=== PATIENT | female | born 1945 | race Caucasian/White ===

== ENCOUNTER 2017-07-03 22:46 | Inpatient (IN) | payer MEDICARE, MEDICAID ==
[2017-07-03 22:46] VITALS: BMI 41.9
[2017-07-03] MEDS ORDERED: cefTRIAXone IV 1 gm in Dextros 50 ML IVPB ONE ×2 (23:08→23:53)
[2017-07-03] MEDS ORDERED: DEXTROS IVPB STA (23:09)
[2017-07-03] MEDS ORDERED: CEFTRIAXONE IVPB STA (23:09)
[2017-07-03] MEDS ORDERED: WATER IVPB STA (23:09)
[2017-07-03] MEDS ORDERED: DEXTROSE 5% IVPB STA (23:09)
--- NOTE | 2017-07-03 23:12 | C.PDOC ---
History Of Present Illness 71 year old female is brought to the ED by EMS for evaluation of a seizure. Patient was brought in from [place] due to having high fevr of 102, tachycardia at 140 BPM. Patient is baseline aphasic sp CVA, upon arrival to the ED patient was shaking and 2 mg of ativan was given. Patient unable to answer questions. Chief Complaint (Nursing): Fever History Per: EMS History/Exam Limitations: clinical condition Onset/Duration Of Symptoms: Hrs Current Symptoms Are (Timing): Still Present Associated Symptoms: Fever Recent travel outside of the [place]: No Additional History Per: Patient Past Medical History Reviewed: Historical Data, Nursing Documentation, Vital Signs Vital Signs: Last Vital Signs Temp 100.9 F H 07/04/17 01:45 Pulse 109 H 07/04/17 04:00 Resp 25 H 07/04/17 04:00 BP 114/58 L 07/04/17 04:00 Pulse Ox 100 07/04/17 04:17 - Medical History PMH: Depression, Diabetes, HTN, Hypercholesterolemia, Seizures Denies: Asthma, Atrial Fibrillation, Bronchitis, Cardia Arrhythmia, CHF, COPD , Emphysema, Mitral Valve Prolapse, Peripheral Edema, Pneumonia, Pulmonary Embolism, Chronic Kidney Disease, Sleep Apnea Surgical History: Cholecystectomy, Tonsillectomy Denies: Pacemaker - [facility] Procedures ASSISTANCE WITH RESPIRATORY VENTILATION, 24-96 HRS, CPAP (05/19/16) DRAINAGE OF SPINAL CANAL, PERCUTANEOUS APPROACH, DIAGNOSTIC (02/21/16) DRAINAGE OF STOMACH WITH DRAINAGE DEVICE, VIA OPENING (02/21/16) EXCISION OF STOMACH, ENDO, DIAGN (02/21/16) INSERTION OF FEEDING DEVICE INTO STOMACH, PERC APPROACH (02/21/16) INTRODUCTION OF NUTRITIONAL INTO UP GI, VIA OPENING (05/19/16) Family History: States: Unknown Family Hx - Social History Hx Tobacco Use: Yes Hx Alcohol Use: No Hx Substance Use: No - Immunization History Hx Tetanus Toxoid Vaccination: Yes Hx Influenza Vaccination: Yes Hx Pneumococcal Vaccination: Yes Review Of Systems Review Of Systems: ROS cannot be obtained secondary to pt's inabilty to answer questions. Physical Exam - Physical Exam Appears: Non-toxic, Other (Unresponsive, focal seizure noted, left side twitching) Skin: Normal Color, Warm, Dry Head: Atraumatic, Normacephalic Nose: No Discharge, No Deformity Oral Mucosa: Moist Neck: Normal ROM, Supple Chest: Symmetrical Cardiovascular: Rhythm Regular, No Murmur Respiratory: Normal Breath Sounds, No Rales, No Rhonchi, No Wheezing Gastrointestinal/Abdominal: Soft, No Tenderness, No Guarding, No Rebound Extremity: No Tenderness, No Pedal Edema Neurological/Psych: Other (Unresponsive ) ED Course And Treatment - Laboratory Results Result Diagrams: 07/04/17 00:09 07/04/17 00:09 ECG: Interpreted By Me ECG Rhythm: Sinus Tachycardia ECG Interpretation: Normal Interpretation Of ECG: NSSTTW changes,sinus tach at 130 bpm O2 Sat by Pulse Oximetry: 100 (On RA) Pulse Ox Interpretation: Normal Critical Care Time - Critical Care Note Total Time (in mins): 45 Documented critical care: time excludes all time spent performing seperately billable procedures. Lumbar Puncture - Time Out Time Out: Side verified, Site verified, Patient ID confirmed, Sterile procedures obs. - Consent obtained Consent obtained: Emergent consent implied - Performed by Performed by: Attending Physician - Indications Indication(s): Suspected menigitis - Contraindications Contraindications: None - Patient Position Patient position: Left lateral decubitus - Local Anesthetic Location: L4/L5 - Complications Complications: None - Patient tolerated procedure Patient tolerated procedure: Well Medical Decision Making Medical Decision Making: Impression: possible seizure Plan: * VBG * EKG * LP * Labs * CXR * Ativan 2 mg IVP * IV fluids * Rocephin 50 ml IVPB * Tylenol 650 mg SC * Blood cult * Urine cult * CSF culkt * Urine cult * UA Disposition - Disposition Disposition: HOSPITALIZED Disposition Time: 04:19 Condition: SERIOUS - Clinical Impression Clinical Impression: Fever, Severe sepsis, Seizure disorder, atonic - Scribe Statement The provider has reviewed the documentation as recorded by the Scribe Colton Payan All medical record entries made by the Scribe were at my direction and personally dictated by me. I have reviewed the chart and agree that the record accurately reflects my personal performance of the history, physical exam, medical decision making, and the department course for this patient. I have also personally directed, reviewed, and agree with the discharge instructions and disposition.
[2017-07-03] MEDS ORDERED: Sodium Chloride 0.9% 2,000 ML ONE (23:39)
[2017-07-04 00:01] LABS: VENOUS BLOOD GAS BASE EXCESS 1.2 mmol/L (0.0-2.0); VENOUS BLOOD GAS PCO2 63 mmHg (40-60); VENOUS BLOOD GAS PO2 93 mm/Hg (30-55); VENOUS BLOOD PH 7.28 (7.32-7.43)
[2017-07-04 00:35] LABS: ALB/GLOB RATIO 1.1 (1.0-2.1); ALBUMIN 4.5 g/dL (3.5-5.0); ALT/SGPT 25 U/L (9-52); AST/SGOT 46 U/L (14-36); BLOOD UREA NITROGEN 45 mg/dL (7-17); CALCIUM 10.2 mg/dl (8.6-10.4); GFR AFRICAN-AMERICAN > 60; GFR NON-AFRICAN AMERICAN > 60
[2017-07-04 00:38] LABS: INR 1.1; PROTHROMBIN TIME 12.2 SECONDS (9.7-12.2)
[2017-07-04 00:41] LABS: BASO # 0.1 K/uL (0.0-0.2); BASO % 0.3 % (0.0-2.0); HEMOGLOBIN 14.8 g/dL (11.0-16.0); LYMPH # 0.9 K/uL (1.0-4.3); LYMPH % 4.7 % (20.0-40.0); MEAN CELL VOLUME 87.2 fL (81.0-99.0); MEAN CORPUSCULAR HEMOGLOBIN 28.3 pg (27.0-31.0); MEAN CORPUSCULAR HGB CONC 32.4 g/dL (33.0-37.0); MEAN PLATELET VOLUME 10.8 fL (7.2-11.7); MONO # 0.5 K/uL (0.0-0.8); MONO % 2.7 % (0.0-10.0); NEUT # 17.9 K/uL (1.8-7.0); NEUT % 92.3 % (50.0-75.0); NRBC % 0.2 % (0.0-2.0); PLATELET COUNT 368 K/uL (130-400); RBC 5.22 Mil/uL (3.80-5.20); RED CELL DISTRIBUTION WIDTH 13.8 % (11.5-14.5); WHITE BLOOD COUNT 19.4 K/uL (4.8-10.8)
[2017-07-04 00:48] LABS: B-TYPE NATRIURETIC PEPTIDE 323 pg/mL (0-900)
[2017-07-04] MEDS: Lactated Ringer's 1,000 ML IV SCH ×2 (01:40→04:11)
[2017-07-04] MEDS ORDERED: Lactated Ringer's 1,000 ML ONE ×2 (01:45→04:12)
[2017-07-04 01:59] LABS: FLUID TYPE SPINAL FLUID
[2017-07-04 02:23] LABS: SQUAMOUS EPITHIAL < 1 /hpf (0-5); URINE BACTERIA FEW (<OCC); URINE BILIRUBIN NEGATIVE (NEGATIVE); URINE BLOOD 1+ (NEGATIVE); URINE CLARITY Hazy (Clear); URINE COLOR Amber (YELLOW); URINE GLUCOSE (UA) NORMAL (Normal); URINE LEUKOCYTE ESTERASE NEG Leu/uL (Negative); URINE NITRATE NEGATIVE (NEGATIVE); URINE PROTEIN 2+ mg/dL (NEGATIVE)
[2017-07-04 02:26] LABS: ARTERIAL BLOOD GAS HCO3 30.4 mmol/L (21-28); ARTERIAL BLOOD GAS HEMOGLOBIN 12.6 g/dL (11.7-17.4); ARTERIAL BLOOD GAS O2 SAT 96.6 % (95-98); ARTERIAL BLOOD GAS PCO2 71 mm/Hg (35-45); ARTERIAL BLOOD GAS PH 7.31 (7.35-7.45); ARTERIAL BLOOD GAS PO2 76 mm/Hg (80-100); ARTERIAL BLOOD GAS TCO2 37.9 mmol/L (22-28)
[2017-07-04 02:43] LABS: CSF APPEARANCE CLEAR/COLORLESS (CLEAR); CSF MONO/MACROPHAGE 9 % (0-0); CSF VOLUME 1 mL (0-1)
--- NOTE | 2017-07-04 02:50 | CT ---
EXAM: CT Head Without Intravenous Contrast CLINICAL HISTORY: 71 years old, female; Pain; Headache and other: Seizure , code spcesis; Patient HX: 05-19-16 TECHNIQUE: Axial computed tomography images of the head/brain without intravenous contrast. All CT scans at this facility use one or more dose reduction techniques, viz.: automated exposure control; ma/kV adjustment per patient size (including targeted exams where dose is matched to indication; i.e. head); or iterative reconstruction technique. 382 images are submitted. Coronal and sagittal reformatted images were created and reviewed. Axial reformatted images were created and reviewed. COMPARISON: CT - HEAD W/O CONTRAST 2016-05-19 17:25 FINDINGS: Brain: Cerebral and cerebellar volume loss. Patchy hypodensity is seen in the periventricular and subcortical white matter. No hemorrhage. Ventricles: Ventriculomegaly. Bones/joints: Unremarkable. No acute fracture. Soft tissues: Unremarkable. Sinuses: Unremarkable. No acute sinusitis. Mastoid air cells: Unremarkable. No mastoid effusion. Orbits: The globe and lens are intact. IMPRESSION: No evidence of an acute intracranial hemorrhage, midline shift or mass effect is identified.
[2017-07-04 04:40] LABS: BANDS 1 % (0-2); LYMPHOCYTE 11 % (20-40); NEUTROPHIL 88 % (50-75); PLATELET ESTIMATE NORMAL (NORMAL); TOTAL CELLS COUNTED 100
[2017-07-04] MEDS ORDERED: (Novolin R) Insulin Human Regular 100 units/ml vial SC SCH ×2 (06:00→12:00)
[2017-07-04 06:38] LABS: VENOUS BLOOD GAS BASE EXCESS 4.5 mmol/L (0.0-2.0); VENOUS BLOOD GAS PCO2 61 mmHg (40-60); VENOUS BLOOD GAS PO2 49 mm/Hg (30-55); VENOUS BLOOD PH 7.33 (7.32-7.43)
[2017-07-04 06:48] LABS: INR 1.1; PROTHROMBIN TIME 12.2 SECONDS (9.7-12.2)
--- NOTE | 2017-07-04 06:49 | CP.PCM.CON ---
History of Present Illness - History of Present Illness History of Present Illness: 71 F with h/o anoxic injury, siezure, recent fever, with seizure, with uti recently sent in from [place] for fever, ams, shaking. In ER patient was given ativan the shaking stopped. Temp was 104, tachycardic needing about 40% fio2, hemoconcentrated, on labs, non communicative, but would try to close eyes when try to touch cornea/conjuctiva, suggesting some vision, and not status behaviour. Patient admitted to ICU for multiple co-morbidities, sepsis, poor airway protection due anoxia hence higher risk for aspiration. Allergies: none PMHx: DM, HTN, Hypercholesterolemia, depression Meds from [place]:Reviewed PSHx: Cholecystectomy, Tonsillectomy, s/p peg Family Hx: unknown Social Hx: 1ppd smoker x 30-40years, no alcohol or substance use Past Patient History - Past Medical History & Family History Past Medical History?: Yes - Past Social History Smoking Status: Former Smoker Home Situation {Lives}: Longterm Domestic Violence: Negative - CARDIAC Hx Atrial Fibrillation: No Hx Cardia Arrhythmia: No Hx Congestive Heart Failure: No Hx Hypercholesterolemia: Yes Hx Hypertension: Yes Hx Mitral Valve Prolapse: No Hx Pacemaker: No Hx Peripheral Edema: No - PULMONARY Hx Asthma: No Hx Bronchitis: No Hx Chronic Obstructive Pulmonary Disease (COPD): No Hx Emphysema: No Hx Pneumonia: No Hx Pulmonary Embolism: No Hx Sleep Apnea: No - NEUROLOGICAL Hx Seizures: Yes - HEENT Hx HEENT Problems: No - RENAL Hx Chronic Kidney Disease: No - ENDOCRINE/METABOLIC Hx Diabetes Mellitus Type 1: Yes - HEMATOLOGICAL/ONCOLOGICAL Hx Blood Disorders: No - INTEGUMENTARY Hx Dermatological Problems: No - MUSCULOSKELETAL/RHEUMATOLOGICAL Hx Musculoskeletal Disorders: No - GASTROINTESTINAL Other/Comment: Patient verbalized having diarrhea and vomitting for 3 days, No diarrhea nor vimitting since admission. - GENITOURINARY/GYNECOLOGICAL Hx Genitourinary Disorders: No - PSYCHIATRIC Hx Depression: Yes Hx Substance Use: No - SURGICAL HISTORY Hx Cholecystectomy: Yes Hx Tonsillectomy: Yes - ANESTHESIA Hx Anesthesia: Yes Hx Anesthesia Reactions: No Hx Malignant Hyperthermia: No Meds Allergies/Adverse Reactions: Allergies Allergy/AdvReac Type Severity Reaction Status Date / Time No Known Allergies Allergy Verified 07/03/17 23:18 - Medications Medications: Current Medications Acetaminophen (Tylenol 650 Mg Supp) [address] Q6 PRN PRN Reason: Fever >100.4 F Enoxaparin Sodium (Lovenox) 40 mg SC DAILY [facility] Lactated Ringer's (Lactated Ringer's) 1,000 mls @ 250 mls/hr IV .Q4H DENNIS Last Admin: 07/04/17 04:11 Dose: 250 mls/hr Potassium Chloride 20 meq/ (Sodium Chloride) 1,010 mls @ 100 mls/hr IV .Q10H6M [facility] Insulin Detemir (Levemir) 22 unit SC HS [facility] Insulin Human Regular (Novolin R) 0 unit SC Q6 DENNIS PRN Reason: Protocol Levetiracetam (Keppra) 500 mg PEG BID [facility]NIS Metoprolol Tartrate (Lopressor) 25 mg PEG DAILY [facility] Rosuvastatin Calcium (Crestor) 10 mg PEG DAILY [facility] Physical Exam - Additional Findings Additional findings: HEENT movements sometime appear focusing Neck Supple Chest Clear CVS regular, tachycardia PA peg site oozing, small erythema Ext no edema, both feet drop, left arm contracture, right arm some flickering movements [employer] aphaxic, not purposeful moements, present conjuctival and corneal reflexs Results - Vital Signs Recent Vital Signs: Last Vital Signs Temp 100.6 F H 07/04/17 04:50 Pulse 109 H 07/04/17 04:00 Resp 25 H 07/04/17 04:00 BP 114/58 L 07/04/17 04:00 Pulse Ox 100 07/04/17 04:19 - Labs Result Diagrams: 07/04/17 00:09 07/04/17 00:09 Labs: Laboratory Results - last 24 hr 07/03/17 07/04/17 07/04/17 23:50 00:09 00:09 WBC 19.4 H D RBC 5.22 H Hgb 14.8 D Hct 45.5 MCV 87.2 MCH 28.3 MCHC 32.4 L RDW 13.8 Plt Count 368 D MPV 10.8 Neut % (Auto) 92.3 H Lymph % (Auto) 4.7 L Bradley % (Auto) 2.7 Eos % (Auto) 0.0 Baso % (Auto) 0.3 Neut # (Auto) 17.9 H Lymph # (Auto) 0.9 L Bradley # (Auto) 0.5 Eos # (Auto) 0.0 Baso # (Auto) 0.1 Neutrophils % (Manual) 88 H Band Neutrophils % 1 Lymphocytes % (Manual) 11 L Platelet Estimate Normal PT 12.2 INR 1.1 APTT 26 Puncture Site pCO2 pO2 93 H HCO3 ABG pH ABG Total CO2 ABG O2 Saturation ABG Base Excess ABG Hemoglobin ABG Carboxyhemoglobin POC ABG HHb (Measured) ABG Methemoglobin Arthur Test VBG pH 7.28 L VBG pCO2 63 H VBG HCO3 25.8 VBG Total CO2 31.5 H VBG O2 Sat (Calc) 98.3 H VBG Base Excess 1.2 VBG Potassium 4.9 A-a O2 Difference Respiratory Index Hgb O2 Saturation Sodium 152.0 H Chloride 115.0 H Glucose 319 H Lactate 3.4 H Liter Flow FiO2 Crit Value Called To Crit Value Called By Crit Value Read Back Blood Gas Notified Time Potassium Carbon Dioxide Anion Gap BUN Creatinine Est GFR ( Amer) Est GFR (Non-Af Amer) Random Glucose Lactic Acid Calcium Phosphorus Magnesium Total Bilirubin AST ALT Alkaline Phosphatase Troponin I C-React Prot High Sens NT-Pro-B Natriuret Pep Total Protein Albumin Globulin Albumin/Globulin Ratio Venous Blood Potassium 4.9 Urine Color Urine Clarity Urine pH Ur Specific Dixon Urine Protein Urine Glucose (UA) Urine Ketones Urine Blood Urine Nitrate Urine Bilirubin Urine Urobilinogen Ur Leukocyte Esterase Urine WBC (Auto) Urine RBC (Auto) Ur Squamous Epith Cells Urine Bacteria Urine Yeast (Budding) Fluid Type CSF Volume CSF Appearance CSF WBC CSF RBC CSF Total Cell Counted CSF Neutrophils CSF Lymphocytes CSF Monos/Macrophages CSF Comment CSF Glucose 07/04/17 07/04/17 07/04/17 00:09 00:09 00:22 WBC RBC Hgb Hct MCV MCH MCHC RDW Plt Count MPV Neut % (Auto) Lymph % (Auto) Bradley % (Auto) Eos % (Auto) Baso % (Auto) Neut # (Auto) Lymph # (Auto) Bradley # (Auto) Eos # (Auto) Baso # (Auto) Neutrophils % (Manual) Band Neutrophils % Lymphocytes % (Manual) Platelet Estimate PT INR APTT Puncture Site pCO2 pO2 HCO3 ABG pH ABG Total CO2 ABG O2 Saturation ABG Base Excess ABG Hemoglobin ABG Carboxyhemoglobin POC ABG HHb (Measured) ABG Methemoglobin Arthur Test VBG pH VBG pCO2 VBG HCO3 VBG Total CO2 VBG O2 Sat (Calc) VBG Base Excess VBG Potassium A-a O2 Difference Respiratory Index Hgb O2 Saturation Sodium 152 H Chloride 97 L Glucose Lactate Liter Flow FiO2 Crit Value Called To Crit Value Called By Crit Value Read Back Blood Gas Notified Time Potassium 3.2 L Carbon Dioxide 32 H Anion Gap 26 H BUN 45 H Creatinine 0.9 Est GFR ( Amer) > 60 Est GFR (Non-Af Amer) > 60 Random Glucose 327 H Lactic Acid 3.9 H Calcium 10.2 Phosphorus 4.7 H Magnesium 2.0 Total Bilirubin 0.8 AST 46 H ALT 25 Alkaline Phosphatase 75 Troponin I 0.3950 H* C-React Prot High Sens NT-Pro-B Natriuret Pep 323 Total Protein 8.5 H Albumin 4.5 Globulin 4.0 H Albumin/Globulin Ratio 1.1 Venous Blood Potassium Urine Color Urine Clarity Urine pH Ur Specific Dixon Urine Protein Urine Glucose (UA) Urine Ketones Urine Blood Urine Nitrate Urine Bilirubin Urine Urobilinogen Ur Leukocyte Esterase Urine WBC (Auto) Urine RBC (Auto) Ur Squamous Epith Cells Urine Bacteria Urine Yeast (Budding) Fluid Type CSF Volume CSF Appearance CSF WBC CSF RBC CSF Total Cell Counted CSF Neutrophils CSF Lymphocytes CSF Monos/Macrophages CSF Comment CSF Glucose 168 H* 07/04/17 07/04/17 07/04/17 01:58 02:08 02:20 WBC RBC Hgb Hct MCV MCH MCHC RDW Plt Count MPV Neut % (Auto) Lymph % (Auto) Bradley % (Auto) Eos % (Auto) Baso % (Auto) Neut # (Auto) Lymph # (Auto) Bradley # (Auto) Eos # (Auto) Baso # (Auto) Neutrophils % (Manual) Band Neutrophils % Lymphocytes % (Manual) Platelet Estimate PT INR APTT Puncture Site Rb pCO2 71 H* pO2 76 L HCO3 30.4 H ABG pH 7.31 L ABG Total CO2 37.9 H ABG O2 Saturation 96.6 ABG Base Excess 7.1 H ABG Hemoglobin 12.6 ABG Carboxyhemoglobin 1.6 H POC ABG HHb (Measured) 3.3 ABG Methemoglobin 1.6 Arthur Test Na VBG pH VBG pCO2 VBG HCO3 VBG Total CO2 VBG O2 Sat (Calc) VBG Base Excess VBG Potassium A-a O2 Difference 85.0 Respiratory Index 1.1 Hgb O2 Saturation 93.5 L Sodium Chloride Glucose Lactate Liter Flow 4.0 FiO2 35.0 Crit Value Called To Rosalina vernon/rn Crit Value Called By Navid reich/rt Crit Value Read Back Y Blood Gas Notified Time 230 Potassium Carbon Dioxide Anion Gap BUN Creatinine Est GFR ( Amer) Est GFR (Non-Af Amer) Random Glucose Lactic Acid Calcium Phosphorus Magnesium Total Bilirubin AST ALT Alkaline Phosphatase Troponin I C-React Prot High Sens NT-Pro-B Natriuret Pep Total Protein Albumin Globulin Albumin/Globulin Ratio Venous Blood Potassium Urine Color Wendi Urine Clarity Hazy Urine pH 5.0 Ur Specific Dixon 1.025 Urine Protein 2+ H Urine Glucose (UA) Normal Urine Ketones Trace Urine Blood 1+ H Urine Nitrate Negative Urine Bilirubin Negative Urine Urobilinogen 2.0 H Ur Leukocyte Esterase Neg Urine WBC (Auto) 12 H Urine RBC (Auto) 21 H Ur Squamous Epith Cells < 1 Urine Bacteria Few H Urine Yeast (Budding) Few H Fluid Type Spinal fluid CSF Volume 1 CSF Appearance Clear/colorless CSF WBC 9.0 H CSF RBC 290.0 H CSF Total Cell Counted 100 H CSF Neutrophils 11 H CSF Lymphocytes 80.0 H CSF Monos/Macrophages 9 H CSF Comment CSF Glucose 07/04/17 07/04/17 04:16 05:18 WBC RBC Hgb Hct MCV MCH MCHC RDW Plt Count MPV Neut % (Auto) Lymph % (Auto) Bradley % (Auto) Eos % (Auto) Baso % (Auto) Neut # (Auto) Lymph # (Auto) Bradley # (Auto) Eos # (Auto) Baso # (Auto) Neutrophils % (Manual) Band Neutrophils % Lymphocytes % (Manual) Platelet Estimate PT INR APTT Puncture Site pCO2 pO2 HCO3 ABG pH ABG Total CO2 ABG O2 Saturation ABG Base Excess ABG Hemoglobin ABG Carboxyhemoglobin POC ABG HHb (Measured) ABG Methemoglobin Arthur Test VBG pH VBG pCO2 VBG HCO3 VBG Total CO2 VBG O2 Sat (Calc) VBG Base Excess VBG Potassium A-a O2 Difference Respiratory Index Hgb O2 Saturation Sodium Chloride Glucose Lactate Liter Flow FiO2 Crit Value Called To Crit Value Called By Crit Value Read Back Blood Gas Notified Time Potassium Carbon Dioxide Anion Gap BUN Creatinine Est GFR ( Amer) Est GFR (Non-Af Amer) Random Glucose Lactic Acid 0.9 Calcium Phosphorus Magnesium Total Bilirubin AST ALT Alkaline Phosphatase Troponin I C-React Prot High Sens 3.75 H NT-Pro-B Natriuret Pep Total Protein Albumin Globulin Albumin/Globulin Ratio Venous Blood Potassium Urine Color Urine Clarity Urine pH Ur Specific Dixon Urine Protein Urine Glucose (UA) Urine Ketones Urine Blood Urine Nitrate Urine Bilirubin Urine Urobilinogen Ur Leukocyte Esterase Urine WBC (Auto) Urine RBC (Auto) Ur Squamous Epith Cells Urine Bacteria Urine Yeast (Budding) Fluid Type CSF Volume CSF Appearance CSF WBC CSF RBC CSF Total Cell Counted CSF Neutrophils CSF Lymphocytes CSF Monos/Macrophages CSF Comment CSF Glucose Assessment & Plan - Assessment and Plan (Free Text) Assessment: Assessment Sepsis with fever, leucocytosis, secondary seizure source dd is urine, peg site , bacterimia, cdiff, aspiration, previously esbs psoitive Aphasia from anoxic damage h/o seizures from second, fever could be secondary to seizures as well, but will consider infectious etiology as primay and rule it out CAD IDDM, uncontrolled Elevated lactate, high sodium, hemoconcentration probably from fever and siezure Plan: Plan IVF Supportive care Emperic meropenem, vancomycin ID, GI for peg site infn, neuro consult GI/DVT prophylaxis Home meds continue keppra, reduce dose of levimir, npo till gi assess peg Asperation/seizure precautions.
[2017-07-04 06:53] LABS: BASO % 0.2 % (0.0-2.0); HEMOGLOBIN 11.6 g/dL (11.0-16.0); LYMPH # 0.7 K/uL (1.0-4.3); LYMPH % 5.2 % (20.0-40.0); MEAN CELL VOLUME 87.8 fL (81.0-99.0); MEAN CORPUSCULAR HEMOGLOBIN 28.7 pg (27.0-31.0); MEAN CORPUSCULAR HGB CONC 32.7 g/dL (33.0-37.0); MEAN PLATELET VOLUME 10.4 fL (7.2-11.7); MONO # 0.4 K/uL (0.0-0.8); MONO % 3.1 % (0.0-10.0); NEUT # 12.3 K/uL (1.8-7.0); NEUT % 91.5 % (50.0-75.0); PLATELET COUNT 206 K/uL (130-400); RBC 4.05 Mil/uL (3.80-5.20); RED CELL DISTRIBUTION WIDTH 13.4 % (11.5-14.5); WHITE BLOOD COUNT 13.5 K/uL (4.8-10.8)
[2017-07-04 06:54] LABS: ALB/GLOB RATIO 1.2 (1.0-2.1); ALBUMIN 3.4 g/dL (3.5-5.0); ALT/SGPT 34 U/L (9-52); AST/SGOT 41 U/L (14-36); BLOOD UREA NITROGEN 39 mg/dL (7-17); CALCIUM 8.7 mg/dl (8.6-10.4); GFR AFRICAN-AMERICAN > 60; GFR NON-AFRICAN AMERICAN > 60; MAGNESIUM 1.9 mg/dL (1.6-2.3)
[2017-07-04] MEDS: Potassium Chloride 20 MEQ in Sodium Chloride 0.45% 1,000 ML IV SCH ×2 (07:01→18:14)
[2017-07-04] MEDS ORDERED: Imipenem/Cilastatin 500 MG in Sodium Chloride 100 ML IVPB SCH (08:00)
[2017-07-04] MEDS ORDERED: (Novolog Mix 70/30) Insulin Aspart/Insulin Aspar 100 units/ml SC SCH (08:15)
[2017-07-04 08:25] LABS: BANDS 6 % (0-2); LYMPHOCYTE 3 % (20-40); MONOCYTE 2 % (0-10); NEUTROPHIL 89 % (50-75); PLATELET ESTIMATE NORMAL (NORMAL); TOTAL CELLS COUNTED 100
--- NOTE | 2017-07-04 09:27 | RAD ---
HISTORY: Sepsis Patient COMPARISON: Chest x-ray performed 05/19/16 TECHNIQUE: Chest, one view. FINDINGS: LUNGS: Patchy opacity, right lateral mid lung zone. Linear atelectasis, left lung base. PLEURA: No significant pleural effusion identified. No definite pneumothorax . CARDIOVASCULAR: Heart size appears within normal limits. Atherosclerotic calcification of the aortic knob. OSSEOUS STRUCTURES: No acute osseous abnormality identified. VISUALIZED UPPER ABDOMEN: Unremarkable. OTHER FINDINGS: None. IMPRESSION: Patchy opacity, right lateral mid lung zone. Suspect infiltrate. Recommend follow-up to resolution. Linear atelectasis, left lung base. Study marked for PA review.
[2017-07-04] MEDS ORDERED: levETIRAcetam 100 mg/ml (5ml) Oral Syringe PEG SCH ×2 (10:00)
[2017-07-04] MEDS: Enoxaparin 40 mg Syringe SC SCH (11:11)
[2017-07-04] MEDS: Multiple Vitamins Oral Solution PEG SCH (11:15)
[2017-07-04] MEDS: Vancomycin 1 gm/NS 200 ml 1 GM/200 ML BAG IVPB SCH ×2 (11:16→20:45)
--- NOTE | 2017-07-04 11:48 | CP.CCUPN ---
<Rhett Sinha - Last Filed: 07/04/17 11:45> CCU Subjective - Physician Review Subjective (Free Text): Patient seen and examined. Hx of anoxic brain injury, non-communicative. Unable to obtain review of systems. Came in with peg, currently on ventimask. CCU Objective - Vital Signs / Intake & Output Intake and Output (Last 8hrs): Intake & Output 07/03/17 07/04/17 07/04/17 22:59 06:59 14:59 Intake Total 3000 100 Output Total 700 150 Balance 2300 -50 Weight 180 lb 143 lb 1.6 oz Intake: IV 3000 Intake, IV Amount 100 left forearm 100 Oral 0 Output: Urine 700 150 Urethral (Flores) 300 150 Other: Voiding Method Indwelling Catheter # Bowel Movements 1 0 - Physical Exam Narrative Physical Exam (Free Text): HEENT movements sometime appear focusing Physical Exam Limitations: Positive for: Altered Mental Status (HANDLE FINISHER aphaxic, not purposeful moements, present conjuctival and corneal reflexs) Respiratory/Chest: Positive for: Clear to Auscultation Cardiovascular: Positive for: Regular Rate and Rhythm, Normal S1, S2, Tachycardic. Negative for: Murmurs Abdomen: Positive for: Feeding Tubes (PA peg site oozing, small erythema) Upper Extremity: Positive for: Other (Ext no edema, both feet drop, left arm contracture, right arm some flickering movements) - Medications Active Medications: Active Medications Generic Name Dose Route Start Last Admin Trade Name Freq PRN Reason Stop Dose Admin Acetaminophen 650 mg 07/04/17 05:58 07/04/17 06:45 Tylenol 650 Mg Supp MO 650 mg Q6 PRN Administration Fever >100.4 F Aspirin 81 mg 07/04/17 11:15 07/04/17 11:14 Aspirin Chewable PO 81 mg DAILY DENNIS Administration Enoxaparin Sodium 40 mg 07/04/17 10:00 Lovenox SC DAILY DENNIS Famotidine 40 mg 07/04/17 10:00 07/04/17 11:14 Pepcid IVP 40 mg BID DENNIS Administration Potassium Chloride 20 meq/ 1,010 mls @ 100 mls/hr 07/04/17 06:15 07/04/17 07: 01 Sodium Chloride IV 100 mls/hr .[id number] DENNIS Administration Vancomycin/Sodium Chloride 1 gm in 200 mls @ 133.333 mls/hr 07/04/17 09:00 11:16 Vancomycin 1 Gm/Ns 200 Ml IVPB 07/09/17 09:01 133.333 mls/hr Q12H DENNIS Administration Meropenem 1 gm/ Sodium 100 mls @ 100 mls/hr 07/04/17 14:00 Chloride IVPB Q8 DENNIS Potassium Chloride 20 meq in 100 mls @ 50 mls/hr 07/04/17 11:39 Potassium Chloride 20 Meq/100 Ml IVPB 07/04/17 13:38 ONCE ONE Insulin Aspart 0 unit 07/04/17 12:00 Novolog SC Q6 DENNIS Protocol Insulin Detemir 22 unit 07/04/17 22:00 Levemir SC HS [facility] Levetiracetam 750 mg 07/04/17 10:00 07/04/17 11:15 Keppra PEG 750 mg Q12 DENNIS Administration Lorazepam 0.5 mg 07/04/17 11:08 Ativan IVP Q6H PRN Anxiety Metoprolol Tartrate 12.5 mg 07/04/17 10:00 07/04/17 11:14 Lopressor PEG 12.5 mg Q12 DENNIS Administration Multivitamins/Vitamin C 5 ml 07/04/17 10:00 07/04/17 11:15 Multi-Delyn Liquid PEG 5 ml DAILY DENNIS Administration Rosuvastatin Calcium 10 mg 07/04/17 10:00 07/04/17 11:14 Crestor PEG 10 mg DAILY DENNIS Administration Zinc Sulfate 220 mg 07/04/17 10:00 07/04/17 11:14 Zinc Sulfate 220 Mg Cap PEG 220 mg DAILY DENNIS Administration - Patient Studies Lab Studies: Microbiology Studies 07/03/17 23:29 Gram Stain - Final Cerebral Spinal Fluid Lab Studies 07/04/17 07/04/17 07/04/17 Range/Units 08:47 06:36 06:36 WBC (4.8-10.8) K/uL RBC (3.80-5.20) Mil/uL Hgb (11.0-16.0) g/dL Hct (34.0-47.0) % MCV (81.0-99.0) fL MCH (27.0-31.0) pg MCHC (33.0-37.0) g/dL RDW (11.5-14.5) % Plt Count (130-400) K/uL MPV (7.2-11.7) fL Neut % (Auto) (50.0-75.0) % Lymph % (Auto) (20.0-40.0) % Lake % (Auto) (0.0-10.0) % Eos % (Auto) (0.0-4.0) % Baso % (Auto) (0.0-2.0) % Neut # (Auto) (1.8-7.0) K/uL Lymph # (Auto) (1.0-4.3) K/uL Lake # (Auto) (0.0-0.8) K/uL Eos # (Auto) (0.0-0.7) K/uL Baso # (Auto) (0.0-0.2) K/uL Neutrophils % (Manual) (50-75) % Band Neutrophils % (0-2) % Lymphocytes % (Manual) (20-40) % Monocytes % (Manual) Platelet Estimate (NORMAL) Basophilic Stippling PT 12.2 (9.7-12.2) SECONDS INR 1.1 APTT 27 (21-34) SECONDS Puncture Site pCO2 (35-45) mm/Hg pO2 (30-55) mm/Hg HCO3 (21-28) mmol/L ABG pH (7.35-7.45) ABG Total CO2 (22-28) mmol/L ABG O2 Saturation (95-98) % ABG Base Excess (-2.0-3.0) mmol/L ABG Hemoglobin (11.7-17.4) g/dL ABG Carboxyhemoglobin (0.5-1.5) % POC ABG HHb (Measured) (0.0-5.0) % ABG Methemoglobin (0.0-3.0) % Arthur Test VBG pH (7.32-7.43) VBG pCO2 (40-60) mmHg VBG HCO3 mmol/L VBG Total CO2 (22-28) mmol/L VBG O2 Sat (Calc) (40-65) % VBG Base Excess (0.0-2.0) mmol/L VBG Potassium (3.6-5.2) mmol/L A-a O2 Difference mm/Hg Respiratory Index Hgb O2 Saturation (95.0-98.0) % Sodium 145 (132-148) mmol/l Chloride 101 (98-107) mmol/L Glucose (65-105) mg/dl Lactate (0.7-2.1) mmol/L Liter Flow FiO2 % Crit Value Called To Crit Value Called By Crit Value Read Back Blood Gas Notified Time Potassium 3.1 L (3.6-5.2) mmol/L Carbon Dioxide 31 H (22-30) mmol/L Anion Gap 16 (10-20) BUN 39 H (7-17) mg/dL Creatinine 0.6 L (0.7-1.2) mg/dL Est GFR ( Amer) > 60 Est GFR (Non-Af Amer) > 60 POC Glucose (mg/dL) (65-110) mg/dL Random Glucose 390 H (65-105) mg/dL Hemoglobin A1c 7.1 H (4.2-6.5) % Lactic Acid (0.7-2.1) mmol/L Calcium 8.7 (8.6-10.4) mg/dl Phosphorus (2.5-4.5) mg/dL Magnesium 1.9 (1.6-2.3) mg/dL Total Bilirubin 0.5 (0.2-1.3) mg/dL AST 41 H (14-36) U/L ALT 34 (9-52) U/L Alkaline Phosphatase 49 (38-126) U/L Total Creatine Kinase 504 H (30-135) U/L Troponin I 1.2900 H* (0.00-0.120) ng/mL C-React Prot High Sens (1.00-3.00) mg/L NT-Pro-B Natriuret Pep (0-900) pg/mL Total Protein 6.3 (6.3-8.3) g/dL Albumin 3.4 L D (3.5-5.0) g/dL Globulin 2.9 (2.2-3.9) gm/dL Albumin/Globulin Ratio 1.2 (1.0-2.1) Procalcitonin (0.19-0.49) NG/ML Venous Blood Potassium (3.6-5.2) mmol/L Urine Color (YELLOW) Urine Clarity (Clear) Urine pH (5.0-8.0) Ur Specific [place] (1.003-1.030) Urine Protein (NEGATIVE) mg/dL Urine Glucose (UA) (Normal) mg/dL Urine Ketones (NEGATIVE) mg/dL Urine Blood (NEGATIVE) Urine Nitrate (NEGATIVE) Urine Bilirubin (NEGATIVE) Urine Urobilinogen (0.2-1.0) mg/dL Ur Leukocyte Esterase (Negative) Jenise/uL Urine WBC (Auto) (0-5) /hpf Urine RBC (Auto) (0-3) /hpf Ur Squamous Epith Cells (0-5) /hpf Urine Bacteria (<OCC) Urine Yeast (Budding) (NEGATIVE) /hpf Fluid Type CSF Volume (0-1) mL CSF Appearance (CLEAR) CSF WBC (0.0-5.0) /mm3 CSF RBC (0.0-0.0) /mm3 CSF Total Cell Counted (0-0) CSF Neutrophils (0-0) % CSF Lymphocytes (0-0) % CSF Monos/Macrophages (0-0) % CSF Comment CSF Glucose (40-70) mg/dL 07/04/17 07/04/17 07/04/17 Range/Units 06:36 06:36 06:35 WBC 13.5 H (4.8-10.8) K/uL RBC 4.05 (3.80-5.20) Mil/uL Hgb 11.6 D (11.0-16.0) g/dL Hct 35.5 (34.0-47.0) % MCV 87.8 (81.0-99.0) fL MCH 28.7 (27.0-31.0) pg MCHC 32.7 L (33.0-37.0) g/dL RDW 13.4 (11.5-14.5) % Plt Count 206 D (130-400) K/uL MPV 10.4 (7.2-11.7) fL Neut % (Auto) 91.5 H (50.0-75.0) % Lymph % (Auto) 5.2 L (20.0-40.0) % Lake % (Auto) 3.1 (0.0-10.0) % Eos % (Auto) 0.0 (0.0-4.0) % Baso % (Auto) 0.2 (0.0-2.0) % Neut # (Auto) 12.3 H (1.8-7.0) K/uL Lymph # (Auto) 0.7 L (1.0-4.3) K/uL Lake # (Auto) 0.4 (0.0-0.8) K/uL Eos # (Auto) 0.0 (0.0-0.7) K/uL Baso # (Auto) 0.0 (0.0-0.2) K/uL Neutrophils % (Manual) 89 H (50-75) % Band Neutrophils % 6 H (0-2) % Lymphocytes % (Manual) 3 L (20-40) % Monocytes % (Manual) 2 Platelet Estimate Normal (NORMAL) Basophilic Stippling Slight PT (9.7-12.2) SECONDS INR APTT (21-34) SECONDS Puncture Site pCO2 (35-45) mm/Hg pO2 49 (30-55) mm/Hg HCO3 (21-28) mmol/L ABG pH (7.35-7.45) ABG Total CO2 (22-28) mmol/L ABG O2 Saturation (95-98) % ABG Base Excess (-2.0-3.0) mmol/L ABG Hemoglobin (11.7-17.4) g/dL ABG Carboxyhemoglobin (0.5-1.5) % POC ABG HHb (Measured) (0.0-5.0) % ABG Methemoglobin (0.0-3.0) % Arthur Test VBG pH 7.33 (7.32-7.43) VBG pCO2 61 H (40-60) mmHg VBG HCO3 28.0 mmol/L VBG Total CO2 34.1 H (22-28) mmol/L VBG O2 Sat (Calc) 88.6 H (40-65) % VBG Base Excess 4.5 H (0.0-2.0) mmol/L VBG Potassium 3.2 L (3.6-5.2) mmol/L A-a O2 Difference mm/Hg Respiratory Index Hgb O2 Saturation (95.0-98.0) % Sodium 145.0 (132-148) mmol/l Chloride 108.0 H (98-107) mmol/L Glucose 421 H* D (65-105) mg/dl Lactate 1.1 (0.7-2.1) mmol/L Liter Flow FiO2 % Crit Value Called To Luisito rn Crit Value Called By Greg interactive project manager Crit Value Read Back Y Blood Gas Notified Time 638 Potassium (3.6-5.2) mmol/L Carbon Dioxide (22-30) mmol/L Anion Gap (10-20) BUN (7-17) mg/dL Creatinine (0.7-1.2) mg/dL Est GFR ( Amer) Est GFR (Non-Af Amer) POC Glucose (mg/dL) (65-110) mg/dL Random Glucose (65-105) mg/dL Hemoglobin A1c (4.2-6.5) % Lactic Acid (0.7-2.1) mmol/L Calcium (8.6-10.4) mg/dl Phosphorus (2.5-4.5) mg/dL Magnesium (1.6-2.3) mg/dL Total Bilirubin (0.2-1.3) mg/dL AST (14-36) U/L ALT (9-52) U/L Alkaline Phosphatase (38-126) U/L Total Creatine Kinase (30-135) U/L Troponin I (0.00-0.120) ng/mL C-React Prot High Sens (1.00-3.00) mg/L NT-Pro-B Natriuret Pep (0-900) pg/mL Total Protein (6.3-8.3) g/dL Albumin (3.5-5.0) g/dL Globulin (2.2-3.9) gm/dL Albumin/Globulin Ratio (1.0-2.1) Procalcitonin 0.36 (0.19-0.49) NG/ML Venous Blood Potassium 3.2 L (3.6-5.2) mmol/L Urine Color (YELLOW) Urine Clarity (Clear) Urine pH (5.0-8.0) Ur Specific [place] (1.003-1.030) Urine Protein (NEGATIVE) mg/dL Urine Glucose (UA) (Normal) mg/dL Urine Ketones (NEGATIVE) mg/dL Urine Blood (NEGATIVE) Urine Nitrate (NEGATIVE) Urine Bilirubin (NEGATIVE) Urine Urobilinogen (0.2-1.0) mg/dL Ur Leukocyte Esterase (Negative) Jenise/uL Urine WBC (Auto) (0-5) /hpf Urine RBC (Auto) (0-3) /hpf Ur Squamous Epith Cells (0-5) /hpf Urine Bacteria (<OCC) Urine Yeast (Budding) (NEGATIVE) /hpf Fluid Type CSF Volume (0-1) mL CSF Appearance (CLEAR) CSF WBC (0.0-5.0) /mm3 CSF RBC (0.0-0.0) /mm3 CSF Total Cell Counted (0-0) CSF Neutrophils (0-0) % CSF Lymphocytes (0-0) % CSF Monos/Macrophages (0-0) % CSF Comment CSF Glucose (40-70) mg/dL 07/04/17 07/04/17 07/04/17 Range/Units 06:31 05:18 04:16 WBC (4.8-10.8) K/uL RBC (3.80-5.20) Mil/uL Hgb (11.0-16.0) g/dL Hct (34.0-47.0) % MCV (81.0-99.0) fL MCH (27.0-31.0) pg MCHC (33.0-37.0) g/dL RDW (11.5-14.5) % Plt Count (130-400) K/uL MPV (7.2-11.7) fL Neut % (Auto) (50.0-75.0) % Lymph % (Auto) (20.0-40.0) % Lake % (Auto) (0.0-10.0) % Eos % (Auto) (0.0-4.0) % Baso % (Auto) (0.0-2.0) % Neut # (Auto) (1.8-7.0) K/uL Lymph # (Auto) (1.0-4.3) K/uL Lake # (Auto) (0.0-0.8) K/uL Eos # (Auto) (0.0-0.7) K/uL Baso # (Auto) (0.0-0.2) K/uL Neutrophils % (Manual) (50-75) % Band Neutrophils % (0-2) % Lymphocytes % (Manual) (20-40) % Monocytes % (Manual) Platelet Estimate (NORMAL) Basophilic Stippling PT (9.7-12.2) SECONDS INR APTT (21-34) SECONDS Puncture Site pCO2 (35-45) mm/Hg pO2 (30-55) mm/Hg HCO3 (21-28) mmol/L ABG pH (7.35-7.45) ABG Total CO2 (22-28) mmol/L ABG O2 Saturation (95-98) % ABG Base Excess (-2.0-3.0) mmol/L ABG Hemoglobin (11.7-17.4) g/dL ABG Carboxyhemoglobin (0.5-1.5) % POC ABG HHb (Measured) (0.0-5.0) % ABG Methemoglobin (0.0-3.0) % Arthur Test VBG pH (7.32-7.43) VBG pCO2 (40-60) mmHg VBG HCO3 mmol/L VBG Total CO2 (22-28) mmol/L VBG O2 Sat (Calc) (40-65) % VBG Base Excess (0.0-2.0) mmol/L VBG Potassium (3.6-5.2) mmol/L A-a O2 Difference mm/Hg Respiratory Index Hgb O2 Saturation (95.0-98.0) % Sodium (132-148) mmol/l Chloride (98-107) mmol/L Glucose (65-105) mg/dl Lactate (0.7-2.1) mmol/L Liter Flow FiO2 % Crit Value Called To Crit Value Called By Crit Value Read Back Blood Gas Notified Time Potassium (3.6-5.2) mmol/L Carbon Dioxide (22-30) mmol/L Anion Gap (10-20) BUN (7-17) mg/dL Creatinine (0.7-1.2) mg/dL Est GFR ( Amer) Est GFR (Non-Af Amer) POC Glucose (mg/dL) 325 H (65-110) mg/dL Random Glucose (65-105) mg/dL Hemoglobin A1c (4.2-6.5) % Lactic Acid 0.9 (0.7-2.1) mmol/L Calcium (8.6-10.4) mg/dl Phosphorus (2.5-4.5) mg/dL Magnesium (1.6-2.3) mg/dL Total Bilirubin (0.2-1.3) mg/dL AST (14-36) U/L ALT (9-52) U/L Alkaline Phosphatase (38-126) U/L Total Creatine Kinase (30-135) U/L Troponin I (0.00-0.120) ng/mL C-React Prot High Sens 3.75 H (1.00-3.00) mg/L NT-Pro-B Natriuret Pep (0-900) pg/mL Total Protein (6.3-8.3) g/dL Albumin (3.5-5.0) g/dL Globulin (2.2-3.9) gm/dL Albumin/Globulin Ratio (1.0-2.1) Procalcitonin (0.19-0.49) NG/ML Venous Blood Potassium (3.6-5.2) mmol/L Urine Color (YELLOW) Urine Clarity (Clear) Urine pH (5.0-8.0) Ur Specific [place] (1.003-1.030) Urine Protein (NEGATIVE) mg/dL Urine Glucose (UA) (Normal) mg/dL Urine Ketones (NEGATIVE) mg/dL Urine Blood (NEGATIVE) Urine Nitrate (NEGATIVE) Urine Bilirubin (NEGATIVE) Urine Urobilinogen (0.2-1.0) mg/dL Ur Leukocyte Esterase (Negative) Jenise/uL Urine WBC (Auto) (0-5) /hpf Urine RBC (Auto) (0-3) /hpf Ur Squamous Epith Cells (0-5) /hpf Urine Bacteria (<OCC) Urine Yeast (Budding) (NEGATIVE) /hpf Fluid Type CSF Volume (0-1) mL CSF Appearance (CLEAR) CSF WBC (0.0-5.0) /mm3 CSF RBC (0.0-0.0) /mm3 CSF Total Cell Counted (0-0) CSF Neutrophils (0-0) % CSF Lymphocytes (0-0) % CSF Monos/Macrophages (0-0) % CSF Comment CSF Glucose (40-70) mg/dL 07/04/17 07/04/17 07/04/17 Range/Units 02:20 02:08 01:58 WBC (4.8-10.8) K/uL RBC (3.80-5.20) Mil/uL Hgb (11.0-16.0) g/dL Hct (34.0-47.0) % MCV (81.0-99.0) fL MCH (27.0-31.0) pg MCHC (33.0-37.0) g/dL RDW (11.5-14.5) % Plt Count (130-400) K/uL MPV (7.2-11.7) fL Neut % (Auto) (50.0-75.0) % Lymph % (Auto) (20.0-40.0) % Lake % (Auto) (0.0-10.0) % Eos % (Auto) (0.0-4.0) % Baso % (Auto) (0.0-2.0) % Neut # (Auto) (1.8-7.0) K/uL Lymph # (Auto) (1.0-4.3) K/uL [place] # (Auto) (0.0-0.8) K/uL Eos # (Auto) (0.0-0.7) K/uL Baso # (Auto) (0.0-0.2) K/uL Neutrophils % (Manual) (50-75) % Band Neutrophils % (0-2) % Lymphocytes % (Manual) (20-40) % Monocytes % (Manual) Platelet Estimate (NORMAL) Basophilic Stippling PT (9.7-12.2) SECONDS INR APTT (21-34) SECONDS Puncture Site Rb pCO2 71 H* (35-45) mm/Hg pO2 76 L (30-55) mm/Hg HCO3 30.4 H (21-28) mmol/L ABG pH 7.31 L (7.35-7.45) ABG Total CO2 37.9 H (22-28) mmol/L ABG O2 Saturation 96.6 (95-98) % ABG Base Excess 7.1 H (-2.0-3.0) mmol/L ABG Hemoglobin 12.6 (11.7-17.4) g/dL ABG Carboxyhemoglobin 1.6 H (0.5-1.5) % POC ABG HHb (Measured) 3.3 (0.0-5.0) % ABG Methemoglobin 1.6 (0.0-3.0) % Arthur Test Na VBG pH (7.32-7.43) VBG pCO2 (40-60) mmHg VBG HCO3 mmol/L VBG Total CO2 (22-28) mmol/L VBG O2 Sat (Calc) (40-65) % VBG Base Excess (0.0-2.0) mmol/L VBG Potassium (3.6-5.2) mmol/L A-a O2 Difference 85.0 mm/Hg Respiratory Index 1.1 Hgb O2 Saturation 93.5 L (95.0-98.0) % Sodium (132-148) mmol/l Chloride (98-107) mmol/L Glucose (65-105) mg/dl Lactate (0.7-2.1) mmol/L Liter Flow 4.0 FiO2 35.0 % Crit Value Called To Rosalina vernon/rn Crit Value Called By Navid reich/rt Crit Value Read Back Y Blood Gas Notified Time 230 Potassium (3.6-5.2) mmol/L Carbon Dioxide (22-30) mmol/L Anion Gap (10-20) BUN (7-17) mg/dL Creatinine (0.7-1.2) mg/dL Est GFR ( Amer) Est GFR (Non-Af Amer) POC Glucose (mg/dL) (65-110) mg/dL Random Glucose (65-105) mg/dL Hemoglobin A1c (4.2-6.5) % Lactic Acid (0.7-2.1) mmol/L Calcium (8.6-10.4) mg/dl Phosphorus (2.5-4.5) mg/dL Magnesium (1.6-2.3) mg/dL Total Bilirubin (0.2-1.3) mg/dL AST (14-36) U/L ALT (9-52) U/L Alkaline Phosphatase (38-126) U/L Total Creatine Kinase (30-135) U/L Troponin I (0.00-0.120) ng/mL C-React Prot High Sens (1.00-3.00) mg/L NT-Pro-B Natriuret Pep (0-900) pg/mL Total Protein (6.3-8.3) g/dL Albumin (3.5-5.0) g/dL Globulin (2.2-3.9) gm/dL Albumin/Globulin Ratio (1.0-2.1) Procalcitonin (0.19-0.49) NG/ML Venous Blood Potassium (3.6-5.2) mmol/L Urine Color Wendi (YELLOW) Urine Clarity Hazy (Clear) Urine pH 5.0 (5.0-8.0) Ur Specific [place] 1.025 (1.003-1.030) Urine Protein 2+ H (NEGATIVE) mg/dL Urine Glucose (UA) Normal (Normal) mg/dL Urine Ketones Trace (NEGATIVE) mg/dL Urine Blood 1+ H (NEGATIVE) Urine Nitrate Negative (NEGATIVE) Urine Bilirubin Negative (NEGATIVE) Urine Urobilinogen 2.0 H (0.2-1.0) mg/dL Ur Leukocyte Esterase Neg (Negative) Jenise/uL Urine WBC (Auto) 12 H (0-5) /hpf Urine RBC (Auto) 21 H (0-3) /hpf Ur Squamous Epith Cells < 1 (0-5) /hpf Urine Bacteria Few H (<OCC) Urine Yeast (Budding) Few H (NEGATIVE) /hpf Fluid Type Spinal fluid CSF Volume 1 (0-1) mL CSF Appearance Clear/colorless (CLEAR) CSF WBC 9.0 H (0.0-5.0) /mm3 CSF RBC 290.0 H (0.0-0.0) /mm3 CSF Total Cell Counted 100 H (0-0) CSF Neutrophils 11 H (0-0) % CSF Lymphocytes 80.0 H (0-0) % CSF Monos/Macrophages 9 H (0-0) % CSF Comment CSF Glucose (40-70) mg/dL 07/04/17 07/04/17 07/04/17 Range/Units 00:22 00:09 00:09 WBC (4.8-10.8) K/uL RBC (3.80-5.20) Mil/uL Hgb (11.0-16.0) g/dL Hct (34.0-47.0) % MCV (81.0-99.0) fL MCH (27.0-31.0) pg MCHC (33.0-37.0) g/dL RDW (11.5-14.5) % Plt Count (130-400) K/uL MPV (7.2-11.7) fL Neut % (Auto) (50.0-75.0) % Lymph % (Auto) (20.0-40.0) % Lake % (Auto) (0.0-10.0) % Eos % (Auto) (0.0-4.0) % Baso % (Auto) (0.0-2.0) % Neut # (Auto) (1.8-7.0) K/uL Lymph # (Auto) (1.0-4.3) K/uL [place] # (Auto) (0.0-0.8) K/uL Eos # (Auto) (0.0-0.7) K/uL Baso # (Auto) (0.0-0.2) K/uL Neutrophils % (Manual) (50-75) % Band Neutrophils % (0-2) % Lymphocytes % (Manual) (20-40) % Monocytes % (Manual) Platelet Estimate (NORMAL) Basophilic Stippling PT (9.7-12.2) SECONDS INR APTT (21-34) SECONDS Puncture Site pCO2 (35-45) mm/Hg pO2 (30-55) mm/Hg HCO3 (21-28) mmol/L ABG pH (7.35-7.45) ABG Total CO2 (22-28) mmol/L ABG O2 Saturation (95-98) % ABG Base Excess (-2.0-3.0) mmol/L ABG Hemoglobin (11.7-17.4) g/dL ABG Carboxyhemoglobin (0.5-1.5) % POC ABG HHb (Measured) (0.0-5.0) % ABG Methemoglobin (0.0-3.0) % Arthur Test VBG pH (7.32-7.43) VBG pCO2 (40-60) mmHg VBG HCO3 mmol/L VBG Total CO2 (22-28) mmol/L VBG O2 Sat (Calc) (40-65) % VBG Base Excess (0.0-2.0) mmol/L VBG Potassium (3.6-5.2) mmol/L A-a O2 Difference mm/Hg Respiratory Index Hgb O2 Saturation (95.0-98.0) % Sodium 152 H (132-148) mmol/l Chloride 97 L (98-107) mmol/L Glucose (65-105) mg/dl Lactate (0.7-2.1) mmol/L Liter Flow FiO2 % Crit Value Called To Crit Value Called By Crit Value Read Back Blood Gas Notified Time Potassium 3.2 L (3.6-5.2) mmol/L Carbon Dioxide 32 H (22-30) mmol/L Anion Gap 26 H (10-20) BUN 45 H (7-17) mg/dL Creatinine 0.9 (0.7-1.2) mg/dL Est GFR ( Amer) > 60 Est GFR (Non-Af Amer) > 60 POC Glucose (mg/dL) (65-110) mg/dL Random Glucose 327 H (65-105) mg/dL Hemoglobin A1c (4.2-6.5) % Lactic Acid 3.9 H (0.7-2.1) mmol/L Calcium 10.2 (8.6-10.4) mg/dl Phosphorus 4.7 H (2.5-4.5) mg/dL Magnesium 2.0 (1.6-2.3) mg/dL Total Bilirubin 0.8 (0.2-1.3) mg/dL AST 46 H (14-36) U/L ALT 25 (9-52) U/L Alkaline Phosphatase 75 (38-126) U/L Total Creatine Kinase (30-135) U/L Troponin I 0.3950 H* (0.00-0.120) ng/mL C-React Prot High Sens (1.00-3.00) mg/L NT-Pro-B Natriuret Pep 323 (0-900) pg/mL Total Protein 8.5 H (6.3-8.3) g/dL Albumin 4.5 (3.5-5.0) g/dL Globulin 4.0 H (2.2-3.9) gm/dL Albumin/Globulin Ratio 1.1 (1.0-2.1) Procalcitonin (0.19-0.49) NG/ML Venous Blood Potassium (3.6-5.2) mmol/L Urine Color (YELLOW) Urine Clarity (Clear) Urine pH (5.0-8.0) Ur Specific [place] (1.003-1.030) Urine Protein (NEGATIVE) mg/dL Urine Glucose (UA) (Normal) mg/dL Urine Ketones (NEGATIVE) mg/dL Urine Blood (NEGATIVE) Urine Nitrate (NEGATIVE) Urine Bilirubin (NEGATIVE) Urine Urobilinogen (0.2-1.0) mg/dL Ur Leukocyte Esterase (Negative) Jenise/uL Urine WBC (Auto) (0-5) /hpf Urine RBC (Auto) (0-3) /hpf Ur Squamous Epith Cells (0-5) /hpf Urine Bacteria (<OCC) Urine Yeast (Budding) (NEGATIVE) /hpf Fluid Type CSF Volume (0-1) mL CSF Appearance (CLEAR) CSF WBC (0.0-5.0) /mm3 CSF RBC (0.0-0.0) /mm3 CSF Total Cell Counted (0-0) CSF Neutrophils (0-0) % CSF Lymphocytes (0-0) % CSF Monos/Macrophages (0-0) % CSF Comment CSF Glucose 168 H* (40-70) mg/dL 07/04/17 07/04/17 07/03/17 Range/Units 00:09 00:09 23:50 WBC 19.4 H D (4.8-10.8) K/uL RBC 5.22 H (3.80-5.20) Mil/uL Hgb 14.8 D (11.0-16.0) g/dL Hct 45.5 (34.0-47.0) % MCV 87.2 (81.0-99.0) fL MCH 28.3 (27.0-31.0) pg MCHC 32.4 L (33.0-37.0) g/dL RDW 13.8 (11.5-14.5) % Plt Count 368 D (130-400) K/uL MPV 10.8 (7.2-11.7) fL Neut % (Auto) 92.3 H (50.0-75.0) % Lymph % (Auto) 4.7 L (20.0-40.0) % Lake % (Auto) 2.7 (0.0-10.0) % Eos % (Auto) 0.0 (0.0-4.0) % Baso % (Auto) 0.3 (0.0-2.0) % Neut # (Auto) 17.9 H (1.8-7.0) K/uL Lymph # (Auto) 0.9 L (1.0-4.3) K/uL Lake # (Auto) 0.5 (0.0-0.8) K/uL Eos # (Auto) 0.0 (0.0-0.7) K/uL Baso # (Auto) 0.1 (0.0-0.2) K/uL Neutrophils % (Manual) 88 H (50-75) % Band Neutrophils % 1 (0-2) % Lymphocytes % (Manual) 11 L (20-40) % Monocytes % (Manual) TEST NOT PERFORMED Platelet Estimate Normal (NORMAL) Basophilic Stippling PT 12.2 (9.7-12.2) SECONDS INR 1.1 APTT 26 (21-34) SECONDS Puncture Site pCO2 (35-45) mm/Hg pO2 93 H (30-55) mm/Hg HCO3 (21-28) mmol/L ABG pH (7.35-7.45) ABG Total CO2 (22-28) mmol/L ABG O2 Saturation (95-98) % ABG Base Excess (-2.0-3.0) mmol/L ABG Hemoglobin (11.7-17.4) g/dL ABG Carboxyhemoglobin (0.5-1.5) % POC ABG HHb (Measured) (0.0-5.0) % ABG Methemoglobin (0.0-3.0) % Arthur Test VBG pH 7.28 L (7.32-7.43) VBG pCO2 63 H (40-60) mmHg VBG HCO3 25.8 mmol/L VBG Total CO2 31.5 H (22-28) mmol/L VBG O2 Sat (Calc) 98.3 H (40-65) % VBG Base Excess 1.2 (0.0-2.0) mmol/L VBG Potassium 4.9 (3.6-5.2) mmol/L A-a O2 Difference mm/Hg Respiratory Index Hgb O2 Saturation (95.0-98.0) % Sodium 152.0 H (132-148) mmol/l Chloride 115.0 H (98-107) mmol/L Glucose 319 H (65-105) mg/dl Lactate 3.4 H (0.7-2.1) mmol/L Liter Flow FiO2 % Crit Value Called To Crit Value Called By Crit Value Read Back Blood Gas Notified Time Potassium (3.6-5.2) mmol/L Carbon Dioxide (22-30) mmol/L Anion Gap (10-20) BUN (7-17) mg/dL Creatinine (0.7-1.2) mg/dL Est GFR ( Amer) Est GFR (Non-Af Amer) POC Glucose (mg/dL) (65-110) mg/dL Random Glucose (65-105) mg/dL Hemoglobin A1c (4.2-6.5) % Lactic Acid (0.7-2.1) mmol/L Calcium (8.6-10.4) mg/dl Phosphorus (2.5-4.5) mg/dL Magnesium (1.6-2.3) mg/dL Total Bilirubin (0.2-1.3) mg/dL AST (14-36) U/L ALT (9-52) U/L Alkaline Phosphatase (38-126) U/L Total Creatine Kinase (30-135) U/L Troponin I (0.00-0.120) ng/mL C-React Prot High Sens (1.00-3.00) mg/L NT-Pro-B Natriuret Pep (0-900) pg/mL Total Protein (6.3-8.3) g/dL Albumin (3.5-5.0) g/dL Globulin (2.2-3.9) gm/dL Albumin/Globulin Ratio (1.0-2.1) Procalcitonin (0.19-0.49) NG/ML Venous Blood Potassium 4.9 (3.6-5.2) mmol/L Urine Color (YELLOW) Urine Clarity (Clear) Urine pH (5.0-8.0) Ur Specific [place] (1.003-1.030) Urine Protein (NEGATIVE) mg/dL Urine Glucose (UA) (Normal) mg/dL Urine Ketones (NEGATIVE) mg/dL Urine Blood (NEGATIVE) Urine Nitrate (NEGATIVE) Urine Bilirubin (NEGATIVE) Urine Urobilinogen (0.2-1.0) mg/dL Ur Leukocyte Esterase (Negative) Jenise/uL Urine WBC (Auto) (0-5) /hpf Urine RBC (Auto) (0-3) /hpf Ur Squamous Epith Cells (0-5) /hpf Urine Bacteria (<OCC) Urine Yeast (Budding) (NEGATIVE) /hpf Fluid Type CSF Volume (0-1) mL CSF Appearance (CLEAR) CSF WBC (0.0-5.0) /mm3 CSF RBC (0.0-0.0) /mm3 CSF Total Cell Counted (0-0) CSF Neutrophils (0-0) % CSF Lymphocytes (0-0) % CSF Monos/Macrophages (0-0) % CSF Comment CSF Glucose (40-70) mg/dL Laboratory Results - last 24 hr 07/03/17 07/04/17 07/04/17 23:50 00:09 00:09 WBC 19.4 H D RBC 5.22 H Hgb 14.8 D Hct 45.5 MCV 87.2 MCH 28.3 MCHC 32.4 L RDW 13.8 Plt Count 368 D MPV 10.8 Neut % (Auto) 92.3 H Lymph % (Auto) 4.7 L [place] % (Auto) 2.7 Eos % (Auto) 0.0 Baso % (Auto) 0.3 Neut # (Auto) 17.9 H Lymph # (Auto) 0.9 L [place] # (Auto) 0.5 Eos # (Auto) 0.0 Baso # (Auto) 0.1 Neutrophils % (Manual) 88 H Band Neutrophils % 1 Lymphocytes % (Manual) 11 L Monocytes % (Manual) TEST NOT PERFORMED Platelet Estimate Normal Basophilic Stippling PT 12.2 INR 1.1 APTT 26 Puncture Site pCO2 pO2 93 H HCO3 ABG pH ABG Total CO2 ABG O2 Saturation ABG Base Excess ABG Hemoglobin ABG Carboxyhemoglobin POC ABG HHb (Measured) ABG Methemoglobin Arthur Test VBG pH 7.28 L VBG pCO2 63 H VBG HCO3 25.8 VBG Total CO2 31.5 H VBG O2 Sat (Calc) 98.3 H VBG Base Excess 1.2 VBG Potassium 4.9 A-a O2 Difference Respiratory Index Hgb O2 Saturation Sodium 152.0 H Chloride 115.0 H Glucose 319 H Lactate 3.4 H Liter Flow FiO2 Crit Value Called To Crit Value Called By Crit Value Read Back Blood Gas Notified Time Potassium Carbon Dioxide Anion Gap BUN Creatinine Est GFR ( Amer) Est GFR (Non-Af Amer) POC Glucose (mg/dL) Random Glucose Hemoglobin A1c Lactic Acid Calcium Phosphorus Magnesium Total Bilirubin AST ALT Alkaline Phosphatase Total Creatine Kinase Troponin I C-React Prot High Sens NT-Pro-B Natriuret Pep Total Protein Albumin Globulin Albumin/Globulin Ratio Procalcitonin Venous Blood Potassium 4.9 Urine Color Urine Clarity Urine pH Ur Specific [place] Urine Protein Urine Glucose (UA) Urine Ketones Urine Blood Urine Nitrate Urine Bilirubin Urine Urobilinogen Ur Leukocyte Esterase Urine WBC (Auto) Urine RBC (Auto) Ur Squamous Epith Cells Urine Bacteria Urine Yeast (Budding) Fluid Type CSF Volume CSF Appearance CSF WBC CSF RBC CSF Total Cell Counted CSF Neutrophils CSF Lymphocytes CSF Monos/Macrophages CSF Comment CSF Glucose 07/04/17 07/04/17 07/04/17 00:09 00:09 00:22 WBC RBC Hgb Hct MCV MCH MCHC RDW Plt Count MPV Neut % (Auto) Lymph % (Auto) Lake % (Auto) Eos % (Auto) Baso % (Auto) Neut # (Auto) Lymph # (Auto) Lake # (Auto) Eos # (Auto) Baso # (Auto) Neutrophils % (Manual) Band Neutrophils % Lymphocytes % (Manual) Monocytes % (Manual) Platelet Estimate Basophilic Stippling PT INR APTT Puncture Site pCO2 pO2 HCO3 ABG pH ABG Total CO2 ABG O2 Saturation ABG Base Excess ABG Hemoglobin ABG Carboxyhemoglobin POC ABG HHb (Measured) ABG Methemoglobin Arthur Test VBG pH VBG pCO2 VBG HCO3 VBG Total CO2 VBG O2 Sat (Calc) VBG Base Excess VBG Potassium A-a O2 Difference Respiratory Index Hgb O2 Saturation Sodium 152 H Chloride 97 L Glucose Lactate Liter Flow FiO2 Crit Value Called To Crit Value Called By Crit Value Read Back Blood Gas Notified Time Potassium 3.2 L Carbon Dioxide 32 H Anion Gap 26 H BUN 45 H Creatinine 0.9 Est GFR ( Amer) > 60 Est GFR (Non-Af Amer) > 60 POC Glucose (mg/dL) Random Glucose 327 H Hemoglobin A1c Lactic Acid 3.9 H Calcium 10.2 Phosphorus 4.7 H Magnesium 2.0 Total Bilirubin 0.8 AST 46 H ALT 25 Alkaline Phosphatase 75 Total Creatine Kinase Troponin I 0.3950 H* C-React Prot High Sens NT-Pro-B Natriuret Pep 323 Total Protein 8.5 H Albumin 4.5 Globulin 4.0 H Albumin/Globulin Ratio 1.1 Procalcitonin Venous Blood Potassium Urine Color Urine Clarity Urine pH Ur Specific [place] Urine Protein Urine Glucose (UA) Urine Ketones Urine Blood Urine Nitrate Urine Bilirubin Urine Urobilinogen Ur Leukocyte Esterase Urine WBC (Auto) Urine RBC (Auto) Ur Squamous Epith Cells Urine Bacteria Urine Yeast (Budding) Fluid Type CSF Volume CSF Appearance CSF WBC CSF RBC CSF Total Cell Counted CSF Neutrophils CSF Lymphocytes CSF Monos/Macrophages CSF Comment CSF Glucose 168 H* 07/04/17 07/04/17 07/04/17 01:58 02:08 02:20 WBC RBC Hgb Hct MCV MCH MCHC RDW Plt Count MPV Neut % (Auto) Lymph % (Auto) Lake % (Auto) Eos % (Auto) Baso % (Auto) Neut # (Auto) Lymph # (Auto) [place] # (Auto) Eos # (Auto) Baso # (Auto) Neutrophils % (Manual) Band Neutrophils % Lymphocytes % (Manual) Monocytes % (Manual) Platelet Estimate Basophilic Stippling PT INR APTT Puncture Site Rb pCO2 71 H* pO2 76 L HCO3 30.4 H ABG pH 7.31 L ABG Total CO2 37.9 H ABG O2 Saturation 96.6 ABG Base Excess 7.1 H ABG Hemoglobin 12.6 ABG Carboxyhemoglobin 1.6 H POC ABG HHb (Measured) 3.3 ABG Methemoglobin 1.6 Arthur Test Na VBG pH VBG pCO2 VBG HCO3 VBG Total CO2 VBG O2 Sat (Calc) VBG Base Excess VBG Potassium A-a O2 Difference 85.0 Respiratory Index 1.1 Hgb O2 Saturation 93.5 L Sodium Chloride Glucose Lactate Liter Flow 4.0 FiO2 35.0 Crit Value Called To Rosalina vernon/rn Crit Value Called By Navid reich/rt Crit Value Read Back Y Blood Gas Notified Time 230 Potassium Carbon Dioxide Anion Gap BUN Creatinine Est GFR ( Amer) Est GFR (Non-Af Amer) POC Glucose (mg/dL) Random Glucose Hemoglobin A1c Lactic Acid Calcium Phosphorus Magnesium Total Bilirubin AST ALT Alkaline Phosphatase Total Creatine Kinase Troponin I C-React Prot High Sens NT-Pro-B Natriuret Pep Total Protein Albumin Globulin Albumin/Globulin Ratio Procalcitonin Venous Blood Potassium Urine Color Wendi Urine Clarity Hazy Urine pH 5.0 Ur Specific [place] 1.025 Urine Protein 2+ H Urine Glucose (UA) Normal Urine Ketones Trace Urine Blood 1+ H Urine Nitrate Negative Urine Bilirubin Negative Urine Urobilinogen 2.0 H Ur Leukocyte Esterase Neg Urine WBC (Auto) 12 H Urine RBC (Auto) 21 H Ur Squamous Epith Cells < 1 Urine Bacteria Few H Urine Yeast (Budding) Few H Fluid Type Spinal fluid CSF Volume 1 CSF Appearance Clear/colorless CSF WBC 9.0 H CSF RBC 290.0 H CSF Total Cell Counted 100 H CSF Neutrophils 11 H CSF Lymphocytes 80.0 H CSF Monos/Macrophages 9 H CSF Comment CSF Glucose 07/04/17 07/04/17 07/04/17 04:16 05:18 06:31 WBC RBC Hgb Hct MCV MCH MCHC RDW Plt Count MPV Neut % (Auto) Lymph % (Auto) Lake % (Auto) Eos % (Auto) Baso % (Auto) Neut # (Auto) Lymph # (Auto) [place] # (Auto) Eos # (Auto) Baso # (Auto) Neutrophils % (Manual) Band Neutrophils % Lymphocytes % (Manual) Monocytes % (Manual) Platelet Estimate Basophilic Stippling PT INR APTT Puncture Site pCO2 pO2 HCO3 ABG pH ABG Total CO2 ABG O2 Saturation ABG Base Excess ABG Hemoglobin ABG Carboxyhemoglobin POC ABG HHb (Measured) ABG Methemoglobin Arthur Test VBG pH VBG pCO2 VBG HCO3 VBG Total CO2 VBG O2 Sat (Calc) VBG Base Excess VBG Potassium A-a O2 Difference Respiratory Index Hgb O2 Saturation Sodium Chloride Glucose Lactate Liter Flow FiO2 Crit Value Called To Crit Value Called By Crit Value Read Back Blood Gas Notified Time Potassium Carbon Dioxide Anion Gap BUN Creatinine Est GFR ( Amer) Est GFR (Non-Af Amer) POC Glucose (mg/dL) 325 H Random Glucose Hemoglobin A1c Lactic Acid 0.9 Calcium Phosphorus Magnesium Total Bilirubin AST ALT Alkaline Phosphatase Total Creatine Kinase Troponin I C-React Prot High Sens 3.75 H NT-Pro-B Natriuret Pep Total Protein Albumin Globulin Albumin/Globulin Ratio Procalcitonin Venous Blood Potassium Urine Color Urine Clarity Urine pH Ur Specific [place] Urine Protein Urine Glucose (UA) Urine Ketones Urine Blood Urine Nitrate Urine Bilirubin Urine Urobilinogen Ur Leukocyte Esterase Urine WBC (Auto) Urine RBC (Auto) Ur Squamous Epith Cells Urine Bacteria Urine Yeast (Budding) Fluid Type CSF Volume CSF Appearance CSF WBC CSF RBC CSF Total Cell Counted CSF Neutrophils CSF Lymphocytes CSF Monos/Macrophages CSF Comment CSF Glucose 07/04/17 07/04/17 07/04/17 06:35 06:36 06:36 WBC 13.5 H RBC 4.05 Hgb 11.6 D Hct 35.5 MCV 87.8 MCH 28.7 MCHC 32.7 L RDW 13.4 Plt Count 206 D MPV 10.4 Neut % (Auto) 91.5 H Lymph % (Auto) 5.2 L [place] % (Auto) 3.1 Eos % (Auto) 0.0 Baso % (Auto) 0.2 Neut # (Auto) 12.3 H Lymph # (Auto) 0.7 L [place] # (Auto) 0.4 Eos # (Auto) 0.0 Baso # (Auto) 0.0 Neutrophils % (Manual) 89 H Band Neutrophils % 6 H Lymphocytes % (Manual) 3 L Monocytes % (Manual) 2 Platelet Estimate Normal Basophilic Stippling Slight PT INR APTT Puncture Site pCO2 pO2 49 HCO3 ABG pH ABG Total CO2 ABG O2 Saturation ABG Base Excess ABG Hemoglobin ABG Carboxyhemoglobin POC ABG HHb (Measured) ABG Methemoglobin Arthur Test VBG pH 7.33 VBG pCO2 61 H VBG HCO3 28.0 VBG Total CO2 34.1 H VBG O2 Sat (Calc) 88.6 H VBG Base Excess 4.5 H VBG Potassium 3.2 L A-a O2 Difference Respiratory Index Hgb O2 Saturation Sodium 145.0 Chloride 108.0 H Glucose 421 H* D Lactate 1.1 Liter Flow FiO2 Crit Value Called To Luisito rn Crit Value Called By Greg interactive project manager Crit Value Read Back Y Blood Gas Notified Time 638 Potassium Carbon Dioxide Anion Gap BUN Creatinine Est GFR ( Amer) Est GFR (Non-Af Amer) POC Glucose (mg/dL) Random Glucose Hemoglobin A1c Lactic Acid Calcium Phosphorus Magnesium Total Bilirubin AST ALT Alkaline Phosphatase Total Creatine Kinase Troponin I C-React Prot High Sens NT-Pro-B Natriuret Pep Total Protein Albumin Globulin Albumin/Globulin Ratio Procalcitonin 0.36 Venous Blood Potassium 3.2 L Urine Color Urine Clarity Urine pH Ur Specific [place] Urine Protein Urine Glucose (UA) Urine Ketones Urine Blood Urine Nitrate Urine Bilirubin Urine Urobilinogen Ur Leukocyte Esterase Urine WBC (Auto) Urine RBC (Auto) Ur Squamous Epith Cells Urine Bacteria Urine Yeast (Budding) Fluid Type CSF Volume CSF Appearance CSF WBC CSF RBC CSF Total Cell Counted CSF Neutrophils CSF Lymphocytes CSF Monos/Macrophages CSF Comment CSF Glucose 02/16/18 02/16/18 02/16/18 06:36 06:36 08:47 WBC RBC Hgb Hct MCV MCH MCHC RDW Plt Count MPV Neut % (Auto) Lymph % (Auto) [place] % (Auto) Eos % (Auto) Baso % (Auto) Neut # (Auto) Lymph # (Auto) [place] # (Auto) Eos # (Auto) Baso # (Auto) Neutrophils % (Manual) Band Neutrophils % Lymphocytes % (Manual) Monocytes % (Manual) Platelet Estimate Basophilic Stippling PT 12.2 INR 1.1 APTT 27 Puncture Site pCO2 pO2 HCO3 ABG pH ABG Total CO2 ABG O2 Saturation ABG Base Excess ABG Hemoglobin ABG Carboxyhemoglobin POC ABG HHb (Measured) ABG Methemoglobin Arthur Test VBG pH VBG pCO2 VBG HCO3 VBG Total CO2 VBG O2 Sat (Calc) VBG Base Excess VBG Potassium A-a O2 Difference Respiratory Index Hgb O2 Saturation Sodium 145 Chloride 101 Glucose Lactate Liter Flow FiO2 Crit Value Called To Crit Value Called By Crit Value Read Back Blood Gas Notified Time Potassium 3.1 L Carbon Dioxide 31 H Anion Gap 16 BUN 39 H Creatinine 0.6 L Est GFR ( Amer) > 60 Est GFR (Non-Af Amer) > 60 POC Glucose (mg/dL) Random Glucose 390 H Hemoglobin A1c 7.1 H Lactic Acid Calcium 8.7 Phosphorus Magnesium 1.9 Total Bilirubin 0.5 AST 41 H ALT 34 Alkaline Phosphatase 49 Total Creatine Kinase 504 H Troponin I 1.2900 H* C-React Prot High Sens NT-Pro-B Natriuret Pep Total Protein 6.3 Albumin 3.4 L D Globulin 2.9 Albumin/Globulin Ratio 1.2 Procalcitonin Venous Blood Potassium Urine Color Urine Clarity Urine pH Ur Specific [place] Urine Protein Urine Glucose (UA) Urine Ketones Urine Blood Urine Nitrate Urine Bilirubin Urine Urobilinogen Ur Leukocyte Esterase Urine WBC (Auto) Urine RBC (Auto) Ur Squamous Epith Cells Urine Bacteria Urine Yeast (Budding) Fluid Type CSF Volume CSF Appearance CSF WBC CSF RBC CSF Total Cell Counted CSF Neutrophils CSF Lymphocytes CSF Monos/Macrophages CSF Comment CSF Glucose EKG/Cardiology Studies: Cardiology / EKG Studies 07/03/17 23:03 ELECTROCARDIOGRAM Stat Comment: Mode Of Transportation: Reason For Exam: Sepsis Patient Fingerstick Blood Sugar Results: 325 Review of Systems - Review of Systems Systems not reviewed;Unavailable: Altered Mental Status Assessment/Plan - Assessment and Plan (Free Text) Assessment: 71 F with h/o anoxic injury, siezure, recent fever, with seizure, with uti recently sent in from [place] for fever, ams, shaking: Neuro: h/o anoxic brain injury, unresponsive to pain, conjunctival reflex present, seizures - Keppra 750 mg PEG Q12 * F/U random level - Ativan 0.5mg IV Q6H PRN - F/U EEG - head CT shows no evidence of hemorrhage, midline shift or mass effect ID: Sepsis with fever, leukocytosis - Merrem IV 1 gm - Vancomycin 1 gm in NS @ 133 mls/hr IVPB Q12H - Procal NORMAL, Lactic NORMAL - Lumbar puncture performed - results indicative of bloody tap * F/U HIV, Lyme, Toxo, VDRL - F/U C.Diff - F/U Blood Cx, Urine Cx, MRSA screen, Would Cx, Stool leukocytes, Flu screen Cards: Elevated Troponin - NSTEMI, HTN, hypercholesteremia - Elevated Troponins, EKG reviewed - No ST changes seen - Lopressor 12.5 PEG Q12 - Crestor 10 mg PEG QD - ASA 81mg via PEG - EKG - Cardio (Markie) Pulm: no acute issues - O2 via venti mask - CXR ordered - rapid flu ordered GI: PEG oozing/erythematous - Glucerna Renal: no acute issues - BUN/Cr 39/0.6 Endo: DM - HgbA1C 7.1 - Levimir 22 U SC HS - Novolog mix 70/30 ISS PPx: - Pepcid 40 mg IVP BID - Lovenox 40 mg SC QD, SCDs - zinc sulfate 220 mg PEG QD - multivitamin - Palliative Care Consult Code Status: Patient is DNR/DNI <Silas Collins Richie - Last Filed: 07/04/17 14:21> CCU Objective - Vital Signs / Intake & Output Intake and Output (Last 8hrs): Intake & Output 07/03/17 07/04/17 07/04/17 22:59 06:59 14:59 Intake Total 3000 100 Output Total 700 150 Balance 2300 -50 Weight 180 lb 143 lb 1.6 oz Intake: IV 3000 Intake, IV Amount 100 left forearm 100 Oral 0 Output: Urine 700 150 Urethral (Flores) 300 150 Other: Voiding Method Indwelling Catheter # Bowel Movements 1 0 - Medications Active Medications: Active Medications Generic Name Dose Route Start Last Admin Trade Name Freq PRN Reason Stop Dose Admin Acetaminophen 650 mg 07/04/17 05:58 07/04/17 06:45 Tylenol 650 Mg Supp MO 650 mg Q6 PRN Administration Fever >100.4 F Aspirin 81 mg 07/04/17 11:15 07/04/17 11:14 Aspirin Chewable PO 81 mg DAILY DENNIS Administration Enoxaparin Sodium 40 mg 07/04/17 10:00 Lovenox SC DAILY DENNIS Famotidine 40 mg 07/04/17 10:00 07/04/17 11:14 Pepcid IVP 40 mg BID DENNIS Administration Potassium Chloride 20 meq/ 1,010 mls @ 100 mls/hr 07/04/17 06:15 07/04/17 07: 01 Sodium Chloride IV 100 mls/hr .Q10H6M DENNIS Administration Vancomycin/Sodium Chloride 1 gm in 200 mls @ 133.333 mls/hr 07/04/17 09:00 11:16 Vancomycin 1 Gm/Ns 200 Ml IVPB 07/09/17 09:01 133.333 mls/hr Q12H DENNIS Administration Meropenem 1 gm/ Sodium 100 mls @ 100 mls/hr 07/04/17 14:00 Chloride IVPB Q8 [facility] Insulin Aspart 0 unit 07/04/17 12:00 Novolog SC Q6 [facility] Protocol Insulin Detemir 22 unit 07/04/17 22:00 Levemir SC HS [facility] Levetiracetam 750 mg 07/04/17 10:00 07/04/17 11:15 Keppra PEG 750 mg Q12 DENNIS Administration Metoprolol Tartrate 12.5 mg 07/04/17 10:00 07/04/17 11:14 Lopressor PEG 12.5 mg Q12 DENNIS Administration Multivitamins/Vitamin C 5 ml 07/04/17 10:00 07/04/17 11:15 Multi-Delyn Liquid PEG 5 ml DAILY DENNIS Administration Rosuvastatin Calcium 10 mg 07/04/17 10:00 07/04/17 11:14 Crestor PEG 10 mg DAILY DENNIS Administration Zinc Sulfate 220 mg 07/04/17 10:00 07/04/17 11:14 Zinc Sulfate 220 Mg Cap PEG 220 mg DAILY [facility] Administration - Patient Studies Lab Studies: Microbiology Studies 07/03/17 23:29 Gram Stain - Final Cerebral Spinal Fluid Lab Studies 07/04/17 07/04/17 07/04/17 Range/Units 12:17 08:47 08:08 WBC (4.8-10.8) K/uL RBC (3.80-5.20) Mil/uL Hgb (11.0-16.0) g/dL Hct (34.0-47.0) % MCV (81.0-99.0) fL MCH (27.0-31.0) pg MCHC (33.0-37.0) g/dL RDW (11.5-14.5) % Plt Count (130-400) K/uL MPV (7.2-11.7) fL Neut % (Auto) (50.0-75.0) % Lymph % (Auto) (20.0-40.0) % Lake % (Auto) (0.0-10.0) % Eos % (Auto) (0.0-4.0) % Baso % (Auto) (0.0-2.0) % Neut # (Auto) (1.8-7.0) K/uL Lymph # (Auto) (1.0-4.3) K/uL Lake # (Auto) (0.0-0.8) K/uL Eos # (Auto) (0.0-0.7) K/uL Baso # (Auto) (0.0-0.2) K/uL Neutrophils % (Manual) (50-75) % Band Neutrophils % (0-2) % Lymphocytes % (Manual) (20-40) % Monocytes % (Manual) Platelet Estimate (NORMAL) Basophilic Stippling PT (9.7-12.2) SECONDS INR APTT (21-34) SECONDS Puncture Site pCO2 (35-45) mm/Hg pO2 (30-55) mm/Hg HCO3 (21-28) mmol/L ABG pH (7.35-7.45) ABG Total CO2 (22-28) mmol/L ABG O2 Saturation (95-98) % ABG Base Excess (-2.0-3.0) mmol/L ABG Hemoglobin (11.7-17.4) g/dL ABG Carboxyhemoglobin (0.5-1.5) % POC ABG HHb (Measured) (0.0-5.0) % ABG Methemoglobin (0.0-3.0) % Arthur Test VBG pH (7.32-7.43) VBG pCO2 (40-60) mmHg VBG HCO3 mmol/L VBG Total CO2 (22-28) mmol/L VBG O2 Sat (Calc) (40-65) % VBG Base Excess (0.0-2.0) mmol/L VBG Potassium (3.6-5.2) mmol/L A-a O2 Difference mm/Hg Respiratory Index Hgb O2 Saturation (95.0-98.0) % Sodium (132-148) mmol/l Chloride (98-107) mmol/L Glucose (65-105) mg/dl Lactate (0.7-2.1) mmol/L Liter Flow FiO2 % Crit Value Called To Crit Value Called By Crit Value Read Back Blood Gas Notified Time Potassium (3.6-5.2) mmol/L Carbon Dioxide (22-30) mmol/L Anion Gap (10-20) BUN (7-17) mg/dL Creatinine (0.7-1.2) mg/dL Est GFR ( Amer) Est GFR (Non-Af Amer) POC Glucose (mg/dL) 294 H (65-110) mg/dL Random Glucose (65-105) mg/dL Hemoglobin A1c 7.1 H (4.2-6.5) % Lactic Acid (0.7-2.1) mmol/L Calcium (8.6-10.4) mg/dl Phosphorus (2.5-4.5) mg/dL Magnesium (1.6-2.3) mg/dL Total Bilirubin (0.2-1.3) mg/dL AST (14-36) U/L ALT (9-52) U/L Alkaline Phosphatase (38-126) U/L Total Creatine Kinase (30-135) U/L Troponin I (0.00-0.120) ng/mL C-React Prot High Sens (1.00-3.00) mg/L NT-Pro-B Natriuret Pep (0-900) pg/mL Total Protein (6.3-8.3) g/dL Albumin (3.5-5.0) g/dL Globulin (2.2-3.9) gm/dL Albumin/Globulin Ratio (1.0-2.1) Procalcitonin (0.19-0.49) NG/ML Venous Blood Potassium (3.6-5.2) mmol/L Urine Color (YELLOW) Urine Clarity (Clear) Urine pH (5.0-8.0) Ur Specific [place] (1.003-1.030) Urine Protein (NEGATIVE) mg/dL Urine Glucose (UA) (Normal) mg/dL Urine Ketones (NEGATIVE) mg/dL Urine Blood (NEGATIVE) Urine Nitrate (NEGATIVE) Urine Bilirubin (NEGATIVE) Urine Urobilinogen (0.2-1.0) mg/dL Ur Leukocyte Esterase (Negative) Jenise/uL Urine WBC (Auto) (0-5) /hpf Urine RBC (Auto) (0-3) /hpf Ur Squamous Epith Cells (0-5) /hpf Urine Bacteria (<OCC) Urine Yeast (Budding) (NEGATIVE) /hpf Fluid Type CSF Volume (0-1) mL CSF Appearance (CLEAR) CSF WBC (0.0-5.0) /mm3 CSF RBC (0.0-0.0) /mm3 CSF Total Cell Counted (0-0) CSF Neutrophils (0-0) % CSF Lymphocytes (0-0) % CSF Monos/Macrophages (0-0) % CSF Comment CSF Glucose (40-70) mg/dL Influenza Typ A,B (EIA) Negative for flu a/b (NEGATIVE) H.influenzae Type B Ag (NEGATIVE) N.meningitidis ACY/W135 (NEGATIVE) N.meningi B/E.coli K1 Ag (NEGATIVE) Group B Strep Antigen (NEGATIVE) S. pneumoniae Antigen (NEGATIVE) 07/04/17 07/04/17 07/04/17 Range/Units 06:36 06:36 06:36 WBC (4.8-10.8) K/uL RBC (3.80-5.20) Mil/uL Hgb (11.0-16.0) g/dL Hct (34.0-47.0) % MCV (81.0-99.0) fL MCH (27.0-31.0) pg MCHC (33.0-37.0) g/dL RDW (11.5-14.5) % Plt Count (130-400) K/uL MPV (7.2-11.7) fL Neut % (Auto) (50.0-75.0) % Lymph % (Auto) (20.0-40.0) % Lake % (Auto) (0.0-10.0) % Eos % (Auto) (0.0-4.0) % Baso % (Auto) (0.0-2.0) % Neut # (Auto) (1.8-7.0) K/uL Lymph # (Auto) (1.0-4.3) K/uL Lake # (Auto) (0.0-0.8) K/uL Eos # (Auto) (0.0-0.7) K/uL Baso # (Auto) (0.0-0.2) K/uL Neutrophils % (Manual) (50-75) % Band Neutrophils % (0-2) % Lymphocytes % (Manual) (20-40) % Monocytes % (Manual) Platelet Estimate (NORMAL) Basophilic Stippling PT 12.2 (9.7-12.2) SECONDS INR 1.1 APTT 27 (21-34) SECONDS Puncture Site pCO2 (35-45) mm/Hg pO2 (30-55) mm/Hg HCO3 (21-28) mmol/L ABG pH (7.35-7.45) ABG Total CO2 (22-28) mmol/L ABG O2 Saturation (95-98) % ABG Base Excess (-2.0-3.0) mmol/L ABG Hemoglobin (11.7-17.4) g/dL ABG Carboxyhemoglobin (0.5-1.5) % POC ABG HHb (Measured) (0.0-5.0) % ABG Methemoglobin (0.0-3.0) % Arthur Test VBG pH (7.32-7.43) VBG pCO2 (40-60) mmHg VBG HCO3 mmol/L VBG Total CO2 (22-28) mmol/L VBG O2 Sat (Calc) (40-65) % VBG Base Excess (0.0-2.0) mmol/L VBG Potassium (3.6-5.2) mmol/L A-a O2 Difference mm/Hg Respiratory Index Hgb O2 Saturation (95.0-98.0) % Sodium 145 (132-148) mmol/l Chloride 101 (98-107) mmol/L Glucose (65-105) mg/dl Lactate (0.7-2.1) mmol/L Liter Flow FiO2 % Crit Value Called To Crit Value Called By Crit Value Read Back Blood Gas Notified Time Potassium 3.1 L (3.6-5.2) mmol/L Carbon Dioxide 31 H (22-30) mmol/L Anion Gap 16 (10-20) BUN 39 H (7-17) mg/dL Creatinine 0.6 L (0.7-1.2) mg/dL Est GFR ( Amer) > 60 Est GFR (Non-Af Amer) > 60 POC Glucose (mg/dL) (65-110) mg/dL Random Glucose 390 H (65-105) mg/dL Hemoglobin A1c (4.2-6.5) % Lactic Acid (0.7-2.1) mmol/L Calcium 8.7 (8.6-10.4) mg/dl Phosphorus (2.5-4.5) mg/dL Magnesium 1.9 (1.6-2.3) mg/dL Total Bilirubin 0.5 (0.2-1.3) mg/dL AST 41 H (14-36) U/L ALT 34 (9-52) U/L Alkaline Phosphatase 49 (38-126) U/L Total Creatine Kinase 504 H (30-135) U/L Troponin I 1.2900 H* (0.00-0.120) ng/mL C-React Prot High Sens (1.00-3.00) mg/L NT-Pro-B Natriuret Pep (0-900) pg/mL Total Protein 6.3 (6.3-8.3) g/dL Albumin 3.4 L D (3.5-5.0) g/dL Globulin 2.9 (2.2-3.9) gm/dL Albumin/Globulin Ratio 1.2 (1.0-2.1) Procalcitonin 0.36 (0.19-0.49) NG/ML Venous Blood Potassium (3.6-5.2) mmol/L Urine Color (YELLOW) Urine Clarity (Clear) Urine pH (5.0-8.0) Ur Specific [place] (1.003-1.030) Urine Protein (NEGATIVE) mg/dL Urine Glucose (UA) (Normal) mg/dL Urine Ketones (NEGATIVE) mg/dL Urine Blood (NEGATIVE) Urine Nitrate (NEGATIVE) Urine Bilirubin (NEGATIVE) Urine Urobilinogen (0.2-1.0) mg/dL Ur Leukocyte Esterase (Negative) Jenise/uL Urine WBC (Auto) (0-5) /hpf Urine RBC (Auto) (0-3) /hpf Ur Squamous Epith Cells (0-5) /hpf Urine Bacteria (<OCC) Urine Yeast (Budding) (NEGATIVE) /hpf Fluid Type CSF Volume (0-1) mL CSF Appearance (CLEAR) CSF WBC (0.0-5.0) /mm3 CSF RBC (0.0-0.0) /mm3 CSF Total Cell Counted (0-0) CSF Neutrophils (0-0) % CSF Lymphocytes (0-0) % CSF Monos/Macrophages (0-0) % CSF Comment CSF Glucose (40-70) mg/dL Influenza Typ A,B (EIA) (NEGATIVE) H.influenzae Type B Ag (NEGATIVE) N.meningitidis ACY/W135 (NEGATIVE) N.meningi B/E.coli K1 Ag (NEGATIVE) Group B Strep Antigen (NEGATIVE) S. pneumoniae Antigen (NEGATIVE) 07/04/17 07/04/17 07/04/17 Range/Units 06:36 06:35 06:31 WBC 13.5 H (4.8-10.8) K/uL RBC 4.05 (3.80-5.20) Mil/uL Hgb 11.6 D (11.0-16.0) g/dL Hct 35.5 (34.0-47.0) % MCV 87.8 (81.0-99.0) fL MCH 28.7 (27.0-31.0) pg MCHC 32.7 L (33.0-37.0) g/dL RDW 13.4 (11.5-14.5) % Plt Count 206 D (130-400) K/uL MPV 10.4 (7.2-11.7) fL Neut % (Auto) 91.5 H (50.0-75.0) % Lymph % (Auto) 5.2 L (20.0-40.0) % Lake % (Auto) 3.1 (0.0-10.0) % Eos % (Auto) 0.0 (0.0-4.0) % Baso % (Auto) 0.2 (0.0-2.0) % Neut # (Auto) 12.3 H (1.8-7.0) K/uL Lymph # (Auto) 0.7 L (1.0-4.3) K/uL [place] # (Auto) 0.4 (0.0-0.8) K/uL Eos # (Auto) 0.0 (0.0-0.7) K/uL Baso # (Auto) 0.0 (0.0-0.2) K/uL Neutrophils % (Manual) 89 H (50-75) % Band Neutrophils % 6 H (0-2) % Lymphocytes % (Manual) 3 L (20-40) % Monocytes % (Manual) 2 Platelet Estimate Normal (NORMAL) Basophilic Stippling Slight PT (9.7-12.2) SECONDS INR APTT (21-34) SECONDS Puncture Site pCO2 (35-45) mm/Hg pO2 49 (30-55) mm/Hg HCO3 (21-28) mmol/L ABG pH (7.35-7.45) ABG Total CO2 (22-28) mmol/L ABG O2 Saturation (95-98) % ABG Base Excess (-2.0-3.0) mmol/L ABG Hemoglobin (11.7-17.4) g/dL ABG Carboxyhemoglobin (0.5-1.5) % POC ABG HHb (Measured) (0.0-5.0) % ABG Methemoglobin (0.0-3.0) % Arthur Test VBG pH 7.33 (7.32-7.43) VBG pCO2 61 H (40-60) mmHg VBG HCO3 28.0 mmol/L VBG Total CO2 34.1 H (22-28) mmol/L VBG O2 Sat (Calc) 88.6 H (40-65) % VBG Base Excess 4.5 H (0.0-2.0) mmol/L VBG Potassium 3.2 L (3.6-5.2) mmol/L A-a O2 Difference mm/Hg Respiratory Index Hgb O2 Saturation (95.0-98.0) % Sodium 145.0 (132-148) mmol/l Chloride 108.0 H (98-107) mmol/L Glucose 421 H* D (65-105) mg/dl Lactate 1.1 (0.7-2.1) mmol/L Liter Flow FiO2 % Crit Value Called To Luisito rn Crit Value Called By Greg interactive project manager Crit Value Read Back Y Blood Gas Notified Time 638 Potassium (3.6-5.2) mmol/L Carbon Dioxide (22-30) mmol/L Anion Gap (10-20) BUN (7-17) mg/dL Creatinine (0.7-1.2) mg/dL Est GFR ( Amer) Est GFR (Non-Af Amer) POC Glucose (mg/dL) 325 H (65-110) mg/dL Random Glucose (65-105) mg/dL Hemoglobin A1c (4.2-6.5) % Lactic Acid (0.7-2.1) mmol/L Calcium (8.6-10.4) mg/dl Phosphorus (2.5-4.5) mg/dL Magnesium (1.6-2.3) mg/dL Total Bilirubin (0.2-1.3) mg/dL AST (14-36) U/L ALT (9-52) U/L Alkaline Phosphatase (38-126) U/L Total Creatine Kinase (30-135) U/L Troponin I (0.00-0.120) ng/mL C-React Prot High Sens (1.00-3.00) mg/L NT-Pro-B Natriuret Pep (0-900) pg/mL Total Protein (6.3-8.3) g/dL Albumin (3.5-5.0) g/dL Globulin (2.2-3.9) gm/dL Albumin/Globulin Ratio (1.0-2.1) Procalcitonin (0.19-0.49) NG/ML Venous Blood Potassium 3.2 L (3.6-5.2) mmol/L Urine Color (YELLOW) Urine Clarity (Clear) Urine pH (5.0-8.0) Ur Specific [place] (1.003-1.030) Urine Protein (NEGATIVE) mg/dL Urine Glucose (UA) (Normal) mg/dL Urine Ketones (NEGATIVE) mg/dL Urine Blood (NEGATIVE) Urine Nitrate (NEGATIVE) Urine Bilirubin (NEGATIVE) Urine Urobilinogen (0.2-1.0) mg/dL Ur Leukocyte Esterase (Negative) Jenise/uL Urine WBC (Auto) (0-5) /hpf Urine RBC (Auto) (0-3) /hpf Ur Squamous Epith Cells (0-5) /hpf Urine Bacteria (<OCC) Urine Yeast (Budding) (NEGATIVE) /hpf Fluid Type CSF Volume (0-1) mL CSF Appearance (CLEAR) CSF WBC (0.0-5.0) /mm3 CSF RBC (0.0-0.0) /mm3 CSF Total Cell Counted (0-0) CSF Neutrophils (0-0) % CSF Lymphocytes (0-0) % CSF Monos/Macrophages (0-0) % CSF Comment CSF Glucose (40-70) mg/dL Influenza Typ A,B (EIA) (NEGATIVE) H.influenzae Type B Ag (NEGATIVE) N.meningitidis ACY/W135 (NEGATIVE) N.meningi B/E.coli K1 Ag (NEGATIVE) Group B Strep Antigen (NEGATIVE) S. pneumoniae Antigen (NEGATIVE) 07/04/17 07/04/17 07/04/17 Range/Units 05:18 04:16 02:20 WBC (4.8-10.8) K/uL RBC (3.80-5.20) Mil/uL Hgb (11.0-16.0) g/dL Hct (34.0-47.0) % MCV (81.0-99.0) fL MCH (27.0-31.0) pg MCHC (33.0-37.0) g/dL RDW (11.5-14.5) % Plt Count (130-400) K/uL MPV (7.2-11.7) fL Neut % (Auto) (50.0-75.0) % Lymph % (Auto) (20.0-40.0) % [place] % (Auto) (0.0-10.0) % Eos % (Auto) (0.0-4.0) % Baso % (Auto) (0.0-2.0) % Neut # (Auto) (1.8-7.0) K/uL Lymph # (Auto) (1.0-4.3) K/uL Lake # (Auto) (0.0-0.8) K/uL Eos # (Auto) (0.0-0.7) K/uL Baso # (Auto) (0.0-0.2) K/uL Neutrophils % (Manual) (50-75) % Band Neutrophils % (0-2) % Lymphocytes % (Manual) (20-40) % Monocytes % (Manual) Platelet Estimate (NORMAL) Basophilic Stippling PT (9.7-12.2) SECONDS INR APTT (21-34) SECONDS Puncture Site Rb pCO2 71 H* (35-45) mm/Hg pO2 76 L (30-55) mm/Hg HCO3 30.4 H (21-28) mmol/L ABG pH 7.31 L (7.35-7.45) ABG Total CO2 37.9 H (22-28) mmol/L ABG O2 Saturation 96.6 (95-98) % ABG Base Excess 7.1 H (-2.0-3.0) mmol/L ABG Hemoglobin 12.6 (11.7-17.4) g/dL ABG Carboxyhemoglobin 1.6 H (0.5-1.5) % POC ABG HHb (Measured) 3.3 (0.0-5.0) % ABG Methemoglobin 1.6 (0.0-3.0) % Arthur Test Na VBG pH (7.32-7.43) VBG pCO2 (40-60) mmHg VBG HCO3 mmol/L VBG Total CO2 (22-28) mmol/L VBG O2 Sat (Calc) (40-65) % VBG Base Excess (0.0-2.0) mmol/L VBG Potassium (3.6-5.2) mmol/L A-a O2 Difference 85.0 mm/Hg Respiratory Index 1.1 Hgb O2 Saturation 93.5 L (95.0-98.0) % Sodium (132-148) mmol/l Chloride (98-107) mmol/L Glucose (65-105) mg/dl Lactate (0.7-2.1) mmol/L Liter Flow 4.0 FiO2 35.0 % Crit Value Called To Rosalina vernon/rn Crit Value Called By Navid reich/rt Crit Value Read Back Y Blood Gas Notified Time 230 Potassium (3.6-5.2) mmol/L Carbon Dioxide (22-30) mmol/L Anion Gap (10-20) BUN (7-17) mg/dL Creatinine (0.7-1.2) mg/dL Est GFR ( Amer) Est GFR (Non-Af Amer) POC Glucose (mg/dL) (65-110) mg/dL Random Glucose (65-105) mg/dL Hemoglobin A1c (4.2-6.5) % Lactic Acid 0.9 (0.7-2.1) mmol/L Calcium (8.6-10.4) mg/dl Phosphorus (2.5-4.5) mg/dL Magnesium (1.6-2.3) mg/dL Total Bilirubin (0.2-1.3) mg/dL AST (14-36) U/L ALT (9-52) U/L Alkaline Phosphatase (38-126) U/L Total Creatine Kinase (30-135) U/L Troponin I (0.00-0.120) ng/mL C-React Prot High Sens 3.75 H (1.00-3.00) mg/L NT-Pro-B Natriuret Pep (0-900) pg/mL Total Protein (6.3-8.3) g/dL Albumin (3.5-5.0) g/dL Globulin (2.2-3.9) gm/dL Albumin/Globulin Ratio (1.0-2.1) Procalcitonin (0.19-0.49) NG/ML Venous Blood Potassium (3.6-5.2) mmol/L Urine Color (YELLOW) Urine Clarity (Clear) Urine pH (5.0-8.0) Ur Specific [place] (1.003-1.030) Urine Protein (NEGATIVE) mg/dL Urine Glucose (UA) (Normal) mg/dL Urine Ketones (NEGATIVE) mg/dL Urine Blood (NEGATIVE) Urine Nitrate (NEGATIVE) Urine Bilirubin (NEGATIVE) Urine Urobilinogen (0.2-1.0) mg/dL Ur Leukocyte Esterase (Negative) Jenise/uL Urine WBC (Auto) (0-5) /hpf Urine RBC (Auto) (0-3) /hpf Ur Squamous Epith Cells (0-5) /hpf Urine Bacteria (<OCC) Urine Yeast (Budding) (NEGATIVE) /hpf Fluid Type CSF Volume (0-1) mL CSF Appearance (CLEAR) CSF WBC (0.0-5.0) /mm3 CSF RBC (0.0-0.0) /mm3 CSF Total Cell Counted (0-0) CSF Neutrophils (0-0) % CSF Lymphocytes (0-0) % CSF Monos/Macrophages (0-0) % CSF Comment CSF Glucose (40-70) mg/dL Influenza Typ A,B (EIA) (NEGATIVE) H.influenzae Type B Ag (NEGATIVE) N.meningitidis ACY/W135 (NEGATIVE) N.meningi B/E.coli K1 Ag (NEGATIVE) Group B Strep Antigen (NEGATIVE) S. pneumoniae Antigen (NEGATIVE) 07/04/17 07/04/17 07/04/17 Range/Units 02:08 01:58 00:22 WBC (4.8-10.8) K/uL RBC (3.80-5.20) Mil/uL Hgb (11.0-16.0) g/dL Hct (34.0-47.0) % MCV (81.0-99.0) fL MCH (27.0-31.0) pg MCHC (33.0-37.0) g/dL RDW (11.5-14.5) % Plt Count (130-400) K/uL MPV (7.2-11.7) fL Neut % (Auto) (50.0-75.0) % Lymph % (Auto) (20.0-40.0) % Lake % (Auto) (0.0-10.0) % Eos % (Auto) (0.0-4.0) % Baso % (Auto) (0.0-2.0) % Neut # (Auto) (1.8-7.0) K/uL Lymph # (Auto) (1.0-4.3) K/uL [place] # (Auto) (0.0-0.8) K/uL Eos # (Auto) (0.0-0.7) K/uL Baso # (Auto) (0.0-0.2) K/uL Neutrophils % (Manual) (50-75) % Band Neutrophils % (0-2) % Lymphocytes % (Manual) (20-40) % Monocytes % (Manual) Platelet Estimate (NORMAL) Basophilic Stippling PT (9.7-12.2) SECONDS INR APTT (21-34) SECONDS Puncture Site pCO2 (35-45) mm/Hg pO2 (30-55) mm/Hg HCO3 (21-28) mmol/L ABG pH (7.35-7.45) ABG Total CO2 (22-28) mmol/L ABG O2 Saturation (95-98) % ABG Base Excess (-2.0-3.0) mmol/L ABG Hemoglobin (11.7-17.4) g/dL ABG Carboxyhemoglobin (0.5-1.5) % POC ABG HHb (Measured) (0.0-5.0) % ABG Methemoglobin (0.0-3.0) % Arthur Test VBG pH (7.32-7.43) VBG pCO2 (40-60) mmHg VBG HCO3 mmol/L VBG Total CO2 (22-28) mmol/L VBG O2 Sat (Calc) (40-65) % VBG Base Excess (0.0-2.0) mmol/L VBG Potassium (3.6-5.2) mmol/L A-a O2 Difference mm/Hg Respiratory Index Hgb O2 Saturation (95.0-98.0) % Sodium (132-148) mmol/l Chloride (98-107) mmol/L Glucose (65-105) mg/dl Lactate (0.7-2.1) mmol/L Liter Flow FiO2 % Crit Value Called To Crit Value Called By Crit Value Read Back Blood Gas Notified Time Potassium (3.6-5.2) mmol/L Carbon Dioxide (22-30) mmol/L Anion Gap (10-20) BUN (7-17) mg/dL Creatinine (0.7-1.2) mg/dL Est GFR ( Amer) Est GFR (Non-Af Amer) POC Glucose (mg/dL) (65-110) mg/dL Random Glucose (65-105) mg/dL Hemoglobin A1c (4.2-6.5) % Lactic Acid (0.7-2.1) mmol/L Calcium (8.6-10.4) mg/dl Phosphorus (2.5-4.5) mg/dL Magnesium (1.6-2.3) mg/dL Total Bilirubin (0.2-1.3) mg/dL AST (14-36) U/L ALT (9-52) U/L Alkaline Phosphatase (38-126) U/L Total Creatine Kinase (30-135) U/L Troponin I (0.00-0.120) ng/mL C-React Prot High Sens (1.00-3.00) mg/L NT-Pro-B Natriuret Pep (0-900) pg/mL Total Protein (6.3-8.3) g/dL Albumin (3.5-5.0) g/dL Globulin (2.2-3.9) gm/dL Albumin/Globulin Ratio (1.0-2.1) Procalcitonin (0.19-0.49) NG/ML Venous Blood Potassium (3.6-5.2) mmol/L Urine Color Wendi (YELLOW) Urine Clarity Hazy (Clear) Urine pH 5.0 (5.0-8.0) Ur Specific [place] 1.025 (1.003-1.030) Urine Protein 2+ H (NEGATIVE) mg/dL Urine Glucose (UA) Normal (Normal) mg/dL Urine Ketones Trace (NEGATIVE) mg/dL Urine Blood 1+ H (NEGATIVE) Urine Nitrate Negative (NEGATIVE) Urine Bilirubin Negative (NEGATIVE) Urine Urobilinogen 2.0 H (0.2-1.0) mg/dL Ur Leukocyte Esterase Neg (Negative) Jenise/uL Urine WBC (Auto) 12 H (0-5) /hpf Urine RBC (Auto) 21 H (0-3) /hpf Ur Squamous Epith Cells < 1 (0-5) /hpf Urine Bacteria Few H (<OCC) Urine Yeast (Budding) Few H (NEGATIVE) /hpf Fluid Type Spinal fluid CSF Volume 1 (0-1) mL CSF Appearance Clear/colorless (CLEAR) CSF WBC 9.0 H (0.0-5.0) /mm3 CSF RBC 290.0 H (0.0-0.0) /mm3 CSF Total Cell Counted 100 H (0-0) CSF Neutrophils 11 H (0-0) % CSF Lymphocytes 80.0 H (0-0) % CSF Monos/Macrophages 9 H (0-0) % CSF Comment CSF Glucose 168 H* (40-70) mg/dL Influenza Typ A,B (EIA) (NEGATIVE) H.influenzae Type B Ag (NEGATIVE) N.meningitidis ACY/W135 (NEGATIVE) N.meningi B/E.coli K1 Ag (NEGATIVE) Group B Strep Antigen (NEGATIVE) S. pneumoniae Antigen (NEGATIVE) 07/04/17 07/04/17 07/04/17 Range/Units 00:09 00:09 00:09 WBC (4.8-10.8) K/uL RBC (3.80-5.20) Mil/uL Hgb (11.0-16.0) g/dL Hct (34.0-47.0) % MCV (81.0-99.0) fL MCH (27.0-31.0) pg MCHC (33.0-37.0) g/dL RDW (11.5-14.5) % Plt Count (130-400) K/uL MPV (7.2-11.7) fL Neut % (Auto) (50.0-75.0) % Lymph % (Auto) (20.0-40.0) % [place] % (Auto) (0.0-10.0) % Eos % (Auto) (0.0-4.0) % Baso % (Auto) (0.0-2.0) % Neut # (Auto) (1.8-7.0) K/uL Lymph # (Auto) (1.0-4.3) K/uL [place] # (Auto) (0.0-0.8) K/uL Eos # (Auto) (0.0-0.7) K/uL Baso # (Auto) (0.0-0.2) K/uL Neutrophils % (Manual) (50-75) % Band Neutrophils % (0-2) % Lymphocytes % (Manual) (20-40) % Monocytes % (Manual) Platelet Estimate (NORMAL) Basophilic Stippling PT 12.2 (9.7-12.2) SECONDS INR 1.1 APTT 26 (21-34) SECONDS Puncture Site pCO2 (35-45) mm/Hg pO2 (30-55) mm/Hg HCO3 (21-28) mmol/L ABG pH (7.35-7.45) ABG Total CO2 (22-28) mmol/L ABG O2 Saturation (95-98) % ABG Base Excess (-2.0-3.0) mmol/L ABG Hemoglobin (11.7-17.4) g/dL ABG Carboxyhemoglobin (0.5-1.5) % POC ABG HHb (Measured) (0.0-5.0) % ABG Methemoglobin (0.0-3.0) % Arthur Test VBG pH (7.32-7.43) VBG pCO2 (40-60) mmHg VBG HCO3 mmol/L VBG Total CO2 (22-28) mmol/L VBG O2 Sat (Calc) (40-65) % VBG Base Excess (0.0-2.0) mmol/L VBG Potassium (3.6-5.2) mmol/L A-a O2 Difference mm/Hg Respiratory Index Hgb O2 Saturation (95.0-98.0) % Sodium 152 H (132-148) mmol/l Chloride 97 L (98-107) mmol/L Glucose (65-105) mg/dl Lactate (0.7-2.1) mmol/L Liter Flow FiO2 % Crit Value Called To Crit Value Called By Crit Value Read Back Blood Gas Notified Time Potassium 3.2 L (3.6-5.2) mmol/L Carbon Dioxide 32 H (22-30) mmol/L Anion Gap 26 H (10-20) BUN 45 H (7-17) mg/dL Creatinine 0.9 (0.7-1.2) mg/dL Est GFR ( Amer) > 60 Est GFR (Non-Af Amer) > 60 POC Glucose (mg/dL) (65-110) mg/dL Random Glucose 327 H (65-105) mg/dL Hemoglobin A1c (4.2-6.5) % Lactic Acid 3.9 H (0.7-2.1) mmol/L Calcium 10.2 (8.6-10.4) mg/dl Phosphorus 4.7 H (2.5-4.5) mg/dL Magnesium 2.0 (1.6-2.3) mg/dL Total Bilirubin 0.8 (0.2-1.3) mg/dL AST 46 H (14-36) U/L ALT 25 (9-52) U/L Alkaline Phosphatase 75 (38-126) U/L Total Creatine Kinase (30-135) U/L Troponin I 0.3950 H* (0.00-0.120) ng/mL C-React Prot High Sens (1.00-3.00) mg/L NT-Pro-B Natriuret Pep 323 (0-900) pg/mL Total Protein 8.5 H (6.3-8.3) g/dL Albumin 4.5 (3.5-5.0) g/dL Globulin 4.0 H (2.2-3.9) gm/dL Albumin/Globulin Ratio 1.1 (1.0-2.1) Procalcitonin (0.19-0.49) NG/ML Venous Blood Potassium (3.6-5.2) mmol/L Urine Color (YELLOW) Urine Clarity (Clear) Urine pH (5.0-8.0) Ur Specific [place] (1.003-1.030) Urine Protein (NEGATIVE) mg/dL Urine Glucose (UA) (Normal) mg/dL Urine Ketones (NEGATIVE) mg/dL Urine Blood (NEGATIVE) Urine Nitrate (NEGATIVE) Urine Bilirubin (NEGATIVE) Urine Urobilinogen (0.2-1.0) mg/dL Ur Leukocyte Esterase (Negative) Jenise/uL Urine WBC (Auto) (0-5) /hpf Urine RBC (Auto) (0-3) /hpf Ur Squamous Epith Cells (0-5) /hpf Urine Bacteria (<OCC) Urine Yeast (Budding) (NEGATIVE) /hpf Fluid Type CSF Volume (0-1) mL CSF Appearance (CLEAR) CSF WBC (0.0-5.0) /mm3 CSF RBC (0.0-0.0) /mm3 CSF Total Cell Counted (0-0) CSF Neutrophils (0-0) % CSF Lymphocytes (0-0) % CSF Monos/Macrophages (0-0) % CSF Comment CSF Glucose (40-70) mg/dL Influenza Typ A,B (EIA) (NEGATIVE) H.influenzae Type B Ag (NEGATIVE) N.meningitidis ACY/W135 (NEGATIVE) N.meningi B/E.coli K1 Ag (NEGATIVE) Group B Strep Antigen (NEGATIVE) S. pneumoniae Antigen (NEGATIVE) 07/04/17 07/03/17 07/03/17 Range/Units 00:09 23:50 23:34 WBC 19.4 H D (4.8-10.8) K/uL RBC 5.22 H (3.80-5.20) Mil/uL Hgb 14.8 D (11.0-16.0) g/dL Hct 45.5 (34.0-47.0) % MCV 87.2 (81.0-99.0) fL MCH 28.3 (27.0-31.0) pg MCHC 32.4 L (33.0-37.0) g/dL RDW 13.8 (11.5-14.5) % Plt Count 368 D (130-400) K/uL MPV 10.8 (7.2-11.7) fL Neut % (Auto) 92.3 H (50.0-75.0) % Lymph % (Auto) 4.7 L (20.0-40.0) % Lake % (Auto) 2.7 (0.0-10.0) % Eos % (Auto) 0.0 (0.0-4.0) % Baso % (Auto) 0.3 (0.0-2.0) % Neut # (Auto) 17.9 H (1.8-7.0) K/uL Lymph # (Auto) 0.9 L (1.0-4.3) K/uL [place] # (Auto) 0.5 (0.0-0.8) K/uL Eos # (Auto) 0.0 (0.0-0.7) K/uL Baso # (Auto) 0.1 (0.0-0.2) K/uL Neutrophils % (Manual) 88 H (50-75) % Band Neutrophils % 1 (0-2) % Lymphocytes % (Manual) 11 L (20-40) % Monocytes % (Manual) TEST NOT PERFORMED Platelet Estimate Normal (NORMAL) Basophilic Stippling PT (9.7-12.2) SECONDS INR APTT (21-34) SECONDS Puncture Site pCO2 (35-45) mm/Hg pO2 93 H (30-55) mm/Hg HCO3 (21-28) mmol/L ABG pH (7.35-7.45) ABG Total CO2 (22-28) mmol/L ABG O2 Saturation (95-98) % ABG Base Excess (-2.0-3.0) mmol/L ABG Hemoglobin (11.7-17.4) g/dL ABG Carboxyhemoglobin (0.5-1.5) % POC ABG HHb (Measured) (0.0-5.0) % ABG Methemoglobin (0.0-3.0) % Arthur Test VBG pH 7.28 L (7.32-7.43) VBG pCO2 63 H (40-60) mmHg VBG HCO3 25.8 mmol/L VBG Total CO2 31.5 H (22-28) mmol/L VBG O2 Sat (Calc) 98.3 H (40-65) % VBG Base Excess 1.2 (0.0-2.0) mmol/L VBG Potassium 4.9 (3.6-5.2) mmol/L A-a O2 Difference mm/Hg Respiratory Index Hgb O2 Saturation (95.0-98.0) % Sodium 152.0 H (132-148) mmol/l Chloride 115.0 H (98-107) mmol/L Glucose 319 H (65-105) mg/dl Lactate 3.4 H (0.7-2.1) mmol/L Liter Flow FiO2 % Crit Value Called To Crit Value Called By Crit Value Read Back Blood Gas Notified Time Potassium (3.6-5.2) mmol/L Carbon Dioxide (22-30) mmol/L Anion Gap (10-20) BUN (7-17) mg/dL Creatinine (0.7-1.2) mg/dL Est GFR ( Amer) Est GFR (Non-Af Amer) POC Glucose (mg/dL) (65-110) mg/dL Random Glucose (65-105) mg/dL Hemoglobin A1c (4.2-6.5) % Lactic Acid (0.7-2.1) mmol/L Calcium (8.6-10.4) mg/dl Phosphorus (2.5-4.5) mg/dL Magnesium (1.6-2.3) mg/dL Total Bilirubin (0.2-1.3) mg/dL AST (14-36) U/L ALT (9-52) U/L Alkaline Phosphatase (38-126) U/L Total Creatine Kinase (30-135) U/L Troponin I (0.00-0.120) ng/mL C-React Prot High Sens (1.00-3.00) mg/L NT-Pro-B Natriuret Pep (0-900) pg/mL Total Protein (6.3-8.3) g/dL Albumin (3.5-5.0) g/dL Globulin (2.2-3.9) gm/dL Albumin/Globulin Ratio (1.0-2.1) Procalcitonin (0.19-0.49) NG/ML Venous Blood Potassium 4.9 (3.6-5.2) mmol/L Urine Color (YELLOW) Urine Clarity (Clear) Urine pH (5.0-8.0) Ur Specific [place] (1.003-1.030) Urine Protein (NEGATIVE) mg/dL Urine Glucose (UA) (Normal) mg/dL Urine Ketones (NEGATIVE) mg/dL Urine Blood (NEGATIVE) Urine Nitrate (NEGATIVE) Urine Bilirubin (NEGATIVE) Urine Urobilinogen (0.2-1.0) mg/dL Ur Leukocyte Esterase (Negative) Jenise/uL Urine WBC (Auto) (0-5) /hpf Urine RBC (Auto) (0-3) /hpf Ur Squamous Epith Cells (0-5) /hpf Urine Bacteria (<OCC) Urine Yeast (Budding) (NEGATIVE) /hpf Fluid Type CSF Volume (0-1) mL CSF Appearance (CLEAR) CSF WBC (0.0-5.0) /mm3 CSF RBC (0.0-0.0) /mm3 CSF Total Cell Counted (0-0) CSF Neutrophils (0-0) % CSF Lymphocytes (0-0) % CSF Monos/Macrophages (0-0) % CSF Comment CSF Glucose (40-70) mg/dL Influenza Typ A,B (EIA) (NEGATIVE) H.influenzae Type B Ag Negative (NEGATIVE) N.meningitidis ACY/W135 Negative (NEGATIVE) N.meningi B/E.coli K1 Ag Negative (NEGATIVE) Group B Strep Antigen Negative (NEGATIVE) S. pneumoniae Antigen Negative (NEGATIVE) Laboratory Results - last 24 hr 07/03/17 07/03/17 07/04/17 23:34 23:50 00:09 WBC 19.4 H D RBC 5.22 H Hgb 14.8 D Hct 45.5 MCV 87.2 MCH 28.3 MCHC 32.4 L RDW 13.8 Plt Count 368 D MPV 10.8 Neut % (Auto) 92.3 H Lymph % (Auto) 4.7 L [place] % (Auto) 2.7 Eos % (Auto) 0.0 Baso % (Auto) 0.3 Neut # (Auto) 17.9 H Lymph # (Auto) 0.9 L [place] # (Auto) 0.5 Eos # (Auto) 0.0 Baso # (Auto) 0.1 Neutrophils % (Manual) 88 H Band Neutrophils % 1 Lymphocytes % (Manual) 11 L Monocytes % (Manual) TEST NOT PERFORMED Platelet Estimate Normal Basophilic Stippling PT INR APTT Puncture Site pCO2 pO2 93 H HCO3 ABG pH ABG Total CO2 ABG O2 Saturation ABG Base Excess ABG Hemoglobin ABG Carboxyhemoglobin POC ABG HHb (Measured) ABG Methemoglobin Arthur Test VBG pH 7.28 L VBG pCO2 63 H VBG HCO3 25.8 VBG Total CO2 31.5 H VBG O2 Sat (Calc) 98.3 H VBG Base Excess 1.2 VBG Potassium 4.9 A-a O2 Difference Respiratory Index Hgb O2 Saturation Sodium 152.0 H Chloride 115.0 H Glucose 319 H Lactate 3.4 H Liter Flow FiO2 Crit Value Called To Crit Value Called By Crit Value Read Back Blood Gas Notified Time Potassium Carbon Dioxide Anion Gap BUN Creatinine Est GFR ( Amer) Est GFR (Non-Af Amer) POC Glucose (mg/dL) Random Glucose Hemoglobin A1c Lactic Acid Calcium Phosphorus Magnesium Total Bilirubin AST ALT Alkaline Phosphatase Total Creatine Kinase Troponin I C-React Prot High Sens NT-Pro-B Natriuret Pep Total Protein Albumin Globulin Albumin/Globulin Ratio Procalcitonin Venous Blood Potassium 4.9 Urine Color Urine Clarity Urine pH Ur Specific [place] Urine Protein Urine Glucose (UA) Urine Ketones Urine Blood Urine Nitrate Urine Bilirubin Urine Urobilinogen Ur Leukocyte Esterase Urine WBC (Auto) Urine RBC (Auto) Ur Squamous Epith Cells Urine Bacteria Urine Yeast (Budding) Fluid Type CSF Volume CSF Appearance CSF WBC CSF RBC CSF Total Cell Counted CSF Neutrophils CSF Lymphocytes CSF Monos/Macrophages CSF Comment CSF Glucose Influenza Typ A,B (EIA) H.influenzae Type B Ag Negative N.meningitidis ACY/W135 Negative N.meningi B/E.coli K1 Ag Negative Group B Strep Antigen Negative S. pneumoniae Antigen Negative 07/04/17 07/04/17 07/04/17 00:09 00:09 00:09 WBC RBC Hgb Hct MCV MCH MCHC RDW Plt Count MPV Neut % (Auto) Lymph % (Auto) [place] % (Auto) Eos % (Auto) Baso % (Auto) Neut # (Auto) Lymph # (Auto) [place] # (Auto) Eos # (Auto) Baso # (Auto) Neutrophils % (Manual) Band Neutrophils % Lymphocytes % (Manual) Monocytes % (Manual) Platelet Estimate Basophilic Stippling PT 12.2 INR 1.1 APTT 26 Puncture Site pCO2 pO2 HCO3 ABG pH ABG Total CO2 ABG O2 Saturation ABG Base Excess ABG Hemoglobin ABG Carboxyhemoglobin POC ABG HHb (Measured) ABG Methemoglobin Arthur Test VBG pH VBG pCO2 VBG HCO3 VBG Total CO2 VBG O2 Sat (Calc) VBG Base Excess VBG Potassium A-a O2 Difference Respiratory Index Hgb O2 Saturation Sodium 152 H Chloride 97 L Glucose Lactate Liter Flow FiO2 Crit Value Called To Crit Value Called By Crit Value Read Back Blood Gas Notified Time Potassium 3.2 L Carbon Dioxide 32 H Anion Gap 26 H BUN 45 H Creatinine 0.9 Est GFR ( Amer) > 60 Est GFR (Non-Af Amer) > 60 POC Glucose (mg/dL) Random Glucose 327 H Hemoglobin A1c Lactic Acid 3.9 H Calcium 10.2 Phosphorus 4.7 H Magnesium 2.0 Total Bilirubin 0.8 AST 46 H ALT 25 Alkaline Phosphatase 75 Total Creatine Kinase Troponin I 0.3950 H* C-React Prot High Sens NT-Pro-B Natriuret Pep 323 Total Protein 8.5 H Albumin 4.5 Globulin 4.0 H Albumin/Globulin Ratio 1.1 Procalcitonin Venous Blood Potassium Urine Color Urine Clarity Urine pH Ur Specific [place] Urine Protein Urine Glucose (UA) Urine Ketones Urine Blood Urine Nitrate Urine Bilirubin Urine Urobilinogen Ur Leukocyte Esterase Urine WBC (Auto) Urine RBC (Auto) Ur Squamous Epith Cells Urine Bacteria Urine Yeast (Budding) Fluid Type CSF Volume CSF Appearance CSF WBC CSF RBC CSF Total Cell Counted CSF Neutrophils CSF Lymphocytes CSF Monos/Macrophages CSF Comment CSF Glucose Influenza Typ A,B (EIA) H.influenzae Type B Ag N.meningitidis ACY/W135 N.meningi B/E.coli K1 Ag Group B Strep Antigen S. pneumoniae Antigen 07/04/17 07/04/17 07/04/17 00:22 01:58 02:08 WBC RBC Hgb Hct MCV MCH MCHC RDW Plt Count MPV Neut % (Auto) Lymph % (Auto) [place] % (Auto) Eos % (Auto) Baso % (Auto) Neut # (Auto) Lymph # (Auto) [place] # (Auto) Eos # (Auto) Baso # (Auto) Neutrophils % (Manual) Band Neutrophils % Lymphocytes % (Manual) Monocytes % (Manual) Platelet Estimate Basophilic Stippling PT INR APTT Puncture Site pCO2 pO2 HCO3 ABG pH ABG Total CO2 ABG O2 Saturation ABG Base Excess ABG Hemoglobin ABG Carboxyhemoglobin POC ABG HHb (Measured) ABG Methemoglobin Arthur Test VBG pH VBG pCO2 VBG HCO3 VBG Total CO2 VBG O2 Sat (Calc) VBG Base Excess VBG Potassium A-a O2 Difference Respiratory Index Hgb O2 Saturation Sodium Chloride Glucose Lactate Liter Flow FiO2 Crit Value Called To Crit Value Called By Crit Value Read Back Blood Gas Notified Time Potassium Carbon Dioxide Anion Gap BUN Creatinine Est GFR ( Amer) Est GFR (Non-Af Amer) POC Glucose (mg/dL) Random Glucose Hemoglobin A1c Lactic Acid Calcium Phosphorus Magnesium Total Bilirubin AST ALT Alkaline Phosphatase Total Creatine Kinase Troponin I C-React Prot High Sens NT-Pro-B Natriuret Pep Total Protein Albumin Globulin Albumin/Globulin Ratio Procalcitonin Venous Blood Potassium Urine Color Wendi Urine Clarity Hazy Urine pH 5.0 Ur Specific [place] 1.025 Urine Protein 2+ H Urine Glucose (UA) Normal Urine Ketones Trace Urine Blood 1+ H Urine Nitrate Negative Urine Bilirubin Negative Urine Urobilinogen 2.0 H Ur Leukocyte Esterase Neg Urine WBC (Auto) 12 H Urine RBC (Auto) 21 H Ur Squamous Epith Cells < 1 Urine Bacteria Few H Urine Yeast (Budding) Few H Fluid Type Spinal fluid CSF Volume 1 CSF Appearance Clear/colorless CSF WBC 9.0 H CSF RBC 290.0 H CSF Total Cell Counted 100 H CSF Neutrophils 11 H CSF Lymphocytes 80.0 H CSF Monos/Macrophages 9 H CSF Comment CSF Glucose 168 H* Influenza Typ A,B (EIA) H.influenzae Type B Ag N.meningitidis ACY/W135 N.meningi B/E.coli K1 Ag Group B Strep Antigen S. pneumoniae Antigen 07/04/17 07/04/17 07/04/17 02:20 04:16 05:18 WBC RBC Hgb Hct MCV MCH MCHC RDW Plt Count MPV Neut % (Auto) Lymph % (Auto) Lake % (Auto) Eos % (Auto) Baso % (Auto) Neut # (Auto) Lymph # (Auto) [place] # (Auto) Eos # (Auto) Baso # (Auto) Neutrophils % (Manual) Band Neutrophils % Lymphocytes % (Manual) Monocytes % (Manual) Platelet Estimate Basophilic Stippling PT INR APTT Puncture Site Rb pCO2 71 H* pO2 76 L HCO3 30.4 H ABG pH 7.31 L ABG Total CO2 37.9 H ABG O2 Saturation 96.6 ABG Base Excess 7.1 H ABG Hemoglobin 12.6 ABG Carboxyhemoglobin 1.6 H POC ABG HHb (Measured) 3.3 ABG Methemoglobin 1.6 Arthur Test Na VBG pH VBG pCO2 VBG HCO3 VBG Total CO2 VBG O2 Sat (Calc) VBG Base Excess VBG Potassium A-a O2 Difference 85.0 Respiratory Index 1.1 Hgb O2 Saturation 93.5 L Sodium Chloride Glucose Lactate Liter Flow 4.0 FiO2 35.0 Crit Value Called To Rosalina vernon/rn Crit Value Called By Navid reich/rt Crit Value Read Back Y Blood Gas Notified Time 230 Potassium Carbon Dioxide Anion Gap BUN Creatinine Est GFR ( Amer) Est GFR (Non-Af Amer) POC Glucose (mg/dL) Random Glucose Hemoglobin A1c Lactic Acid 0.9 Calcium Phosphorus Magnesium Total Bilirubin AST ALT Alkaline Phosphatase Total Creatine Kinase Troponin I C-React Prot High Sens 3.75 H NT-Pro-B Natriuret Pep Total Protein Albumin Globulin Albumin/Globulin Ratio Procalcitonin Venous Blood Potassium Urine Color Urine Clarity Urine pH Ur Specific [place] Urine Protein Urine Glucose (UA) Urine Ketones Urine Blood Urine Nitrate Urine Bilirubin Urine Urobilinogen Ur Leukocyte Esterase Urine WBC (Auto) Urine RBC (Auto) Ur Squamous Epith Cells Urine Bacteria Urine Yeast (Budding) Fluid Type CSF Volume CSF Appearance CSF WBC CSF RBC CSF Total Cell Counted CSF Neutrophils CSF Lymphocytes CSF Monos/Macrophages CSF Comment CSF Glucose Influenza Typ A,B (EIA) H.influenzae Type B Ag N.meningitidis ACY/[id number] N.meningi B/E.coli K1 Ag Group B Strep Antigen S. pneumoniae Antigen 07/04/17 07/04/17 07/04/17 06:31 06:35 06:36 WBC 13.5 H RBC 4.05 Hgb 11.6 D Hct 35.5 MCV 87.8 MCH 28.7 MCHC 32.7 L RDW 13.4 Plt Count 206 D MPV 10.4 Neut % (Auto) 91.5 H Lymph % (Auto) 5.2 L [place] % (Auto) 3.1 Eos % (Auto) 0.0 Baso % (Auto) 0.2 Neut # (Auto) 12.3 H Lymph # (Auto) 0.7 L [place] # (Auto) 0.4 Eos # (Auto) 0.0 Baso # (Auto) 0.0 Neutrophils % (Manual) 89 H Band Neutrophils % 6 H Lymphocytes % (Manual) 3 L Monocytes % (Manual) 2 Platelet Estimate Normal Basophilic Stippling Slight PT INR APTT Puncture Site pCO2 pO2 49 HCO3 ABG pH ABG Total CO2 ABG O2 Saturation ABG Base Excess ABG Hemoglobin ABG Carboxyhemoglobin POC ABG HHb (Measured) ABG Methemoglobin Arthur Test VBG pH 7.33 VBG pCO2 61 H VBG HCO3 28.0 VBG Total CO2 34.1 H VBG O2 Sat (Calc) 88.6 H VBG Base Excess 4.5 H VBG Potassium 3.2 L A-a O2 Difference Respiratory Index Hgb O2 Saturation Sodium 145.0 Chloride 108.0 H Glucose 421 H* D Lactate 1.1 Liter Flow FiO2 Crit Value Called To Luisito rn Crit Value Called By Greg interactive project manager Crit Value Read Back Y Blood Gas Notified Time 638 Potassium Carbon Dioxide Anion Gap BUN Creatinine Est GFR ( Amer) Est GFR (Non-Af Amer) POC Glucose (mg/dL) 325 H Random Glucose Hemoglobin A1c Lactic Acid Calcium Phosphorus Magnesium Total Bilirubin AST ALT Alkaline Phosphatase Total Creatine Kinase Troponin I C-React Prot High Sens NT-Pro-B Natriuret Pep Total Protein Albumin Globulin Albumin/Globulin Ratio Procalcitonin Venous Blood Potassium 3.2 L Urine Color Urine Clarity Urine pH Ur Specific [place] Urine Protein Urine Glucose (UA) Urine Ketones Urine Blood Urine Nitrate Urine Bilirubin Urine Urobilinogen Ur Leukocyte Esterase Urine WBC (Auto) Urine RBC (Auto) Ur Squamous Epith Cells Urine Bacteria Urine Yeast (Budding) Fluid Type CSF Volume CSF Appearance CSF WBC CSF RBC CSF Total Cell Counted CSF Neutrophils CSF Lymphocytes CSF Monos/Macrophages CSF Comment CSF Glucose Influenza Typ A,B (EIA) H.influenzae Type B Ag N.meningitidis [id number] N.meningi B/E.coli K1 Ag Group B Strep Antigen S. pneumoniae Antigen 07/04/17 07/04/17 07/04/17 06:36 06:36 06:36 WBC RBC Hgb Hct MCV MCH MCHC RDW Plt Count MPV Neut % (Auto) Lymph % (Auto) [place] % (Auto) Eos % (Auto) Baso % (Auto) Neut # (Auto) Lymph # (Auto) [place] # (Auto) Eos # (Auto) Baso # (Auto) Neutrophils % (Manual) Band Neutrophils % Lymphocytes % (Manual) Monocytes % (Manual) Platelet Estimate Basophilic Stippling PT 12.2 INR 1.1 APTT 27 Puncture Site pCO2 pO2 HCO3 ABG pH ABG Total CO2 ABG O2 Saturation ABG Base Excess ABG Hemoglobin ABG Carboxyhemoglobin POC ABG HHb (Measured) ABG Methemoglobin Arthur Test VBG pH VBG pCO2 VBG HCO3 VBG Total CO2 VBG O2 Sat (Calc) VBG Base Excess VBG Potassium A-a O2 Difference Respiratory Index Hgb O2 Saturation Sodium 145 Chloride 101 Glucose Lactate Liter Flow FiO2 Crit Value Called To Crit Value Called By Crit Value Read Back Blood Gas Notified Time Potassium 3.1 L Carbon Dioxide 31 H Anion Gap 16 BUN 39 H Creatinine 0.6 L Est GFR ( Amer) > 60 Est GFR (Non-Af Amer) > 60 POC Glucose (mg/dL) Random Glucose 390 H Hemoglobin A1c Lactic Acid Calcium 8.7 Phosphorus Magnesium 1.9 Total Bilirubin 0.5 AST 41 H ALT 34 Alkaline Phosphatase 49 Total Creatine Kinase 504 H Troponin I 1.2900 H* C-React Prot High Sens NT-Pro-B Natriuret Pep Total Protein 6.3 Albumin 3.4 L D Globulin 2.9 Albumin/Globulin Ratio 1.2 Procalcitonin 0.36 Venous Blood Potassium Urine Color Urine Clarity Urine pH Ur Specific [place] Urine Protein Urine Glucose (UA) Urine Ketones Urine Blood Urine Nitrate Urine Bilirubin Urine Urobilinogen Ur Leukocyte Esterase Urine WBC (Auto) Urine RBC (Auto) Ur Squamous Epith Cells Urine Bacteria Urine Yeast (Budding) Fluid Type CSF Volume CSF Appearance CSF WBC CSF RBC CSF Total Cell Counted CSF Neutrophils CSF Lymphocytes CSF Monos/Macrophages CSF Comment CSF Glucose Influenza Typ A,B (EIA) H.influenzae Type B Ag N.meningitidis [id number]/[id number] N.meningi B/E.coli K1 Ag Group B Strep Antigen S. pneumoniae Antigen 07/04/17 07/04/17 07/04/17 08:08 08:47 12:17 WBC RBC Hgb Hct MCV MCH MCHC RDW Plt Count MPV Neut % (Auto) Lymph % (Auto) [place] % (Auto) Eos % (Auto) Baso % (Auto) Neut # (Auto) Lymph # (Auto) [place] # (Auto) Eos # (Auto) Baso # (Auto) Neutrophils % (Manual) Band Neutrophils % Lymphocytes % (Manual) Monocytes % (Manual) Platelet Estimate Basophilic Stippling PT INR APTT Puncture Site pCO2 pO2 HCO3 ABG pH ABG Total CO2 ABG O2 Saturation ABG Base Excess ABG Hemoglobin ABG Carboxyhemoglobin POC ABG HHb (Measured) ABG Methemoglobin Arthur Test VBG pH VBG pCO2 VBG HCO3 VBG Total CO2 VBG O2 Sat (Calc) VBG Base Excess VBG Potassium A-a O2 Difference Respiratory Index Hgb O2 Saturation Sodium Chloride Glucose Lactate Liter Flow FiO2 Crit Value Called To Crit Value Called By Crit Value Read Back Blood Gas Notified Time Potassium Carbon Dioxide Anion Gap BUN Creatinine Est GFR ( Amer) Est GFR (Non-Af Amer) POC Glucose (mg/dL) 294 H Random Glucose Hemoglobin A1c 7.1 H Lactic Acid Calcium Phosphorus Magnesium Total Bilirubin AST ALT Alkaline Phosphatase Total Creatine Kinase Troponin I C-React Prot High Sens NT-Pro-B Natriuret Pep Total Protein Albumin Globulin Albumin/Globulin Ratio Procalcitonin Venous Blood Potassium Urine Color Urine Clarity Urine pH Ur Specific [place] Urine Protein Urine Glucose (UA) Urine Ketones Urine Blood Urine Nitrate Urine Bilirubin Urine Urobilinogen Ur Leukocyte Esterase Urine WBC (Auto) Urine RBC (Auto) Ur Squamous Epith Cells Urine Bacteria Urine Yeast (Budding) Fluid Type CSF Volume CSF Appearance CSF WBC CSF RBC CSF Total Cell Counted CSF Neutrophils CSF Lymphocytes CSF Monos/Macrophages CSF Comment CSF Glucose Influenza Typ A,B (EIA) Negative for flu a/b H.influenzae Type B Ag N.meningitidis ACY/W135 N.meningi B/E.coli K1 Ag Group B Strep Antigen S. pneumoniae Antigen EKG/Cardiology Studies: Cardiology / EKG Studies 07/03/17 23:03 ELECTROCARDIOGRAM Stat Comment: Mode Of Transportation: Reason For Exam: Sepsis Patient Assessment/Plan - Assessment and Plan (Free Text) Plan: Above patient seen and examined at bedside with ICu team. Above resident note transcribes my management of patient. Patient presents to [facility] with seizures. -Seizures: controlled and has been seizure free for 24 hours: f/u EEG/ MRI and neurology eval -With previous anoxic tony quach, patient is non-verbal and has not purposeful movement at baseline -NSTEMI: reggie has CAD: will benefit from asa, statin and av nodla jo-ann, obtain echo and cardiology eval -sepsis: not likely meningitis, as CSF has the same ratio of WBC/RBC as circulating blood(cbc), CSF protein not available, pending culture and HSC pcr, f/u cultures and de-escalate abx, serial lactic decreasing -d/c flores -wound care with supplemental MVI -continue dvt/pud ppx prognosis poor as patient is in persistent vegetativelike state. Palliative eval pending Patient remains hemodynamically stable. - Date & Time Date: 07/04/17 Time: 08:00
[2017-07-04] MEDS: (Novolog) Insulin Aspart, Recombinant 100 u/ml 10 ml vial SC SCH ×2 (12:12→18:12)
--- NOTE | 2017-07-04 13:08 | CARD ---
APPROVED REPORT EKG Measurement Heart [id number] <Conclusion> Sinus tachycardia Nonspecific T wave abnormality Abnormal ECG
[2017-07-04 13:10] LABS: N MENINGITIS ACY/W135 NEGATIVE (NEGATIVE); N MENINGITIS B/ECOLI K1 NEGATIVE (NEGATIVE); STREP PNEUMONIAE NEGATIVE (NEGATIVE); STREPTOCOCCUS B NEGATIVE (NEGATIVE)
[2017-07-04] MEDS: Meropenem 1 GM in Sodium Chloride 0.9% 100 ML IVPB SCH ×2 (14:11→22:08)
--- NOTE | 2017-07-04 14:43 | CP.PCM.CON ---
History of Present Illness - History of Present Illness History of Present Illness: Palliative consult requested by Dr. Dennis Uriarte, for gallstones of care and Code status discussion Patient is 71 years old lady, admitted from residential, status post seizures, fever of 102, and HR 148. The nursing notes seizures lasted for 1 minute. The last of seizures patient had in September of 2016. In ED patient was placed on Ventimask ,Vancomycin IV, Merrem IV and Keppra. Condition made stable. The CAT scan of the head was negative active bleeding. Patient is post lumbar punction and culture and sensitivity of spinal fluids are pending. Past medical history, CVA, aphasic since 2016, diabetes, hypertension, CHF, COPD , PE, PEG Social history single, residential resident, has the Sumaya Burrell who states being POA Family history, parents natural , Review of Systems - Review of Systems All systems: reviewed and no additional remarkable complaints except Review of Systems: Review of systems unobtainable from the patient due to aphasic status. Nursing patient has been short of breath and is in need for high oxygen supplement Past Patient History - Past Medical History & Family History Past Medical History?: Yes - Past Social History Smoking Status: Former Smoker Home Situation {Lives}: Senior Care Domestic Violence: Negative - CARDIAC Hx Atrial Fibrillation: No Hx Cardia Arrhythmia: No Hx Congestive Heart Failure: No Hx Hypercholesterolemia: Yes Hx Hypertension: Yes Hx Mitral Valve Prolapse: No Hx Pacemaker: No Hx Peripheral Edema: No - PULMONARY Hx Asthma: No Hx Bronchitis: No Hx Chronic Obstructive Pulmonary Disease (COPD): No Hx Emphysema: No Hx Pneumonia: No Hx Pulmonary Embolism: No Hx Sleep Apnea: No - NEUROLOGICAL Hx Seizures: Yes - HEENT Hx HEENT Problems: No - RENAL Hx Chronic Kidney Disease: No - ENDOCRINE/METABOLIC Hx Diabetes Mellitus Type 1: Yes - HEMATOLOGICAL/ONCOLOGICAL Hx Blood Disorders: No - INTEGUMENTARY Hx Dermatological Problems: No - MUSCULOSKELETAL/RHEUMATOLOGICAL Hx Musculoskeletal Disorders: No - GASTROINTESTINAL Other/Comment: Patient verbalized having diarrhea and vomitting for 3 days, No diarrhea nor vimitting since admission. - GENITOURINARY/GYNECOLOGICAL Hx Genitourinary Disorders: No - PSYCHIATRIC Hx Depression: Yes Hx Substance Use: No - SURGICAL HISTORY Hx Cholecystectomy: Yes Hx Tonsillectomy: Yes - ANESTHESIA Hx Anesthesia: Yes Hx Anesthesia Reactions: No Hx Malignant Hyperthermia: No Meds Allergies/Adverse Reactions: Allergies Allergy/AdvReac Type Severity Reaction Status Date / Time No Known Allergies Allergy Verified 07/03/17 23:18 - Medications Medications: Current Medications Acetaminophen (Tylenol 650 Mg Supp) 650 mg VT Q6 PRN PRN Reason: Fever >100.4 F Last Admin: 07/04/17 06:45 Dose: 650 mg Aspirin (Aspirin Chewable) 81 mg PO DAILY [facility] Last Admin: 07/04/17 11:14 Dose: 81 mg Enoxaparin Sodium (Lovenox) 40 mg SC DAILY [facility] Famotidine (Pepcid) 40 mg IVP BID [facility] Last Admin: 07/04/17 11:14 Dose: 40 mg Potassium Chloride 20 meq/ (Sodium Chloride) 1,010 mls @ 100 mls/hr IV .Q10H6M [facility] Last Admin: 07/04/17 07:01 Dose: 100 mls/hr Vancomycin/Sodium Chloride (Vancomycin 1 Gm/Ns 200 Ml) 1 gm in 200 mls @ 133.333 mls/hr IVPB Q12H [facility] Stop: 07/09/17 09:01 Last Admin: 07/04/17 11:16 Dose: 133.333 mls/hr Meropenem 1 gm/ Sodium (Chloride) 100 mls @ 100 mls/hr IVPB Q8 [facility] Insulin Aspart (Novolog) 0 unit SC Q6 DENNIS PRN Reason: Protocol Insulin Detemir (Levemir) 22 unit SC HS [facility] Levetiracetam (Keppra) 750 mg PEG Q12 [facility] Last Admin: 07/04/17 11:15 Dose: 750 mg Metoprolol Tartrate (Lopressor) 12.5 mg PEG Q12 [facility] Last Admin: 07/04/17 11:14 Dose: 12.5 mg Multivitamins/Vitamin C (Multi-Delyn Liquid) 5 ml PEG DAILY [facility] Last Admin: 07/04/17 11:15 Dose: 5 ml Rosuvastatin Calcium (Crestor) 10 mg PEG DAILY [facility] Last Admin: 07/04/17 11:14 Dose: 10 mg Zinc Sulfate (Zinc Sulfate 220 Mg Cap) 220 mg PEG DAILY [facility] Last Admin: 07/04/17 11:14 Dose: 220 mg Physical Exam - Constitutional Appears: No Acute Distress, Chronically Ill - Head Exam Head Exam: ATRAUMATIC, NORMAL INSPECTION, NORMOCEPHALIC - Eye Exam Eye Exam: EOMI, Normal appearance Pupil Exam: Irregular Additional comments: Keeps eyes closed - ENT Exam ENT Exam: Mucous Membranes Moist, Normal Exam - Neck Exam Neck exam: Positive for: Normal Inspection - Respiratory Exam Respiratory Exam: Decreased Breath Sounds, Rhonchi, Respiratory Distress - Cardiovascular Exam Cardiovascular Exam: Tachycardia, REGULAR RHYTHM - GI/Abdominal Exam GI & Abdominal Exam: Normal Bowel Sounds Additional comments: PEG in place - Rectal Exam Rectal Exam: Deferred - Exam Additional comments: Wray catheter - Extremities Exam Extremities exam: Positive for: pedal edema - Back Exam Back exam: NORMAL INSPECTION - Neurological Exam Neurological exam: Altered, Motor Sensory Deficit - Psychiatric Exam Psychiatric exam: Flat Affect - Skin Skin Exam: Normal Color Results - Vital Signs Recent Vital Signs: Last Vital Signs Temp 101 F H 07/04/17 06:45 Pulse 95 H 07/04/17 06:50 Resp 21 07/04/17 06:50 BP 117/68 07/04/17 06:34 Pulse Ox 96 07/04/17 06:50 - Labs Result Diagrams: 07/04/17 06:36 07/04/17 06:36 Labs: Laboratory Results - last 24 hr 07/03/17 07/03/17 07/04/17 23:34 23:50 00:09 WBC 19.4 H D RBC 5.22 H Hgb 14.8 D Hct 45.5 MCV 87.2 MCH 28.3 MCHC 32.4 L RDW 13.8 Plt Count 368 D MPV 10.8 Neut % (Auto) 92.3 H Lymph % (Auto) 4.7 L [place] % (Auto) 2.7 Eos % (Auto) 0.0 Baso % (Auto) 0.3 Neut # (Auto) 17.9 H Lymph # (Auto) 0.9 L [place] # (Auto) 0.5 Eos # (Auto) 0.0 Baso # (Auto) 0.1 Neutrophils % (Manual) 88 H Band Neutrophils % 1 Lymphocytes % (Manual) 11 L Monocytes % (Manual) TEST NOT PERFORMED Platelet Estimate Normal Basophilic Stippling PT INR APTT Puncture Site pCO2 pO2 93 H HCO3 ABG pH ABG Total CO2 ABG O2 Saturation ABG Base Excess ABG Hemoglobin ABG Carboxyhemoglobin POC ABG HHb (Measured) ABG Methemoglobin Arthur Test VBG pH 7.28 L VBG pCO2 63 H VBG HCO3 25.8 VBG Total CO2 31.5 H VBG O2 Sat (Calc) 98.3 H VBG Base Excess 1.2 VBG Potassium 4.9 A-a O2 Difference Respiratory Index Hgb O2 Saturation Sodium 152.0 H Chloride 115.0 H Glucose 319 H Lactate 3.4 H Liter Flow FiO2 Crit Value Called To Crit Value Called By Crit Value Read Back Blood Gas Notified Time Potassium Carbon Dioxide Anion Gap BUN Creatinine Est GFR ( Amer) Est GFR (Non-Af Amer) POC Glucose (mg/dL) Random Glucose Hemoglobin A1c Lactic Acid Calcium Phosphorus Magnesium Total Bilirubin AST ALT Alkaline Phosphatase Total Creatine Kinase Troponin I C-React Prot High Sens NT-Pro-B Natriuret Pep Total Protein Albumin Globulin Albumin/Globulin Ratio Procalcitonin Venous Blood Potassium 4.9 Urine Color Urine Clarity Urine pH Ur Specific [place] Urine Protein Urine Glucose (UA) Urine Ketones Urine Blood Urine Nitrate Urine Bilirubin Urine Urobilinogen Ur Leukocyte Esterase Urine WBC (Auto) Urine RBC (Auto) Ur Squamous Epith Cells Urine Bacteria Urine Yeast (Budding) Fluid Type CSF Volume CSF Appearance CSF WBC CSF RBC CSF Total Cell Counted CSF Neutrophils CSF Lymphocytes CSF Monos/Macrophages CSF Comment CSF Glucose Influenza Typ A,B (EIA) H.influenzae Type B Ag Negative N.meningitidis ACY/W135 Negative N.meningi B/E.coli K1 Ag Negative Group B Strep Antigen Negative S. pneumoniae Antigen Negative 07/04/17 07/04/17 07/04/17 00:09 00:09 00:09 WBC RBC Hgb Hct MCV MCH MCHC RDW Plt Count MPV Neut % (Auto) Lymph % (Auto) [place] % (Auto) Eos % (Auto) Baso % (Auto) Neut # (Auto) Lymph # (Auto) [place] # (Auto) Eos # (Auto) Baso # (Auto) Neutrophils % (Manual) Band Neutrophils % Lymphocytes % (Manual) Monocytes % (Manual) Platelet Estimate Basophilic Stippling PT 12.2 INR 1.1 APTT 26 Puncture Site pCO2 pO2 HCO3 ABG pH ABG Total CO2 ABG O2 Saturation ABG Base Excess ABG Hemoglobin ABG Carboxyhemoglobin POC ABG HHb (Measured) ABG Methemoglobin Arthur Test VBG pH VBG pCO2 VBG HCO3 VBG Total CO2 VBG O2 Sat (Calc) VBG Base Excess VBG Potassium A-a O2 Difference Respiratory Index Hgb O2 Saturation Sodium 152 H Chloride 97 L Glucose Lactate Liter Flow FiO2 Crit Value Called To Crit Value Called By Crit Value Read Back Blood Gas Notified Time Potassium 3.2 L Carbon Dioxide 32 H Anion Gap 26 H BUN 45 H Creatinine 0.9 Est GFR ( Amer) > 60 Est GFR (Non-Af Amer) > 60 POC Glucose (mg/dL) Random Glucose 327 H Hemoglobin A1c Lactic Acid 3.9 H Calcium 10.2 Phosphorus 4.7 H Magnesium 2.0 Total Bilirubin 0.8 AST 46 H ALT 25 Alkaline Phosphatase 75 Total Creatine Kinase Troponin I 0.3950 H* C-React Prot High Sens NT-Pro-B Natriuret Pep 323 Total Protein 8.5 H Albumin 4.5 Globulin 4.0 H Albumin/Globulin Ratio 1.1 Procalcitonin Venous Blood Potassium Urine Color Urine Clarity Urine pH Ur Specific [place] Urine Protein Urine Glucose (UA) Urine Ketones Urine Blood Urine Nitrate Urine Bilirubin Urine Urobilinogen Ur Leukocyte Esterase Urine WBC (Auto) Urine RBC (Auto) Ur Squamous Epith Cells Urine Bacteria Urine Yeast (Budding) Fluid Type CSF Volume CSF Appearance CSF WBC CSF RBC CSF Total Cell Counted CSF Neutrophils CSF Lymphocytes CSF Monos/Macrophages CSF Comment CSF Glucose Influenza Typ A,B (EIA) H.influenzae Type B Ag N.meningitidis ACY/W135 N.meningi B/E.coli K1 Ag Group B Strep Antigen S. pneumoniae Antigen 07/04/17 07/04/17 07/04/17 00:22 01:58 02:08 WBC RBC Hgb Hct MCV MCH MCHC RDW Plt Count MPV Neut % (Auto) Lymph % (Auto) [place] % (Auto) Eos % (Auto) Baso % (Auto) Neut # (Auto) Lymph # (Auto) [place] # (Auto) Eos # (Auto) Baso # (Auto) Neutrophils % (Manual) Band Neutrophils % Lymphocytes % (Manual) Monocytes % (Manual) Platelet Estimate Basophilic Stippling PT INR APTT Puncture Site pCO2 pO2 HCO3 ABG pH ABG Total CO2 ABG O2 Saturation ABG Base Excess ABG Hemoglobin ABG Carboxyhemoglobin POC ABG HHb (Measured) ABG Methemoglobin Arthur Test VBG pH VBG pCO2 VBG HCO3 VBG Total CO2 VBG O2 Sat (Calc) VBG Base Excess VBG Potassium A-a O2 Difference Respiratory Index Hgb O2 Saturation Sodium Chloride Glucose Lactate Liter Flow FiO2 Crit Value Called To Crit Value Called By Crit Value Read Back Blood Gas Notified Time Potassium Carbon Dioxide Anion Gap BUN Creatinine Est GFR ( Amer) Est GFR (Non-Af Amer) POC Glucose (mg/dL) Random Glucose Hemoglobin A1c Lactic Acid Calcium Phosphorus Magnesium Total Bilirubin AST ALT Alkaline Phosphatase Total Creatine Kinase Troponin I C-React Prot High Sens NT-Pro-B Natriuret Pep Total Protein Albumin Globulin Albumin/Globulin Ratio Procalcitonin Venous Blood Potassium Urine Color Wendi Urine Clarity Hazy Urine pH 5.0 Ur Specific [place] 1.025 Urine Protein 2+ H Urine Glucose (UA) Normal Urine Ketones Trace Urine Blood 1+ H Urine Nitrate Negative Urine Bilirubin Negative Urine Urobilinogen 2.0 H Ur Leukocyte Esterase Neg Urine WBC (Auto) 12 H Urine RBC (Auto) 21 H Ur Squamous Epith Cells < 1 Urine Bacteria Few H Urine Yeast (Budding) Few H Fluid Type Spinal fluid CSF Volume 1 CSF Appearance Clear/colorless CSF WBC 9.0 H CSF RBC 290.0 H CSF Total Cell Counted 100 H CSF Neutrophils 11 H CSF Lymphocytes 80.0 H CSF Monos/Macrophages 9 H CSF Comment CSF Glucose 168 H* Influenza Typ A,B (EIA) H.influenzae Type B Ag N.meningitidis ACY/W135 N.meningi B/E.coli K1 Ag Group B Strep Antigen S. pneumoniae Antigen 07/04/17 07/04/17 07/04/17 02:20 04:16 05:18 WBC RBC Hgb Hct MCV MCH MCHC RDW Plt Count MPV Neut % (Auto) Lymph % (Auto) [place] % (Auto) Eos % (Auto) Baso % (Auto) Neut # (Auto) Lymph # (Auto) [place] # (Auto) Eos # (Auto) Baso # (Auto) Neutrophils % (Manual) Band Neutrophils % Lymphocytes % (Manual) Monocytes % (Manual) Platelet Estimate Basophilic Stippling PT INR APTT Puncture Site Rb pCO2 71 H* pO2 76 L HCO3 30.4 H ABG pH 7.31 L ABG Total CO2 37.9 H ABG O2 Saturation 96.6 ABG Base Excess 7.1 H ABG Hemoglobin 12.6 ABG Carboxyhemoglobin 1.6 H POC ABG HHb (Measured) 3.3 ABG Methemoglobin 1.6 Arthur Test Na VBG pH VBG pCO2 VBG HCO3 VBG Total CO2 VBG O2 Sat (Calc) VBG Base Excess VBG Potassium A-a O2 Difference 85.0 Respiratory Index 1.1 Hgb O2 Saturation 93.5 L Sodium Chloride Glucose Lactate Liter Flow 4.0 FiO2 35.0 Crit Value Called To Rosalina vernon/rn Crit Value Called By Navid reich/rt Crit Value Read Back Y Blood Gas Notified Time 230 Potassium Carbon Dioxide Anion Gap BUN Creatinine Est GFR ( Amer) Est GFR (Non-Af Amer) POC Glucose (mg/dL) Random Glucose Hemoglobin A1c Lactic Acid 0.9 Calcium Phosphorus Magnesium Total Bilirubin AST ALT Alkaline Phosphatase Total Creatine Kinase Troponin I C-React Prot High Sens 3.75 H NT-Pro-B Natriuret Pep Total Protein Albumin Globulin Albumin/Globulin Ratio Procalcitonin Venous Blood Potassium Urine Color Urine Clarity Urine pH Ur Specific [place] Urine Protein Urine Glucose (UA) Urine Ketones Urine Blood Urine Nitrate Urine Bilirubin Urine Urobilinogen Ur Leukocyte Esterase Urine WBC (Auto) Urine RBC (Auto) Ur Squamous Epith Cells Urine Bacteria Urine Yeast (Budding) Fluid Type CSF Volume CSF Appearance CSF WBC CSF RBC CSF Total Cell Counted CSF Neutrophils CSF Lymphocytes CSF Monos/Macrophages CSF Comment CSF Glucose Influenza Typ A,B (EIA) H.influenzae Type B Ag N.meningitidis ACY/W135 N.meningi B/E.coli K1 Ag Group B Strep Antigen S. pneumoniae Antigen 07/04/17 07/04/17 07/04/17 06:31 06:35 06:36 WBC 13.5 H RBC 4.05 Hgb 11.6 D Hct 35.5 MCV 87.8 MCH 28.7 MCHC 32.7 L RDW 13.4 Plt Count 206 D MPV 10.4 Neut % (Auto) 91.5 H Lymph % (Auto) 5.2 L [place] % (Auto) 3.1 Eos % (Auto) 0.0 Baso % (Auto) 0.2 Neut # (Auto) 12.3 H Lymph # (Auto) 0.7 L [place] # (Auto) 0.4 Eos # (Auto) 0.0 Baso # (Auto) 0.0 Neutrophils % (Manual) 89 H Band Neutrophils % 6 H Lymphocytes % (Manual) 3 L Monocytes % (Manual) 2 Platelet Estimate Normal Basophilic Stippling Slight PT INR APTT Puncture Site pCO2 pO2 49 HCO3 ABG pH ABG Total CO2 ABG O2 Saturation ABG Base Excess ABG Hemoglobin ABG Carboxyhemoglobin POC ABG HHb (Measured) ABG Methemoglobin Arthur Test VBG pH 7.33 VBG pCO2 61 H VBG HCO3 28.0 VBG Total CO2 34.1 H VBG O2 Sat (Calc) 88.6 H VBG Base Excess 4.5 H VBG Potassium 3.2 L A-a O2 Difference Respiratory Index Hgb O2 Saturation Sodium 145.0 Chloride 108.0 H Glucose 421 H* D Lactate 1.1 Liter Flow FiO2 Crit Value Called To Luisito rn Crit Value 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 Crit Value Read Back Y Blood Gas Notified Time 638 Potassium Carbon Dioxide Anion Gap BUN Creatinine Est GFR ( Amer) Est GFR (Non-Af Amer) POC Glucose (mg/dL) 325 H Random Glucose Hemoglobin A1c Lactic Acid Calcium Phosphorus Magnesium Total Bilirubin AST ALT Alkaline Phosphatase Total Creatine Kinase Troponin I C-React Prot High Sens NT-Pro-B Natriuret Pep Total Protein Albumin Globulin Albumin/Globulin Ratio Procalcitonin Venous Blood Potassium 3.2 L Urine Color Urine Clarity Urine pH Ur Specific [place] Urine Protein Urine Glucose (UA) Urine Ketones Urine Blood Urine Nitrate Urine Bilirubin Urine Urobilinogen Ur Leukocyte Esterase Urine WBC (Auto) Urine RBC (Auto) Ur Squamous Epith Cells Urine Bacteria Urine Yeast (Budding) Fluid Type CSF Volume CSF Appearance CSF WBC CSF RBC CSF Total Cell Counted CSF Neutrophils CSF Lymphocytes CSF Monos/Macrophages CSF Comment CSF Glucose Influenza Typ A,B (EIA) H.influenzae Type B Ag N.meningitidis ACY/W135 N.meningi B/E.coli K1 Ag Group B Strep Antigen S. pneumoniae Antigen 07/04/17 07/04/17 07/04/17 06:36 06:36 06:36 WBC RBC Hgb Hct MCV MCH MCHC RDW Plt Count MPV Neut % (Auto) Lymph % (Auto) [place] % (Auto) Eos % (Auto) Baso % (Auto) Neut # (Auto) Lymph # (Auto) [place] # (Auto) Eos # (Auto) Baso # (Auto) Neutrophils % (Manual) Band Neutrophils % Lymphocytes % (Manual) Monocytes % (Manual) Platelet Estimate Basophilic Stippling PT 12.2 INR 1.1 APTT 27 Puncture Site pCO2 pO2 HCO3 ABG pH ABG Total CO2 ABG O2 Saturation ABG Base Excess ABG Hemoglobin ABG Carboxyhemoglobin POC ABG HHb (Measured) ABG Methemoglobin Arthur Test VBG pH VBG pCO2 VBG HCO3 VBG Total CO2 VBG O2 Sat (Calc) VBG Base Excess VBG Potassium A-a O2 Difference Respiratory Index Hgb O2 Saturation Sodium 145 Chloride 101 Glucose Lactate Liter Flow FiO2 Crit Value Called To Crit Value Called By Crit Value Read Back Blood Gas Notified Time Potassium 3.1 L Carbon Dioxide 31 H Anion Gap 16 BUN 39 H Creatinine 0.6 L Est GFR ( Amer) > 60 Est GFR (Non-Af Amer) > 60 POC Glucose (mg/dL) Random Glucose 390 H Hemoglobin A1c Lactic Acid Calcium 8.7 Phosphorus Magnesium 1.9 Total Bilirubin 0.5 AST 41 H ALT 34 Alkaline Phosphatase 49 Total Creatine Kinase 504 H Troponin I 1.2900 H* C-React Prot High Sens NT-Pro-B Natriuret Pep Total Protein 6.3 Albumin 3.4 L D Globulin 2.9 Albumin/Globulin Ratio 1.2 Procalcitonin 0.36 Venous Blood Potassium Urine Color Urine Clarity Urine pH Ur Specific [place] Urine Protein Urine Glucose (UA) Urine Ketones Urine Blood Urine Nitrate Urine Bilirubin Urine Urobilinogen Ur Leukocyte Esterase Urine WBC (Auto) Urine RBC (Auto) Ur Squamous Epith Cells Urine Bacteria Urine Yeast (Budding) Fluid Type CSF Volume CSF Appearance CSF WBC CSF RBC CSF Total Cell Counted CSF Neutrophils CSF Lymphocytes CSF Monos/Macrophages CSF Comment CSF Glucose Influenza Typ A,B (EIA) H.influenzae Type B Ag N.meningitidis ACY/W135 N.meningi B/E.coli K1 Ag Group B Strep Antigen S. pneumoniae Antigen 07/04/17 07/04/17 07/04/17 08:08 08:47 12:17 WBC RBC Hgb Hct MCV MCH MCHC RDW Plt Count MPV Neut % (Auto) Lymph % (Auto) [place] % (Auto) Eos % (Auto) Baso % (Auto) Neut # (Auto) Lymph # (Auto) [place] # (Auto) Eos # (Auto) Baso # (Auto) Neutrophils % (Manual) Band Neutrophils % Lymphocytes % (Manual) Monocytes % (Manual) Platelet Estimate Basophilic Stippling PT INR APTT Puncture Site pCO2 pO2 HCO3 ABG pH ABG Total CO2 ABG O2 Saturation ABG Base Excess ABG Hemoglobin ABG Carboxyhemoglobin POC ABG HHb (Measured) ABG Methemoglobin Arthur Test VBG pH VBG pCO2 VBG HCO3 VBG Total CO2 VBG O2 Sat (Calc) VBG Base Excess VBG Potassium A-a O2 Difference Respiratory Index Hgb O2 Saturation Sodium Chloride Glucose Lactate Liter Flow FiO2 Crit Value Called To Crit Value Called By Crit Value Read Back Blood Gas Notified Time Potassium Carbon Dioxide Anion Gap BUN Creatinine Est GFR ( Amer) Est GFR (Non-Af Amer) POC Glucose (mg/dL) 294 H Random Glucose Hemoglobin A1c 7.1 H Lactic Acid Calcium Phosphorus Magnesium Total Bilirubin AST ALT Alkaline Phosphatase Total Creatine Kinase Troponin I C-React Prot High Sens NT-Pro-B Natriuret Pep Total Protein Albumin Globulin Albumin/Globulin Ratio Procalcitonin Venous Blood Potassium Urine Color Urine Clarity Urine pH Ur Specific [place] Urine Protein Urine Glucose (UA) Urine Ketones Urine Blood Urine Nitrate Urine Bilirubin Urine Urobilinogen Ur Leukocyte Esterase Urine WBC (Auto) Urine RBC (Auto) Ur Squamous Epith Cells Urine Bacteria Urine Yeast (Budding) Fluid Type CSF Volume CSF Appearance CSF WBC CSF RBC CSF Total Cell Counted CSF Neutrophils CSF Lymphocytes CSF Monos/Macrophages CSF Comment CSF Glucose Influenza Typ A,B (EIA) Negative for flu a/b H.influenzae Type B Ag N.meningitidis [id number] N.meningi B/E.coli K1 Ag Group B Strep Antigen S. pneumoniae Antigen Assessment & Plan - Assessment and Plan (Free Text) Assessment: Palliative consult Called status full called, there is no advanced directive on chart, PPS 10%'s I reviewed medical records all diagnostic studies, examining patient in the bed , and discussed goals of care with patient's granddaughter at the bedside Patient is lethargic, keeps eyes closed, is not able to follow simple commands, nonverbal. Breathing is fast, respiratory rates 22. Breath sounds diminished, rhonchi, Rales at the base of the lungs. Fever of 101.0. Tylenol on board. Blood pressure 117/68, HR 95, sinus tach. PEG in place. There is a mild pedal edema. Patient occasionally lifts up right arm. White blood count 13.5 down from 19.4, PCO2 elevated at 71%'s, glucose 421, potassium 3.1, troponin 22900 Patient's Grand daughter Margot at bedside. She reports her mother Ashanti, who is the POA , was out of state. She was able to call her mother on the phone for me" and put her on speaker. I reviewed patient's physical presentation, most recent results, and elicited daughter's expectations of care provided to the patient. Xavier stated she would like her mom to return to the residential in stable condition. I supported that and reassured her. CODE status discussed. POLST introduced the daughter Xavier. Xavier stated on the last admission she did sign the document asking for DNR DNI. I reviewed the nature of that paper which was most likely only for one admission and suggested we discussed the POLST. She said she had to speak to her brother's before she makes decision. I came back in 20 minutes and patient's daughter Margot said her mother appointed her to sign the paper. Margot said her mother Ashanti wanted patient to be DNR/DNI. I assisted her in completing the POLST. These was shared to Dr. Dennis Uriarte , nursing and medical residents. Impression * Chronically ill patient in acute respiratory distress, requires high doses of supplemental oxygen * Aphasia, unable to make her basic needs known * PEG in place, at risk for aspiration * POLST, daughter Xavier requested DNR DNI Suggestions * Continuing noninvasive measures of providing high level of oxygen * Reposition patient for comfort and anticipate pain. Medicate for pain with Tylenol * Elevate head of the bed at 45 to the event aspiration * DNR DNI Thank you for consultation palliative care. Patient will be closely followed by you. Advanced planning time spent 60 minutes
[2017-07-04] MEDS ORDERED: Phenytoin 500 MG in Sodium Chloride 0.9% 100 ML IVPB STA (17:53)
[2017-07-04] MEDS: Insulin Detemir 100 units/ml Vial (Levemir) SC SCH (22:07)
[2017-07-05] MEDS: (Novolog) Insulin Aspart, Recombinant 100 u/ml 10 ml vial SC SCH ×3 (01:00→18:38)
[2017-07-05] MEDS: Potassium Chloride 20 MEQ in Sodium Chloride 0.45% 1,000 ML IV SCH (01:27)
[2017-07-05] MEDS: Meropenem 1 GM in Sodium Chloride 0.9% 100 ML IVPB SCH ×2 (05:18→13:35)
[2017-07-05 06:28] LABS: BASO # 0.1 K/uL (0.0-0.2); BASO % 0.7 % (0.0-2.0); EOS % 0.4 % (0.0-4.0); HEMOGLOBIN 11.5 g/dL (11.0-16.0); LYMPH # 1.7 K/uL (1.0-4.3); LYMPH % 20.6 % (20.0-40.0); MEAN CELL VOLUME 87.5 fL (81.0-99.0); MEAN CORPUSCULAR HEMOGLOBIN 28.2 pg (27.0-31.0); MEAN CORPUSCULAR HGB CONC 32.2 g/dL (33.0-37.0); MEAN PLATELET VOLUME 10.2 fL (7.2-11.7); MONO # 0.3 K/uL (0.0-0.8); NEUT % 74.3 % (50.0-75.0); NRBC % 0.1 % (0.0-2.0); RBC 4.07 Mil/uL (3.80-5.20); RED CELL DISTRIBUTION WIDTH 13.1 % (11.5-14.5); WHITE BLOOD COUNT 8.1 K/uL (4.8-10.8)
[2017-07-05 06:48] LABS: ALB/GLOB RATIO 1.1 (1.0-2.1); ALBUMIN 3.1 g/dL (3.5-5.0); ALT/SGPT 28 U/L (9-52); AST/SGOT 34 U/L (14-36); BLOOD UREA NITROGEN 21 mg/dL (7-17); CALCIUM 8.4 mg/dl (8.6-10.4); GFR AFRICAN-AMERICAN > 60; GFR NON-AFRICAN AMERICAN > 60; MAGNESIUM 1.7 mg/dL (1.6-2.3)
[2017-07-05] MEDS ORDERED: Potassium Phosphate 15 MMOLE in Sodium Chloride 0.9% 250 ML IVPB ONE (07:45)
[2017-07-05] MEDS ORDERED: Magnesium Sulfate 1 gm in D5W 1 GM/100 ML BAG IVPB ONE (07:48)
--- NOTE | 2017-07-05 07:54 | CP.PCM.PN ---
Subjective - Date & Time of Evaluation Date of Evaluation: 07/05/17 Time of Evaluation: 08:00 - Subjective Subjective: No acute events overnight, no seizures over night, no fevers Objective - Vital Signs/Intake and Output Vital Signs (last 24 hours): Temp Pulse Resp BP Pulse Ox 98.6 F 83 43 H 96/53 L 100 07/05/17 04:00 07/05/17 07:00 07/05/17 07:00 07/05/17 06:24 07/05/17 07:00 Intake and Output: 07/05/17 07/05/17 06:59 18:59 Intake Total 1360 100 Output Total 200 0 Balance 1160 100 - Medications Medications: Current Medications Acetaminophen (Tylenol 650 Mg Supp) 650 mg [place] Q6 PRN PRN Reason: Fever >100.4 F Last Admin: 07/04/17 06:45 Dose: 650 mg Aspirin (Aspirin Chewable) 81 mg PO DAILY COUNTS [facility]CLUDE 234 BEDS AT THE [facility] Last Admin: 07/04/17 11:14 Dose: 81 mg Enoxaparin Sodium (Lovenox) 40 mg SC DAILY COUNTS INCLUDE 234 BEDS AT THE [facility] Last Admin: 07/04/17 11:11 Dose: 40 mg Famotidine (Pepcid) 40 mg IVP BID COUNTS INCLUDE 234 BEDS AT THE [facility] Last Admin: 07/04/17 18:14 Dose: 40 mg Potassium Chloride 20 meq/ (Sodium Chloride) 1,010 mls @ 100 mls/hr IV .Q10H6M COUNTS INCLUDE 234 BEDS AT THE [facility] Last Admin: 07/05/17 01:27 Dose: 100 mls/hr Vancomycin/Sodium Chloride (Vancomycin 1 Gm/Ns 200 Ml) 1 gm in 200 mls @ 133.333 mls/hr IVPB Q12H COUNTS INCLUDE 234 BEDS AT THE [facility] Stop: 07/09/17 09:01 Last Admin: 07/04/17 20:45 Dose: 133.333 mls/hr Meropenem 1 gm/ Sodium (Chloride) 100 mls @ 100 mls/hr IVPB Q8 COUNTS INCLUDE 234 BEDS AT THE [facility] Last Admin: 07/05/17 05:18 Dose: 100 mls/hr Levetiracetam 750 mg/ Sodium (Chloride) 107.5 mls @ 420 mls/hr IVPB Q12H COUNTS INCLUDE 234 BEDS AT THE [facility] Last Admin: 07/05/17 05:00 Dose: 420 mls/hr Potassium Phosphate 15 mmole/ (Sodium Chloride) 255 mls @ 42.5 mls/hr IVPB ONCE ONE Stop: 07/05/17 13:43 Potassium Phosphate 15 mmole/ (Sodium Chloride) 255 mls @ 42.5 mls/hr IVPB ONCE ONE Stop: 07/05/17 13:44 Potassium Chloride (Potassium Chloride 20 Meq/100 Ml) 20 meq in 100 mls @ 50 mls/hr IVPB Q1H [facility] Stop: 07/05/17 10:59 Magnesium Sulfate/Dextrose (Magnesium Sulfate 1 Gm/100 Ml D5w) 1 gm in 100 mls @ 200 mls/hr IVPB ONCE ONE Stop: 07/05/17 08:17 Insulin Aspart (Novolog) 0 unit SC Q6 [facility] PRN Reason: Protocol Last Admin: 07/05/17 05:20 Dose: Not Given Insulin Detemir (Levemir) 22 unit SC HS COUNTS INCLUDE 234 BEDS AT THE [facility] Last Admin: 07/04/17 22:07 Dose: 22 unit Lorazepam (Ativan) 1 mg IVP Q6H PRN PRN Reason: Seizure activity Last Admin: 07/05/17 04:00 Dose: 1 mg Metoprolol Tartrate (Lopressor) 12.5 mg PEG Q12 COUNTS INCLUDE 234 BEDS AT THE [facility] Last Admin: 07/04/17 22:08 Dose: 12.5 mg Multivitamins/Vitamin C (Multi-Delyn Liquid) 5 ml PEG DAILY COUNTS INCLUDE 234 BEDS AT THE [facility] Last Admin: 07/04/17 11:15 Dose: 5 ml Potassium Chloride (Potassium Chloride Oral Soln) 40 meq GT Q4H COUNTS INCLUDE 234 BEDS AT THE [facility] Stop: 07/05/17 19:46 Potassium Phos/Sodium Phos (Neutra-Phos) 1 pkt PO Q12H [facility] Stop: 07/06/17 08:01 Rosuvastatin Calcium (Crestor) 10 mg PEG DAILY COUNTS INCLUDE 234 BEDS AT THE [facility] Last Admin: 07/04/17 11:14 Dose: 10 mg Zinc Sulfate (Zinc Sulfate 220 Mg Cap) 220 mg PEG DAILY COUNTS INCLUDE 234 BEDS AT THE [facility] Last Admin: 07/04/17 11:14 Dose: 220 mg - Labs Labs: 07/05/17 06:21 07/05/17 06:22 PT 12.2 SECONDS (9.7-12.2) 07/04/17 06:36 INR 1.1 07/04/17 06:36 APTT 27 SECONDS (21-34) 07/04/17 06:36 - Constitutional Appears: No Acute Distress - Head Exam Head Exam: ATRAUMATIC, NORMAL INSPECTION - Eye Exam Eye Exam: EOMI - ENT Exam ENT Exam: Mucous Membranes Moist - Respiratory Exam Respiratory Exam: Clear to Ausculation Bilateral, NORMAL BREATHING PATTERN - Cardiovascular Exam Cardiovascular Exam: REGULAR RHYTHM, +S1, +S2 - GI/Abdominal Exam GI & Abdominal Exam: Normal Bowel Sounds Additional comments: (+) PEG tube - Extremities Exam Extremities Exam: Normal Inspection Assessment and Plan - Assessment and Plan (Free Text) Plan: Above patient seen and examined at bedside. -Seizures: controlled with IV keppra and has been seizure free for 12 hours: f/ u EEG/ MRI and neurology follow up -NSTEMI: reggie has CAD: will benefit from asa, statin and av nodla jo-ann,f/u echo and f/u cardiology -sepsis: continue empirical abx, f/u cultures -wound care with supplemental MVI -continue dvt/pud ppx prognosis poor as patient is in persistent vegetativelike state. -severely low phosphate/potassium: despite potassium infusion with IVF potassium low, continue agressive replacement -Palliative follow up Patient remains hemodynamically stable.
[2017-07-05] MEDS ORDERED: Lactated Ringer's 1,000 ML IV SCH (08:00)
--- NOTE | 2017-07-05 08:11 | CP.PCM.HP ---
History of Present Illness - History of Present Illness History of Present Illness: 71 F with h/o anoxic injury, siezure, recent fever, with seizure, with uti recently sent in [place] for fever, ams, shaking. In ER patient was given ativan the shaking stopped. Temp was 104, tachycardic needing about 40% fio2, hemoconcentrated, on labs, non communicative, but would try to close eyes when try to touch cornea/conjuctiva, suggesting some vision, and not status behaviour. Patient admitted to ICU for multiple co-morbidities, sepsis, poor airway protection due anoxia hence higher risk for aspiration. Allergies: none PMHx: DM, HTN, Hypercholesterolemia, depression Meds from [place]:Reviewed PSHx: Cholecystectomy, Tonsillectomy, s/p peg Family Hx: unknown Social Hx: 1ppd smoker x 30-40years, no alcohol or substance use Present on Admission - Present on Admission Any Indicators Present on Admission: No Review of Systems - Review of Systems Systems not reviewed;Unavailable: Acuity of Condition Past Patient History - Past Medical History & Family History Past Medical History?: Yes - Past Social History Smoking Status: Former Smoker Home Situation {Lives}: Long-Term Domestic Violence: Negative - CARDIAC Hx Atrial Fibrillation: No Hx Cardia Arrhythmia: No Hx Congestive Heart Failure: No Hx Hypercholesterolemia: Yes Hx Hypertension: Yes Hx Mitral Valve Prolapse: No Hx Pacemaker: No Hx Peripheral Edema: No - PULMONARY Hx Asthma: No Hx Bronchitis: No Hx Chronic Obstructive Pulmonary Disease (COPD): No Hx Emphysema: No Hx Pneumonia: No Hx Pulmonary Embolism: No Hx Sleep Apnea: No - NEUROLOGICAL Hx Seizures: Yes - HEENT Hx HEENT Problems: No - RENAL Hx Chronic Kidney Disease: No - ENDOCRINE/METABOLIC Hx Diabetes Mellitus Type 1: Yes - HEMATOLOGICAL/ONCOLOGICAL Hx Blood Disorders: No - INTEGUMENTARY Hx Dermatological Problems: No - MUSCULOSKELETAL/RHEUMATOLOGICAL Hx Musculoskeletal Disorders: No - GASTROINTESTINAL Other/Comment: Patient verbalized having diarrhea and vomitting for 3 days, No diarrhea nor vimitting since admission. - GENITOURINARY/GYNECOLOGICAL Hx Genitourinary Disorders: No - PSYCHIATRIC Hx Depression: Yes Hx Substance Use: No - SURGICAL HISTORY Hx Cholecystectomy: Yes Hx Tonsillectomy: Yes - ANESTHESIA Hx Anesthesia: Yes Hx Anesthesia Reactions: No Hx Malignant Hyperthermia: No Meds Allergies/Adverse Reactions: Allergies Allergy/AdvReac Type Severity Reaction Status Date / Time No Known Allergies Allergy Verified 07/03/17 23:18 Physical Exam - Head Exam Head Exam: ATRAUMATIC, NORMAL INSPECTION, NORMOCEPHALIC - Eye Exam Eye Exam: EOMI, Normal appearance Pupil Exam: Irregular - ENT Exam ENT Exam: Mucous Membranes Moist, Normal Exam - Neck Exam Neck exam: Positive for: Normal Inspection - Respiratory Exam Respiratory Exam: Clear to Auscultation Bilateral - Cardiovascular Exam Cardiovascular Exam: REGULAR RHYTHM, +S1, +S2 - GI/Abdominal Exam Additional comments: PEG in place - Extremities Exam Extremities exam: Positive for: normal inspection - Back Exam Back exam: NORMAL INSPECTION - Neurological Exam Neurological exam: Altered - Skin Skin Exam: Normal Color Results - Vital Signs Recent Vital Signs: Last Vital Signs Temp 98.6 F 07/05/17 04:00 Pulse 83 07/05/17 07:00 Resp 43 H 07/05/17 07:00 BP 96/53 L 07/05/17 06:24 Pulse Ox 100 07/05/17 07:00 - Labs Result Diagrams: 07/05/17 06:21 07/05/17 06:22 Labs: Laboratory Results - last 24 hr 07/03/17 07/04/17 07/04/17 23:34 06:36 06:36 WBC RBC Hgb Hct MCV MCH MCHC RDW Plt Count MPV Neut % (Auto) Lymph % (Auto) [place] % (Auto) Eos % (Auto) Baso % (Auto) Neut # (Auto) Lymph # (Auto) [place] # (Auto) Eos # (Auto) Baso # (Auto) Neutrophils % (Manual) 89 H Band Neutrophils % 6 H Lymphocytes % (Manual) 3 L Monocytes % (Manual) 2 Platelet Estimate Normal Basophilic Stippling Slight Sodium Potassium Chloride Carbon Dioxide Anion Gap BUN Creatinine Est GFR ( Amer) Est GFR (Non-Af Amer) POC Glucose (mg/dL) Random Glucose Hemoglobin A1c Calcium Phosphorus Magnesium Total Bilirubin AST ALT Alkaline Phosphatase Total Protein Albumin Globulin Albumin/Globulin Ratio Procalcitonin 0.36 Influenza Typ A,B (EIA) H.influenzae Type B Ag Negative N.meningitidis ACY/W135 Negative N.meningi B/E.coli K1 Ag Negative Group B Strep Antigen Negative S. pneumoniae Antigen Negative 07/04/17 07/04/17 07/04/17 08:08 08:47 12:17 WBC RBC Hgb Hct MCV MCH MCHC RDW Plt Count MPV Neut % (Auto) Lymph % (Auto) [place] % (Auto) Eos % (Auto) Baso % (Auto) Neut # (Auto) Lymph # (Auto) [place] # (Auto) Eos # (Auto) Baso # (Auto) Neutrophils % (Manual) Band Neutrophils % Lymphocytes % (Manual) Monocytes % (Manual) Platelet Estimate Basophilic Stippling Sodium Potassium Chloride Carbon Dioxide Anion Gap BUN Creatinine Est GFR ( Amer) Est GFR (Non-Af Amer) POC Glucose (mg/dL) 294 H Random Glucose Hemoglobin A1c 7.1 H Calcium Phosphorus Magnesium Total Bilirubin AST ALT Alkaline Phosphatase Total Protein Albumin Globulin Albumin/Globulin Ratio Procalcitonin Influenza Typ A,B (EIA) Negative for flu a/b H.influenzae Type B Ag N.meningitidis ACY/W135 N.meningi B/E.coli K1 Ag Group B Strep Antigen S. pneumoniae Antigen 07/04/17 07/04/17 07/04/17 17:57 18:43 23:31 WBC RBC Hgb Hct MCV MCH MCHC RDW Plt Count MPV Neut % (Auto) Lymph % (Auto) [place] % (Auto) Eos % (Auto) Baso % (Auto) Neut # (Auto) Lymph # (Auto) [place] # (Auto) Eos # (Auto) Baso # (Auto) Neutrophils % (Manual) Band Neutrophils % Lymphocytes % (Manual) Monocytes % (Manual) Platelet Estimate Basophilic Stippling Sodium Potassium Chloride Carbon Dioxide Anion Gap BUN Creatinine Est GFR ( Amer) Est GFR (Non-Af Amer) POC Glucose (mg/dL) 300 H 262 H 104 Random Glucose Hemoglobin A1c Calcium Phosphorus Magnesium Total Bilirubin AST ALT Alkaline Phosphatase Total Protein Albumin Globulin Albumin/Globulin Ratio Procalcitonin Influenza Typ A,B (EIA) H.influenzae Type B Ag N.meningitidis ACY/W135 N.meningi B/E.coli K1 Ag Group B Strep Antigen S. pneumoniae Antigen 07/05/17 07/05/17 07/05/17 05:14 06:21 06:22 WBC 8.1 RBC 4.07 Hgb 11.5 Hct 35.6 MCV 87.5 MCH 28.2 MCHC 32.2 L RDW 13.1 Plt Count 183 MPV 10.2 Neut % (Auto) 74.3 Lymph % (Auto) 20.6 [place] % (Auto) 4.0 Eos % (Auto) 0.4 Baso % (Auto) 0.7 Neut # (Auto) 6.0 Lymph # (Auto) 1.7 [place] # (Auto) 0.3 Eos # (Auto) 0.0 Baso # (Auto) 0.1 Neutrophils % (Manual) Band Neutrophils % Lymphocytes % (Manual) Monocytes % (Manual) Platelet Estimate Basophilic Stippling Sodium 147 Potassium 3.0 L Chloride 108 H Carbon Dioxide 32 H Anion Gap 10 BUN 21 H Creatinine 0.4 L Est GFR ( Amer) > 60 Est GFR (Non-Af Amer) > 60 POC Glucose (mg/dL) 76 Random Glucose 99 Hemoglobin A1c Calcium 8.4 L Phosphorus 0.9 L* Magnesium 1.7 Total Bilirubin 0.4 AST 34 ALT 28 Alkaline Phosphatase 40 Total Protein 5.8 L Albumin 3.1 L Globulin 2.7 Albumin/Globulin Ratio 1.1 Procalcitonin Influenza Typ A,B (EIA) H.influenzae Type B Ag N.meningitidis ACY/W135 N.meningi B/E.coli K1 Ag Group B Strep Antigen S. pneumoniae Antigen Assessment & Plan - Assessment and Plan (Free Text) Assessment: 71 F with h/o anoxic injury, seizure, recent fever, with seizure, with uti recently who was admitted from a senior living to the hospital for sepsis. Plan: Plan IVF Supportive care Emperic meropenem, vancomycin ID, GI for peg site infn, neuro consult GI/DVT prophylaxis Home meds continue keppra, reduce dose of levimir, npo till gi assess peg Asperation/seizure precautions.
[2017-07-05] MEDS: Lactated Ringer's 1,000 ML IV SCH ×2 (08:27→18:33)
[2017-07-05] MEDS: Vancomycin 1 gm/NS 200 ml 1 GM/200 ML BAG IVPB SCH ×2 (08:27→21:00)
[2017-07-05] MEDS: Potassium Chloride 20 mEq/15 ml LIQ UD GT SCH ×4 (08:29→20:08)
[2017-07-05] MEDS: Potassium & Sodium Phosphate PO SCH ×2 (10:03→20:09)
[2017-07-05] MEDS: Multiple Vitamins Oral Solution PEG SCH (10:03)
[2017-07-05] MEDS: Enoxaparin 40 mg Syringe SC SCH (10:03)
[2017-07-05] MEDS: Potassium Phosphate 15 MMOLE in Sodium Chloride 0.9% 250 ML IVPB SCH ×2 (10:04→16:35)
--- NOTE | 2017-07-05 12:34 | CP.PCM.PN ---
Subjective - Date & Time of Evaluation Date of Evaluation: 07/05/17 Time of Evaluation: 12:37 - Subjective Subjective: PGY2 Medicine Note for Dr. Arreguin's service Patient seen and examined at bedside with attending physician. Patient is unable to provide ROS 2/2 to anoxic brain injury; family meeting to be held on Friday as family is not in agreement of patients care. Will continue to follow very closely. Objective - Vital Signs/Intake and Output Vital Signs (last 24 hours): Temp Pulse Resp BP Pulse Ox 98.7 F 95 H 17 120/64 94 L 07/05/17 08:00 07/05/17 11:25 07/05/17 11:25 07/05/17 11:25 07/05/17 11:25 Intake and Output: 07/05/17 07/05/17 06:59 18:59 Intake Total 1360 500 Output Total 200 500 Balance 1160 0 - Medications Medications: Current Medications Acetaminophen (Tylenol 650 Mg Supp) 650 mg [place] Q6 PRN PRN Reason: Fever >100.4 F Last Admin: 07/04/17 06:45 Dose: 650 mg Aspirin (Aspirin Chewable) 81 mg PO DAILY [facility] Last Admin: 07/05/17 10:03 Dose: 81 mg Enoxaparin Sodium (Lovenox) 40 mg SC DAILY [facility] Last Admin: 07/05/17 10:03 Dose: 40 mg Famotidine (Pepcid) 40 mg IVP BID [facility] Last Admin: 07/05/17 10:03 Dose: 40 mg Vancomycin/Sodium Chloride (Vancomycin 1 Gm/Ns 200 Ml) 1 gm in 200 mls @ 133.333 mls/hr IVPB Q12H [facility] Stop: 07/09/17 09:01 Last Admin: 07/05/17 08:27 Dose: 133.333 mls/hr Meropenem 1 gm/ Sodium (Chloride) 100 mls @ 100 mls/hr IVPB Q8 [facility] Last Admin: 07/05/17 05:18 Dose: 100 mls/hr Levetiracetam 750 mg/ Sodium (Chloride) 107.5 mls @ 420 mls/hr IVPB Q12H [facility] Last Admin: 07/05/17 05:00 Dose: 420 mls/hr Potassium Phosphate 15 mmole/ (Sodium Chloride) 255 mls @ 42.5 mls/hr IVPB Q6H [facility] Stop: 07/05/17 20:59 Last Admin: 07/05/17 10:04 Dose: 42.5 mls/hr Potassium Chloride (Potassium Chloride 20 Meq/100 Ml) 20 meq in 100 mls @ 50 mls/hr IVPB Q2H [facility] Stop: 07/05/17 13:59 Last Admin: 07/05/17 10:04 Dose: 50 mls/hr Lactated Ringer's (Lactated Ringer's) 1,000 mls @ 100 mls/hr IV .Q10H [facility] Last Admin: 07/05/17 08:27 Dose: 100 mls/hr Insulin Aspart (Novolog) 0 unit SC Q6 [facility] PRN Reason: Protocol Last Admin: 07/05/17 05:20 Dose: Not Given Insulin Detemir (Levemir) 22 unit SC HS [facility] Last Admin: 07/04/17 22:07 Dose: 22 unit Lorazepam (Ativan) 1 mg IVP Q6H PRN PRN Reason: Seizure activity Last Admin: 07/05/17 04:00 Dose: 1 mg Metoprolol Tartrate (Lopressor) 12.5 mg PEG Q12 [facility] Last Admin: 07/05/17 10:04 Dose: Not Given Multivitamins/Vitamin C (Multi-Delyn Liquid) 5 ml PEG DAILY [facility] Last Admin: 07/05/17 10:03 Dose: 5 ml Potassium Chloride (Potassium Chloride Oral Soln) 40 meq GT Q4H [facility] Stop: 07/05/17 19:46 Last Admin: 07/05/17 08:29 Dose: 40 meq Potassium Phos/Sodium Phos (Neutra-Phos) 1 pkt PO Q12H [facility] Stop: 07/06/17 08:01 Last Admin: 07/05/17 10:03 Dose: 1 pkt Rosuvastatin Calcium (Crestor) 10 mg PEG DAILY [facility] Last Admin: 07/05/17 10:03 Dose: 10 mg Zinc Sulfate (Zinc Sulfate 220 Mg Cap) 220 mg PEG DAILY [facility] Last Admin: 07/05/17 10:03 Dose: 220 mg - Labs Labs: 07/05/17 06:21 07/05/17 06:22 PT 12.2 SECONDS (9.7-12.2) 07/04/17 06:36 INR 1.1 07/04/17 06:36 APTT 27 SECONDS (21-34) 07/04/17 06:36 - Constitutional Appears: Toxic, In Acute Distress, Chronically Ill (actively seizing ) - Head Exam Head Exam: NORMOCEPHALIC Additional comments: ATRAUMATIC, NORMAL INSPECTION, NORMOCEPHALIC - Eye Exam Eye Exam: EOMI, Normal appearance Pupil Exam: Irregular - ENT Exam ENT Exam: Mucous Membranes Moist, Normal Exam - Neck Exam Neck exam: Positive for: Normal Inspection - Respiratory Exam Respiratory Exam: Clear to Auscultation Bilateral - Cardiovascular Exam Cardiovascular Exam: REGULAR RHYTHM, +S1, +S2 - GI/Abdominal Exam Additional comments: PEG in place - Extremities Exam Extremities exam: Positive for: normal inspection - Back Exam Back exam: NORMAL INSPECTION - Neurological Exam Neurological exam: Altered - Skin Skin Exam: Normal Color - Eye Exam Eye Exam: Nystagmus. absent: EOMI, Normal appearance, PERRL - ENT Exam ENT Exam: Mucous Membranes Dry - Neck Exam Neck Exam: absent: Full ROM, Lymphadenopathy - Respiratory Exam Respiratory Exam: Rales, Rhonchi. absent: Clear to Ausculation Bilateral, NORMAL BREATHING PATTERN - Cardiovascular Exam Cardiovascular Exam: Tachycardia, +S1, +S2. absent: REGULAR RHYTHM - GI/Abdominal Exam GI & Abdominal Exam: Soft. absent: Tenderness - Extremities Exam Extremities Exam: Full ROM. absent: Calf Tenderness - Back Exam Back Exam: absent: CVA tenderness (L), CVA tenderness (R) - Neurological Exam Neurological Exam: absent: Alert, Awake, Oriented x3 - Psychiatric Exam Psychiatric exam: absent: Normal Affect (unable to assess ) - Skin Skin Exam: Warm Assessment and Plan - Assessment and Plan (Free Text) Assessment: 71 F with h/o anoxic injury, siezure, recent fever, with seizure, with uti recently sent in from [place] for fever, ams, shaking Neuro: h/o anoxic brain injury, unresponsive to pain, conjunctival reflex present, seizures patient is having refractory seizures/status epilepticus was loaded with dilantin yesterday will add diazepam PO as IV is not available on formulary - increase Keppra 1000 mg PEG Q12; can increase up to 1500 BID (3G total) - Ativan 1mg IV Q4H PRN -will stop meropenem as decreases seizure threshold; switch to moxifloxicin as per recenterer - F/U EEG - head CT shows no evidence of hemorrhage, midline shift or mass effect -f/u neurology recs: Dr. Joy Hough ID: Sepsis with fever, leukocytosis - Merrem IV 1 gm switched to Moxifloxicin - Vancomycin 1 gm in NS @ 133 mls/hr IVPB Q12H - Procal NORMAL, Lactic NORMAL - Lumbar puncture performed - results indicative of bloody tap -blood culture positive with gram + cocci clusters Cards: Elevated Troponin - NSTEMI, HTN, hypercholesteremia - Elevated Troponins, EKG reviewed - No ST changes seen; most likely MODS - Lopressor 12.5 PEG Q12 - Crestor 10 mg PEG QD - ASA 81mg via PEG - EKG - Cardio (Markie); thank you for your help Pulm: no acute issues - O2 via venti mask - CXR ordered - rapid flu ordered and negative -head of bed elevated above 30 degrees -aspiration precautions -aggressive pulmonary toilet GI: - Glucerna -wound care Renal: no acute issues - BUN/Cr 39/0.6 -will continue to monitor Endo: DM - HgbA1C 7.1 - Levimir 22 U SC HS - Novolog mix 70/30 ISS -maintain BS between 140-180 PPx: - Pepcid 40 mg IVP BID - Lovenox 40 mg SC QD, SCDs - zinc sulfate 220 mg PEG QD - multivitamin - Palliative Care Consult; thank you for your help Disposition: Family meeting at 10am on Friday with Palliative Care Nurse Farhana for code status conversation [place]: poor
--- NOTE | 2017-07-05 14:09 | CP.PCM.CON ---
<Gina Kahn - Last Filed: 07/05/17 14:09> History of Present Illness - History of Present Illness History of Present Illness: GI Fellow PGY4 Consult Note This is a 71 F with h/o anoxic injury, seizure, recent fever, with seizure, with uti recently sent in from [place] for fever, ams, shaking. Patient admitted to ICU for multiple co-morbidities, sepsis, poor airway protection due to anoxia hence higher risk for aspiration. GI was consulted for possible PEG tube infection. Per nursing, PEG tube is functioning appropriately, no CT A/P to r/o infection. PEG tube placement in the past, not sure when it was placed. ROS: Unable to be obtained due to AMS PMHx: DM, HTN, Hypercholesterolemia, depression PSHx: Cholecystectomy, Tonsillectomy, s/p peg Family Hx: unknown Social Hx: 1ppd smoker x 30-40years, no alcohol or substance use Past Patient History - Past Medical History & Family History Past Medical History?: Yes - Past Social History Smoking Status: Former Smoker Home Situation {Lives}: Skilled Nursing Domestic Violence: Negative - CARDIAC Hx Atrial Fibrillation: No Hx Cardia Arrhythmia: No Hx Congestive Heart Failure: No Hx Hypercholesterolemia: Yes Hx Hypertension: Yes Hx Mitral Valve Prolapse: No Hx Pacemaker: No Hx Peripheral Edema: No - PULMONARY Hx Asthma: No Hx Bronchitis: No Hx Chronic Obstructive Pulmonary Disease (COPD): No Hx Emphysema: No Hx Pneumonia: No Hx Pulmonary Embolism: No Hx Sleep Apnea: No - NEUROLOGICAL Hx Seizures: Yes - HEENT Hx HEENT Problems: No - RENAL Hx Chronic Kidney Disease: No - ENDOCRINE/METABOLIC Hx Diabetes Mellitus Type 1: Yes - HEMATOLOGICAL/ONCOLOGICAL Hx Blood Disorders: No - INTEGUMENTARY Hx Dermatological Problems: No - MUSCULOSKELETAL/RHEUMATOLOGICAL Hx Musculoskeletal Disorders: No - GASTROINTESTINAL Other/Comment: Patient verbalized having diarrhea and vomitting for 3 days, No diarrhea nor vimitting since admission. - GENITOURINARY/GYNECOLOGICAL Hx Genitourinary Disorders: No - PSYCHIATRIC Hx Depression: Yes Hx Substance Use: No - SURGICAL HISTORY Hx Cholecystectomy: Yes Hx Tonsillectomy: Yes - ANESTHESIA Hx Anesthesia: Yes Hx Anesthesia Reactions: No Hx Malignant Hyperthermia: No Meds Allergies/Adverse Reactions: Allergies Allergy/AdvReac Type Severity Reaction Status Date / Time No Known Allergies Allergy Verified 07/03/17 23:18 - Medications Medications: Current Medications Acetaminophen (Tylenol 650 Mg Supp) 650 mg MN Q6 PRN PRN Reason: Fever >100.4 F Last Admin: 07/04/17 06:45 Dose: 650 mg Aspirin (Aspirin Chewable) 81 mg PO DAILY [facility] Last Admin: 07/05/17 10:03 Dose: 81 mg Enoxaparin Sodium (Lovenox) 40 mg SC DAILY [facility] Last Admin: 07/05/17 10:03 Dose: 40 mg Famotidine (Pepcid) 40 mg IVP BID [facility] Last Admin: 07/05/17 10:03 Dose: 40 mg Vancomycin/Sodium Chloride (Vancomycin 1 Gm/Ns 200 Ml) 1 gm in 200 mls @ 133.333 mls/hr IVPB Q12H [facility] Stop: 07/09/17 09:01 Last Admin: 07/05/17 08:27 Dose: 133.333 mls/hr Meropenem 1 gm/ Sodium (Chloride) 100 mls @ 100 mls/hr IVPB Q8 [facility] Last Admin: 07/05/17 05:18 Dose: 100 mls/hr Levetiracetam 750 mg/ Sodium (Chloride) 107.5 mls @ 420 mls/hr IVPB Q12H [facility] Last Admin: 07/05/17 05:00 Dose: 420 mls/hr Potassium Phosphate 15 mmole/ (Sodium Chloride) 255 mls @ 42.5 mls/hr IVPB Q6H [facility] Stop: 07/05/17 20:59 Last Admin: 07/05/17 10:04 Dose: 42.5 mls/hr Lactated Ringer's (Lactated Ringer's) 1,000 mls @ 100 mls/hr IV .Q10H [facility] Last Admin: 07/05/17 08:27 Dose: 100 mls/hr Insulin Aspart (Novolog) 0 unit SC Q6 [facility]NIS PRN Reason: Protocol Last Admin: 07/05/17 05:20 Dose: Not Given Insulin Detemir (Levemir) 22 unit SC HS [facility] Last Admin: 07/04/17 22:07 Dose: 22 unit Lorazepam (Ativan) 1 mg IVP Q6H PRN PRN Reason: Seizure activity Last Admin: 07/05/17 04:00 Dose: 1 mg Metoprolol Tartrate (Lopressor) 12.5 mg PEG Q12 [facility] Last Admin: 07/05/17 10:04 Dose: Not Given Multivitamins/Vitamin C (Multi-Delyn Liquid) 5 ml PEG DAILY [facility] Last Admin: 07/05/17 10:03 Dose: 5 ml Potassium Chloride (Potassium Chloride Oral Soln) 40 meq GT Q4H [facility] Stop: 07/05/17 19:46 Last Admin: 07/05/17 08:29 Dose: 40 meq Potassium Phos/Sodium Phos (Neutra-Phos) 1 pkt PO Q12H [facility] Stop: 07/06/17 08:01 Last Admin: 07/05/17 10:03 Dose: 1 pkt Rosuvastatin Calcium (Crestor) 10 mg PEG DAILY [facility] Last Admin: 07/05/17 10:03 Dose: 10 mg Zinc Sulfate (Zinc Sulfate 220 Mg Cap) 220 mg PEG DAILY [facility] Last Admin: 07/05/17 10:03 Dose: 220 mg Physical Exam - Constitutional Appears: Non-toxic, Chronically Ill - Head Exam Head Exam: ATRAUMATIC, NORMAL INSPECTION, NORMOCEPHALIC - Eye Exam Eye Exam: Normal appearance - ENT Exam ENT Exam: Mucous Membranes Dry - Respiratory Exam Respiratory Exam: Decreased Breath Sounds, Respiratory Distress - Cardiovascular Exam Cardiovascular Exam: Tachycardia - GI/Abdominal Exam GI & Abdominal Exam: Normal Bowel Sounds, Soft. absent: Distended, Guarding, Rebound Additional comments: PEG with no signs of infection, erythema - Psychiatric Exam Psychiatric exam: Depressed - Skin Skin Exam: Dry, Intact, Normal Color, Warm Results - Vital Signs Recent Vital Signs: Last Vital Signs Temp 98.7 F 07/05/17 08:00 Pulse 95 H 07/05/17 11:25 Resp 17 07/05/17 11:25 BP 120/64 07/05/17 11:25 Pulse Ox 94 L 07/05/17 11:25 - Labs Result Diagrams: 07/05/17 06:21 07/05/17 06:22 Labs: Laboratory Results - last 24 hr 07/04/17 07/04/17 07/04/17 17:57 18:43 23:31 WBC RBC Hgb Hct MCV MCH MCHC RDW Plt Count MPV Neut % (Auto) Lymph % (Auto) [place] % (Auto) Eos % (Auto) Baso % (Auto) Neut # (Auto) Lymph # (Auto) [place] # (Auto) Eos # (Auto) Baso # (Auto) Sodium Potassium Chloride Carbon Dioxide Anion Gap BUN Creatinine Est GFR ( Amer) Est GFR (Non-Af Amer) POC Glucose (mg/dL) 300 H 262 H 104 Random Glucose Calcium Phosphorus Magnesium Total Bilirubin AST ALT Alkaline Phosphatase Total Protein Albumin Globulin Albumin/Globulin Ratio 07/05/17 07/05/17 07/05/17 05:14 06:21 06:22 WBC 8.1 RBC 4.07 Hgb 11.5 Hct 35.6 MCV 87.5 MCH 28.2 MCHC 32.2 L RDW 13.1 Plt Count 183 MPV 10.2 Neut % (Auto) 74.3 Lymph % (Auto) 20.6 [place] % (Auto) 4.0 Eos % (Auto) 0.4 Baso % (Auto) 0.7 Neut # (Auto) 6.0 Lymph # (Auto) 1.7 [place] # (Auto) 0.3 Eos # (Auto) 0.0 Baso # (Auto) 0.1 Sodium 147 Potassium 3.0 L Chloride 108 H Carbon Dioxide 32 H Anion Gap 10 BUN 21 H Creatinine 0.4 L Est GFR ( Amer) > 60 Est GFR (Non-Af Amer) > 60 POC Glucose (mg/dL) 76 Random Glucose 99 Calcium 8.4 L Phosphorus 0.9 L* Magnesium 1.7 Total Bilirubin 0.4 AST 34 ALT 28 Alkaline Phosphatase 40 Total Protein 5.8 L Albumin 3.1 L Globulin 2.7 Albumin/Globulin Ratio 1.1 07/05/17 11:52 WBC RBC Hgb Hct MCV MCH MCHC RDW Plt Count MPV Neut % (Auto) Lymph % (Auto) [place] % (Auto) Eos % (Auto) Baso % (Auto) Neut # (Auto) Lymph # (Auto) [place] # (Auto) Eos # (Auto) Baso # (Auto) Sodium Potassium Chloride Carbon Dioxide Anion Gap BUN Creatinine Est GFR ( Amer) Est GFR (Non-Af Amer) POC Glucose (mg/dL) 118 H Random Glucose Calcium Phosphorus Magnesium Total Bilirubin AST ALT Alkaline Phosphatase Total Protein Albumin Globulin Albumin/Globulin Ratio Assessment & Plan - Assessment and Plan (Free Text) Assessment: 71 F with h/o anoxic injury, seizure, recent fever, with seizure, with uti recently sent in from [place] for fever, ams, shaking. 1. Failure to thrive s/p PEG Plan: -Continue supportive care -PEG site with no signs of infection, functioning appropriately -If concern for PEG complications can consider CT imaging -Family meeting Friday for goals of care -Please call with any questions or concerns <Frank Levine - Last Filed: 07/05/17 14:58> Meds - Medications Medications: Current Medications Acetaminophen (Tylenol 650 Mg Supp) 650 mg MN Q6 PRN PRN Reason: Fever >100.4 F Last Admin: 07/04/17 06:45 Dose: 650 mg Aspirin (Aspirin Chewable) 81 mg PO DAILY [facility] Last Admin: 07/05/17 10:03 Dose: 81 mg Enoxaparin Sodium (Lovenox) 40 mg SC DAILY [facility] Last Admin: 07/05/17 10:03 Dose: 40 mg Famotidine (Pepcid) 40 mg IVP BID [facility] Last Admin: 07/05/17 10:03 Dose: 40 mg Vancomycin/Sodium Chloride (Vancomycin 1 Gm/Ns 200 Ml) 1 gm in 200 mls @ 133.333 mls/hr IVPB Q12H [facility] Stop: 07/09/17 09:01 Last Admin: 07/05/17 08:27 Dose: 133.333 mls/hr Meropenem 1 gm/ Sodium (Chloride) 100 mls @ 100 mls/hr IVPB Q8 [facility] Last Admin: 07/05/17 05:18 Dose: 100 mls/hr Levetiracetam 750 mg/ Sodium (Chloride) 107.5 mls @ 420 mls/hr IVPB Q12H [facility] Last Admin: 07/05/17 05:00 Dose: 420 mls/hr Potassium Phosphate 15 mmole/ (Sodium Chloride) 255 mls @ 42.5 mls/hr IVPB Q6H [facility] Stop: 07/05/17 20:59 Last Admin: 07/05/17 10:04 Dose: 42.5 mls/hr Lactated Ringer's (Lactated Ringer's) 1,000 mls @ 100 mls/hr IV .Q10H [facility] Last Admin: 07/05/17 08:27 Dose: 100 mls/hr Insulin Aspart (Novolog) 0 unit SC Q6 [facility]NIS PRN Reason: Protocol Last Admin: 07/05/17 05:20 Dose: Not Given Insulin Detemir (Levemir) 22 unit SC [facility] Last Admin: 07/04/17 22:07 Dose: 22 unit Lorazepam (Ativan) 1 mg IVP Q6H PRN PRN Reason: Seizure activity Last Admin: 07/05/17 04:00 Dose: 1 mg Metoprolol Tartrate (Lopressor) 12.5 mg PEG Q12 [facility] Last Admin: 07/05/17 10:04 Dose: Not Given Multivitamins/Vitamin C (Multi-Delyn Liquid) 5 ml PEG DAILY [facility] Last Admin: 07/05/17 10:03 Dose: 5 ml Potassium Chloride (Potassium Chloride Oral Soln) 40 meq GT Q4H [facility] Stop: 07/05/17 19:46 Last Admin: 07/05/17 08:29 Dose: 40 meq Potassium Phos/Sodium Phos (Neutra-Phos) 1 pkt PO Q12H [facility] Stop: 07/06/17 08:01 Last Admin: 07/05/17 10:03 Dose: 1 pkt Rosuvastatin Calcium (Crestor) 10 mg PEG DAILY [facility] Last Admin: 07/05/17 10:03 Dose: 10 mg Zinc Sulfate (Zinc Sulfate 220 Mg Cap) 220 mg PEG DAILY [facility] Last Admin: 07/05/17 10:03 Dose: 220 mg Results - Vital Signs Recent Vital Signs: Last Vital Signs Temp 98.7 F 07/05/17 08:00 Pulse 95 H 07/05/17 11:25 Resp 17 07/05/17 11:25 BP 120/64 07/05/17 11:25 Pulse Ox 94 L 07/05/17 11:25 - Labs Result Diagrams: 07/05/17 06:21 07/05/17 06:22 Labs: Laboratory Results - last 24 hr 07/04/17 07/04/17 07/04/17 17:57 18:43 23:31 WBC RBC Hgb Hct MCV MCH MCHC RDW Plt Count MPV Neut % (Auto) Lymph % (Auto) [place] % (Auto) Eos % (Auto) Baso % (Auto) Neut # (Auto) Lymph # (Auto) [place] # (Auto) Eos # (Auto) Baso # (Auto) Sodium Potassium Chloride Carbon Dioxide Anion Gap BUN Creatinine Est GFR ( Amer) Est GFR (Non-Af Amer) POC Glucose (mg/dL) 300 H 262 H 104 Random Glucose Calcium Phosphorus Magnesium Total Bilirubin AST ALT Alkaline Phosphatase Total Protein Albumin Globulin Albumin/Globulin Ratio 02/17/18 02/17/18 02/17/18 05:14 06:21 06:22 WBC 8.1 RBC 4.07 Hgb 11.5 Hct 35.6 MCV 87.5 MCH 28.2 MCHC 32.2 L RDW 13.1 Plt Count 183 MPV 10.2 Neut % (Auto) 74.3 Lymph % (Auto) 20.6 [place] % (Auto) 4.0 Eos % (Auto) 0.4 Baso % (Auto) 0.7 Neut # (Auto) 6.0 Lymph # (Auto) 1.7 [place] # (Auto) 0.3 Eos # (Auto) 0.0 Baso # (Auto) 0.1 Sodium 147 Potassium 3.0 L Chloride 108 H Carbon Dioxide 32 H Anion Gap 10 BUN 21 H Creatinine 0.4 L Est GFR ( Amer) > 60 Est GFR (Non-Af Amer) > 60 POC Glucose (mg/dL) 76 Random Glucose 99 Calcium 8.4 L Phosphorus 0.9 L* Magnesium 1.7 Total Bilirubin 0.4 AST 34 ALT 28 Alkaline Phosphatase 40 Total Protein 5.8 L Albumin 3.1 L Globulin 2.7 Albumin/Globulin Ratio 1.1 07/05/17 11:52 WBC RBC Hgb Hct MCV MCH MCHC RDW Plt Count MPV Neut % (Auto) Lymph % (Auto) [place] % (Auto) Eos % (Auto) Baso % (Auto) Neut # (Auto) Lymph # (Auto) [place] # (Auto) Eos # (Auto) Baso # (Auto) Sodium Potassium Chloride Carbon Dioxide Anion Gap BUN Creatinine Est GFR ( Amer) Est GFR (Non-Af Amer) POC Glucose (mg/dL) 118 H Random Glucose Calcium Phosphorus Magnesium Total Bilirubin AST ALT Alkaline Phosphatase Total Protein Albumin Globulin Albumin/Globulin Ratio Attending/Attestation - Attestation I have personally seen and examined this patient.: Yes I have fully participated in the care of the patient.: Yes I have reviewed all pertinent clinical information: Yes Notes (Text): 07/05/17 14:57 71 year old female with h/o anoxic brain injury s/p prior PEG, consult due to concern over peg site infection. 1. s/p PEG Plan: -slight purulent / mucous discharge from peg site, without associated induration or erythema -on antibiotics empirically -if concern for infection is present and aggressive care is desired, CT abdomen could be obtained for further eval -PEG is functioning fine and ok to continue to use
[2017-07-05] MEDS ORDERED: Moxifloxacin IV 400mg/250ml NS 400 MG/250 ML BAG IVPB SCH (18:00)
[2017-07-05] MEDS: levETIRAcetam 1,000 MG in Sodium Chloride 0.9% 100 ML IVPB SCH (18:00)
[2017-07-05] MEDS: Insulin Detemir 100 units/ml Vial (Levemir) SC SCH (21:29)
[2017-07-06] MEDS: (Novolog) Insulin Aspart, Recombinant 100 u/ml 10 ml vial SC SCH ×4 (00:52→18:23)
[2017-07-06] MEDS: levETIRAcetam 1,000 MG in Sodium Chloride 0.9% 100 ML IVPB SCH ×2 (05:11→18:22)
[2017-07-06] MEDS: Lactated Ringer's 1,000 ML IV SCH ×2 (05:11→18:22)
[2017-07-06 06:28] LABS: BASO % 0.7 % (0.0-2.0); EOS # 0.1 K/uL (0.0-0.7); EOS % 0.9 % (0.0-4.0); HEMOGLOBIN 11.4 g/dL (11.0-16.0); LYMPH # 1.9 K/uL (1.0-4.3); LYMPH % 25.6 % (20.0-40.0); MEAN CELL VOLUME 87.1 fL (81.0-99.0); MEAN CORPUSCULAR HEMOGLOBIN 28.9 pg (27.0-31.0); MEAN CORPUSCULAR HGB CONC 33.2 g/dL (33.0-37.0); MEAN PLATELET VOLUME 10.4 fL (7.2-11.7); MONO # 0.4 K/uL (0.0-0.8); MONO % 5.3 % (0.0-10.0); NEUT # 4.9 K/uL (1.8-7.0); NEUT % 67.5 % (50.0-75.0); NRBC % 0.1 % (0.0-2.0); RBC 3.94 Mil/uL (3.80-5.20); RED CELL DISTRIBUTION WIDTH 13.4 % (11.5-14.5); WHITE BLOOD COUNT 7.3 K/uL (4.8-10.8)
[2017-07-06 06:49] LABS: ALB/GLOB RATIO 1.1 (1.0-2.1); ALBUMIN 2.9 g/dL (3.5-5.0); ALT/SGPT 22 U/L (9-52); AST/SGOT 31 U/L (14-36); BLOOD UREA NITROGEN 12 mg/dL (7-17); CALCIUM 8.5 mg/dl (8.6-10.4); GFR AFRICAN-AMERICAN > 60; GFR NON-AFRICAN AMERICAN > 60; MAGNESIUM 1.7 mg/dL (1.6-2.3)
[2017-07-06] MEDS ORDERED: Sodium Phosphate 15 MMOLE in Sodium Chloride 0.9% 250 ML IVPB SCH (08:45)
--- NOTE | 2017-07-06 08:48 | CP.PCM.PN ---
Subjective - Date & Time of Evaluation Date of Evaluation: 07/06/17 Time of Evaluation: 08:43 - Subjective Subjective: Patient seen and examined at bedside. OVer night events reviewd (+)[facility] Objective - Vital Signs/Intake and Output Vital Signs (last 24 hours): Temp Pulse Resp BP Pulse Ox 99 F 81 22 118/63 100 07/06/17 04:00 07/06/17 07:00 07/06/17 07:00 07/06/17 06:24 07/06/17 07:00 Intake and Output: 07/06/17 07/06/17 06:59 18:59 Intake Total 1782.5 120 Output Total 501 Balance 1281.5 120 - Medications Medications: Current Medications Acetaminophen (Tylenol 650 Mg Supp) 650 mg MN Q6 PRN PRN Reason: Fever >100.4 F Last Admin: 07/04/17 06:45 Dose: 650 mg Aspirin (Aspirin Chewable) 81 mg PO DAILY [facility] Last Admin: 07/05/17 10:03 Dose: 81 mg Diazepam (Valium) 5 mg PEG Q6H PRN PRN Reason: seizures Enoxaparin Sodium (Lovenox) 40 mg SC DAILY [facility] Last Admin: 07/05/17 10:03 Dose: 40 mg Famotidine (Pepcid) 40 mg IVP BID [facility] Last Admin: 07/05/17 18:37 Dose: 40 mg Vancomycin/Sodium Chloride (Vancomycin 1 Gm/Ns 200 Ml) 1 gm in 200 mls @ 133.333 mls/hr IVPB Q12H [facility] Stop: 07/09/17 09:01 Last Admin: 07/05/17 21:00 Dose: 133.333 mls/hr Lactated Ringer's (Lactated Ringer's) 1,000 mls @ 100 mls/hr IV .Q10H [facility] Last Admin: 07/06/17 05:11 Dose: 100 mls/hr Levetiracetam 1,000 mg/ Sodium (Chloride) 110 mls @ 420 mls/hr IVPB Q12H [facility] Last Admin: 07/06/17 05:11 Dose: 420 mls/hr Sodium Phosphate 15 mmole/ (Dextrose) 255 mls @ 50 mls/hr IVPB .Q5H6M [facility] Stop: 07/06/17 18:44 Insulin Aspart (Novolog) 0 unit SC Q6 [facility]NIS PRN Reason: Protocol Last Admin: 07/06/17 05:11 Dose: Not Given Insulin Detemir (Levemir) 22 unit SC HS [facility] Last Admin: 07/05/17 21:29 Dose: Not Given Lorazepam (Ativan) 1 mg IVP Q6H PRN PRN Reason: Seizure activity Last Admin: 07/05/17 11:36 Dose: 1 mg Metoprolol Tartrate (Lopressor) 12.5 mg PEG Q12 [facility] Last Admin: 07/05/17 21:24 Dose: 12.5 mg Multivitamins/Vitamin C (Multi-Delyn Liquid) 5 ml PEG DAILY [facility] Last Admin: 07/05/17 10:03 Dose: 5 ml Potassium Phos/Sodium Phos (Neutra-Phos) 1 pkt GT Q12H [facility] Stop: 07/07/17 20:46 Rosuvastatin Calcium (Crestor) 10 mg PEG DAILY [facility] Last Admin: 07/05/17 10:03 Dose: 10 mg Zinc Sulfate (Zinc Sulfate 220 Mg Cap) 220 mg PEG DAILY [facility] Last Admin: 07/05/17 10:03 Dose: 220 mg - Labs Labs: 07/06/17 06:21 07/06/17 06:21 PT 12.2 SECONDS (9.7-12.2) 07/04/17 06:36 INR 1.1 07/04/17 06:36 APTT 27 SECONDS (21-34) 07/04/17 06:36 - Constitutional Appears: No Acute Distress - Head Exam Head Exam: ATRAUMATIC, NORMAL INSPECTION - ENT Exam ENT Exam: Mucous Membranes Moist - Cardiovascular Exam Cardiovascular Exam: REGULAR RHYTHM, +S1, +S2 - GI/Abdominal Exam GI & Abdominal Exam: Soft, Normal Bowel Sounds - Extremities Exam Extremities Exam: Normal Inspection Assessment and Plan - Assessment and Plan (Free Text) Plan: -Seizures: one episdoe yesterday, increase IV keppra 1000 mg q12, neurology follow up -NSTEMI:likely CAD: continue asa, statin and av nodla jo-ann,f/u cardiology -sepsis: continue empirical abx, culture GPC r/o MRSA/MSSA, WBC normalized, no fevers, aspiration precaution -wound care with supplemental MVI -continue dvt/pud ppx prognosis poor as patient is in persistent vegetativelike state. -continue to replace phosphate: sodium phosphate -Palliative follow up Patient remains stable, no signs of hypotension, no respiratory distress.
[2017-07-06] MEDS: Enoxaparin 40 mg Syringe SC SCH (10:30)
[2017-07-06] MEDS: Vancomycin 1 gm/NS 200 ml 1 GM/200 ML BAG IVPB SCH ×2 (10:30→20:36)
[2017-07-06] MEDS: Potassium & Sodium Phosphate GT SCH ×2 (10:31→20:37)
[2017-07-06] MEDS: Potassium & Sodium Phosphate PO SCH (10:31)
[2017-07-06] MEDS: Multiple Vitamins Oral Solution PEG SCH (10:31)
--- NOTE | 2017-07-06 14:13 | CP.PCM.PN ---
Subjective - Date & Time of Evaluation Date of Evaluation: 07/06/17 Time of Evaluation: 14:11 - Subjective Subjective: PGY2 Medicine Note for Dr. Arreguin This patient was seen and examined at bedside today; is no longer having seizures with increase in medicine for siezures as well as stopping meropenem. Patient unable to offer meaningful ROS 2/2 to acuity of condition. Objective - Vital Signs/Intake and Output Vital Signs (last 24 hours): Temp Pulse Resp BP Pulse Ox 97.8 F 81 24 119/68 100 07/06/17 12:00 07/06/17 13:24 07/06/17 13:24 07/06/17 13:24 07/06/17 13:24 Intake and Output: 07/06/17 07/06/17 06:59 18:59 Intake Total 1782.5 720 Output Total 501 600 Balance 1281.5 120 - Medications Medications: Current Medications Acetaminophen (Tylenol 650 Mg Supp) 650 mg CA Q6 PRN PRN Reason: Fever >100.4 F Last Admin: 07/04/17 06:45 Dose: 650 mg Aspirin (Aspirin Chewable) 81 mg PO DAILY [facility] Last Admin: 07/06/17 10:31 Dose: 81 mg Diazepam (Valium) 5 mg PEG Q6H PRN PRN Reason: seizures Last Admin: 07/06/17 10:31 Dose: 5 mg Enoxaparin Sodium (Lovenox) 40 mg SC DAILY [facility] Last Admin: 07/06/17 10:30 Dose: 40 mg Famotidine (Pepcid) 40 mg IVP BID [facility] Last Admin: 07/06/17 10:30 Dose: 40 mg Vancomycin/Sodium Chloride (Vancomycin 1 Gm/Ns 200 Ml) 1 gm in 200 mls @ 133.333 mls/hr IVPB Q12H [facility] Stop: 07/09/17 09:01 Last Admin: 07/06/17 10:30 Dose: 133.333 mls/hr Lactated Ringer's (Lactated Ringer's) 1,000 mls @ 100 mls/hr IV .Q10H [facility] Last Admin: 07/06/17 05:11 Dose: 100 mls/hr Levetiracetam 1,000 mg/ Sodium (Chloride) 110 mls @ 420 mls/hr IVPB Q12H [facility] Last Admin: 07/06/17 05:11 Dose: 420 mls/hr Insulin Aspart (Novolog) 0 unit SC Q6 [facility]NIS PRN Reason: Protocol Last Admin: 07/06/17 05:11 Dose: Not Given Insulin Detemir (Levemir) 22 unit SC HS [facility] Last Admin: 07/05/17 21:29 Dose: Not Given Lactulose (Enulose) 20 gm PO HS PRN PRN Reason: Constipation Lorazepam (Ativan) 1 mg IVP Q6H PRN PRN Reason: Seizure activity Last Admin: 07/05/17 11:36 Dose: 1 mg Metoprolol Tartrate (Lopressor) 12.5 mg PEG Q12 [facility] Last Admin: 07/06/17 10:31 Dose: 12.5 mg Multivitamins/Vitamin C (Multi-Delyn Liquid) 5 ml PEG DAILY [facility] Last Admin: 07/06/17 10:31 Dose: 5 ml Potassium Phos/Sodium Phos (Neutra-Phos) 1 pkt GT Q12H [facility] Stop: 07/07/17 20:46 Last Admin: 07/06/17 10:31 Dose: 1 pkt Rosuvastatin Calcium (Crestor) 10 mg PEG DAILY [facility] Last Admin: 07/06/17 10:31 Dose: 10 mg Zinc Sulfate (Zinc Sulfate 220 Mg Cap) 220 mg PEG DAILY [facility] Last Admin: 07/06/17 10:31 Dose: 220 mg - Labs Labs: 07/06/17 06:21 07/06/17 06:21 PT 12.2 SECONDS (9.7-12.2) 07/04/17 06:36 INR 1.1 07/04/17 06:36 APTT 27 SECONDS (21-34) 07/04/17 06:36 - Head Exam Additional comments: Appears: Toxic, In Acute Distress, Chronically Ill (actively seizing ) - Head Exam Head Exam: NORMOCEPHALIC Additional comments: ATRAUMATIC, NORMAL INSPECTION, NORMOCEPHALIC - Eye Exam Eye Exam: EOMI, Normal appearance Pupil Exam: Irregular - ENT Exam ENT Exam: Mucous Membranes Moist, Normal Exam - Neck Exam Neck exam: Positive for: Normal Inspection - Respiratory Exam Respiratory Exam: Clear to Auscultation Bilateral - Cardiovascular Exam Cardiovascular Exam: REGULAR RHYTHM, +S1, +S2 - GI/Abdominal Exam Additional comments: PEG in place - Extremities Exam Extremities exam: Positive for: normal inspection - Back Exam Back exam: NORMAL INSPECTION - Neurological Exam Neurological exam: Altered - Skin Skin Exam: Normal Color - Eye Exam Eye Exam: Nystagmus. absent: EOMI, Normal appearance, PERRL - ENT Exam ENT Exam: Mucous Membranes Dry - Neck Exam Neck Exam: absent: Full ROM, Lymphadenopathy - Respiratory Exam Respiratory Exam: Rales, Rhonchi. absent: Clear to Ausculation Bilateral, NORMAL BREATHING PATTERN - Cardiovascular Exam Cardiovascular Exam: Tachycardia, +S1, +S2. absent: REGULAR RHYTHM - GI/Abdominal Exam GI & Abdominal Exam: Soft. absent: Tenderness - Extremities Exam Extremities Exam: Full ROM. absent: Calf Tenderness - Back Exam Back Exam: absent: CVA tenderness (L), CVA tenderness (R) - Neurological Exam Neurological Exam: absent: Alert, Awake, Oriented x3 - Psychiatric Exam Psychiatric exam: absent: Normal Affect (unable to assess ) - Skin Skin Exam: Warm Assessment and Plan - Assessment and Plan (Free Text) Assessment: 71 F with h/o anoxic injury, siezure, recent fever, with seizure, with uti recently sent in from [place] for fever, ams, shaking Neuro: h/o anoxic brain injury, unresponsive to pain, conjunctival reflex present, seizures was loaded with dilantin will add diazepam PO as IV is not available on formulary - increase Keppra 1000 mg PEG Q12; can increase up to 1500 BID (3G total) - Ativan 1mg IV Q4H PRN -will stop meropenem as decreases seizure threshold; switch to moxifloxicin as per lockstitch pocket setter - F/U EEG - head CT shows no evidence of hemorrhage, midline shift or mass effect -f/u neurology recs: Dr. Joy Hough ID: Sepsis with fever, leukocytosis - Merrem IV 1 gm switched to Moxifloxicin - Vancomycin 1 gm in NS @ 133 mls/hr IVPB Q12H - Procal NORMAL, Lactic NORMAL - Lumbar puncture performed - results indicative of bloody tap -blood culture positive with gram + cocci clusters Cards: Elevated Troponin - NSTEMI, HTN, hypercholesteremia - Elevated Troponins, EKG reviewed - No ST changes seen; most likely MODS - Lopressor 12.5 PEG Q12 - Crestor 10 mg PEG QD - ASA 81mg via PEG - EKG - Cardio (Markie); thank you for your help Pulm: no acute issues - O2 via venti mask - CXR ordered - rapid flu ordered and negative -head of bed elevated above 30 degrees -aspiration precautions -aggressive pulmonary toilet GI: - Glucerna -wound care Renal: no acute issues - BUN/Cr 39/0.6 -will continue to monitor Endo: DM - HgbA1C 7.1 - Levimir 22 U SC HS - Novolog mix 70/30 ISS -maintain BS between 140-180 PPx: - Pepcid 40 mg IVP BID - Lovenox 40 mg SC QD, SCDs - zinc sulfate 220 mg PEG QD - multivitamin - Palliative Care Consult; thank you for your help Disposition: Family meeting at 10am on Friday with Palliative Care Nurse Farhana for code status conversation Adell: poor
--- NOTE | 2017-07-06 23:14 | CP.PCM.PN ---
Subjective - Date & Time of Evaluation Date of Evaluation: 07/06/17 Time of Evaluation: 20:50 - Subjective Subjective: Patient seen and evaluated recovering No cardiac events noted Objective - Vital Signs/Intake and Output Vital Signs (last 24 hours): Temp Pulse Resp BP Pulse Ox 97.6 F 85 22 136/72 100 07/06/17 20:00 07/06/17 22:30 07/06/17 22:30 07/06/17 22:30 07/06/17 22:30 Intake and Output: 07/06/17 07/07/17 18:59 06:59 Intake Total 1220 600 Output Total 1200 Balance 20 600 - Medications Medications: Current Medications Acetaminophen (Tylenol 650 Mg Supp) 650 mg MA Q6 PRN PRN Reason: Fever >100.4 F Last Admin: 07/04/17 06:45 Dose: 650 mg Aspirin (Aspirin Chewable) 81 mg PO DAILY [facility] Last Admin: 07/06/17 10:31 Dose: 81 mg Diazepam (Valium) 5 mg PEG Q6H PRN PRN Reason: seizures Last Admin: 07/06/17 10:31 Dose: 5 mg Enoxaparin Sodium (Lovenox) 40 mg SC DAILY [facility] Last Admin: 07/06/17 10:30 Dose: 40 mg Famotidine (Pepcid) 40 mg IVP BID [facility] Last Admin: 07/06/17 18:22 Dose: 40 mg Vancomycin/Sodium Chloride (Vancomycin 1 Gm/Ns 200 Ml) 1 gm in 200 mls @ 133.333 mls/hr IVPB Q12H [facility] Stop: 07/09/17 09:01 Last Admin: 07/06/17 20:36 Dose: 133.333 mls/hr Lactated Ringer's (Lactated Ringer's) 1,000 mls @ 100 mls/hr IV .Q10H [facility] Last Admin: 07/06/17 18:22 Dose: 100 mls/hr Levetiracetam 1,000 mg/ Sodium (Chloride) 110 mls @ 420 mls/hr IVPB Q12H [facility] Last Admin: 07/06/17 18:22 Dose: 420 mls/hr Insulin Aspart (Novolog) 0 unit SC Q6 DENNIS PRN Reason: Protocol Last Admin: 07/06/17 18:23 Dose: Not Given Insulin Detemir (Levemir) 22 unit SC [facility] Last Admin: 07/05/17 21:29 Dose: Not Given Lactulose (Enulose) 20 gm PO HS PRN PRN Reason: Constipation Lorazepam (Ativan) 1 mg IVP Q6H PRN PRN Reason: Seizure activity Last Admin: 07/06/17 05:00 Dose: 1 mg Metoprolol Tartrate (Lopressor) 12.5 mg PEG Q12 [facility] Last Admin: 07/06/17 10:31 Dose: 12.5 mg Multivitamins/Vitamin C (Multi-Delyn Liquid) 5 ml PEG DAILY [facility] Last Admin: 07/06/17 10:31 Dose: 5 ml Potassium Phos/Sodium Phos (Neutra-Phos) 1 pkt GT Q12H [facility] Stop: 07/07/17 20:46 Last Admin: 07/06/17 20:37 Dose: 1 pkt Rosuvastatin Calcium (Crestor) 10 mg PEG DAILY [facility] Last Admin: 07/06/17 10:31 Dose: 10 mg Zinc Sulfate (Zinc Sulfate 220 Mg Cap) 220 mg PEG DAILY [facility] Last Admin: 07/06/17 10:31 Dose: 220 mg - Labs Labs: 07/06/17 06:21 07/06/17 06:21 PT 12.2 SECONDS (9.7-12.2) 07/04/17 06:36 INR 1.1 07/04/17 06:36 APTT 27 SECONDS (21-34) 07/04/17 06:36
[2017-07-07] MEDS: (Novolog) Insulin Aspart, Recombinant 100 u/ml 10 ml vial SC SCH ×4 (00:05→18:27)
[2017-07-07] MEDS: Insulin Detemir 100 units/ml Vial (Levemir) SC SCH ×2 (00:07→21:30)
[2017-07-07] MEDS: Lactated Ringer's 1,000 ML IV SCH ×4 (00:08→21:34)
[2017-07-07] MEDS: levETIRAcetam 1,000 MG in Sodium Chloride 0.9% 100 ML IVPB SCH ×2 (04:59→16:53)
[2017-07-07 06:28] LABS: BASO % 0.4 % (0.0-2.0); EOS # 0.2 K/uL (0.0-0.7); EOS % 2.5 % (0.0-4.0); HEMOGLOBIN 10.5 g/dL (11.0-16.0); LYMPH # 1.7 K/uL (1.0-4.3); LYMPH % 26.5 % (20.0-40.0); MEAN CELL VOLUME 85.5 fL (81.0-99.0); MEAN CORPUSCULAR HEMOGLOBIN 29.1 pg (27.0-31.0); MEAN CORPUSCULAR HGB CONC 34.1 g/dL (33.0-37.0); MEAN PLATELET VOLUME 10.5 fL (7.2-11.7); MONO # 0.3 K/uL (0.0-0.8); MONO % 4.1 % (0.0-10.0); NEUT # 4.2 K/uL (1.8-7.0); NEUT % 66.5 % (50.0-75.0); NRBC % 0.1 % (0.0-2.0); RBC 3.6 Mil/uL (3.80-5.20); RED CELL DISTRIBUTION WIDTH 13.1 % (11.5-14.5); WHITE BLOOD COUNT 6.3 K/uL (4.8-10.8)
[2017-07-07 06:43] LABS: ALB/GLOB RATIO 1.3 (1.0-2.1); ALBUMIN 2.7 g/dL (3.5-5.0); ALT/SGPT 25 U/L (9-52); AST/SGOT 19 U/L (14-36); BLOOD UREA NITROGEN 10 mg/dL (7-17); CALCIUM 7.6 mg/dl (8.6-10.4); GFR AFRICAN-AMERICAN > 60; GFR NON-AFRICAN AMERICAN > 60; MAGNESIUM 1.4 mg/dL (1.6-2.3)
[2017-07-07] MEDS: Potassium & Sodium Phosphate GT SCH ×2 (07:48→20:44)
--- NOTE | 2017-07-07 08:21 | CP.PCM.PN ---
<Jose Mancera - Last Filed: 07/07/17 10:48> Subjective - Date & Time of Evaluation Date of Evaluation: 07/07/17 Time of Evaluation: 06:40 - Subjective Subjective: PGY5 GI Fellow Progress Note Patient seen and examined bedside this morning. The patient does not follow commands, open her eyes and is known to be aphasic. Suspected focal seizures overnight with resolution with ativan administration. No issues with PEG tube/ feeding. 12 system ROS cannot be performed given mental status. Objective - Vital Signs/Intake and Output Vital Signs (last 24 hours): Temp Pulse Resp BP Pulse Ox 99.8 F H 79 21 114/63 100 07/07/17 04:00 07/07/17 07:24 07/07/17 07:24 07/07/17 07:24 07/07/17 07:24 Intake and Output: 07/07/17 07/07/17 06:59 18:59 Intake Total 1770 135 Output Total 1000 Balance 770 135 - Medications Medications: Current Medications Acetaminophen (Tylenol 650 Mg Supp) 650 mg [place] Q6 PRN PRN Reason: Fever >100.4 F Last Admin: 07/04/17 06:45 Dose: 650 mg Aspirin (Aspirin Chewable) 81 mg PO DAILY [facility] Last Admin: 07/06/17 10:31 Dose: 81 mg Diazepam (Valium) 5 mg PEG Q6H PRN PRN Reason: seizures Last Admin: 07/06/17 10:31 Dose: 5 mg Enoxaparin Sodium (Lovenox) 40 mg SC DAILY [facility] Last Admin: 07/06/17 10:30 Dose: 40 mg Famotidine (Pepcid) 40 mg IVP BID [facility] Last Admin: 07/06/17 18:22 Dose: 40 mg Vancomycin/Sodium Chloride (Vancomycin 1 Gm/Ns 200 Ml) 1 gm in 200 mls @ 133.333 mls/hr IVPB Q12H [facility] Stop: 07/09/17 09:01 Last Admin: 07/06/17 20:36 Dose: 133.333 mls/hr Lactated Ringer's (Lactated Ringer's) 1,000 mls @ 100 mls/hr IV .Q10H [facility] Last Admin: 07/07/17 03:07 Dose: 100 mls/hr Levetiracetam 1,000 mg/ Sodium (Chloride) 110 mls @ 420 mls/hr IVPB Q12H [facility] Last Admin: 07/07/17 04:59 Dose: 420 mls/hr Insulin Aspart (Novolog) 0 unit SC Q6 DENNIS PRN Reason: Protocol Last Admin: 07/07/17 06:26 Dose: Not Given Insulin Detemir (Levemir) 22 unit SC HS [facility] Last Admin: 07/07/17 00:07 Dose: 22 unit Lactulose (Enulose) 20 gm PO HS PRN PRN Reason: Constipation Lorazepam (Ativan) 1 mg IVP Q6H PRN PRN Reason: Seizure activity Last Admin: 07/07/17 05:05 Dose: 1 mg Metoprolol Tartrate (Lopressor) 12.5 mg PEG Q12 [facility] Last Admin: 07/06/17 23:48 Dose: 12.5 mg Multivitamins/Vitamin C (Multi-Delyn Liquid) 5 ml PEG DAILY [facility] Last Admin: 07/06/17 10:31 Dose: 5 ml Potassium Phos/Sodium Phos (Neutra-Phos) 1 pkt GT Q12H [facility] Stop: 07/07/17 20:46 Last Admin: 07/07/17 07:48 Dose: 1 pkt Rosuvastatin Calcium (Crestor) 10 mg PEG DAILY [facility] Last Admin: 07/06/17 10:31 Dose: 10 mg Zinc Sulfate (Zinc Sulfate 220 Mg Cap) 220 mg PEG DAILY [facility] Last Admin: 07/06/17 10:31 Dose: 220 mg - Labs Labs: 07/07/17 06:17 07/07/17 06:13 PT 12.2 SECONDS (9.7-12.2) 07/04/17 06:36 INR 1.1 07/04/17 06:36 APTT 27 SECONDS (21-34) 07/04/17 06:36 - Constitutional Appears: No Acute Distress, Chronically Ill - Eye Exam Eye Exam: PERRL - ENT Exam ENT Exam: Mucous Membranes Dry - Respiratory Exam Respiratory Exam: Rales. absent: Clear to Ausculation Bilateral, Rhonchi, Wheezes - Cardiovascular Exam Cardiovascular Exam: RRR, +S1, +S2 - GI/Abdominal Exam GI & Abdominal Exam: Soft, Normal Bowel Sounds. 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 -PEG tube evaluation Plan: -Small amount of purulent discharge noted from site with culture positive for Staph aureus, GNRs - sensitivity pending -Patient is on Vancomycin, could considering broader coverage with agent that will not lower seizure threshold - Meropenem D/C -Family meeting planned for today to discuss goals of care -Recommend checking CT A/P with IV contrast to rule out infection/abscess/fluid collection at PEG site -Pending results, consider bedside exchange -OK to continue to use PEG as there is no dysfunction present at this time <Kira Galan - Last Filed: 07/07/17 17:13> Objective - Vital Signs/Intake and Output Vital Signs (last 24 hours): Temp Pulse Resp BP Pulse Ox 98.4 F 82 21 108/59 L 99 07/07/17 16:00 07/07/17 16:00 07/07/17 16:00 07/07/17 15:24 07/07/17 16:00 Intake and Output: 07/07/17 07/07/17 06:59 18:59 Intake Total 1770 1463 Output Total 1000 Balance 770 1463 - Medications Medications: Current Medications Acetaminophen (Tylenol 650 Mg Supp) 650 mg [place] Q6 PRN PRN Reason: Fever >100.4 F Last Admin: 07/04/17 06:45 Dose: 650 mg Aspirin (Aspirin Chewable) 81 mg PO DAILY [facility] Last Admin: 07/07/17 09:54 Dose: 81 mg Diazepam (Valium) 5 mg PEG Q6H PRN PRN Reason: seizures Last Admin: 07/06/17 10:31 Dose: 5 mg Enoxaparin Sodium (Lovenox) 40 mg SC DAILY [facility] Last Admin: 07/07/17 10:10 Dose: 40 mg Famotidine (Pepcid) 40 mg IVP BID [facility] Last Admin: 07/07/17 17:02 Dose: 40 mg Vancomycin/Sodium Chloride (Vancomycin 1 Gm/Ns 200 Ml) 1 gm in 200 mls @ 133.333 mls/hr IVPB Q12H [facility] Stop: 07/09/17 09:01 Last Admin: 07/07/17 09:54 Dose: 133.333 mls/hr Lactated Ringer's (Lactated Ringer's) 1,000 mls @ 100 mls/hr IV .Q10H [facility] Last Admin: 07/07/17 14:01 Dose: 100 mls/hr Levetiracetam 1,000 mg/ Sodium (Chloride) 110 mls @ 420 mls/hr IVPB Q12H [facility] Last Admin: 07/07/17 16:53 Dose: 420 mls/hr Metronidazole (Flagyl) 500 mg in 100 mls @ 100 mls/hr IVPB Q8 [facility] Last Admin: 07/07/17 13:50 Dose: Not Given Insulin Aspart (Novolog) 0 unit SC Q6 [facility] PRN Reason: Protocol Last Admin: 07/07/17 12:17 Dose: 2 unit Insulin Detemir (Levemir) 22 unit SC HS [facility] Last Admin: 07/07/17 00:07 Dose: 22 unit Lactulose (Enulose) 20 gm PO HS PRN PRN Reason: Constipation Lorazepam (Ativan) 1 mg IVP Q6H PRN PRN Reason: Seizure activity Last Admin: 07/07/17 05:05 Dose: 1 mg Metoprolol Tartrate (Lopressor) 12.5 mg PEG Q12 [facility] Last Admin: 07/07/17 09:54 Dose: 12.5 mg Multivitamins/Vitamin C (Multi-Delyn Liquid) 5 ml PEG DAILY [facility] Last Admin: 07/07/17 10:00 Dose: 5 ml Mupirocin (Bactroban Ointment) 0 gm TOP BID [facility] Last Admin: 07/07/17 16:59 Dose: 1 applic Potassium Phos/Sodium Phos (Neutra-Phos) 1 pkt GT Q12H [facility] Stop: 07/07/17 20:46 Last Admin: 07/07/17 07:48 Dose: 1 pkt Rosuvastatin Calcium (Crestor) 10 mg PEG DAILY [facility] Last Admin: 07/07/17 09:59 Dose: 10 mg Vancomycin HCl (Vancocin (Oral Or Rectal Use)) 125 mg PEG QID [facility] Last Admin: 07/07/17 17:02 Dose: 125 mg Zinc Sulfate (Zinc Sulfate 220 Mg Cap) 220 mg PEG DAILY [facility] Last Admin: 07/07/17 09:54 Dose: 220 mg - Labs Labs: 07/07/17 06:17 07/07/17 06:13 PT 12.2 SECONDS (9.7-12.2) 07/04/17 06:36 INR 1.1 07/04/17 06:36 APTT 27 SECONDS (21-34) 07/04/17 06:36 Attending/Attestation - Attestation I have personally seen and examined this patient.: Yes I have fully participated in the care of the patient.: Yes I have reviewed all pertinent clinical information, including history, physical exam and plan: Yes Notes (Text): 07/07/17 17:11 Patient seen at bedside this morning. 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 GI consulted for PEG tube evaluation which has cellulitis at the site with positive wound cultures. Will start antibiotics and get CT abdomen o rule out abscess of gastric wall. Family meeting planned to discuss goals of care Will decide regarding PEG exchange after CT scan -OK to continue to use PEG as there is no dysfunction present at this time
[2017-07-07] MEDS: Magnesium Sulfate 1 gm in D5W 1 GM/100 ML BAG IVPB SCH ×2 (08:37→10:30)
[2017-07-07] MEDS: Vancomycin 1 gm/NS 200 ml 1 GM/200 ML BAG IVPB SCH ×2 (09:54→20:45)
[2017-07-07] MEDS: Multiple Vitamins Oral Solution PEG SCH (10:00)
[2017-07-07] MEDS: Enoxaparin 40 mg Syringe SC SCH (10:10)
--- NOTE | 2017-07-07 10:40 | RAD ---
HISTORY: aspiration pneumonia COMPARISON: 07/04/2017 FINDINGS: LUNGS: Examination limited. Left costophrenic angle not included this examination. No infiltrate. PLEURA: No pleural effusion. Mild nonspecific elevation of right hemidiaphragm. No pneumothorax. CARDIOVASCULAR: Normal. OSSEOUS STRUCTURES: No significant abnormalities. VISUALIZED UPPER ABDOMEN: Normal. OTHER FINDINGS: None. IMPRESSION: No active disease.
--- NOTE | 2017-07-07 11:33 | CP.CCUPN ---
<Rhett Sinha - Last Filed: 07/07/17 13:35> CCU Subjective - Physician Review Subjective (Free Text): Patient seen and examined. Hx of anoxic brain injury, non-communicative. Unable to obtain review of systems. 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 Suspected focal seizures overnight with resolution with ativan administration.Jerky movements noted in right arm - but does not seem to be seizure. Came in with peg , currently on ventimask. Will switch ventimask to nasal cannula 2L. GI evaluated PEG - will obtain CT abd w/ IV contrast as PEG cultures growing gram negative rods. No functional issues with PEG tube/feeding. CCU Objective - Vital Signs / Intake & Output Vital Signs (Last 4 hours): Vital Signs Temp Pulse Resp BP Pulse Ox 07/07/17 10:00 73 24 100 07/07/17 09:24 71 25 H 106/63 100 07/07/17 09:00 76 20 99 07/07/17 08:24 75 24 105/57 L 99 07/07/17 08:00 99.6 F 77 21 100 Intake and Output (Last 8hrs): Intake & Output 07/06/17 07/07/17 07/07/17 22:59 06:59 14:59 Intake Total 1000 1170 723 Output Total 600 1000 Balance 400 170 723 Weight 151 lb 4.8 oz Intake: Intake, IV Amount 800 900 433 Left Hand 800 900 433 Tube Feeding 100 270 140 Other 100 150 Output: Urine 400 900 Urine, Voided 400 900 Stool 200 100 - Physical Exam Respiratory/Chest: Positive for: Clear to Auscultation Cardiovascular: Positive for: Regular Rate and Rhythm, Normal S1, S2, Tachycardic. Negative for: Murmurs Abdomen: Positive for: Feeding Tubes (PA peg site oozing, small erythema) Upper Extremity: Positive for: Other (Ext no edema, both feet drop, left arm contracture, right arm some flickering movements) - Medications Active Medications: Active Medications Generic Name Dose Route Start Last Admin Trade Name Freq PRN Reason Stop Dose Admin Acetaminophen 650 mg 07/04/17 05:58 07/04/17 06:45 Tylenol 650 Mg Supp [place] 650 mg Q6 PRN Administration Fever >100.4 F Aspirin 81 mg 07/04/17 11:15 07/07/17 09:54 Aspirin Chewable PO 81 mg DAILY DENNIS Administration Diazepam 5 mg 07/05/17 17:05 07/06/17 10:31 Valium PEG 5 mg Q6H PRN Administration seizures Enoxaparin Sodium 40 mg 07/04/17 10:00 07/07/17 10:10 Lovenox SC 40 mg DAILY DENNIS Administration Famotidine 40 mg 07/04/17 10:00 07/07/17 09:54 Pepcid IVP 40 mg BID DENNIS Administration Vancomycin/Sodium Chloride 1 gm in 200 mls @ 133.333 mls/hr 07/04/17 09:00 09:54 Vancomycin 1 Gm/Ns 200 Ml IVPB 07/09/17 09:01 133.333 mls/hr Q12H DENNIS Administration Lactated Ringer's 1,000 mls @ 100 mls/hr 07/05/17 08:02 07/07/17 03:07 Lactated Ringer's IV 100 mls/hr .Q10H DENNIS Administration Levetiracetam 1,000 mg/ Sodium 110 mls @ 420 mls/hr 07/05/17 17:05 07/07/17 04:59 Chloride IVPB 420 mls/hr Q12H DENNIS Administration Metronidazole 500 mg in 100 mls @ 100 mls/hr 07/07/17 10:00 Flagyl IVPB Q8 [facility] Insulin Aspart 0 unit 07/04/17 12:00 07/07/17 06:26 Novolog SC Not Given Q6 [facility] Protocol Insulin Detemir 22 unit 07/04/17 22:00 07/07/17 00:07 Levemir SC 22 unit HS DENNIS Administration Lactulose 20 gm 07/06/17 09:00 Enulose PO HS PRN Constipation Lorazepam 1 mg 07/04/17 17:57 07/07/17 05:05 Ativan IVP 1 mg Q6H PRN Administration Seizure activity Metoprolol Tartrate 12.5 mg 07/04/17 10:00 07/07/17 09:54 Lopressor PEG 12.5 mg Q12 DENNIS Administration Multivitamins/Vitamin C 5 ml 07/04/17 10:00 07/07/17 10:00 Multi-Delyn Liquid PEG 5 ml DAILY DENNIS Administration Potassium Phos/Sodium Phos 1 pkt 07/06/17 08:45 07/07/17 07:48 Neutra-Phos GT 07/07/17 20:46 1 pkt Q12H DENNIS Administration Rosuvastatin Calcium 10 mg 07/04/17 10:00 07/07/17 09:59 Crestor PEG 10 mg DAILY DENNIS Administration Vancomycin HCl 125 mg 07/07/17 14:00 Vancocin (Oral Or Rectal Use) PEG QID DENNIS Zinc Sulfate 220 mg 07/04/17 10:00 07/07/17 09:54 Zinc Sulfate 220 Mg Cap PEG 220 mg DAILY DENNIS Administration - Patient Studies Lab Studies: Microbiology Studies 07/04/17 06:58 Gram Stain - Final Peg Site Wound Culture - Preliminary Staphylococcus Aureus Gram Negative Rober 07/03/17 23:03 Blood Culture - Preliminary Blood NO GROWTH AFTER 3 DAYS 07/03/17 23:03 S.aureus & Coag-Neg Staph PNA FISH - Final Blood Blood Culture - Final Coagulase Neg Staphylococcus Gram Stain - Final 07/03/17 23:29 Gram Stain - Final Cerebral Spinal Fluid CSF Culture - Preliminary NO GROWTH AFTER 2 DAYS 07/04/17 01:48 Urine Culture - Final Urine Streptococcus Viridans Lab Studies 07/07/17 07/07/17 07/07/17 Range/Units 06:17 06:13 05:22 WBC 6.3 (4.8-10.8) K/uL RBC 3.60 L (3.80-5.20) Mil/uL Hgb 10.5 L (11.0-16.0) g/dL Hct 30.7 L (34.0-47.0) % MCV 85.5 (81.0-99.0) fL MCH 29.1 (27.0-31.0) pg MCHC 34.1 (33.0-37.0) g/dL RDW 13.1 (11.5-14.5) % Plt Count 149 (130-400) K/uL MPV 10.5 (7.2-11.7) fL Neut % (Auto) 66.5 (50.0-75.0) % Lymph % (Auto) 26.5 (20.0-40.0) % [place] % (Auto) 4.1 (0.0-10.0) % Eos % (Auto) 2.5 (0.0-4.0) % Baso % (Auto) 0.4 (0.0-2.0) % Neut # (Auto) 4.2 (1.8-7.0) K/uL Lymph # (Auto) 1.7 (1.0-4.3) K/uL [place] # (Auto) 0.3 (0.0-0.8) K/uL Eos # (Auto) 0.2 (0.0-0.7) K/uL Baso # (Auto) 0.0 (0.0-0.2) K/uL Sodium 134 (132-148) mmol/L Potassium 3.8 (3.6-5.2) mmol/L Chloride 100 (98-107) mmol/L Carbon Dioxide 27 (22-30) mmol/L Anion Gap 10 (10-20) BUN 10 (7-17) mg/dL Creatinine 0.3 L (0.7-1.2) mg/dL Est GFR ( Amer) > 60 Est GFR (Non-Af Amer) > 60 POC Glucose (mg/dL) 136 H (65-110) mg/dL Random Glucose 127 H (65-105) mg/dL Calcium 7.6 L (8.6-10.4) mg/dl Phosphorus 2.7 (2.5-4.5) mg/dL Magnesium 1.4 L (1.6-2.3) mg/dL Total Bilirubin 0.3 (0.2-1.3) mg/dL AST 19 (14-36) U/L ALT 25 (9-52) U/L Alkaline Phosphatase 46 (38-126) U/L Total Protein 4.7 L (6.3-8.3) g/dL Albumin 2.7 L (3.5-5.0) g/dL Globulin 2.1 L (2.2-3.9) gm/dL Albumin/Globulin Ratio 1.3 (1.0-2.1) CSF VDRL (Nonreactive) 07/07/17 07/06/17 07/06/17 Range/Units 00:01 17:50 11:55 WBC (4.8-10.8) K/uL RBC (3.80-5.20) Mil/uL Hgb (11.0-16.0) g/dL Hct (34.0-47.0) % MCV (81.0-99.0) fL MCH (27.0-31.0) pg MCHC (33.0-37.0) g/dL RDW (11.5-14.5) % Plt Count (130-400) K/uL MPV (7.2-11.7) fL Neut % (Auto) (50.0-75.0) % Lymph % (Auto) (20.0-40.0) % [place] % (Auto) (0.0-10.0) % Eos % (Auto) (0.0-4.0) % Baso % (Auto) (0.0-2.0) % Neut # (Auto) (1.8-7.0) K/uL Lymph # (Auto) (1.0-4.3) K/uL [place] # (Auto) (0.0-0.8) K/uL Eos # (Auto) (0.0-0.7) K/uL Baso # (Auto) (0.0-0.2) K/uL Sodium (132-148) mmol/L Potassium (3.6-5.2) mmol/L Chloride (98-107) mmol/L Carbon Dioxide (22-30) mmol/L Anion Gap (10-20) BUN (7-17) mg/dL Creatinine (0.7-1.2) mg/dL Est GFR ( Amer) Est GFR (Non-Af Amer) POC Glucose (mg/dL) 135 H 136 H 128 H (65-110) mg/dL Random Glucose (65-105) mg/dL Calcium (8.6-10.4) mg/dl Phosphorus (2.5-4.5) mg/dL Magnesium (1.6-2.3) mg/dL Total Bilirubin (0.2-1.3) mg/dL AST (14-36) U/L ALT (9-52) U/L Alkaline Phosphatase (38-126) U/L Total Protein (6.3-8.3) g/dL Albumin (3.5-5.0) g/dL Globulin (2.2-3.9) gm/dL Albumin/Globulin Ratio (1.0-2.1) CSF VDRL (Nonreactive) 07/03/17 Range/Units 09:32 WBC (4.8-10.8) K/uL RBC (3.80-5.20) Mil/uL Hgb (11.0-16.0) g/dL Hct (34.0-47.0) % MCV (81.0-99.0) fL MCH (27.0-31.0) pg MCHC (33.0-37.0) g/dL RDW (11.5-14.5) % Plt Count (130-400) K/uL MPV (7.2-11.7) fL Neut % (Auto) (50.0-75.0) % Lymph % (Auto) (20.0-40.0) % [place] % (Auto) (0.0-10.0) % Eos % (Auto) (0.0-4.0) % Baso % (Auto) (0.0-2.0) % Neut # (Auto) (1.8-7.0) K/uL Lymph # (Auto) (1.0-4.3) K/uL [place] # (Auto) (0.0-0.8) K/uL Eos # (Auto) (0.0-0.7) K/uL Baso # (Auto) (0.0-0.2) K/uL Sodium (132-148) mmol/L Potassium (3.6-5.2) mmol/L Chloride (98-107) mmol/L Carbon Dioxide (22-30) mmol/L Anion Gap (10-20) BUN (7-17) mg/dL Creatinine (0.7-1.2) mg/dL Est GFR ( Amer) Est GFR (Non-Af Amer) POC Glucose (mg/dL) (65-110) mg/dL Random Glucose (65-105) mg/dL Calcium (8.6-10.4) mg/dl Phosphorus (2.5-4.5) mg/dL Magnesium (1.6-2.3) mg/dL Total Bilirubin (0.2-1.3) mg/dL AST (14-36) U/L ALT (9-52) U/L Alkaline Phosphatase (38-126) U/L Total Protein (6.3-8.3) g/dL Albumin (3.5-5.0) g/dL Globulin (2.2-3.9) gm/dL Albumin/Globulin Ratio (1.0-2.1) CSF VDRL Nonreactive (Nonreactive) Laboratory Results - last 24 hr 07/03/17 07/06/17 07/06/17 09:32 11:55 17:50 WBC RBC Hgb Hct MCV MCH MCHC RDW Plt Count MPV Neut % (Auto) Lymph % (Auto) [place] % (Auto) Eos % (Auto) Baso % (Auto) Neut # (Auto) Lymph # (Auto) [place] # (Auto) Eos # (Auto) Baso # (Auto) Sodium Potassium Chloride Carbon Dioxide Anion Gap BUN Creatinine Est GFR ( Amer) Est GFR (Non-Af Amer) POC Glucose (mg/dL) 128 H 136 H Random Glucose Calcium Phosphorus Magnesium Total Bilirubin AST ALT Alkaline Phosphatase Total Protein Albumin Globulin Albumin/Globulin Ratio CSF VDRL Nonreactive 07/07/17 07/07/17 07/07/17 00:01 05:22 06:13 WBC RBC Hgb Hct MCV MCH MCHC RDW Plt Count MPV Neut % (Auto) Lymph % (Auto) [place] % (Auto) Eos % (Auto) Baso % (Auto) Neut # (Auto) Lymph # (Auto) [place] # (Auto) Eos # (Auto) Baso # (Auto) Sodium 134 Potassium 3.8 Chloride 100 Carbon Dioxide 27 Anion Gap 10 BUN 10 Creatinine 0.3 L Est GFR ( Amer) > 60 Est GFR (Non-Af Amer) > 60 POC Glucose (mg/dL) 135 H 136 H Random Glucose 127 H Calcium 7.6 L Phosphorus 2.7 Magnesium 1.4 L Total Bilirubin 0.3 AST 19 ALT 25 Alkaline Phosphatase 46 Total Protein 4.7 L Albumin 2.7 L Globulin 2.1 L Albumin/Globulin Ratio 1.3 CSF VDRL 07/07/17 06:17 WBC 6.3 RBC 3.60 L Hgb 10.5 L Hct 30.7 L MCV 85.5 MCH 29.1 MCHC 34.1 RDW 13.1 Plt Count 149 MPV 10.5 Neut % (Auto) 66.5 Lymph % (Auto) 26.5 [place] % (Auto) 4.1 Eos % (Auto) 2.5 Baso % (Auto) 0.4 Neut # (Auto) 4.2 Lymph # (Auto) 1.7 [place] # (Auto) 0.3 Eos # (Auto) 0.2 Baso # (Auto) 0.0 Sodium Potassium Chloride Carbon Dioxide Anion Gap BUN Creatinine Est GFR ( Amer) Est GFR (Non-Af Amer) POC Glucose (mg/dL) Random Glucose Calcium Phosphorus Magnesium Total Bilirubin AST ALT Alkaline Phosphatase Total Protein Albumin Globulin Albumin/Globulin Ratio CSF VDRL Fingerstick Blood Sugar Results: 135 - Procedures Procedures (Free Text): - Head Exam Head Exam: NORMOCEPHALIC Additional comments: ATRAUMATIC, NORMAL INSPECTION, NORMOCEPHALIC - Eye Exam Eye Exam: EOMI, Normal appearance Pupil Exam: Irregular - ENT Exam ENT Exam: Mucous Membranes Moist, Normal Exam - Neck Exam Neck exam: Positive for: Normal Inspection - Respiratory Exam Respiratory Exam: Clear to Auscultation Bilateral - Cardiovascular Exam Cardiovascular Exam: REGULAR RHYTHM, +S1, +S2 - GI/Abdominal Exam Additional comments: PEG tube in place; small amount of foul smelling purulence noted around site, no erythema or warmth noted - Extremities Exam Extremities exam: Positive for: normal inspection RUE tremulous when reaching for face which has been suspected to be seizure activity - Back Exam Back exam: NORMAL INSPECTION - Neurological Exam Neurological exam: Altered - Skin Skin Exam: Normal Color - Eye Exam Eye Exam: Nystagmus. absent: EOMI, Normal appearance, PERRL - ENT Exam ENT Exam: Mucous Membranes Dry - Neck Exam Neck Exam: absent: Full ROM, Lymphadenopathy - Respiratory Exam Respiratory Exam: Rales, Rhonchi. absent: Clear to Ausculation Bilateral, NORMAL BREATHING PATTERN - Cardiovascular Exam Cardiovascular Exam: Tachycardia, +S1, +S2. absent: REGULAR RHYTHM - GI/Abdominal Exam GI & Abdominal Exam: Soft. absent: Tenderness - Extremities Exam Extremities Exam: Full ROM. 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 Aureus and GNR - urine Cx (07/04): Strep viridans - blood (07/03): Coag Neg Staph - ID (Rehana) GI: PEG with purulent discharge, functioning - Glucerna - PEG Cx (07/04): Staph. Aureus and GNR * CT abdomen w/ IV contrast ordered - Lactulose 20 gm PO HS PRN - Flagyl 500 mg @ 100 mls/hr IVPB Q8 - C. diff ordered - GI ([place]) Cards: HTN, hypercholesteremia - Lopressor 12.5 PEG Q12 - Crestor 10 mg PEG QD - ASA 81 mg PO QD - EKG showed abnormal T waves, no ST elevations - Cardio (Mark[place]) Pulm: no acute issues - O2 switched to nasal canula - CXR ordered - rapid flu ordered Renal/: UTI - BUN/Cr 10/0.3 - urine Cx (07/04): Strep viridans - LR @ 100 mls/hr Endo: DM - Levimir 22 U SC HS - Novolog SC Q6 - glucose 136 PPx: - Pepcid 40 mg IVP BID - Lovenox 40 mg SC QD - zinc sulfate 220 mg PEG QD - multivitamin - Palliative (Obradovic) <Abdiel Rosales - Last Filed: 07/07/17 15:37> CCU Objective - Vital Signs / Intake & Output Vital Signs (Last 4 hours): Vital Signs Temp Pulse Resp BP Pulse Ox 07/07/17 15:00 73 21 98 07/07/17 14:24 72 23 111/63 98 07/07/17 14:00 66 22 99 07/07/17 13:24 68 20 110/57 L 99 07/07/17 13:13 66 20 07/07/17 12:24 64 19 90/49 L 100 07/07/17 12:00 97.4 F L 65 18 100 Intake and Output (Last 8hrs): Intake & Output 07/07/17 07/07/17 07/07/17 06:59 14:59 22:59 Intake Total 1170 1263 100 Output Total 1000 Balance 170 1263 100 Weight 151 lb 4.8 oz Intake: Intake, IV Amount 900 833 100 Left Hand 900 833 100 Tube Feeding 270 280 Other 150 Output: Urine 900 Urine, Voided 900 Stool 100 - Medications Active Medications: Active Medications Generic Name Dose Route Start Last Admin Trade Name Freq PRN Reason Stop Dose Admin Acetaminophen 650 mg 07/04/17 05:58 07/04/17 06:45 Tylenol 650 Mg Supp [place] 650 mg Q6 PRN Administration Fever >100.4 F Aspirin 81 mg 07/04/17 11:15 07/07/17 09:54 Aspirin Chewable PO 81 mg DAILY DENNIS Administration Diazepam 5 mg 07/05/17 17:05 07/06/17 10:31 Valium PEG 5 mg Q6H PRN Administration seizures Enoxaparin Sodium 40 mg 07/04/17 10:00 07/07/17 10:10 Lovenox SC 40 mg DAILY DENNIS Administration Famotidine 40 mg 07/04/17 10:00 07/07/17 09:54 Pepcid IVP 40 mg BID DENNIS Administration Vancomycin/Sodium Chloride 1 gm in 200 mls @ 133.333 mls/hr 07/04/17 09:00 09:54 Vancomycin 1 Gm/Ns 200 Ml IVPB 07/09/17 09:01 133.333 mls/hr Q12H DENNIS Administration Lactated Ringer's 1,000 mls @ 100 mls/hr 07/05/17 08:02 07/07/17 14:01 Lactated Ringer's IV 100 mls/hr .Q10H DENNIS Administration Levetiracetam 1,000 mg/ Sodium 110 mls @ 420 mls/hr 07/05/17 17:05 07/07/17 04:59 Chloride IVPB 420 mls/hr Q12H DENNIS Administration Metronidazole 500 mg in 100 mls @ 100 mls/hr 07/07/17 10:00 07/07/17 13:50 Flagyl IVPB Not Given Q8 [facility] Insulin Aspart 0 unit 07/04/17 12:00 07/07/17 12:17 Novolog SC 2 unit Q6 DENNIS Administration Protocol Insulin Detemir 22 unit 07/04/17 22:00 07/07/17 00:07 Levemir SC 22 unit HS DENNIS Administration Lactulose 20 gm 07/06/17 09:00 Enulose PO HS PRN Constipation Lorazepam 1 mg 07/04/17 17:57 07/07/17 05:05 Ativan IVP 1 mg Q6H PRN Administration Seizure activity Metoprolol Tartrate 12.5 mg 07/04/17 10:00 07/07/17 09:54 Lopressor PEG 12.5 mg Q12 DENNIS Administration Multivitamins/Vitamin C 5 ml 07/04/17 10:00 07/07/17 10:00 Multi-Delyn Liquid PEG 5 ml DAILY DENNIS Administration Mupirocin 0 gm 07/07/17 18:00 Bactroban Ointment TOP BID DENNIS Potassium Phos/Sodium Phos 1 pkt 07/06/17 08:45 07/07/17 07:48 Neutra-Phos GT 07/07/17 20:46 1 pkt Q12H DENNIS Administration Rosuvastatin Calcium 10 mg 07/04/17 10:00 07/07/17 09:59 Crestor PEG 10 mg DAILY DENNIS Administration Vancomycin HCl 125 mg 07/07/17 14:00 07/07/17 13:53 Vancocin (Oral Or Rectal Use) PEG 125 mg QID DENNIS Administration Zinc Sulfate 220 mg 07/04/17 10:00 07/07/17 09:54 Zinc Sulfate 220 Mg Cap PEG 220 mg DAILY DENNIS Administration - Patient Studies Lab Studies: Microbiology Studies 07/04/17 06:58 Gram Stain - Final Peg Site Wound Culture - Final Staphylococcus Aureus Burkholderia Cepacia 07/03/17 23:29 Gram Stain - Final Cerebral Spinal Fluid CSF Culture - Preliminary NO GROWTH AFTER 3 DAYS 07/03/17 23:03 Blood Culture - Preliminary Blood NO GROWTH AFTER 3 DAYS 07/03/17 23:03 S.aureus & Coag-Neg Staph PNA FISH - Final Blood Blood Culture - Final Coagulase Neg Staphylococcus Gram Stain - Final Lab Studies 07/07/17 07/07/17 07/07/17 Range/Units 11:35 09:58 06:17 WBC 6.3 (4.8-10.8) K/uL RBC 3.60 L (3.80-5.20) Mil/uL Hgb 10.5 L (11.0-16.0) g/dL Hct 30.7 L (34.0-47.0) % MCV 85.5 (81.0-99.0) fL MCH 29.1 (27.0-31.0) pg MCHC 34.1 (33.0-37.0) g/dL RDW 13.1 (11.5-14.5) % Plt Count 149 (130-400) K/uL MPV 10.5 (7.2-11.7) fL Neut % (Auto) 66.5 (50.0-75.0) % Lymph % (Auto) 26.5 (20.0-40.0) % [place] % (Auto) 4.1 (0.0-10.0) % Eos % (Auto) 2.5 (0.0-4.0) % Baso % (Auto) 0.4 (0.0-2.0) % Neut # (Auto) 4.2 (1.8-7.0) K/uL Lymph # (Auto) 1.7 (1.0-4.3) K/uL [place] # (Auto) 0.3 (0.0-0.8) K/uL Eos # (Auto) 0.2 (0.0-0.7) K/uL Baso # (Auto) 0.0 (0.0-0.2) K/uL Sodium (132-148) mmol/L Potassium (3.6-5.2) mmol/L Chloride (98-107) mmol/L Carbon Dioxide (22-30) mmol/L Anion Gap (10-20) BUN (7-17) mg/dL Creatinine (0.7-1.2) mg/dL Est GFR ( Amer) Est GFR (Non-Af Amer) POC Glucose (mg/dL) 178 H (65-110) mg/dL Random Glucose (65-105) mg/dL Calcium (8.6-10.4) mg/dl Phosphorus (2.5-4.5) mg/dL Magnesium (1.6-2.3) mg/dL Total Bilirubin (0.2-1.3) mg/dL AST (14-36) U/L ALT (9-52) U/L Alkaline Phosphatase (38-126) U/L Total Protein (6.3-8.3) g/dL Albumin (3.5-5.0) g/dL Globulin (2.2-3.9) gm/dL Albumin/Globulin Ratio (1.0-2.1) CSF VDRL (Nonreactive) Stool Leukocytes, Qual (NEGATIVE) C. difficile Ag & Toxin Negative (NEGATIVE) 07/07/17 07/07/17 07/07/17 Range/Units 06:13 05:22 00:01 WBC (4.8-10.8) K/uL RBC (3.80-5.20) Mil/uL Hgb (11.0-16.0) g/dL Hct (34.0-47.0) % MCV (81.0-99.0) fL MCH (27.0-31.0) pg MCHC (33.0-37.0) g/dL RDW (11.5-14.5) % Plt Count (130-400) K/uL MPV (7.2-11.7) fL Neut % (Auto) (50.0-75.0) % Lymph % (Auto) (20.0-40.0) % [place] % (Auto) (0.0-10.0) % Eos % (Auto) (0.0-4.0) % Baso % (Auto) (0.0-2.0) % Neut # (Auto) (1.8-7.0) K/uL Lymph # (Auto) (1.0-4.3) K/uL [place] # (Auto) (0.0-0.8) K/uL Eos # (Auto) (0.0-0.7) K/uL Baso # (Auto) (0.0-0.2) K/uL Sodium 134 (132-148) mmol/L Potassium 3.8 (3.6-5.2) mmol/L Chloride 100 (98-107) mmol/L Carbon Dioxide 27 (22-30) mmol/L Anion Gap 10 (10-20) BUN 10 (7-17) mg/dL Creatinine 0.3 L (0.7-1.2) mg/dL Est GFR ( Amer) > 60 Est GFR (Non-Af Amer) > 60 POC Glucose (mg/dL) 136 H 135 H (65-110) mg/dL Random Glucose 127 H (65-105) mg/dL Calcium 7.6 L (8.6-10.4) mg/dl Phosphorus 2.7 (2.5-4.5) mg/dL Magnesium 1.4 L (1.6-2.3) mg/dL Total Bilirubin 0.3 (0.2-1.3) mg/dL AST 19 (14-36) U/L ALT 25 (9-52) U/L Alkaline Phosphatase 46 (38-126) U/L Total Protein 4.7 L (6.3-8.3) g/dL Albumin 2.7 L (3.5-5.0) g/dL Globulin 2.1 L (2.2-3.9) gm/dL Albumin/Globulin Ratio 1.3 (1.0-2.1) CSF VDRL (Nonreactive) Stool Leukocytes, Qual (NEGATIVE) C. difficile Ag & Toxin (NEGATIVE) 07/06/17 07/06/17 07/04/17 Range/Units 17:50 11:55 06:36 WBC (4.8-10.8) K/uL RBC (3.80-5.20) Mil/uL Hgb (11.0-16.0) g/dL Hct (34.0-47.0) % MCV (81.0-99.0) fL MCH (27.0-31.0) pg MCHC (33.0-37.0) g/dL RDW (11.5-14.5) % Plt Count (130-400) K/uL MPV (7.2-11.7) fL Neut % (Auto) (50.0-75.0) % Lymph % (Auto) (20.0-40.0) % [place] % (Auto) (0.0-10.0) % Eos % (Auto) (0.0-4.0) % Baso % (Auto) (0.0-2.0) % Neut # (Auto) (1.8-7.0) K/uL Lymph # (Auto) (1.0-4.3) K/uL [place] # (Auto) (0.0-0.8) K/uL Eos # (Auto) (0.0-0.7) K/uL Baso # (Auto) (0.0-0.2) K/uL Sodium (132-148) mmol/L Potassium (3.6-5.2) mmol/L Chloride (98-107) mmol/L Carbon Dioxide (22-30) mmol/L Anion Gap (10-20) BUN (7-17) mg/dL Creatinine (0.7-1.2) mg/dL Est GFR ( Amer) Est GFR (Non-Af Amer) POC Glucose (mg/dL) 136 H 128 H (65-110) mg/dL Random Glucose (65-105) mg/dL Calcium (8.6-10.4) mg/dl Phosphorus (2.5-4.5) mg/dL Magnesium (1.6-2.3) mg/dL Total Bilirubin (0.2-1.3) mg/dL AST (14-36) U/L ALT (9-52) U/L Alkaline Phosphatase (38-126) U/L Total Protein (6.3-8.3) g/dL Albumin (3.5-5.0) g/dL Globulin (2.2-3.9) gm/dL Albumin/Globulin Ratio (1.0-2.1) CSF VDRL (Nonreactive) Stool Leukocytes, Qual Negative (NEGATIVE) C. difficile Ag & Toxin (NEGATIVE) 07/03/17 Range/Units 09:32 WBC (4.8-10.8) K/uL RBC (3.80-5.20) Mil/uL Hgb (11.0-16.0) g/dL Hct (34.0-47.0) % MCV (81.0-99.0) fL MCH (27.0-31.0) pg MCHC (33.0-37.0) g/dL RDW (11.5-14.5) % Plt Count (130-400) K/uL MPV (7.2-11.7) fL Neut % (Auto) (50.0-75.0) % Lymph % (Auto) (20.0-40.0) % [place] % (Auto) (0.0-10.0) % Eos % (Auto) (0.0-4.0) % Baso % (Auto) (0.0-2.0) % Neut # (Auto) (1.8-7.0) K/uL Lymph # (Auto) (1.0-4.3) K/uL [place] # (Auto) (0.0-0.8) K/uL Eos # (Auto) (0.0-0.7) K/uL Baso # (Auto) (0.0-0.2) K/uL Sodium (132-148) mmol/L Potassium (3.6-5.2) mmol/L Chloride (98-107) mmol/L Carbon Dioxide (22-30) mmol/L Anion Gap (10-20) BUN (7-17) mg/dL Creatinine (0.7-1.2) mg/dL Est GFR ( Amer) Est GFR (Non-Af Amer) POC Glucose (mg/dL) (65-110) mg/dL Random Glucose (65-105) mg/dL Calcium (8.6-10.4) mg/dl Phosphorus (2.5-4.5) mg/dL Magnesium (1.6-2.3) mg/dL Total Bilirubin (0.2-1.3) mg/dL AST (14-36) U/L ALT (9-52) U/L Alkaline Phosphatase (38-126) U/L Total Protein (6.3-8.3) g/dL Albumin (3.5-5.0) g/dL Globulin (2.2-3.9) gm/dL Albumin/Globulin Ratio (1.0-2.1) CSF VDRL Nonreactive (Nonreactive) Stool Leukocytes, Qual (NEGATIVE) C. difficile Ag & Toxin (NEGATIVE) Laboratory Results - last 24 hr 07/03/17 07/04/17 07/06/17 09:32 06:36 11:55 WBC RBC Hgb Hct MCV MCH MCHC RDW Plt Count MPV Neut % (Auto) Lymph % (Auto) [place] % (Auto) Eos % (Auto) Baso % (Auto) Neut # (Auto) Lymph # (Auto) [place] # (Auto) Eos # (Auto) Baso # (Auto) Sodium Potassium Chloride Carbon Dioxide Anion Gap BUN Creatinine Est GFR ( Amer) Est GFR (Non-Af Amer) POC Glucose (mg/dL) 128 H Random Glucose Calcium Phosphorus Magnesium Total Bilirubin AST ALT Alkaline Phosphatase Total Protein Albumin Globulin Albumin/Globulin Ratio CSF VDRL Nonreactive Stool Leukocytes, Qual Negative C. difficile Ag & Toxin 07/06/17 07/07/17 07/07/17 17:50 00:01 05:22 WBC RBC Hgb Hct MCV MCH MCHC RDW Plt Count MPV Neut % (Auto) Lymph % (Auto) [place] % (Auto) Eos % (Auto) Baso % (Auto) Neut # (Auto) Lymph # (Auto) [place] # (Auto) Eos # (Auto) Baso # (Auto) Sodium Potassium Chloride Carbon Dioxide Anion Gap BUN Creatinine Est GFR ( Amer) Est GFR (Non-Af Amer) POC Glucose (mg/dL) 136 H 135 H 136 H Random Glucose Calcium Phosphorus Magnesium Total Bilirubin AST ALT Alkaline Phosphatase Total Protein Albumin Globulin Albumin/Globulin Ratio CSF VDRL Stool Leukocytes, Qual C. difficile Ag & Toxin 07/07/17 07/07/17 07/07/17 06:13 06:17 09:58 WBC 6.3 RBC 3.60 L Hgb 10.5 L Hct 30.7 L MCV 85.5 MCH 29.1 MCHC 34.1 RDW 13.1 Plt Count 149 MPV 10.5 Neut % (Auto) 66.5 Lymph % (Auto) 26.5 [place] % (Auto) 4.1 Eos % (Auto) 2.5 Baso % (Auto) 0.4 Neut # (Auto) 4.2 Lymph # (Auto) 1.7 [place] # (Auto) 0.3 Eos # (Auto) 0.2 Baso # (Auto) 0.0 Sodium 134 Potassium 3.8 Chloride 100 Carbon Dioxide 27 Anion Gap 10 BUN 10 Creatinine 0.3 L Est GFR ( Amer) > 60 Est GFR (Non-Af Amer) > 60 POC Glucose (mg/dL) Random Glucose 127 H Calcium 7.6 L Phosphorus 2.7 Magnesium 1.4 L Total Bilirubin 0.3 AST 19 ALT 25 Alkaline Phosphatase 46 Total Protein 4.7 L Albumin 2.7 L Globulin 2.1 L Albumin/Globulin Ratio 1.3 CSF VDRL Stool Leukocytes, Qual C. difficile Ag & Toxin Negative 07/07/17 11:35 WBC RBC Hgb Hct MCV MCH MCHC RDW Plt Count MPV Neut % (Auto) Lymph % (Auto) [place] % (Auto) Eos % (Auto) Baso % (Auto) Neut # (Auto) Lymph # (Auto) [place] # (Auto) Eos # (Auto) Baso # (Auto) Sodium Potassium Chloride Carbon Dioxide Anion Gap BUN Creatinine Est GFR ( Amer) Est GFR (Non-Af Amer) POC Glucose (mg/dL) 178 H Random Glucose Calcium Phosphorus Magnesium Total Bilirubin AST ALT Alkaline Phosphatase Total Protein Albumin Globulin Albumin/Globulin Ratio CSF VDRL Stool Leukocytes, Qual C. difficile Ag & Toxin Attending/Attestation - Attestation I have personally seen and examined this patient.: Yes I have fully participated in the care of the patient.: Yes I have reviewed all pertinent clinical information: Yes Notes (Text): 07/07/17 15:36 And admitted with sepsis. Fever. Episodes of seizure activities. Currently no seizure activity was noted, tremor present. Patient also has positive culture from the wound around the PEG tube noted. Her prognosis is guarded. Diarrhea present. Underlying C. difficile cannot be ruled out. Will start the patient in vancomycin. We'll follow the patient
[2017-07-07] MEDS: metroNIDAZOLE IV 500 mg/100 ml 500 MG/100 ML BAG IVPB SCH ×3 (11:53→21:27)
--- NOTE | 2017-07-07 12:39 | CP.PCM.PCO ---
Physician Communication Note - Physician Communication Note Physician Communication Note: Family meeting cancelled, son unable to attend.
[2017-07-07] MEDS ORDERED: Iodixanol 320 MG/ML 100 ML BOTTLE IV ONE (12:40)
[2017-07-07] MEDS: Vancomycin 125 MG/5 ML SOLN (ORAL/RECTAL) PEG SCH ×3 (13:53→21:27)
--- NOTE | 2017-07-07 15:05 | CT ---
PROCEDURE: CT Abdomen and Pelvis with contrast HISTORY: r/o abscess/fluid collection at peg site COMPARISON: 08/01/2013 TECHNIQUE: Contrast dose: 100 mL Visipaque 320 Radiation dose: Total exam DLP = 1115.90 mGy-cm. This CT exam was performed using one or more of the following dose reduction techniques: Automated exposure control, adjustment of the mA and/or kV according to patient size, and/or use of iterative reconstruction technique. FINDINGS: LOWER THORAX: Minimal bilateral pleural effusion. Minimal bilateral lower lobe compressive atelectasis. LIVER: Normal size, contour and attenuation. No mass. Mild central intrahepatic biliary ductal dilatation consistent with prior cholecystectomy. . GALLBLADDER AND BILE DUCTS: Status post cholecystectomy. Dilated common bile duct up to approximately 11 mm diameter, consistent with cholecystectomy and age related ectasia. PANCREAS: Unremarkable. No gross lesion or ductal dilatation. SPLEEN: Unremarkable. ADRENALS: Stable 14 mm left adrenal nodule as compared to prior CT of 08/01/2013. No right adrenal mass. KIDNEYS AND URETERS: Unremarkable. No hydronephrosis. No solid mass. VASCULATURE: Unremarkable. No aortic aneurysm. BOWEL: Nonspecific circumferential mural thickening of the 2nd and 3rd portions of the duodenum consistent with nonspecific duodenitis. Circumferential mural thickening of the rectosigmoid colon and distal half of the descending colon. Lobular asymmetric mural thickening/ mass involving the mid descending colon. There is mild pericolonic inflammatory change about this segment of the descending colon. There are few diverticulae seen. Differential diagnosis includes an atypical appearance of acute diverticulitis of the mid descending colon, possibly with intramural abscess, versus neoplasm. The pericolonic inflammatory change may conceivably represent transmural infiltration of tumor into the pericolonic fat. The colitis involving the distal descending and rectosigmoid colon may be infectious or inflammatory in etiology. A rectal tube is noted. There is no evidence of bowel obstruction. A percutaneous gastrostomy tube is noted. There is no mass or collection adjacent to the percutaneous gastrostomy tube. APPENDIX: Normal appendix. PERITONEUM: Unremarkable. No free fluid. No free air. LYMPH NODES: Unremarkable. No enlarged lymph nodes. BLADDER: Diffuse thickening of the bladder wall. Please note that the bladder is suboptimally distended. Nevertheless, these findings should be correlated with urinalysis in consideration of possible cystitis. REPRODUCTIVE: Unremarkable uterus. BONES: Severe compression deformity of the T11 vertebra with mild bony retropulsion. This is new since prior examination. Moderate to severe compression deformity of the L1 vertebra, essentially unchanged from prior CT examination. These fractures are of indeterminate age. OTHER FINDINGS: None. IMPRESSION: Possible neoplasm versus intramural abscess versus atypical appearance of acute diverticulitis involving the mid descending colon. Recommend evaluation with colonoscopy when clinically feasible. Circumferential mural thickening of the distal descending colon and rectosigmoid colon consistent with nonspecific colitis, possibly infectious or inflammatory. No evidence of abscess/collection adjacent to the percutaneous gastrostomy tube. Diffuse thickening of the bladder wall, which should be correlated with urinalysis for possible cystitis. Small bilateral pleural effusion. Nonspecific duodenitis involving the 2nd and 3rd portions of the duodenum. Rectal tube noted. Status post cholecystectomy with mild intrahepatic biliary dilatation as well as dilatation of the common bile duct.
[2017-07-07 15:28] LABS: FECAL LEUKOCYTES NEGATIVE (NEGATIVE)
--- NOTE | 2017-07-07 15:44 | CON ---
DATE: 07/07/2017 NEUROLOGY CONSULTATION CHIEF COMPLAINT: Seizures. HISTORY OF PRESENT ILLNESS: This is a 71-year-old woman with past medical history of type 2 diabetes mellitus, hypertension, hyperlipidemia, depression, history of viral encephalitis, history of seizures, who was brought in unresponsive with some suspected seizure-like movements and had fever of unknown origin and had low systolic and diastolic blood pressures, had ad focal twitching of the right arm. Currently, she is on antibiotics such as vancomycin and Flagyl. Her PEG cultures grew Staphylococcus aureus and Gram-negative rods, and urine culture grew Strep viridans and blood, however, has negative staph. ID is on board. Her PEG with some purulent discharge, and currently status post CT abdomen, the results are pending. She was consulted for seizures. No further seizures while evaluating the patient. She was getting medications via the PEG. She is on aspirin, Crestor for stroke prevention, and now currently a gm of Keppra q.12. She withdraws to localized noxious stimulus. Follows simple commands. CAT scan of the head showed no acute intracranial abnormality. PAST MEDICAL HISTORY: She has viral encephalitis, hypertension, dyslipidemia, history of seizures, type 2 diabetes mellitus. SOCIAL HISTORY: No illicit drug use, smoking, or EtOH abuse. ALLERGIES: NO KNOWN DRUG ALLERGIES. REVIEW OF SYSTEMS: A 14-point review of systems negative except per HPI. FAMILY HISTORY: Noncontributory. MEDICATIONS: Reviewed by nurse reconciliation. PHYSICAL EXAMINATION: VITAL SIGNS: Temperature of 99.8, pulse rate 65, blood pressure 106/68, respiratory rate 21, oxygen saturation 100% on room air. GENERAL: The patient is sitting up in bed, in no acute distress. HEENT: Atraumatic, normocephalic. PERRLA. Extraocular muscles are intact. NECK: Supple. No JVD. No adenopathy noted. LUNGS: Clear to auscultation. No adventitious sounds. HEART: S1 and S2. Normal rate and rhythm. No murmurs, rubs, or gallops. ABDOMEN: PEG tube in place. Foul-smelling purulence noted around the site . EXTREMITIES: No clubbing. No cyanosis. Peripheral pulses are 2+ bilaterally. NEUROLOGIC: The patient is alert and drowsy, in no acute distress. Speech is hypophonic, but no aphasia noted with mild dysarthria. Cranial nerves II through XII are intact. Motor exam: Spontaneous movements of extremities are noted upper and lower. Sensory exam: Withdraws to localized noxious stimulus. Decreased vibration at the toes. DTRs are 1+ throughout, and absent in knees and ankles. Coordination and gait deferred for now. LABORATORY DATA: Sodium is 134, potassium 2.8, chloride of 100, carbon dioxide 27, BUN of 10, creatinine 0.3, random glucose 127. ASSESSMENT AND PLAN: This is a 71-year-old woman with history of hypertension, type 2 diabetes mellitus, hyperlipidemia, history of viral encephalitis, status post dysarthria, history of paroxysmal seizures, borderline for seizure-like activity, fever of unknown origin, has purulent foul-smelling discharge around the percutaneous endoscopic gastrostomy site. She has undergone a CT of abdomen. Her percutaneous endoscopic gastrostomy culture grew staphylococcus aureus and Gram-negative rods, urine culture Strep viridans and blood culture was coag-negative staph. Her head CT showed no intracranial abnormality and showed low systolic and diastolic blood pressures and I was consulted for seizures. She had breakthrough seizures secondary to toxic metabolic encephalopathy and underlying cerebral hyperperfusion. RECOMMENDATIONS: 1. At this time, I recommend to keep her systolic blood pressure of 120's to 140's and diastolic 70 to 80's. 2. Continue with Keppra 1 gm IV q.12. 3. EEG. 4. Avoid sedating meds. 5. Keep blood sugars to 140 to 180. 6. Continue with treatment for underlying infection and follow up with GI in regards to the PEG site. Once again, thank you for this consult. Oscar Catalan MD
--- NOTE | 2017-07-07 22:46 | CP.PCM.PN ---
Subjective - Date & Time of Evaluation Date of Evaluation: 07/07/17 Time of Evaluation: 18:30 - Subjective Subjective: Patient seen and evaluated No new cardiac events noted Objective - Vital Signs/Intake and Output Vital Signs (last 24 hours): Temp Pulse Resp BP Pulse Ox 98.5 F 83 23 126/59 L 98 07/07/17 20:00 07/07/17 21:17 07/07/17 21:17 07/07/17 21:17 07/07/17 21:17 Intake and Output: 07/07/17 07/08/17 18:59 06:59 Intake Total 1768 440 Output Total 1000 300 Balance 768 140 - Medications Medications: Current Medications Acetaminophen (Tylenol 650 Mg Supp) 650 mg AL Q6 PRN PRN Reason: Fever >100.4 F Last Admin: 07/04/17 06:45 Dose: 650 mg Aspirin (Aspirin Chewable) 81 mg PO DAILY [facility] Last Admin: 07/07/17 09:54 Dose: 81 mg Diazepam (Valium) 5 mg PEG Q6H PRN PRN Reason: seizures Last Admin: 07/06/17 10:31 Dose: 5 mg Enoxaparin Sodium (Lovenox) 40 mg SC DAILY [facility] Last Admin: 07/07/17 10:10 Dose: 40 mg Famotidine (Pepcid) 40 mg IVP BID [facility] Last Admin: 07/07/17 17:02 Dose: 40 mg Vancomycin/Sodium Chloride (Vancomycin 1 Gm/Ns 200 Ml) 1 gm in 200 mls @ 133.333 mls/hr IVPB Q12H [facility] Stop: 07/09/17 09:01 Last Admin: 07/07/17 20:45 Dose: 133.333 mls/hr Lactated Ringer's (Lactated Ringer's) 1,000 mls @ 100 mls/hr IV .Q10H [facility] Last Admin: 07/07/17 21:34 Dose: Not Given Levetiracetam 1,000 mg/ Sodium (Chloride) 110 mls @ 420 mls/hr IVPB Q12H [facility] Last Admin: 07/07/17 16:53 Dose: 420 mls/hr Metronidazole (Flagyl) 500 mg in 100 mls @ 100 mls/hr IVPB Q8 [facility] Last Admin: 07/07/17 21:27 Dose: 100 mls/hr Insulin Aspart (Novolog) 0 unit SC Q6 [facility] PRN Reason: Protocol Last Admin: 07/07/17 18:27 Dose: 2 unit Insulin Detemir (Levemir) 22 unit SC HS [facility] Last Admin: 07/07/17 21:30 Dose: 22 unit Lactulose (Enulose) 20 gm PO HS PRN PRN Reason: Constipation Lorazepam (Ativan) 1 mg IVP Q6H PRN PRN Reason: Seizure activity Last Admin: 07/07/17 19:30 Dose: 1 mg Metoprolol Tartrate (Lopressor) 12.5 mg PEG Q12 [facility] Last Admin: 07/07/17 21:31 Dose: 12.5 mg Multivitamins/Vitamin C (Multi-Delyn Liquid) 5 ml PEG DAILY [facility] Last Admin: 07/07/17 10:00 Dose: 5 ml Mupirocin (Bactroban Ointment) 0 gm TOP BID [facility] Last Admin: 07/07/17 16:59 Dose: 1 applic Rosuvastatin Calcium (Crestor) 10 mg PEG DAILY [facility] Last Admin: 07/07/17 09:59 Dose: 10 mg Vancomycin HCl (Vancocin (Oral Or Rectal Use)) 125 mg PEG QID [facility] Last Admin: 07/07/17 21:27 Dose: 125 mg Zinc Sulfate (Zinc Sulfate 220 Mg Cap) 220 mg PEG DAILY [facility] Last Admin: 07/07/17 09:54 Dose: 220 mg - Labs Labs: 07/07/17 06:17 07/07/17 06:13 PT 12.2 SECONDS (9.7-12.2) 07/04/17 06:36 INR 1.1 07/04/17 06:36 APTT 27 SECONDS (21-34) 07/04/17 06:36
[2017-07-08] MEDS: (Novolog) Insulin Aspart, Recombinant 100 u/ml 10 ml vial SC SCH ×4 (00:20→17:25)
[2017-07-08] MEDS: Lactated Ringer's 1,000 ML IV SCH ×3 (02:55→17:31)
[2017-07-08] MEDS: levETIRAcetam 1,000 MG in Sodium Chloride 0.9% 100 ML IVPB SCH ×2 (04:34→16:09)
[2017-07-08] MEDS: metroNIDAZOLE IV 500 mg/100 ml 500 MG/100 ML BAG IVPB SCH ×3 (05:22→21:12)
[2017-07-08 06:35] LABS: BASO % 0.4 % (0.0-2.0); EOS # 0.2 K/uL (0.0-0.7); EOS % 3.7 % (0.0-4.0); HEMOGLOBIN 10.8 g/dL (11.0-16.0); LYMPH # 1.2 K/uL (1.0-4.3); LYMPH % 17.9 % (20.0-40.0); MEAN CELL VOLUME 85.9 fL (81.0-99.0); MEAN CORPUSCULAR HEMOGLOBIN 28.6 pg (27.0-31.0); MEAN CORPUSCULAR HGB CONC 33.3 g/dL (33.0-37.0); MEAN PLATELET VOLUME 10.5 fL (7.2-11.7); MONO # 0.3 K/uL (0.0-0.8); MONO % 3.9 % (0.0-10.0); NEUT # 4.8 K/uL (1.8-7.0); NEUT % 74.1 % (50.0-75.0); RBC 3.79 Mil/uL (3.80-5.20); RED CELL DISTRIBUTION WIDTH 13.2 % (11.5-14.5); WHITE BLOOD COUNT 6.4 K/uL (4.8-10.8)
[2017-07-08 06:44] LABS: ALB/GLOB RATIO 1.1 (1.0-2.1); ALBUMIN 2.6 g/dL (3.5-5.0); ALT/SGPT 18 U/L (9-52); AST/SGOT 19 U/L (14-36); BLOOD UREA NITROGEN 8 mg/dL (7-17); CALCIUM 7.8 mg/dl (8.6-10.4); GFR AFRICAN-AMERICAN > 60; GFR NON-AFRICAN AMERICAN > 60; MAGNESIUM 1.7 mg/dL (1.6-2.3)
--- NOTE | 2017-07-08 07:08 | CP.PCM.PN ---
<Jose Mancera - Last Filed: 07/08/17 08:27> Subjective - Date & Time of Evaluation Date of Evaluation: 07/08/17 Time of Evaluation: 06:30 - Subjective Subjective: PGY5 GI Fellow Progress Note Patient seen and examined bedside this morning. The patient is aphasic and does not follow commands during examination. PEG tube now malfunctioning and cannot be cleared. NGT placed and TF running through this. No events overnight. 12 system ROS cannot be performed given mental status Objective - Vital Signs/Intake and Output Vital Signs (last 24 hours): Temp Pulse Resp BP Pulse Ox 99.7 F H 78 24 128/56 L 100 07/08/17 04:00 07/08/17 04:00 07/08/17 04:00 07/08/17 02:17 07/08/17 04:00 Intake and Output: 07/08/17 07/08/17 06:59 18:59 Intake Total 1350 Output Total 800 Balance 550 - Medications Medications: Current Medications Acetaminophen (Tylenol 650 Mg Supp) [address] Q6 PRN PRN Reason: Fever >100.4 F Last Admin: 07/04/17 06:45 Dose: 650 mg Aspirin (Aspirin Chewable) 81 mg PO DAILY [facility] Last Admin: 07/07/17 09:54 Dose: 81 mg Diazepam (Valium) 5 mg PEG Q6H PRN PRN Reason: seizures Last Admin: 07/06/17 10:31 Dose: 5 mg Enoxaparin Sodium (Lovenox) 40 mg SC DAILY [facility] Last Admin: 07/07/17 10:10 Dose: 40 mg Famotidine (Pepcid) 40 mg IVP BID [facility] Last Admin: 07/07/17 17:02 Dose: 40 mg Vancomycin/Sodium Chloride (Vancomycin 1 Gm/Ns 200 Ml) 1 gm in 200 mls @ 133.333 mls/hr IVPB Q12H [facility] Stop: 07/09/17 09:01 Last Admin: 07/07/17 20:45 Dose: 133.333 mls/hr Lactated Ringer's (Lactated Ringer's) 1,000 mls @ 100 mls/hr IV .Q10H [facility] Last Admin: 07/08/17 06:30 Dose: Not Given Levetiracetam 1,000 mg/ Sodium (Chloride) 110 mls @ 420 mls/hr IVPB Q12H [facility] Last Admin: 07/08/17 04:34 Dose: 420 mls/hr Metronidazole (Flagyl) 500 mg in 100 mls @ 100 mls/hr IVPB Q8 [facility] Last Admin: 07/08/17 05:22 Dose: 100 mls/hr Insulin Aspart (Novolog) 0 unit SC Q6 [facility] PRN Reason: Protocol Last Admin: 07/08/17 06:43 Dose: 2 unit Insulin Detemir (Levemir) 22 unit SC HS [facility] Last Admin: 07/07/17 21:30 Dose: 22 unit Lactulose (Enulose) 20 gm PO HS PRN PRN Reason: Constipation Lorazepam (Ativan) 1 mg IVP Q6H PRN PRN Reason: Seizure activity Last Admin: 07/08/17 03:16 Dose: 1 mg Metoprolol Tartrate (Lopressor) 12.5 mg PEG Q12 [facility] Last Admin: 07/07/17 21:31 Dose: 12.5 mg Multivitamins/Vitamin C (Multi-Delyn Liquid) 5 ml PEG DAILY [facility] Last Admin: 07/07/17 10:00 Dose: 5 ml Mupirocin (Bactroban Ointment) 0 gm TOP BID [facility] Last Admin: 07/07/17 16:59 Dose: 1 applic Rosuvastatin Calcium (Crestor) 10 mg PEG DAILY [facility] Last Admin: 07/07/17 09:59 Dose: 10 mg Vancomycin HCl (Vancocin (Oral Or Rectal Use)) 125 mg PEG QID [facility] Last Admin: 07/07/17 21:27 Dose: 125 mg Zinc Sulfate (Zinc Sulfate 220 Mg Cap) 220 mg PEG DAILY [facility] Last Admin: 07/07/17 09:54 Dose: 220 mg - Labs Labs: 07/08/17 06:17 07/08/17 06:16 PT 12.2 SECONDS (9.7-12.2) 07/04/17 06:36 INR 1.1 07/04/17 06:36 APTT 27 SECONDS (21-34) 07/04/17 06:36 - Constitutional Appears: No Acute Distress, Chronically Ill - Eye Exam Eye Exam: PERRL - ENT Exam ENT Exam: Mucous Membranes Dry Additional comments: NGT in place with TF running - Respiratory Exam Respiratory Exam: Rales. absent: Clear to Ausculation Bilateral, Rhonchi, Wheezes - Cardiovascular Exam Cardiovascular Exam: RRR, +S1, +S2 - GI/Abdominal Exam GI & Abdominal Exam: Soft, Normal Bowel Sounds. absent: Distended, Firm, Guarding, Rigid, Tenderness, Organomegaly Additional comments: PEG tube in place, no purulence noted today - Extremities Exam Extremities Exam: Normal Inspection. absent: Pedal Edema - Neurological Exam Neurological Exam: Altered - Skin Skin Exam: Dry, Warm Assessment and Plan - Assessment and Plan (Free Text) Assessment: Patient is a 71yo female with PMHx of brain injury (? encephalitis vs anoxic injury), seizure disorder, DM, HTN, HLD who presented to the ED with fever, tachycardia and suspected seizure activity. -PEG tube evaluation/malfunction -Concern for PEG site superficial infection Plan: -No purulence noted today, however, PEG now malfunctioning -Cultures + for MSSA and Burkholderia from PEG site culture -CT with no evidence of fluid collection/abscess at site -Of note, ? mass lesion in the descending colon on CT -Patient not currently a candidate for colonoscopy given multiple co-morbid conditions and ongoing seizure activity, infections -Family meeting was planned but cancelled yesterday - goals of care to be clarified -Cont Vanc/Flagyl as ordered -Will consider bedside PEG exchange, hold TFs for afternoon exchange if family agrees <Martínez Coleman - Last Filed: 07/08/17 09:18> Objective - Vital Signs/Intake and Output Vital Signs (last 24 hours): Temp Pulse Resp BP Pulse Ox 99.3 F 79 22 107/60 100 07/08/17 08:00 07/08/17 08:17 07/08/17 08:17 07/08/17 08:17 07/08/17 08:17 Intake and Output: 07/08/17 07/08/17 06:59 18:59 Intake Total 1350 235 Output Total 800 Balance 550 235 - Medications Medications: Current Medications Acetaminophen (Tylenol 650 Mg Supp) [address] Q6 PRN PRN Reason: Fever >100.4 F Last Admin: 07/04/17 06:45 Dose: 650 mg Aspirin (Aspirin Chewable) 81 mg PO DAILY [facility] Last Admin: 07/07/17 09:54 Dose: 81 mg Diazepam (Valium) 5 mg PEG Q6H PRN PRN Reason: seizures Last Admin: 07/06/17 10:31 Dose: 5 mg Enoxaparin Sodium (Lovenox) 40 mg SC DAILY [facility] Last Admin: 07/07/17 10:10 Dose: 40 mg Famotidine (Pepcid) 40 mg IVP BID [facility] Last Admin: 07/07/17 17:02 Dose: 40 mg Vancomycin/Sodium Chloride (Vancomycin 1 Gm/Ns 200 Ml) 1 gm in 200 mls @ 133.333 mls/hr IVPB Q12H [facility] Stop: 07/09/17 09:01 Last Admin: 07/08/17 08:09 Dose: 133.333 mls/hr Levetiracetam 1,000 mg/ Sodium (Chloride) 110 mls @ 420 mls/hr IVPB Q12H [facility] Last Admin: 07/08/17 04:34 Dose: 420 mls/hr Metronidazole (Flagyl) 500 mg in 100 mls @ 100 mls/hr IVPB Q8 [facility] Last Admin: 07/08/17 05:22 Dose: 100 mls/hr Insulin Aspart (Novolog) 0 unit SC Q6 [facility] PRN Reason: Protocol Last Admin: 07/08/17 06:43 Dose: 2 unit Insulin Detemir (Levemir) 22 unit SC HS [facility] Last Admin: 07/07/17 21:30 Dose: 22 unit Lactulose (Enulose) 20 gm PO HS PRN PRN Reason: Constipation Lorazepam (Ativan) 1 mg IVP Q6H PRN PRN Reason: Seizure activity Last Admin: 07/08/17 03:16 Dose: 1 mg Metoprolol Tartrate (Lopressor) 12.5 mg PEG Q12 [facility] Last Admin: 07/07/17 21:31 Dose: 12.5 mg Multivitamins/Vitamin C (Multi-Delyn Liquid) 5 ml PEG DAILY [facility] Last Admin: 07/07/17 10:00 Dose: 5 ml Mupirocin (Bactroban Ointment) 0 gm TOP BID [facility] Last Admin: 07/07/17 16:59 Dose: 1 applic Rosuvastatin Calcium (Crestor) 10 mg PEG DAILY [facility] Last Admin: 07/07/17 09:59 Dose: 10 mg Vancomycin HCl (Vancocin (Oral Or Rectal Use)) 125 mg PEG QID [facility] Last Admin: 07/07/17 21:27 Dose: 125 mg Zinc Sulfate (Zinc Sulfate 220 Mg Cap) 220 mg PEG DAILY [facility] Last Admin: 07/07/17 09:54 Dose: 220 mg - Labs Labs: 07/08/17 06:17 07/08/17 06:16 PT 12.2 SECONDS (9.7-12.2) 07/04/17 06:36 INR 1.1 07/04/17 06:36 APTT 27 SECONDS (21-34) 07/04/17 06:36 Attending/Attestation - Attestation I have personally seen and examined this patient.: Yes I have fully participated in the care of the patient.: Yes I have reviewed all pertinent clinical information, including history, physical exam and plan: Yes Notes (Text): 07/08/17 09:10 I have seen and examined patient with GI fellow. She remains in critical care unit, receiving continued monitoring and care for ongoing epilepsy. She is aphasic and not able to participate in conversation. According to nursing staff , current gastrostomy tube non-functional, NGT was placed overnight and feeding initiated. No reported abdominal pain, nausea, vomiting. Seizure disorder DM / HTN Anoxic brain injury / encephalitis Malfunctioning PEG tube CT imaging reviewed by me showing no concern for abdominal wall abscess, however suspected colon mass lesion vs acute diverticulitis noted in descending colon - Continue with antibiotic therapy - Follow up neurology recommendations - Will plan for bedside gastrostomy tube exchange at bedside today given non- functioning existing tube - Patient would eventually require colonoscopy evaluation of suspected intraluminal colon lesion, however will defer procedure for time being given ongoing sepsis and seizure activity. Will discuss with family members regarding risks/benefits of potential procedure. - Will continue to monitor patient clinical course
[2017-07-08] MEDS: Vancomycin 1 gm/NS 200 ml 1 GM/200 ML BAG IVPB SCH ×2 (08:09→20:57)
[2017-07-08] MEDS: Vancomycin 125 MG/5 ML SOLN (ORAL/RECTAL) PEG SCH ×5 (09:47→22:37)
[2017-07-08] MEDS: Multiple Vitamins Oral Solution PEG SCH (09:47)
[2017-07-08] MEDS: Cefepime IV 1 gm in Dextrose 1 GM/50 ML BAG IVPB SCH ×2 (10:59→18:06)
--- NOTE | 2017-07-08 11:21 | CP.CCUPN ---
<Rhett Sinha - Last Filed: 07/08/17 11:18> CCU Subjective - Physician Review Subjective (Free Text): Patient seen and examined. Hx of anoxic brain injury, non-communicative. Unable to obtain review of systems. 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 Suspected focal seizures overnight with resolution with ativan administration. Jerky movements noted in right arm. On nasal cannula 2L. GI to replace malfunctioned PEG today. CT abd did not show infectious process related to PEG however it showed possible mass in descending colon. CCU Objective - Vital Signs / Intake & Output Vital Signs (Last 4 hours): Vital Signs Temp Pulse Resp BP Pulse Ox 07/08/17 11:00 75 25 H 99 07/08/17 10:20 80 17 114/57 L 100 07/08/17 10:00 79 17 100 07/08/17 09:47 86 19 111/48 L 97 07/08/17 09:17 79 25 H 109/61 99 07/08/17 09:00 80 24 99 07/08/17 08:17 79 22 107/60 100 07/08/17 08:00 99.3 F 79 23 99 Intake and Output (Last 8hrs): Intake & Output 07/07/17 07/08/17 07/08/17 22:59 06:59 14:59 Intake Total 1045 810 568 Output Total 1300 500 Balance -255 310 568 Weight 158 lb Intake: Intake, IV Amount 800 600 533 Left Hand 800 600 533 Tube Feeding 245 210 35 Output: Urine 1200 500 Urine, Voided 1200 500 Stool 100 - Physical Exam Respiratory/Chest: Positive for: Clear to Auscultation Cardiovascular: Positive for: Regular Rate and Rhythm, Normal S1, S2, Tachycardic. Negative for: Murmurs Abdomen: Positive for: Feeding Tubes (PA peg site oozing, small erythema) Upper Extremity: Positive for: Other (Ext no edema, both feet drop, left arm contracture, right arm some flickering movements) - Medications Active Medications: Active Medications Generic Name Dose Route Start Last Admin Trade Name Freq PRN Reason Stop Dose Admin Acetaminophen 650 mg 07/04/17 05:58 07/04/17 06:45 Tylenol 650 Mg Supp ND 650 mg Q6 PRN Administration Fever >100.4 F Aspirin 81 mg 07/04/17 11:15 07/07/17 09:54 Aspirin Chewable PO 81 mg DAILY DENNIS Administration Diazepam 5 mg 07/05/17 17:05 07/06/17 10:31 Valium PEG 5 mg Q6H PRN Administration seizures Enoxaparin Sodium 40 mg 07/04/17 10:00 07/07/17 10:10 Lovenox SC 40 mg DAILY DENNIS Administration Famotidine 40 mg 07/04/17 10:00 07/08/17 09:48 Pepcid IVP 40 mg BID DENNIS Administration Vancomycin/Sodium Chloride 1 gm in 200 mls @ 133.333 mls/hr 07/04/17 09:00 08:09 Vancomycin 1 Gm/Ns 200 Ml IVPB 07/09/17 09:01 133.333 mls/hr Q12H DENNIS Administration Levetiracetam 1,000 mg/ Sodium 110 mls @ 420 mls/hr 07/05/17 17:05 07/08/17 04:34 Chloride IVPB 420 mls/hr Q12H DENNIS Administration Metronidazole 500 mg in 100 mls @ 100 mls/hr 07/07/17 10:00 07/08/17 05:22 Flagyl IVPB 100 mls/hr Q8 DENNIS Administration Cefepime HCl 1 gm in 50 mls @ 100 mls/hr 07/08/17 11:00 07/08/17 10:59 Maxipime Iv 1 Gm Premix IVPB 100 mls/hr Q8H DENNIS Administration Insulin Aspart 0 unit 07/04/17 12:00 07/08/17 06:43 Novolog SC 2 unit Q6 DENNIS Administration Protocol Insulin Detemir 22 unit 07/04/17 22:00 07/07/17 21:30 Levemir SC 22 unit HS DENNIS Administration Lactulose 20 gm 07/06/17 09:00 Enulose PO HS PRN Constipation Lorazepam 1 mg 07/04/17 17:57 07/08/17 03:16 Ativan IVP 1 mg Q6H PRN Administration Seizure activity Metoprolol Tartrate 12.5 mg 07/04/17 10:00 07/08/17 09:48 Lopressor PEG 12.5 mg Q12 DENNIS Administration Multivitamins/Vitamin C 5 ml 07/04/17 10:00 07/08/17 09:47 Multi-Delyn Liquid PEG 5 ml DAILY DENNIS Administration Mupirocin 0 gm 07/07/17 18:00 07/08/17 09:49 Bactroban Ointment TOP 1 applic BID DENNIS Administration Rosuvastatin Calcium 10 mg 07/04/17 10:00 07/07/17 09:59 Crestor PEG 10 mg DAILY DENNIS Administration Vancomycin HCl 125 mg 07/07/17 14:00 07/08/17 09:47 Vancocin (Oral Or Rectal Use) PEG 125 mg QID DENNIS Administration Zinc Sulfate 220 mg 07/04/17 10:00 07/07/17 09:54 Zinc Sulfate 220 Mg Cap PEG 220 mg DAILY DNENIS Administration - Patient Studies Lab Studies: Microbiology Studies 07/03/17 23:29 Gram Stain - Final Cerebral Spinal Fluid CSF Culture - Preliminary NO GROWTH AFTER 4 DAYS 07/03/17 23:03 Blood Culture - Preliminary Blood NO GROWTH AFTER 4 DAYS 07/04/17 06:58 Gram Stain - Final Peg Site Wound Culture - Final Staphylococcus Aureus Burkholderia Cepacia 07/03/17 23:03 S.aureus & Coag-Neg Staph PNA FISH - Final Blood Blood Culture - Final Coagulase Neg Staphylococcus Gram Stain - Final Lab Studies 07/08/17 07/08/17 07/08/17 Range/Units 09:30 06:17 06:16 WBC 6.4 (4.8-10.8) K/uL RBC 3.79 L (3.80-5.20) Mil/uL Hgb 10.8 L (11.0-16.0) g/dL Hct 32.5 L (34.0-47.0) % MCV 85.9 (81.0-99.0) fL MCH 28.6 (27.0-31.0) pg MCHC 33.3 (33.0-37.0) g/dL RDW 13.2 (11.5-14.5) % Plt Count 137 (130-400) K/uL MPV 10.5 (7.2-11.7) fL Neut % (Auto) 74.1 (50.0-75.0) % Lymph % (Auto) 17.9 L (20.0-40.0) % [place] % (Auto) 3.9 (0.0-10.0) % Eos % (Auto) 3.7 (0.0-4.0) % Baso % (Auto) 0.4 (0.0-2.0) % Neut # (Auto) 4.8 (1.8-7.0) K/uL Lymph # (Auto) 1.2 (1.0-4.3) K/uL [place] # (Auto) 0.3 (0.0-0.8) K/uL Eos # (Auto) 0.2 (0.0-0.7) K/uL Baso # (Auto) 0.0 (0.0-0.2) K/uL Sodium 135 (132-148) mmol/L Potassium 3.9 (3.6-5.2) mmol/L Chloride 102 (98-107) mmol/L Carbon Dioxide 28 (22-30) mmol/L Anion Gap 8 L (10-20) BUN 8 (7-17) mg/dL Creatinine 0.3 L (0.7-1.2) mg/dL Est GFR ( Amer) > 60 Est GFR (Non-Af Amer) > 60 POC Glucose (mg/dL) (65-110) mg/dL Random Glucose 131 H (65-105) mg/dL Calcium 7.8 L (8.6-10.4) mg/dl Phosphorus 2.9 (2.5-4.5) mg/dL Magnesium 1.7 (1.6-2.3) mg/dL Total Bilirubin 0.2 (0.2-1.3) mg/dL AST 19 (14-36) U/L ALT 18 (9-52) U/L Alkaline Phosphatase 47 (38-126) U/L Total Protein 5.1 L (6.3-8.3) g/dL Albumin 2.6 L (3.5-5.0) g/dL Globulin 2.4 (2.2-3.9) gm/dL Albumin/Globulin Ratio 1.1 (1.0-2.1) Stool Leukocytes, Qual (NEGATIVE) Random Vancomycin 10.55 ug/mL C. difficile Ag & Toxin (NEGATIVE) 07/08/17 07/07/17 07/07/17 Range/Units 05:59 23:35 17:49 WBC (4.8-10.8) K/uL RBC (3.80-5.20) Mil/uL Hgb (11.0-16.0) g/dL Hct (34.0-47.0) % MCV (81.0-99.0) fL MCH (27.0-31.0) pg MCHC (33.0-37.0) g/dL RDW (11.5-14.5) % Plt Count (130-400) K/uL MPV (7.2-11.7) fL Neut % (Auto) (50.0-75.0) % Lymph % (Auto) (20.0-40.0) % [place] % (Auto) (0.0-10.0) % Eos % (Auto) (0.0-4.0) % Baso % (Auto) (0.0-2.0) % Neut # (Auto) (1.8-7.0) K/uL Lymph # (Auto) (1.0-4.3) K/uL [place] # (Auto) (0.0-0.8) K/uL Eos # (Auto) (0.0-0.7) K/uL Baso # (Auto) (0.0-0.2) K/uL Sodium (132-148) mmol/L Potassium (3.6-5.2) mmol/L Chloride (98-107) mmol/L Carbon Dioxide (22-30) mmol/L Anion Gap (10-20) BUN (7-17) mg/dL Creatinine (0.7-1.2) mg/dL Est GFR ( Amer) Est GFR (Non-Af Amer) POC Glucose (mg/dL) 152 H 159 H 158 H (65-110) mg/dL Random Glucose (65-105) mg/dL Calcium (8.6-10.4) mg/dl Phosphorus (2.5-4.5) mg/dL Magnesium (1.6-2.3) mg/dL Total Bilirubin (0.2-1.3) mg/dL AST (14-36) U/L ALT (9-52) U/L Alkaline Phosphatase (38-126) U/L Total Protein (6.3-8.3) g/dL Albumin (3.5-5.0) g/dL Globulin (2.2-3.9) gm/dL Albumin/Globulin Ratio (1.0-2.1) Stool Leukocytes, Qual (NEGATIVE) Random Vancomycin ug/mL C. difficile Ag & Toxin (NEGATIVE) 07/07/17 07/07/17 07/04/17 Range/Units 11:35 09:58 06:36 WBC (4.8-10.8) K/uL RBC (3.80-5.20) Mil/uL Hgb (11.0-16.0) g/dL Hct (34.0-47.0) % MCV (81.0-99.0) fL MCH (27.0-31.0) pg MCHC (33.0-37.0) g/dL RDW (11.5-14.5) % Plt Count (130-400) K/uL MPV (7.2-11.7) fL Neut % (Auto) (50.0-75.0) % Lymph % (Auto) (20.0-40.0) % [place] % (Auto) (0.0-10.0) % Eos % (Auto) (0.0-4.0) % Baso % (Auto) (0.0-2.0) % Neut # (Auto) (1.8-7.0) K/uL Lymph # (Auto) (1.0-4.3) K/uL [place] # (Auto) (0.0-0.8) K/uL Eos # (Auto) (0.0-0.7) K/uL Baso # (Auto) (0.0-0.2) K/uL Sodium (132-148) mmol/L Potassium (3.6-5.2) mmol/L Chloride (98-107) mmol/L Carbon Dioxide (22-30) mmol/L Anion Gap (10-20) BUN (7-17) mg/dL Creatinine (0.7-1.2) mg/dL Est GFR ( Amer) Est GFR (Non-Af Amer) POC Glucose (mg/dL) 178 H (65-110) mg/dL Random Glucose (65-105) mg/dL Calcium (8.6-10.4) mg/dl Phosphorus (2.5-4.5) mg/dL Magnesium (1.6-2.3) mg/dL Total Bilirubin (0.2-1.3) mg/dL AST (14-36) U/L ALT (9-52) U/L Alkaline Phosphatase (38-126) U/L Total Protein (6.3-8.3) g/dL Albumin (3.5-5.0) g/dL Globulin (2.2-3.9) gm/dL Albumin/Globulin Ratio (1.0-2.1) Stool Leukocytes, Qual Negative (NEGATIVE) Random Vancomycin ug/mL C. difficile Ag & Toxin Negative (NEGATIVE) Laboratory Results - last 24 hr 07/04/17 07/07/17 07/07/17 06:36 09:58 11:35 WBC RBC Hgb Hct MCV MCH MCHC RDW Plt Count MPV Neut % (Auto) Lymph % (Auto) [place] % (Auto) Eos % (Auto) Baso % (Auto) Neut # (Auto) Lymph # (Auto) [place] # (Auto) Eos # (Auto) Baso # (Auto) Sodium Potassium Chloride Carbon Dioxide Anion Gap BUN Creatinine Est GFR ( Amer) Est GFR (Non-Af Amer) POC Glucose (mg/dL) 178 H Random Glucose Calcium Phosphorus Magnesium Total Bilirubin AST ALT Alkaline Phosphatase Total Protein Albumin Globulin Albumin/Globulin Ratio Stool Leukocytes, Qual Negative Random Vancomycin C. difficile Ag & Toxin Negative 07/07/17 07/07/17 07/08/17 17:49 23:35 05:59 WBC RBC Hgb Hct MCV MCH MCHC RDW Plt Count MPV Neut % (Auto) Lymph % (Auto) [place] % (Auto) Eos % (Auto) Baso % (Auto) Neut # (Auto) Lymph # (Auto) [place] # (Auto) Eos # (Auto) Baso # (Auto) Sodium Potassium Chloride Carbon Dioxide Anion Gap BUN Creatinine Est GFR ( Amer) Est GFR (Non-Af Amer) POC Glucose (mg/dL) 158 H 159 H 152 H Random Glucose Calcium Phosphorus Magnesium Total Bilirubin AST ALT Alkaline Phosphatase Total Protein Albumin Globulin Albumin/Globulin Ratio Stool Leukocytes, Qual Random Vancomycin C. difficile Ag & Toxin 07/08/17 07/08/17 07/08/17 06:16 06:17 09:30 WBC 6.4 RBC 3.79 L Hgb 10.8 L Hct 32.5 L MCV 85.9 MCH 28.6 MCHC 33.3 RDW 13.2 Plt Count 137 MPV 10.5 Neut % (Auto) 74.1 Lymph % (Auto) 17.9 L [place] % (Auto) 3.9 Eos % (Auto) 3.7 Baso % (Auto) 0.4 Neut # (Auto) 4.8 Lymph # (Auto) 1.2 [place] # (Auto) 0.3 Eos # (Auto) 0.2 Baso # (Auto) 0.0 Sodium 135 Potassium 3.9 Chloride 102 Carbon Dioxide 28 Anion Gap 8 L BUN 8 Creatinine 0.3 L Est GFR ( Amer) > 60 Est GFR (Non-Af Amer) > 60 POC Glucose (mg/dL) Random Glucose 131 H Calcium 7.8 L Phosphorus 2.9 Magnesium 1.7 Total Bilirubin 0.2 AST 19 ALT 18 Alkaline Phosphatase 47 Total Protein 5.1 L Albumin 2.6 L Globulin 2.4 Albumin/Globulin Ratio 1.1 Stool Leukocytes, Qual Random Vancomycin 10.55 C. difficile Ag & Toxin Fingerstick Blood Sugar Results: 1 - Procedures Procedures (Free Text): - Head Exam Head Exam: NORMOCEPHALIC Additional comments: ATRAUMATIC, NORMAL INSPECTION, NORMOCEPHALIC - Eye Exam Eye Exam: EOMI, Normal appearance Pupil Exam: Irregular - ENT Exam ENT Exam: Mucous Membranes Moist, Normal Exam - Neck Exam Neck exam: Positive for: Normal Inspection - Respiratory Exam Respiratory Exam: Clear to Auscultation Bilateral - Cardiovascular Exam Cardiovascular Exam: REGULAR RHYTHM, +S1, +S2 - GI/Abdominal Exam Additional comments: PEG tube in place; small amount of foul smelling purulence noted around site, no erythema or warmth noted - Extremities Exam Extremities exam: Positive for: normal inspection RUE tremulous when reaching for face which has been suspected to be seizure activity - Back Exam Back exam: NORMAL INSPECTION - Neurological Exam Neurological exam: Altered - Skin Skin Exam: Normal Color - Eye Exam Eye Exam: Nystagmus. absent: EOMI, Normal appearance, PERRL - ENT Exam ENT Exam: Mucous Membranes Dry - Neck Exam Neck Exam: absent: Full ROM, Lymphadenopathy - Respiratory Exam Respiratory Exam: Rales, Rhonchi. absent: Clear to Ausculation Bilateral, NORMAL BREATHING PATTERN - Cardiovascular Exam Cardiovascular Exam: Tachycardia, +S1, +S2. absent: REGULAR RHYTHM - GI/Abdominal Exam GI & Abdominal Exam: Soft. absent: Tenderness - Extremities Exam Extremities Exam: Full ROM. 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 Aureus and Strenotophomona malophilia - urine Cx (07/04): Strep viridans - blood (07/03): Coag Neg Staph - Vanc level 10.55 on 07/08 - ID ([place]) GI: diarrhea, PEG with purulent discharge, functioning - Glucerna 10 ml/hr, goal 40 ml/hr - PEG Cx (07/04): Staph. Aureus and GNR CT abdomen w/ IV contrast done (see report) - Lactulose 20 gm PO HS PRN - Flagyl 500 mg @ 100 mls/hr IVPB Q8 - C. diff negative - CT abd showed no abscess/collection by PEG, however showed possible neoplasm vs diverticulosis * Patient would eventually require colonoscopy evaluation of suspected intraluminal colon lesion, however will defer procedure for time being given ongoing sepsis and seizure activity. Will discuss with family members regarding risks/benefits of potential procedure. - PEG to be replaced today 07/08/17 - Bactroban around PEG site - GI ([place]) Cards: HTN, hypercholesteremia - Lopressor 12.5 PEG Q12 - Crestor 10 mg PEG QID - ASA 81 mg PO QID - EKG showed abnormal T waves, no ST elevations - Cardio ([place]) Pulm: no acute issues - O2 by nasal canula - CXR clear - rapid flu neg Renal/: UTI - BUN/Cr 8/0.3 - urine Cx (07/04): Strep viridans Endo: DM - Levimir 22 U SC HS - Novolog SC Q6 - glucose 152 PPx: - Pepcid 40 mg IVP BID - Lovenox 40 mg SC QD - zinc sulfate 220 mg PEG QD - multivitamin - Palliative ([place]) <Raymundo Perez - Last Filed: 07/08/17 17:30> CCU Objective - Vital Signs / Intake & Output Vital Signs (Last 4 hours): Vital Signs Temp Pulse Resp BP Pulse Ox 07/08/17 16:00 98.2 F 79 24 98 07/08/17 15:18 81 27 H 107/55 L 98 07/08/17 15:00 80 23 98 07/08/17 14:17 78 26 H 104/74 99 07/08/17 14:00 76 24 99 Intake and Output (Last 8hrs): Intake & Output 07/08/17 07/08/17 07/08/17 06:59 14:59 22:59 Intake Total 810 903 300 Output Total 500 Balance 310 903 300 Weight 158 lb Intake: Intake, IV Amount 600 833 200 Left Hand 600 833 200 Tube Feeding 210 70 70 Other 30 Output: Urine 500 Urine, Voided 500 - Medications Active Medications: Active Medications Generic Name Dose Route Start Last Admin Trade Name Freq PRN Reason Stop Dose Admin Acetaminophen 650 mg 07/04/17 05:58 07/04/17 06:45 Tylenol 650 Mg Supp ND 650 mg Q6 PRN Administration Fever >100.4 F Aspirin 81 mg 07/04/17 11:15 07/08/17 13:18 Aspirin Chewable PO 81 mg DAILY DENNIS Administration Diazepam 5 mg 07/05/17 17:05 07/06/17 10:31 Valium PEG 5 mg Q6H PRN Administration seizures Enoxaparin Sodium 40 mg 07/04/17 10:00 07/08/17 13:19 Lovenox SC 40 mg DAILY DENNIS Administration Famotidine 40 mg 07/04/17 10:00 07/08/17 17:18 Pepcid IVP 40 mg BID DENNIS Administration Vancomycin/Sodium Chloride 1 gm in 200 mls @ 133.333 mls/hr 07/04/17 09:00 08:09 Vancomycin 1 Gm/Ns 200 Ml IVPB 07/09/17 09:01 133.333 mls/hr Q12H DENNIS Administration Levetiracetam 1,000 mg/ Sodium 110 mls @ 420 mls/hr 07/05/17 17:05 07/08/17 16:09 Chloride IVPB 420 mls/hr Q12H DENNIS Administration Metronidazole 500 mg in 100 mls @ 100 mls/hr 07/07/17 10:00 07/08/17 13:18 Flagyl IVPB 100 mls/hr Q8 DENNIS Administration Cefepime HCl 1 gm in 50 mls @ 100 mls/hr 07/08/17 11:00 07/08/17 10:59 Maxipime Iv 1 Gm Premix IVPB 100 mls/hr Q8H DENNIS Administration Lactated Ringer's 1,000 mls @ 100 mls/hr 07/08/17 17:30 Lactated Ringer's IV .Q10H DENNIS Insulin Aspart 0 unit 07/04/17 12:00 07/08/17 17:25 Novolog SC Not Given Q6 [facility] Protocol Insulin Detemir 22 unit 07/04/17 22:00 07/07/17 21:30 Levemir SC 22 unit HS DENNIS Administration Lactulose 20 gm 07/06/17 09:00 Enulose PO HS PRN Constipation Lorazepam 1 mg 07/04/17 17:57 07/08/17 03:16 Ativan IVP 1 mg Q6H PRN Administration Seizure activity Metoprolol Tartrate 12.5 mg 07/04/17 10:00 07/08/17 09:48 Lopressor PEG 12.5 mg Q12 DENNIS Administration Multivitamins/Vitamin C 5 ml 07/04/17 10:00 07/08/17 09:47 Multi-Delyn Liquid PEG 5 ml DAILY DENNIS Administration Mupirocin 0 gm 07/07/17 18:00 07/08/17 17:21 Bactroban Ointment TOP 1 applic BID DENNIS Administration Rosuvastatin Calcium 10 mg 07/04/17 10:00 07/08/17 13:18 Crestor PEG 10 mg DAILY DENNIS Administration Vancomycin HCl 125 mg 07/07/17 14:00 07/08/17 17:17 Vancocin (Oral Or Rectal Use) PEG 125 mg QID DENNIS Administration Zinc Sulfate 220 mg 07/04/17 10:00 07/08/17 13:19 Zinc Sulfate 220 Mg Cap PEG 220 mg DAILY DENNIS Administration - Patient Studies Lab Studies: Microbiology Studies 07/03/17 23:29 Gram Stain - Final Cerebral Spinal Fluid CSF Culture - Preliminary NO GROWTH AFTER 4 DAYS 07/03/17 23:03 Blood Culture - Preliminary Blood NO GROWTH AFTER 4 DAYS 07/04/17 06:58 Gram Stain - Final Peg Site Wound Culture - Final Staphylococcus Aureus Burkholderia Cepacia Lab Studies 07/08/17 07/08/17 07/08/17 Range/Units 11:18 09:30 06:17 WBC 6.4 (4.8-10.8) K/uL RBC 3.79 L (3.80-5.20) Mil/uL Hgb 10.8 L (11.0-16.0) g/dL Hct 32.5 L (34.0-47.0) % MCV 85.9 (81.0-99.0) fL MCH 28.6 (27.0-31.0) pg MCHC 33.3 (33.0-37.0) g/dL RDW 13.2 (11.5-14.5) % Plt Count 137 (130-400) K/uL MPV 10.5 (7.2-11.7) fL Neut % (Auto) 74.1 (50.0-75.0) % Lymph % (Auto) 17.9 L (20.0-40.0) % [place] % (Auto) 3.9 (0.0-10.0) % Eos % (Auto) 3.7 (0.0-4.0) % Baso % (Auto) 0.4 (0.0-2.0) % Neut # (Auto) 4.8 (1.8-7.0) K/uL Lymph # (Auto) 1.2 (1.0-4.3) K/uL [place] # (Auto) 0.3 (0.0-0.8) K/uL Eos # (Auto) 0.2 (0.0-0.7) K/uL Baso # (Auto) 0.0 (0.0-0.2) K/uL Sodium (132-148) mmol/L Potassium (3.6-5.2) mmol/L Chloride (98-107) mmol/L Carbon Dioxide (22-30) mmol/L Anion Gap (10-20) BUN (7-17) mg/dL Creatinine (0.7-1.2) mg/dL Est GFR ( Amer) Est GFR (Non-Af Amer) POC Glucose (mg/dL) 120 H (65-110) mg/dL Random Glucose (65-105) mg/dL Calcium (8.6-10.4) mg/dl Phosphorus (2.5-4.5) mg/dL Magnesium (1.6-2.3) mg/dL Total Bilirubin (0.2-1.3) mg/dL AST (14-36) U/L ALT (9-52) U/L Alkaline Phosphatase (38-126) U/L Total Protein (6.3-8.3) g/dL Albumin (3.5-5.0) g/dL Globulin (2.2-3.9) gm/dL Albumin/Globulin Ratio (1.0-2.1) Random Vancomycin 10.55 ug/mL 07/08/17 07/08/17 07/07/17 Range/Units 06:16 05:59 23:35 WBC (4.8-10.8) K/uL RBC (3.80-5.20) Mil/uL Hgb (11.0-16.0) g/dL Hct (34.0-47.0) % MCV (81.0-99.0) fL MCH (27.0-31.0) pg MCHC (33.0-37.0) g/dL RDW (11.5-14.5) % Plt Count (130-400) K/uL MPV (7.2-11.7) fL Neut % (Auto) (50.0-75.0) % Lymph % (Auto) (20.0-40.0) % [place] % (Auto) (0.0-10.0) % Eos % (Auto) (0.0-4.0) % Baso % (Auto) (0.0-2.0) % Neut # (Auto) (1.8-7.0) K/uL Lymph # (Auto) (1.0-4.3) K/uL [place] # (Auto) (0.0-0.8) K/uL Eos # (Auto) (0.0-0.7) K/uL Baso # (Auto) (0.0-0.2) K/uL Sodium 135 (132-148) mmol/L Potassium 3.9 (3.6-5.2) mmol/L Chloride 102 (98-107) mmol/L Carbon Dioxide 28 (22-30) mmol/L Anion Gap 8 L (10-20) BUN 8 (7-17) mg/dL Creatinine 0.3 L (0.7-1.2) mg/dL Est GFR ( Amer) > 60 Est GFR (Non-Af Amer) > 60 POC Glucose (mg/dL) 152 H 159 H (65-110) mg/dL Random Glucose 131 H (65-105) mg/dL Calcium 7.8 L (8.6-10.4) mg/dl Phosphorus 2.9 (2.5-4.5) mg/dL Magnesium 1.7 (1.6-2.3) mg/dL Total Bilirubin 0.2 (0.2-1.3) mg/dL AST 19 (14-36) U/L ALT 18 (9-52) U/L Alkaline Phosphatase 47 (38-126) U/L Total Protein 5.1 L (6.3-8.3) g/dL Albumin 2.6 L (3.5-5.0) g/dL Globulin 2.4 (2.2-3.9) gm/dL Albumin/Globulin Ratio 1.1 (1.0-2.1) Random Vancomycin ug/mL 07/07/17 Range/Units 17:49 WBC (4.8-10.8) K/uL RBC (3.80-5.20) Mil/uL Hgb (11.0-16.0) g/dL Hct (34.0-47.0) % MCV (81.0-99.0) fL MCH (27.0-31.0) pg MCHC (33.0-37.0) g/dL RDW (11.5-14.5) % Plt Count (130-400) K/uL MPV (7.2-11.7) fL Neut % (Auto) (50.0-75.0) % Lymph % (Auto) (20.0-40.0) % [place] % (Auto) (0.0-10.0) % Eos % (Auto) (0.0-4.0) % Baso % (Auto) (0.0-2.0) % Neut # (Auto) (1.8-7.0) K/uL Lymph # (Auto) (1.0-4.3) K/uL [place] # (Auto) (0.0-0.8) K/uL Eos # (Auto) (0.0-0.7) K/uL Baso # (Auto) (0.0-0.2) K/uL Sodium (132-148) mmol/L Potassium (3.6-5.2) mmol/L Chloride (98-107) mmol/L Carbon Dioxide (22-30) mmol/L Anion Gap (10-20) BUN (7-17) mg/dL Creatinine (0.7-1.2) mg/dL Est GFR ( Amer) Est GFR (Non-Af Amer) POC Glucose (mg/dL) 158 H (65-110) mg/dL Random Glucose (65-105) mg/dL Calcium (8.6-10.4) mg/dl Phosphorus (2.5-4.5) mg/dL Magnesium (1.6-2.3) mg/dL Total Bilirubin (0.2-1.3) mg/dL AST (14-36) U/L ALT (9-52) U/L Alkaline Phosphatase (38-126) U/L Total Protein (6.3-8.3) g/dL Albumin (3.5-5.0) g/dL Globulin (2.2-3.9) gm/dL Albumin/Globulin Ratio (1.0-2.1) Random Vancomycin ug/mL Laboratory Results - last 24 hr 07/07/17 07/07/17 07/08/17 17:49 23:35 05:59 WBC RBC Hgb Hct MCV MCH MCHC RDW Plt Count MPV Neut % (Auto) Lymph % (Auto) [place] % (Auto) Eos % (Auto) Baso % (Auto) Neut # (Auto) Lymph # (Auto) [place] # (Auto) Eos # (Auto) Baso # (Auto) Sodium Potassium Chloride Carbon Dioxide Anion Gap BUN Creatinine Est GFR ( Amer) Est GFR (Non-Af Amer) POC Glucose (mg/dL) 158 H 159 H 152 H Random Glucose Calcium Phosphorus Magnesium Total Bilirubin AST ALT Alkaline Phosphatase Total Protein Albumin Globulin Albumin/Globulin Ratio Random Vancomycin 07/08/17 07/08/17 07/08/17 06:16 06:17 09:30 WBC 6.4 RBC 3.79 L Hgb 10.8 L Hct 32.5 L MCV 85.9 MCH 28.6 MCHC 33.3 RDW 13.2 Plt Count 137 MPV 10.5 Neut % (Auto) 74.1 Lymph % (Auto) 17.9 L [place] % (Auto) 3.9 Eos % (Auto) 3.7 Baso % (Auto) 0.4 Neut # (Auto) 4.8 Lymph # (Auto) 1.2 [place] # (Auto) 0.3 Eos # (Auto) 0.2 Baso # (Auto) 0.0 Sodium 135 Potassium 3.9 Chloride 102 Carbon Dioxide 28 Anion Gap 8 L BUN 8 Creatinine 0.3 L Est GFR ( Amer) > 60 Est GFR (Non-Af Amer) > 60 POC Glucose (mg/dL) Random Glucose 131 H Calcium 7.8 L Phosphorus 2.9 Magnesium 1.7 Total Bilirubin 0.2 AST 19 ALT 18 Alkaline Phosphatase 47 Total Protein 5.1 L Albumin 2.6 L Globulin 2.4 Albumin/Globulin Ratio 1.1 Random Vancomycin 10.55 07/08/17 11:18 WBC RBC Hgb Hct MCV MCH MCHC RDW Plt Count MPV Neut % (Auto) Lymph % (Auto) [place] % (Auto) Eos % (Auto) Baso % (Auto) Neut # (Auto) Lymph # (Auto) [place] # (Auto) Eos # (Auto) Baso # (Auto) Sodium Potassium Chloride Carbon Dioxide Anion Gap BUN Creatinine Est GFR ( Amer) Est GFR (Non-Af Amer) POC Glucose (mg/dL) 120 H Random Glucose Calcium Phosphorus Magnesium Total Bilirubin AST ALT Alkaline Phosphatase Total Protein Albumin Globulin Albumin/Globulin Ratio Random Vancomycin Attending/Attestation - Attestation I have personally seen and examined this patient.: Yes I have fully participated in the care of the patient.: Yes I have reviewed all pertinent clinical information: Yes Notes (Text): 07/08/17 17:29 patient seen and examined in the intensive care unit. Case discussed with house staff in the morning rounds. Being treated for sepsis/infected G-tube G-tube was replaced by GI Continue antibiotics
[2017-07-08] MEDS: Enoxaparin 40 mg Syringe SC SCH (13:19)
--- NOTE | 2017-07-08 13:33 | PCM.PROC ---
<Jose Mancera - Last Filed: 07/08/17 13:22> Procedures Attestation:: I certify that I have explained the specified Operation(s) or Procedure(s), risks, benefits and reasonable alternatives to the Patient and/or other person responsible. The opportunity was given to ask questions and all questions answered - Feeding Tube Replacement Type of Tube: gastrostomy Insertion Site Prior to Procedure: clean Tube Used for Reinsertion: other ([employer] - EndoVive 20F) Verification of Placement: auscultation Tube Secured by: tape/dressing Patient Tolerated Procedure: well, no complications Additional comments: Prior to bedside PEG exchange, discussed case with the patient's son Paras ). Risks/benefits of the exchange along with explanation of current tube malfunction explained to the patient's son who agreed to the bedside exchange. Exchange was uneventful. Son notified of completion. OK to use tube for feeding, medications. <Martínez Coleman - Last Filed: 07/08/17 13:45> Attending/Attestation - Attestation Notes (Text): 07/08/17 13:42 I have seen and examined patient with GI fellow. Using sterile technique, the existing malfunctioning gastrostomy tube was pulled with gentle traction and the site cleaned with topical iodine and bacitracin. A new replacement 20 F tube was inserted through existing tract without resistance and the balloon was inflated with 5cc sterile water. External bumper secured at 3 cm from abdominal wall. There were no complications with procedure. - Can remove NGT and begin using new gastrostomy tube for feeding and medication - Monitor for residuals - Flush PEG with 30 cc water q8 hours
[2017-07-08] MEDS: Insulin Detemir 100 units/ml Vial (Levemir) SC SCH (22:24)
[2017-07-09] MEDS: (Novolog) Insulin Aspart, Recombinant 100 u/ml 10 ml vial SC SCH ×4 (00:11→21:08)
[2017-07-09] MEDS: Cefepime IV 1 gm in Dextrose 1 GM/50 ML BAG IVPB SCH ×3 (02:02→18:51)
[2017-07-09 03:52] LABS: LEVETIRACETAM 15.7 mcg/mL
[2017-07-09] MEDS: levETIRAcetam 1,000 MG in Sodium Chloride 0.9% 100 ML IVPB SCH ×2 (04:43→16:44)
[2017-07-09] MEDS: Lactated Ringer's 1,000 ML IV SCH ×2 (04:45→09:09)
[2017-07-09] MEDS: metroNIDAZOLE IV 500 mg/100 ml 500 MG/100 ML BAG IVPB SCH ×3 (05:09→21:10)
[2017-07-09] MEDS ORDERED: Dextrose 50% SYRINGE Inj (50 ml) ONE (05:37)
[2017-07-09 06:49] LABS: BASO % 0.6 % (0.0-2.0); EOS # 0.2 K/uL (0.0-0.7); EOS % 3.9 % (0.0-4.0); HEMOGLOBIN 10.5 g/dL (11.0-16.0); LYMPH # 0.9 K/uL (1.0-4.3); LYMPH % 16.8 % (20.0-40.0); MEAN CELL VOLUME 85.5 fL (81.0-99.0); MEAN CORPUSCULAR HGB CONC 33.9 g/dL (33.0-37.0); MEAN PLATELET VOLUME 11.1 fL (7.2-11.7); MONO # 0.2 K/uL (0.0-0.8); MONO % 3.9 % (0.0-10.0); NEUT # 4.2 K/uL (1.8-7.0); NEUT % 74.8 % (50.0-75.0); RBC 3.64 Mil/uL (3.80-5.20); RED CELL DISTRIBUTION WIDTH 13.2 % (11.5-14.5); WHITE BLOOD COUNT 5.6 K/uL (4.8-10.8)
[2017-07-09 07:06] LABS: ALBUMIN 2.8 g/dL (3.5-5.0); ALT/SGPT 19 U/L (9-52); AST/SGOT 32 U/L (14-36); BLOOD UREA NITROGEN 6 mg/dL (7-17); CALCIUM 8.2 mg/dl (8.6-10.4); GFR AFRICAN-AMERICAN > 60; GFR NON-AFRICAN AMERICAN > 60; MAGNESIUM 1.6 mg/dL (1.6-2.3)
[2017-07-09] MEDS: Vancomycin 1 gm/NS 200 ml 1 GM/200 ML BAG IVPB SCH (09:10)
[2017-07-09] MEDS: Enoxaparin 40 mg Syringe SC SCH (09:36)
[2017-07-09] MEDS: Multiple Vitamins Oral Solution PEG SCH ×2 (09:37→16:45)
[2017-07-09] MEDS: Vancomycin 125 MG/5 ML SOLN (ORAL/RECTAL) PEG SCH ×4 (09:37→21:09)
--- NOTE | 2017-07-09 09:37 | CP.PCM.PN ---
<Blank Xavier - Last Filed: 07/09/17 09:34> Subjective - Date & Time of Evaluation Date of Evaluation: 07/09/17 Time of Evaluation: 09:00 - Subjective Subjective: Cardiology progress note for Dr. Aden: Patient was seen and examined at bedside. She is awake but not responsive. Patient with jerky movements during exam. No cardiac events noted. Objective - Vital Signs/Intake and Output Vital Signs (last 24 hours): Temp Pulse Resp BP Pulse Ox 99.9 F H 72 21 114/54 L 100 07/09/17 08:00 07/09/17 08:17 07/09/17 08:17 07/09/17 08:17 07/09/17 08:17 Intake and Output: 07/09/17 07/09/17 06:59 18:59 Intake Total 1365 200 Output Total 800 Balance 565 200 - Medications Medications: Current Medications Acetaminophen (Tylenol 650 Mg Supp) 650 mg [place] Q6 PRN PRN Reason: Fever >100.4 F Last Admin: 07/04/17 06:45 Dose: 650 mg Aspirin (Aspirin Chewable) 81 mg PO DAILY [facility] Last Admin: 07/08/17 13:18 Dose: 81 mg Diazepam (Valium) 5 mg PEG Q6H PRN PRN Reason: seizures Last Admin: 07/06/17 10:31 Dose: 5 mg Enoxaparin Sodium (Lovenox) 40 mg SC DAILY [facility] Last Admin: 07/08/17 13:19 Dose: 40 mg Famotidine (Pepcid) 40 mg IVP BID [facility] Last Admin: 07/08/17 17:18 Dose: 40 mg Levetiracetam 1,000 mg/ Sodium (Chloride) 110 mls @ 420 mls/hr IVPB Q12H [facility] Last Admin: 07/09/17 04:43 Dose: 420 mls/hr Metronidazole (Flagyl) 500 mg in 100 mls @ 100 mls/hr IVPB Q8 [facility] Last Admin: 07/09/17 05:09 Dose: 100 mls/hr Cefepime HCl (Maxipime Iv 1 Gm Premix) 1 gm in 50 mls @ 100 mls/hr IVPB Q8H [facility] Last Admin: 07/09/17 02:02 Dose: 100 mls/hr Lactated Ringer's (Lactated Ringer's) 1,000 mls @ 100 mls/hr IV .Q10H [facility] Last Admin: 07/09/17 09:09 Dose: 100 mls/hr Insulin Aspart (Novolog) 0 unit SC Q6 [facility] PRN Reason: Protocol Last Admin: 07/09/17 00:11 Dose: Not Given Insulin Detemir (Levemir) 22 unit SC HS [facility] Last Admin: 07/08/17 22:24 Dose: 22 unit Lactulose (Enulose) 20 gm PO HS PRN PRN Reason: Constipation Lorazepam (Ativan) 1 mg IVP Q6H PRN PRN Reason: Seizure activity Last Admin: 07/08/17 18:49 Dose: 1 mg Metoprolol Tartrate (Lopressor) 12.5 mg PEG Q12 [facility] Last Admin: 07/08/17 22:24 Dose: Not Given Multivitamins/Vitamin C (Multi-Delyn Liquid) 5 ml PEG DAILY [facility] Last Admin: 07/08/17 09:47 Dose: 5 ml Mupirocin (Bactroban Ointment) 0 gm TOP BID [facility] Last Admin: 07/08/17 17:21 Dose: 1 applic Rosuvastatin Calcium (Crestor) 10 mg PEG DAILY [facility] Last Admin: 07/08/17 13:18 Dose: 10 mg Vancomycin HCl (Vancocin (Oral Or Rectal Use)) 125 mg PEG QID [facility] Last Admin: 07/08/17 22:37 Dose: Not Given Zinc Sulfate (Zinc Sulfate 220 Mg Cap) 220 mg PEG DAILY [facility] Last Admin: 07/08/17 13:19 Dose: 220 mg - Labs Labs: 07/09/17 06:40 07/09/17 06:37 PT 12.2 SECONDS (9.7-12.2) 07/04/17 06:36 INR 1.1 07/04/17 06:36 APTT 27 SECONDS (21-34) 07/04/17 06:36 - Constitutional Appears: Non-toxic, No Acute Distress, Chronically Ill - Head Exam Head Exam: ATRAUMATIC, NORMAL INSPECTION - Eye Exam Eye Exam: EOMI - Respiratory Exam Respiratory Exam: Clear to Ausculation Bilateral, NORMAL BREATHING PATTERN. absent: Respiratory Distress Additional comments: on vent - Cardiovascular Exam Cardiovascular Exam: REGULAR RHYTHM, +S1, +S2 - GI/Abdominal Exam Additional comments: PEG in place - Neurological Exam Neurological Exam: Awake. absent: Alert, Oriented x3 Assessment and Plan - Assessment and Plan (Free Text) Assessment: 71 F with h/o anoxic injury, seizure, recent fever, with seizure, with uti recently who was admitted from a [facility] hospital for sepsis. No cardic interventon indicated at this time. Discussed with Dr. Aden <Christiano Aden - Last Filed: 07/09/17 22:09> Objective - Vital Signs/Intake and Output Vital Signs (last 24 hours): Temp Pulse Resp BP Pulse Ox 97.4 F L 78 20 114/58 L 97 07/09/17 16:00 07/09/17 19:18 07/09/17 19:18 07/09/17 19:18 07/09/17 19:18 Intake and Output: 07/09/17 07/10/17 18:59 06:59 Intake Total 1520 Output Total 1600 Balance -80 - Medications Medications: Current Medications Acetaminophen (Tylenol 650 Mg Supp) 650 mg [place] Q6 PRN PRN Reason: Fever >100.4 F Last Admin: 07/04/17 06:45 Dose: 650 mg Aspirin (Aspirin Chewable) 81 mg PO DAILY [facility] Last Admin: 07/09/17 16:44 Dose: 81 mg Dextrose (Dextrose 50% Inj) 0 ml IV STAT PRN; Protocol PRN Reason: Hypoglycemia Protocol Last Admin: 07/09/17 11:31 Dose: 50 ml Dextrose (Glutose 15) 0 gm PO ONCE PRN; Protocol PRN Reason: Hypoglycemia Protocol Diazepam (Valium) 5 mg PEG Q6H PRN PRN Reason: seizures Last Admin: 07/06/17 10:31 Dose: 5 mg Enoxaparin Sodium (Lovenox) 40 mg SC DAILY [facility] Last Admin: 07/09/17 09:36 Dose: 40 mg Famotidine (Pepcid) 40 mg IVP BID [facility] Last Admin: 07/09/17 18:50 Dose: 40 mg Glucagon (Glucagen Diagnostic Kit) 0 mg IM STAT PRN; Protocol PRN Reason: Hypoglycemia Protocol Levetiracetam 1,000 mg/ Sodium (Chloride) 110 mls @ 420 mls/hr IVPB Q12H [facility] Last Admin: 07/09/17 16:44 Dose: 420 mls/hr Metronidazole (Flagyl) 500 mg in 100 mls @ 100 mls/hr IVPB Q8 [facility] Last Admin: 07/09/17 21:10 Dose: 100 mls/hr Cefepime HCl (Maxipime Iv 1 Gm Premix) 1 gm in 50 mls @ 100 mls/hr IVPB Q8H [facility] Last Admin: 07/09/17 18:51 Dose: 100 mls/hr Dextrose (Dextrose 5% In Water 1000 Ml) 1,000 mls @ 0 mls/hr IV .Q0M PRN; Protocol; Per Protocol PRN Reason: Hypoglycemia Protocol Dextrose/Sodium Chloride (Dextrose 5%/0.9% Ns 1000 Ml) 1,000 mls @ 100 mls/hr IV .Q10H [facility] Last Admin: 07/09/17 20:58 Dose: Not Given Insulin Aspart (Novolog) 0 unit SC Q6 [facility] PRN Reason: Protocol Last Admin: 07/09/17 21:08 Dose: Not Given Insulin Detemir (Levemir) 22 unit SC HS [facility] Last Admin: 07/08/17 22:24 Dose: 22 unit Lactulose (Enulose) 20 gm PO HS PRN PRN Reason: Constipation Lorazepam (Ativan) 1 mg IVP Q6H PRN PRN Reason: Seizure activity Last Admin: 07/09/17 10:45 Dose: 1 mg Metoprolol Tartrate (Lopressor) 12.5 mg PEG Q12 [facility] Last Admin: 07/09/17 09:39 Dose: Not Given Multivitamins/Vitamin C (Multi-Delyn Liquid) 5 ml PEG DAILY [facility] Last Admin: 07/09/17 16:45 Dose: 5 ml Mupirocin (Bactroban Ointment) 0 gm TOP BID [facility] Last Admin: 07/09/17 18:51 Dose: 1 applic Rosuvastatin Calcium (Crestor) 10 mg PEG HS [facility] Last Admin: 07/09/17 21:10 Dose: 10 mg Vancomycin HCl (Vancocin (Oral Or Rectal Use)) 125 mg PEG QID [facility] Last Admin: 07/09/17 21:09 Dose: 125 mg Zinc Sulfate (Zinc Sulfate 220 Mg Cap) 220 mg PEG DAILY [facility] Last Admin: 07/09/17 16:45 Dose: 220 mg - Labs Labs: 07/09/17 06:40 07/09/17 06:37 PT 12.2 SECONDS (9.7-12.2) 07/04/17 06:36 INR 1.1 07/04/17 06:36 APTT 27 SECONDS (21-34) 07/04/17 06:36 Assessment and Plan - Assessment and Plan (Free Text) Plan: Patient seen and evaluated personally by me. Plan of care discussed with the medical records tech Plan of care as documented
--- NOTE | 2017-07-09 10:14 | CP.PCM.PN ---
<Jose Mancera - Last Filed: 07/09/17 15:55> Subjective - Date & Time of Evaluation Date of Evaluation: 07/09/17 Time of Evaluation: 09:30 - Subjective Subjective: PGY5 GI Fellow Progress Note Patient seen and examined bedside this morning. The patient is aphasic at baseline. Overnight the PEG tube inadvertantly dislodged and was replaced immediately by ICU staff. TF and medications held since. Also has continued to have agitation and questionable focal seizure activity with administration of ativan. 12 system ROS cannot be performed given clinical condition. Objective - Vital Signs/Intake and Output Vital Signs (last 24 hours): Temp Pulse Resp BP Pulse Ox 99.9 F H 72 21 114/54 L 100 07/09/17 08:00 07/09/17 08:17 07/09/17 08:17 07/09/17 08:17 07/09/17 08:17 Intake and Output: 07/09/17 07/09/17 06:59 18:59 Intake Total 1365 200 Output Total 800 Balance 565 200 - Medications Medications: Current Medications Acetaminophen (Tylenol 650 Mg Supp) 650 mg [place] Q6 PRN PRN Reason: Fever >100.4 F Last Admin: 07/04/17 06:45 Dose: 650 mg Aspirin (Aspirin Chewable) 81 mg PO DAILY [facility] Last Admin: 07/09/17 09:36 Dose: 81 mg Diazepam (Valium) 5 mg PEG Q6H PRN PRN Reason: seizures Last Admin: 07/06/17 10:31 Dose: 5 mg Enoxaparin Sodium (Lovenox) 40 mg SC DAILY [facility] Last Admin: 07/09/17 09:36 Dose: 40 mg Famotidine (Pepcid) 40 mg IVP BID [facility] Last Admin: 07/09/17 09:37 Dose: 40 mg Levetiracetam 1,000 mg/ Sodium (Chloride) 110 mls @ 420 mls/hr IVPB Q12H [facility] Last Admin: 07/09/17 04:43 Dose: 420 mls/hr Metronidazole (Flagyl) 500 mg in 100 mls @ 100 mls/hr IVPB Q8 [facility] Last Admin: 07/09/17 05:09 Dose: 100 mls/hr Cefepime HCl (Maxipime Iv 1 Gm Premix) 1 gm in 50 mls @ 100 mls/hr IVPB Q8H [facility] Last Admin: 07/09/17 02:02 Dose: 100 mls/hr Lactated Ringer's (Lactated Ringer's) 1,000 mls @ 100 mls/hr IV .Q10H [facility] Last Admin: 07/09/17 09:09 Dose: 100 mls/hr Insulin Aspart (Novolog) 0 unit SC Q6 [facility] PRN Reason: Protocol Last Admin: 07/09/17 00:11 Dose: Not Given Insulin Detemir (Levemir) 22 unit SC HS [facility] Last Admin: 07/08/17 22:24 Dose: 22 unit Lactulose (Enulose) 20 gm PO HS PRN PRN Reason: Constipation Lorazepam (Ativan) 1 mg IVP Q6H PRN PRN Reason: Seizure activity Last Admin: 07/08/17 18:49 Dose: 1 mg Metoprolol Tartrate (Lopressor) 12.5 mg PEG Q12 [facility] Last Admin: 07/09/17 09:39 Dose: 12.5 mg Multivitamins/Vitamin C (Multi-Delyn Liquid) 5 ml PEG DAILY [facility] Last Admin: 07/09/17 09:37 Dose: 5 ml Mupirocin (Bactroban Ointment) 0 gm TOP BID [facility] Last Admin: 07/09/17 09:48 Dose: 1 applic Rosuvastatin Calcium (Crestor) 10 mg PEG DAILY [facility] Last Admin: 07/08/17 13:18 Dose: 10 mg Vancomycin HCl (Vancocin (Oral Or Rectal Use)) 125 mg PEG QID [facility] Last Admin: 07/09/17 09:37 Dose: 125 mg Zinc Sulfate (Zinc Sulfate 220 Mg Cap) 220 mg PEG DAILY [facility] Last Admin: 07/09/17 09:39 Dose: 220 mg - Labs Labs: 07/09/17 06:40 07/09/17 06:37 PT 12.2 SECONDS (9.7-12.2) 07/04/17 06:36 INR 1.1 07/04/17 06:36 APTT 27 SECONDS (21-34) 07/04/17 06:36 - Constitutional Appears: Chronically Ill, Other (aphasic at baseline) - Eye Exam Eye Exam: PERRL - ENT Exam ENT Exam: Mucous Membranes Dry - Respiratory Exam Respiratory Exam: Rales. absent: Clear to Ausculation Bilateral, Rhonchi, Wheezes - Cardiovascular Exam Cardiovascular Exam: RRR, +S1, +S2 - GI/Abdominal Exam GI & Abdominal Exam: Soft, Normal Bowel Sounds. absent: Distended, Firm, Guarding, Rigid, Tenderness, Organomegaly Additional comments: PEG tube from exchange yesterday in PEG tract site with 2.5cm from skin - Extremities Exam Extremities Exam: absent: Pedal Edema - Neurological Exam Neurological Exam: Altered - Skin Skin Exam: Dry, Warm Assessment and Plan - Assessment and Plan (Free Text) Assessment: Patient is a 71yo female with PMHx of brain injury (? encephalitis vs anoxic injury), seizure disorder, DM, HTN, HLD who presented to the ED with fever, tachycardia and suspected seizure activity. -PEG tube malfunction -Descending colon lesion on CT Plan: -S/P uneventful bedside exchange yesterday; inadvertent dislodgement overnight with replacement performed -Check abdominal flat plate with gastrografin contrast to confirm placement -Tightened bumper to 2.5cm at skin -Culture + MSSA and Burkolderia - on broad coverage ABX -Regarding possible mass lesion in left colon; with ongoing seizure activity/ infections, patient is not a candidate for colonoscopy at this time -Moreover, goals of care need to be clarified; encouraged patient's son to come in to discuss this but he states he is unable - will defer to palliative/ hospice care and primary teams <Frank Levine - Last Filed: 07/09/17 19:15> Objective - Vital Signs/Intake and Output Vital Signs (last 24 hours): Temp Pulse Resp BP Pulse Ox 97.4 F L 77 19 107/57 L 96 07/09/17 16:00 07/09/17 18:17 07/09/17 18:17 07/09/17 18:17 07/09/17 18:17 Intake and Output: 07/09/17 07/10/17 18:59 06:59 Intake Total 1240 Output Total 1000 Balance 240 - Medications Medications: Current Medications Acetaminophen (Tylenol 650 Mg Supp) 650 mg [place] Q6 PRN PRN Reason: Fever >100.4 F Last Admin: 07/04/17 06:45 Dose: 650 mg Aspirin (Aspirin Chewable) 81 mg PO DAILY [facility] Last Admin: 07/09/17 16:44 Dose: 81 mg Dextrose (Dextrose 50% Inj) 0 ml IV STAT PRN; Protocol PRN Reason: Hypoglycemia Protocol Last Admin: 07/09/17 11:31 Dose: 50 ml Dextrose (Glutose 15) 0 gm PO ONCE PRN; Protocol PRN Reason: Hypoglycemia Protocol Diazepam (Valium) 5 mg PEG Q6H PRN PRN Reason: seizures Last Admin: 07/06/17 10:31 Dose: 5 mg Enoxaparin Sodium (Lovenox) 40 mg SC DAILY [facility] Last Admin: 07/09/17 09:36 Dose: 40 mg Famotidine (Pepcid) 40 mg IVP BID [facility] Last Admin: 07/09/17 18:50 Dose: 40 mg Glucagon (Glucagen Diagnostic Kit) 0 mg IM STAT PRN; Protocol PRN Reason: Hypoglycemia Protocol Levetiracetam 1,000 mg/ Sodium (Chloride) 110 mls @ 420 mls/hr IVPB Q12H [facility] Last Admin: 07/09/17 16:44 Dose: 420 mls/hr Metronidazole (Flagyl) 500 mg in 100 mls @ 100 mls/hr IVPB Q8 [facility] Last Admin: 07/09/17 13:07 Dose: 100 mls/hr Cefepime HCl (Maxipime Iv 1 Gm Premix) 1 gm in 50 mls @ 100 mls/hr IVPB Q8H [facility] Last Admin: 07/09/17 18:51 Dose: 100 mls/hr Dextrose (Dextrose 5% In Water 1000 Ml) 1,000 mls @ 0 mls/hr IV .Q0M PRN; Protocol; Per Protocol PRN Reason: Hypoglycemia Protocol Dextrose/Sodium Chloride (Dextrose 5%/0.9% Ns 1000 Ml) 1,000 mls @ 100 mls/hr IV .Q10H [facility] Last Admin: 07/09/17 10:57 Dose: 100 mls/hr Insulin Aspart (Novolog) 0 unit SC Q6 [facility] PRN Reason: Protocol Last Admin: 07/09/17 18:00 Dose: Not Given Insulin Detemir (Levemir) 22 unit SC HS [facility] Last Admin: 07/08/17 22:24 Dose: 22 unit Lactulose (Enulose) 20 gm PO HS PRN PRN Reason: Constipation Lorazepam (Ativan) 1 mg IVP Q6H PRN PRN Reason: Seizure activity Last Admin: 07/09/17 10:45 Dose: 1 mg Metoprolol Tartrate (Lopressor) 12.5 mg PEG Q12 [facility] Last Admin: 07/09/17 09:39 Dose: Not Given Multivitamins/Vitamin C (Multi-Delyn Liquid) 5 ml PEG DAILY [facility] Last Admin: 07/09/17 16:45 Dose: 5 ml Mupirocin (Bactroban Ointment) 0 gm TOP BID [facility] Last Admin: 07/09/17 18:51 Dose: 1 applic Rosuvastatin Calcium (Crestor) 10 mg PEG HS [facility] Vancomycin HCl (Vancocin (Oral Or Rectal Use)) 125 mg PEG QID [facility] Last Admin: 07/09/17 18:50 Dose: 125 mg Zinc Sulfate (Zinc Sulfate 220 Mg Cap) 220 mg PEG DAILY [facility] Last Admin: 07/09/17 16:45 Dose: 220 mg - Labs Labs: 07/09/17 06:40 07/09/17 06:37 PT 12.2 SECONDS (9.7-12.2) 07/04/17 06:36 INR 1.1 07/04/17 06:36 APTT 27 SECONDS (21-34) 07/04/17 06:36 Attending/Attestation - Attestation I have personally seen and examined this patient.: Yes I have fully participated in the care of the patient.: Yes I have reviewed all pertinent clinical information, including history, physical exam and plan: Yes Notes (Text): 07/09/17 19:13 71 year old female with h/o anoxic brain injury s/p PEG, seizure d/o, HTN, HLD, DM, we are consulted for PEG malfunction now s/p bedside replacement with gastrografiin demonstrating appropriate position in the stomach. Ok to use PEG. Possible colonic lesion noted on CT. Elective Sigmoidoscopy or colonoscopy could be performed if aggressive care is being pursued an the patient would be considered for surgery/chemo, but otherwise may not be within the scope of care. Will sign off at this time.
[2017-07-09] MEDS ORDERED: Glucagon Recombinant 1 mg Inj IM PRN (10:21)
[2017-07-09] MEDS ORDERED: Dextrose 50% SYRINGE Inj (50 ml) IV PRN (10:21)
[2017-07-09] MEDS ORDERED: Iohexol 240 200 ML ONE (10:27)
[2017-07-09] MEDS: Dextrose 5%/0.9% NS 1,000 ML IV SCH ×2 (10:57→20:58)
--- NOTE | 2017-07-09 13:35 | CP.CCUPN ---
<Rhett Sinha - Last Filed: 07/09/17 17:12> CCU Subjective - Physician Review Subjective (Free Text): Patient seen and examined. Hx of anoxic brain injury, non-communicative. Unable to obtain review of systems. 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 Jerky movements noted in right arm. On nasal cannula 2L. Placed PICC line today. New PEG tube dislodged overnight - GI Fellow evaluated PEG and made adjustments. We will get an abdominal xray w/ contrast infusion to make sure PEG working properly. CT abd did not show infectious process related to PEG however it showed possible mass in descending colon. CCU Objective - Vital Signs / Intake & Output Vital Signs (Last 4 hours): Vital Signs Temp Pulse Resp BP Pulse Ox 07/09/17 13:00 74 20 97 07/09/17 12:17 75 18 98/47 L 99 07/09/17 12:00 99.2 F 74 19 96 07/09/17 11:17 72 20 105/57 L 100 07/09/17 10:17 66 18 98/46 L 100 Intake and Output (Last 8hrs): Intake & Output 07/08/17 07/09/17 07/09/17 22:59 06:59 14:59 Intake Total 1170 875 800 Output Total 970 153 2693 Balance 970 75 -200 Weight 152 lb 8 oz Intake: Intake, IV Amount 900 875 800 Left Hand 900 875 800 Tube Feeding 180 0 0 Other 90 Output: Urine 332 463 5589 Urine, Voided 899 246 1641 Other 100 Other: # Bowel Movements 1 1 - Physical Exam Respiratory/Chest: Positive for: Clear to Auscultation Cardiovascular: Positive for: Regular Rate and Rhythm, Normal S1, S2, Tachycardic. Negative for: Murmurs Abdomen: Positive for: Feeding Tubes (PA peg site oozing, small erythema) Upper Extremity: Positive for: Other (Ext no edema, both feet drop, left arm contracture, right arm some flickering movements) - Medications Active Medications: Active Medications Generic Name Dose Route Start Last Admin Trade Name Freq PRN Reason Stop Dose Admin Acetaminophen 650 mg 07/04/17 05:58 07/04/17 06:45 Tylenol 650 Mg Supp [place] 650 mg Q6 PRN Administration Fever >100.4 F Aspirin 81 mg 07/04/17 11:15 07/09/17 09:36 Aspirin Chewable PO 81 mg DAILY DENNIS Administration Dextrose 0 ml 07/09/17 10:21 07/09/17 11:31 Dextrose 50% Inj IV 50 ml STAT PRN Administration Hypoglycemia Protocol Protocol Dextrose 0 gm 07/09/17 10:21 Glutose 15 PO ONCE PRN Hypoglycemia Protocol Protocol Diazepam 5 mg 07/05/17 17:05 07/06/17 10:31 Valium PEG 5 mg Q6H PRN Administration seizures Enoxaparin Sodium 40 mg 07/04/17 10:00 07/09/17 09:36 Lovenox SC 40 mg DAILY DENNIS Administration Famotidine 40 mg 07/04/17 10:00 07/09/17 09:37 Pepcid IVP 40 mg BID DENNIS Administration Glucagon 0 mg 07/09/17 10:21 Glucagen Diagnostic Kit IM STAT PRN Hypoglycemia Protocol Protocol Levetiracetam 1,000 mg/ Sodium 110 mls @ 420 mls/hr 07/05/17 17:05 07/09/17 04:43 Chloride IVPB 420 mls/hr Q12H DENNIS Administration Metronidazole 500 mg in 100 mls @ 100 mls/hr 07/07/17 10:00 07/09/17 13:07 Flagyl IVPB 100 mls/hr Q8 DENNIS Administration Cefepime HCl 1 gm in 50 mls @ 100 mls/hr 07/08/17 11:00 07/09/17 10:46 Maxipime Iv 1 Gm Premix IVPB 100 mls/hr Q8H DENNIS Administration Dextrose 1,000 mls @ 0 mls/hr 07/09/17 10:21 Dextrose 5% In Water 1000 Ml IV .Q0M PRN Hypoglycemia Protocol Protocol Per Protocol Dextrose/Sodium Chloride 1,000 mls @ 100 mls/hr 07/09/17 10:30 07/09/17 10:57 Dextrose 5%/0.9% Ns 1000 Ml IV 100 mls/hr .Q10H DENNIS Administration Insulin Aspart 0 unit 07/04/17 12:00 07/09/17 11:30 Novolog SC Not Given Q6 DENNIS Protocol Insulin Detemir 22 unit 07/04/17 22:00 07/08/17 22:24 Levemir SC 22 unit HS DENNIS Administration Lactulose 20 gm 07/06/17 09:00 Enulose PO HS PRN Constipation Lorazepam 1 mg 07/04/17 17:57 07/09/17 10:45 Ativan IVP 1 mg Q6H PRN Administration Seizure activity Metoprolol Tartrate 12.5 mg 07/04/17 10:00 07/09/17 09:39 Lopressor PEG 12.5 mg Q12 DENNIS Administration Multivitamins/Vitamin C 5 ml 07/04/17 10:00 07/09/17 09:37 Multi-Delyn Liquid PEG 5 ml DAILY DENNIS Administration Mupirocin 0 gm 07/07/17 18:00 07/09/17 09:48 Bactroban Ointment TOP 1 applic BID DENNIS Administration Rosuvastatin Calcium 10 mg 07/09/17 22:00 Crestor PEG HS DENNIS Vancomycin HCl 125 mg 07/07/17 14:00 07/09/17 09:37 Vancocin (Oral Or Rectal Use) PEG 125 mg QID DENNIS Administration Zinc Sulfate 220 mg 07/04/17 10:00 07/09/17 09:39 Zinc Sulfate 220 Mg Cap PEG 220 mg DAILY DENNIS Administration - Patient Studies Lab Studies: Microbiology Studies 07/03/17 23:03 Blood Culture - Final Blood NO GROWTH AFTER 5 DAYS Gram Stain - Final TEST NOT PERFORMED 07/03/17 23:29 Gram Stain - Final Cerebral Spinal Fluid CSF Culture - Preliminary NO GROWTH AFTER 4 DAYS Lab Studies 07/09/17 07/09/17 07/09/17 Range/Units 11:27 11:25 06:40 WBC 5.6 (4.8-10.8) K/uL RBC 3.64 L (3.80-5.20) Mil/uL Hgb 10.5 L (11.0-16.0) g/dL Hct 31.1 L (34.0-47.0) % MCV 85.5 (81.0-99.0) fL MCH 29.0 (27.0-31.0) pg MCHC 33.9 (33.0-37.0) g/dL RDW 13.2 (11.5-14.5) % Plt Count 149 (130-400) K/uL MPV 11.1 (7.2-11.7) fL Neut % (Auto) 74.8 (50.0-75.0) % Lymph % (Auto) 16.8 L (20.0-40.0) % Elk % (Auto) 3.9 (0.0-10.0) % Eos % (Auto) 3.9 (0.0-4.0) % Baso % (Auto) 0.6 (0.0-2.0) % Neut # (Auto) 4.2 (1.8-7.0) K/uL Lymph # (Auto) 0.9 L (1.0-4.3) K/uL Elk # (Auto) 0.2 (0.0-0.8) K/uL Eos # (Auto) 0.2 (0.0-0.7) K/uL Baso # (Auto) 0.0 (0.0-0.2) K/uL Sodium (132-148) mmol/L Potassium (3.6-5.2) mmol/L Chloride (98-107) mmol/L Carbon Dioxide (22-30) mmol/L Anion Gap (10-20) BUN (7-17) mg/dL Creatinine (0.7-1.2) mg/dL Est GFR ( Amer) Est GFR (Non-Af Amer) POC Glucose (mg/dL) 51 L 49 L (65-110) mg/dL Random Glucose (65-105) mg/dL Calcium (8.6-10.4) mg/dl Phosphorus (2.5-4.5) mg/dL Magnesium (1.6-2.3) mg/dL Total Bilirubin (0.2-1.3) mg/dL AST (14-36) U/L ALT (9-52) U/L Alkaline Phosphatase (38-126) U/L Total Protein (6.3-8.3) g/dL Albumin (3.5-5.0) g/dL Globulin (2.2-3.9) gm/dL Albumin/Globulin Ratio (1.0-2.1) CSF Toxo. gondii IgG Levetiracetam mcg/mL 07/09/17 07/09/17 07/09/17 Range/Units 06:37 05:59 05:25 WBC (4.8-10.8) K/uL RBC (3.80-5.20) Mil/uL Hgb (11.0-16.0) g/dL Hct (34.0-47.0) % MCV (81.0-99.0) fL MCH (27.0-31.0) pg MCHC (33.0-37.0) g/dL RDW (11.5-14.5) % Plt Count (130-400) K/uL MPV (7.2-11.7) fL Neut % (Auto) (50.0-75.0) % Lymph % (Auto) (20.0-40.0) % Elk % (Auto) (0.0-10.0) % Eos % (Auto) (0.0-4.0) % Baso % (Auto) (0.0-2.0) % Neut # (Auto) (1.8-7.0) K/uL Lymph # (Auto) (1.0-4.3) K/uL Elk # (Auto) (0.0-0.8) K/uL Eos # (Auto) (0.0-0.7) K/uL Baso # (Auto) (0.0-0.2) K/uL Sodium 134 (132-148) mmol/L Potassium 3.7 (3.6-5.2) mmol/L Chloride 100 (98-107) mmol/L Carbon Dioxide 27 (22-30) mmol/L Anion Gap 12 (10-20) BUN 6 L (7-17) mg/dL Creatinine 0.3 L (0.7-1.2) mg/dL Est GFR ( Amer) > 60 Est GFR (Non-Af Amer) > 60 POC Glucose (mg/dL) 168 H 66 (65-110) mg/dL Random Glucose 59 L (65-105) mg/dL Calcium 8.2 L (8.6-10.4) mg/dl Phosphorus 2.7 (2.5-4.5) mg/dL Magnesium 1.6 (1.6-2.3) mg/dL Total Bilirubin 0.5 (0.2-1.3) mg/dL AST 32 (14-36) U/L ALT 19 (9-52) U/L Alkaline Phosphatase 29 L D (38-126) U/L Total Protein 5.5 L (6.3-8.3) g/dL Albumin 2.8 L (3.5-5.0) g/dL Globulin 2.7 (2.2-3.9) gm/dL Albumin/Globulin Ratio 1.0 (1.0-2.1) CSF Toxo. gondii IgG Levetiracetam mcg/mL 07/09/17 07/08/17 07/08/17 Range/Units 05:22 23:43 17:21 WBC (4.8-10.8) K/uL RBC (3.80-5.20) Mil/uL Hgb (11.0-16.0) g/dL Hct (34.0-47.0) % MCV (81.0-99.0) fL MCH (27.0-31.0) pg MCHC (33.0-37.0) g/dL RDW (11.5-14.5) % Plt Count (130-400) K/uL MPV (7.2-11.7) fL Neut % (Auto) (50.0-75.0) % Lymph % (Auto) (20.0-40.0) % Elk % (Auto) (0.0-10.0) % Eos % (Auto) (0.0-4.0) % Baso % (Auto) (0.0-2.0) % Neut # (Auto) (1.8-7.0) K/uL Lymph # (Auto) (1.0-4.3) K/uL Elk # (Auto) (0.0-0.8) K/uL Eos # (Auto) (0.0-0.7) K/uL Baso # (Auto) (0.0-0.2) K/uL Sodium (132-148) mmol/L Potassium (3.6-5.2) mmol/L Chloride (98-107) mmol/L Carbon Dioxide (22-30) mmol/L Anion Gap (10-20) BUN (7-17) mg/dL Creatinine (0.7-1.2) mg/dL Est GFR ( Amer) Est GFR (Non-Af Amer) POC Glucose (mg/dL) 68 99 127 H (65-110) mg/dL Random Glucose (65-105) mg/dL Calcium (8.6-10.4) mg/dl Phosphorus (2.5-4.5) mg/dL Magnesium (1.6-2.3) mg/dL Total Bilirubin (0.2-1.3) mg/dL AST (14-36) U/L ALT (9-52) U/L Alkaline Phosphatase (38-126) U/L Total Protein (6.3-8.3) g/dL Albumin (3.5-5.0) g/dL Globulin (2.2-3.9) gm/dL Albumin/Globulin Ratio (1.0-2.1) CSF Toxo. gondii IgG Levetiracetam mcg/mL 07/04/17 07/03/17 Range/Units 14:06 09:32 WBC (4.8-10.8) K/uL RBC (3.80-5.20) Mil/uL Hgb (11.0-16.0) g/dL Hct (34.0-47.0) % MCV (81.0-99.0) fL MCH (27.0-31.0) pg MCHC (33.0-37.0) g/dL RDW (11.5-14.5) % Plt Count (130-400) K/uL MPV (7.2-11.7) fL Neut % (Auto) (50.0-75.0) % Lymph % (Auto) (20.0-40.0) % Elk % (Auto) (0.0-10.0) % Eos % (Auto) (0.0-4.0) % Baso % (Auto) (0.0-2.0) % Neut # (Auto) (1.8-7.0) K/uL Lymph # (Auto) (1.0-4.3) K/uL Elk # (Auto) (0.0-0.8) K/uL Eos # (Auto) (0.0-0.7) K/uL Baso # (Auto) (0.0-0.2) K/uL Sodium (132-148) mmol/L Potassium (3.6-5.2) mmol/L Chloride (98-107) mmol/L Carbon Dioxide (22-30) mmol/L Anion Gap (10-20) BUN (7-17) mg/dL Creatinine (0.7-1.2) mg/dL Est GFR ( Amer) Est GFR (Non-Af Amer) POC Glucose (mg/dL) (65-110) mg/dL Random Glucose (65-105) mg/dL Calcium (8.6-10.4) mg/dl Phosphorus (2.5-4.5) mg/dL Magnesium (1.6-2.3) mg/dL Total Bilirubin (0.2-1.3) mg/dL AST (14-36) U/L ALT (9-52) U/L Alkaline Phosphatase (38-126) U/L Total Protein (6.3-8.3) g/dL Albumin (3.5-5.0) g/dL Globulin (2.2-3.9) gm/dL Albumin/Globulin Ratio (1.0-2.1) CSF Toxo. gondii IgG <0.90 Levetiracetam 15.7 mcg/mL Laboratory Results - last 24 hr 07/03/17 07/04/17 07/08/17 09:32 14:06 17:21 WBC RBC Hgb Hct MCV MCH MCHC RDW Plt Count MPV Neut % (Auto) Lymph % (Auto) Elk % (Auto) Eos % (Auto) Baso % (Auto) Neut # (Auto) Lymph # (Auto) Elk # (Auto) Eos # (Auto) Baso # (Auto) Sodium Potassium Chloride Carbon Dioxide Anion Gap BUN Creatinine Est GFR ( Amer) Est GFR (Non-Af Amer) POC Glucose (mg/dL) 127 H Random Glucose Calcium Phosphorus Magnesium Total Bilirubin AST ALT Alkaline Phosphatase Total Protein Albumin Globulin Albumin/Globulin Ratio CSF Toxo. gondii IgG <0.90 Levetiracetam 15.7 07/08/17 07/09/17 07/09/17 23:43 05:22 05:25 WBC RBC Hgb Hct MCV MCH MCHC RDW Plt Count MPV Neut % (Auto) Lymph % (Auto) Elk % (Auto) Eos % (Auto) Baso % (Auto) Neut # (Auto) Lymph # (Auto) Elk # (Auto) Eos # (Auto) Baso # (Auto) Sodium Potassium Chloride Carbon Dioxide Anion Gap BUN Creatinine Est GFR ( Amer) Est GFR (Non-Af Amer) POC Glucose (mg/dL) 99 68 66 Random Glucose Calcium Phosphorus Magnesium Total Bilirubin AST ALT Alkaline Phosphatase Total Protein Albumin Globulin Albumin/Globulin Ratio CSF Toxo. gondii IgG Levetiracetam 07/09/17 07/09/17 07/09/17 05:59 06:37 06:40 WBC 5.6 RBC 3.64 L Hgb 10.5 L Hct 31.1 L MCV 85.5 MCH 29.0 MCHC 33.9 RDW 13.2 Plt Count 149 MPV 11.1 Neut % (Auto) 74.8 Lymph % (Auto) 16.8 L Elk % (Auto) 3.9 Eos % (Auto) 3.9 Baso % (Auto) 0.6 Neut # (Auto) 4.2 Lymph # (Auto) 0.9 L Elk # (Auto) 0.2 Eos # (Auto) 0.2 Baso # (Auto) 0.0 Sodium 134 Potassium 3.7 Chloride 100 Carbon Dioxide 27 Anion Gap 12 BUN 6 L Creatinine 0.3 L Est GFR ( Amer) > 60 Est GFR (Non-Af Amer) > 60 POC Glucose (mg/dL) 168 H Random Glucose 59 L Calcium 8.2 L Phosphorus 2.7 Magnesium 1.6 Total Bilirubin 0.5 AST 32 ALT 19 Alkaline Phosphatase 29 L D Total Protein 5.5 L Albumin 2.8 L Globulin 2.7 Albumin/Globulin Ratio 1.0 CSF Toxo. gondii IgG Levetiracetam 07/09/17 07/09/17 11:25 11:27 WBC RBC Hgb Hct MCV MCH MCHC RDW Plt Count MPV Neut % (Auto) Lymph % (Auto) Elk % (Auto) Eos % (Auto) Baso % (Auto) Neut # (Auto) Lymph # (Auto) Elk # (Auto) Eos # (Auto) Baso # (Auto) Sodium Potassium Chloride Carbon Dioxide Anion Gap BUN Creatinine Est GFR ( Amer) Est GFR (Non-Af Amer) POC Glucose (mg/dL) 49 L 51 L Random Glucose Calcium Phosphorus Magnesium Total Bilirubin AST ALT Alkaline Phosphatase Total Protein Albumin Globulin Albumin/Globulin Ratio CSF Toxo. gondii IgG Levetiracetam Fingerstick Blood Sugar Results: 159 - Procedures Procedures (Free Text): Head Exam: NORMOCEPHALIC Additional comments: ATRAUMATIC, NORMAL INSPECTION, NORMOCEPHALIC - Eye Exam Eye Exam: EOMI, Normal appearance Pupil Exam: Irregular - ENT Exam ENT Exam: Mucous Membranes Moist, Normal Exam - Neck Exam Neck exam: Positive for: Normal Inspection - Respiratory Exam Respiratory Exam: Clear to Auscultation Bilateral - Cardiovascular Exam Cardiovascular Exam: REGULAR RHYTHM, +S1, +S2 - GI/Abdominal Exam Additional comments: PEG tube in place; small amount of foul smelling purulence noted around site, no erythema or warmth noted - Extremities Exam Extremities exam: Positive for: normal inspection RUE tremulous when reaching for face which has been suspected to be seizure activity - Back Exam Back exam: NORMAL INSPECTION - Neurological Exam Neurological exam: Altered - Skin Skin Exam: Normal Color - Eye Exam Eye Exam: Nystagmus. absent: EOMI, Normal appearance, PERRL - ENT Exam ENT Exam: Mucous Membranes Dry - Neck Exam Neck Exam: absent: Full ROM, Lymphadenopathy - Respiratory Exam Respiratory Exam: Rales, Rhonchi. absent: Clear to Ausculation Bilateral, NORMAL BREATHING PATTERN - Cardiovascular Exam Cardiovascular Exam: Regular Rate, +S1, +S2. absent: REGULAR RHYTHM - GI/Abdominal Exam GI & Abdominal Exam: Soft. absent: Tenderness - Extremities Exam Extremities Exam: Full ROM. 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 Aureus and Strenotophomona malophilia - urine Cx (07/04): Strep viridans - blood (07/03): Coag Neg Staph - Vanc level 10.55 on 07/08 - ID ([place]) GI: diarrhea, PEG with purulent discharge, functioning - Glucerna 10 ml/hr, goal 40 ml/hr - PEG Cx (07/04): Staph. Aureus and GNR CT abdomen w/ IV contrast done (see report) - Lactulose 20 gm PO HS PRN - Flagyl 500 mg @ 100 mls/hr IVPB Q8 - C. diff negative - CT abd showed no abscess/collection by PEG, however showed possible neoplasm vs diverticulosis * Patient would eventually require colonoscopy evaluation of suspected intraluminal colon lesion, however will defer procedure for time being given ongoing sepsis and seizure activity. Will discuss with family members regarding risks/benefits of potential procedure. - PEG to be replaced 07/08/17 - repositioned 07/09/17 * Check abdominal flat plate with gastrografin contrast to confirm placement - Bactroban around PEG site - GI ([place]) Cards: HTN, hypercholesteremia - Lopressor 12.5 PEG Q12 - Crestor 10 mg PEG QID - ASA 81 mg PO QID - EKG showed abnormal T waves, no ST elevations - Cardio ([place]) * No cardic interventon indicated at this time. Pulm: no acute issues - O2 by nasal canula - CXR clear - rapid flu neg Renal/: UTI - BUN/Cr 8/0.3 - urine Cx (07/04): Strep viridans Endo: DM - Levimir 22 U SC HS - Novolog SC Q6 - glucose 152 PPx: - Pepcid 40 mg IVP BID - Lovenox 40 mg SC QD - zinc sulfate 220 mg PEG QD - multivitamin - Palliative ([place]bradovic) <Raymundo Perez S - Last Filed: 07/09/17 18:12> CCU Objective - Vital Signs / Intake & Output Vital Signs (Last 4 hours): Vital Signs Temp Pulse Resp BP Pulse Ox 07/09/17 16:00 97.4 F L 64 17 100 07/09/17 15:17 64 17 92/48 L 100 07/09/17 14:20 73 21 102/54 L 100 Intake and Output (Last 8hrs): Intake & Output 07/09/17 07/09/17 07/09/17 06:59 14:59 22:59 Intake Total 875 900 340 Output Total 800 1000 Balance 75 -100 340 Weight 152 lb 8 oz Intake: Intake, IV Amount 875 900 200 Left Hand 875 900 200 Tube Feeding 0 0 40 Other 100 Output: Urine 800 1000 Urine, Voided 800 1000 Other: # Bowel Movements 1 - Medications Active Medications: Active Medications Generic Name Dose Route Start Last Admin Trade Name Freq PRN Reason Stop Dose Admin Acetaminophen 650 mg 07/04/17 05:58 07/04/17 06:45 Tylenol 650 Mg Supp [place] 650 mg Q6 PRN Administration Fever >100.4 F Aspirin 81 mg 07/04/17 11:15 07/09/17 16:44 Aspirin Chewable PO 81 mg DAILY DENNIS Administration Dextrose 0 ml 07/09/17 10:21 07/09/17 11:31 Dextrose 50% Inj IV 50 ml STAT PRN Administration Hypoglycemia Protocol Protocol Dextrose 0 gm 07/09/17 10:21 Glutose 15 PO ONCE PRN Hypoglycemia Protocol Protocol Diazepam 5 mg 07/05/17 17:05 07/06/17 10:31 Valium PEG 5 mg Q6H PRN Administration seizures Enoxaparin Sodium 40 mg 07/04/17 10:00 07/09/17 09:36 Lovenox SC 40 mg DAILY DENNIS Administration Famotidine 40 mg 07/04/17 10:00 07/09/17 09:37 Pepcid IVP 40 mg BID DENNIS Administration Glucagon 0 mg 07/09/17 10:21 Glucagen Diagnostic Kit IM STAT PRN Hypoglycemia Protocol Protocol Levetiracetam 1,000 mg/ Sodium 110 mls @ 420 mls/hr 07/05/17 17:05 07/09/17 16:44 Chloride IVPB 420 mls/hr Q12H DENNIS Administration Metronidazole 500 mg in 100 mls @ 100 mls/hr 07/07/17 10:00 07/09/17 13:07 Flagyl IVPB 100 mls/hr Q8 DENNIS Administration Cefepime HCl 1 gm in 50 mls @ 100 mls/hr 07/08/17 11:00 07/09/17 10:46 Maxipime Iv 1 Gm Premix IVPB 100 mls/hr Q8H DENNIS Administration Dextrose 1,000 mls @ 0 mls/hr 07/09/17 10:21 Dextrose 5% In Water 1000 Ml IV .Q0M PRN Hypoglycemia Protocol Protocol Per Protocol Dextrose/Sodium Chloride 1,000 mls @ 100 mls/hr 07/09/17 10:30 07/09/17 10:57 Dextrose 5%/0.9% Ns 1000 Ml IV 100 mls/hr .Q10H DENNIS Administration Insulin Aspart 0 unit 07/04/17 12:00 07/09/17 11:30 Novolog SC Not Given Q6 [facility] Protocol Insulin Detemir 22 unit 07/04/17 22:00 07/08/17 22:24 Levemir SC 22 unit HS DENNIS Administration Lactulose 20 gm 07/06/17 09:00 Enulose PO HS PRN Constipation Lorazepam 1 mg 07/04/17 17:57 07/09/17 10:45 Ativan IVP 1 mg Q6H PRN Administration Seizure activity Metoprolol Tartrate 12.5 mg 07/04/17 10:00 07/09/17 09:39 Lopressor PEG Not Given Q12 [facility] Multivitamins/Vitamin C 5 ml 07/04/17 10:00 07/09/17 16:45 Multi-Delyn Liquid PEG 5 ml DAILY [facility] Administration Mupirocin 0 gm 07/07/17 18:00 07/09/17 09:48 Bactroban Ointment TOP 1 applic BID [facility] Administration Rosuvastatin Calcium 10 mg 07/09/17 22:00 Crestor PEG HS [facility] Vancomycin HCl 125 mg 07/07/17 14:00 07/09/17 14:00 Vancocin (Oral Or Rectal Use) PEG Not Given QID [facility] Zinc Sulfate 220 mg 07/04/17 10:00 07/09/17 16:45 Zinc Sulfate 220 Mg Cap PEG 220 mg DAILY [facility] Administration - Patient Studies Lab Studies: Microbiology Studies 07/03/17 23:29 Gram Stain - Final Cerebral Spinal Fluid CSF Culture - Final No growth. 07/03/17 23:03 Blood Culture - Final Blood NO GROWTH AFTER 5 DAYS Gram Stain - Final TEST NOT PERFORMED Lab Studies 07/09/17 07/09/17 07/09/17 Range/Units 17:58 12:05 11:27 WBC (4.8-10.8) K/uL RBC (3.80-5.20) Mil/uL Hgb (11.0-16.0) g/dL Hct (34.0-47.0) % MCV (81.0-99.0) fL MCH (27.0-31.0) pg MCHC (33.0-37.0) g/dL RDW (11.5-14.5) % Plt Count (130-400) K/uL MPV (7.2-11.7) fL Neut % (Auto) (50.0-75.0) % Lymph % (Auto) (20.0-40.0) % Elk % (Auto) (0.0-10.0) % Eos % (Auto) (0.0-4.0) % Baso % (Auto) (0.0-2.0) % Neut # (Auto) (1.8-7.0) K/uL Lymph # (Auto) (1.0-4.3) K/uL Elk # (Auto) (0.0-0.8) K/uL Eos # (Auto) (0.0-0.7) K/uL Baso # (Auto) (0.0-0.2) K/uL Sodium (132-148) mmol/L Potassium (3.6-5.2) mmol/L Chloride (98-107) mmol/L Carbon Dioxide (22-30) mmol/L Anion Gap (10-20) BUN (7-17) mg/dL Creatinine (0.7-1.2) mg/dL Est GFR ( Amer) Est GFR (Non-Af Amer) POC Glucose (mg/dL) 78 159 H 51 L (65-110) mg/dL Random Glucose (65-105) mg/dL Calcium (8.6-10.4) mg/dl Phosphorus (2.5-4.5) mg/dL Magnesium (1.6-2.3) mg/dL Total Bilirubin (0.2-1.3) mg/dL AST (14-36) U/L ALT (9-52) U/L Alkaline Phosphatase (38-126) U/L Total Protein (6.3-8.3) g/dL Albumin (3.5-5.0) g/dL Globulin (2.2-3.9) gm/dL Albumin/Globulin Ratio (1.0-2.1) CSF Lyme Disease DNA CSF Toxo. gondii IgG Levetiracetam mcg/mL Lyme Specimen Source 07/09/17 07/09/17 07/09/17 Range/Units 11:25 06:40 06:37 WBC 5.6 (4.8-10.8) K/uL RBC 3.64 L (3.80-5.20) Mil/uL Hgb 10.5 L (11.0-16.0) g/dL Hct 31.1 L (34.0-47.0) % MCV 85.5 (81.0-99.0) fL MCH 29.0 (27.0-31.0) pg MCHC 33.9 (33.0-37.0) g/dL RDW 13.2 (11.5-14.5) % Plt Count 149 (130-400) K/uL MPV 11.1 (7.2-11.7) fL Neut % (Auto) 74.8 (50.0-75.0) % Lymph % (Auto) 16.8 L (20.0-40.0) % Elk % (Auto) 3.9 (0.0-10.0) % Eos % (Auto) 3.9 (0.0-4.0) % Baso % (Auto) 0.6 (0.0-2.0) % Neut # (Auto) 4.2 (1.8-7.0) K/uL Lymph # (Auto) 0.9 L (1.0-4.3) K/uL Elk # (Auto) 0.2 (0.0-0.8) K/uL Eos # (Auto) 0.2 (0.0-0.7) K/uL Baso # (Auto) 0.0 (0.0-0.2) K/uL Sodium 134 (132-148) mmol/L Potassium 3.7 (3.6-5.2) mmol/L Chloride 100 (98-107) mmol/L Carbon Dioxide 27 (22-30) mmol/L Anion Gap 12 (10-20) BUN 6 L (7-17) mg/dL Creatinine 0.3 L (0.7-1.2) mg/dL Est GFR ( Amer) > 60 Est GFR (Non-Af Amer) > 60 POC Glucose (mg/dL) 49 L (65-110) mg/dL Random Glucose 59 L (65-105) mg/dL Calcium 8.2 L (8.6-10.4) mg/dl Phosphorus 2.7 (2.5-4.5) mg/dL Magnesium 1.6 (1.6-2.3) mg/dL Total Bilirubin 0.5 (0.2-1.3) mg/dL AST 32 (14-36) U/L ALT 19 (9-52) U/L Alkaline Phosphatase 29 L D (38-126) U/L Total Protein 5.5 L (6.3-8.3) g/dL Albumin 2.8 L (3.5-5.0) g/dL Globulin 2.7 (2.2-3.9) gm/dL Albumin/Globulin Ratio 1.0 (1.0-2.1) CSF Lyme Disease DNA CSF Toxo. gondii IgG Levetiracetam mcg/mL Lyme Specimen Source 07/09/17 07/09/17 07/09/17 Range/Units 05:59 05:25 05:22 WBC (4.8-10.8) K/uL RBC (3.80-5.20) Mil/uL Hgb (11.0-16.0) g/dL Hct (34.0-47.0) % MCV (81.0-99.0) fL MCH (27.0-31.0) pg MCHC (33.0-37.0) g/dL RDW (11.5-14.5) % Plt Count (130-400) K/uL MPV (7.2-11.7) fL Neut % (Auto) (50.0-75.0) % Lymph % (Auto) (20.0-40.0) % Elk % (Auto) (0.0-10.0) % Eos % (Auto) (0.0-4.0) % Baso % (Auto) (0.0-2.0) % Neut # (Auto) (1.8-7.0) K/uL Lymph # (Auto) (1.0-4.3) K/uL Elk # (Auto) (0.0-0.8) K/uL Eos # (Auto) (0.0-0.7) K/uL Baso # (Auto) (0.0-0.2) K/uL Sodium (132-148) mmol/L Potassium (3.6-5.2) mmol/L Chloride (98-107) mmol/L Carbon Dioxide (22-30) mmol/L Anion Gap (10-20) BUN (7-17) mg/dL Creatinine (0.7-1.2) mg/dL Est GFR ( Amer) Est GFR (Non-Af Amer) POC Glucose (mg/dL) 168 H 66 68 (65-110) mg/dL Random Glucose (65-105) mg/dL Calcium (8.6-10.4) mg/dl Phosphorus (2.5-4.5) mg/dL Magnesium (1.6-2.3) mg/dL Total Bilirubin (0.2-1.3) mg/dL AST (14-36) U/L ALT (9-52) U/L Alkaline Phosphatase (38-126) U/L Total Protein (6.3-8.3) g/dL Albumin (3.5-5.0) g/dL Globulin (2.2-3.9) gm/dL Albumin/Globulin Ratio (1.0-2.1) CSF Lyme Disease DNA CSF Toxo. gondii IgG Levetiracetam mcg/mL Lyme Specimen Source 07/08/17 07/04/17 07/03/17 Range/Units 23:43 14:06 09:32 WBC (4.8-10.8) K/uL RBC (3.80-5.20) Mil/uL Hgb (11.0-16.0) g/dL Hct (34.0-47.0) % MCV (81.0-99.0) fL MCH (27.0-31.0) pg MCHC (33.0-37.0) g/dL RDW (11.5-14.5) % Plt Count (130-400) K/uL MPV (7.2-11.7) fL Neut % (Auto) (50.0-75.0) % Lymph % (Auto) (20.0-40.0) % Elk % (Auto) (0.0-10.0) % Eos % (Auto) (0.0-4.0) % Baso % (Auto) (0.0-2.0) % Neut # (Auto) (1.8-7.0) K/uL Lymph # (Auto) (1.0-4.3) K/uL Elk # (Auto) (0.0-0.8) K/uL Eos # (Auto) (0.0-0.7) K/uL Baso # (Auto) (0.0-0.2) K/uL Sodium (132-148) mmol/L Potassium (3.6-5.2) mmol/L Chloride (98-107) mmol/L Carbon Dioxide (22-30) mmol/L Anion Gap (10-20) BUN (7-17) mg/dL Creatinine (0.7-1.2) mg/dL Est GFR ( Amer) Est GFR (Non-Af Amer) POC Glucose (mg/dL) 99 (65-110) mg/dL Random Glucose (65-105) mg/dL Calcium (8.6-10.4) mg/dl Phosphorus (2.5-4.5) mg/dL Magnesium (1.6-2.3) mg/dL Total Bilirubin (0.2-1.3) mg/dL AST (14-36) U/L ALT (9-52) U/L Alkaline Phosphatase (38-126) U/L Total Protein (6.3-8.3) g/dL Albumin (3.5-5.0) g/dL Globulin (2.2-3.9) gm/dL Albumin/Globulin Ratio (1.0-2.1) CSF Lyme Disease DNA Not detected CSF Toxo. gondii IgG <0.90 Levetiracetam 15.7 mcg/mL Lyme Specimen Source [facility] Laboratory Results - last 24 hr 07/03/17 07/04/17 07/08/17 09:32 14:06 23:43 WBC RBC Hgb Hct MCV MCH MCHC RDW Plt Count MPV Neut % (Auto) Lymph % (Auto) Elk % (Auto) Eos % (Auto) Baso % (Auto) Neut # (Auto) Lymph # (Auto) Elk # (Auto) Eos # (Auto) Baso # (Auto) Sodium Potassium Chloride Carbon Dioxide Anion Gap BUN Creatinine Est GFR ( Amer) Est GFR (Non-Af Amer) POC Glucose (mg/dL) 99 Random Glucose Calcium Phosphorus Magnesium Total Bilirubin AST ALT Alkaline Phosphatase Total Protein Albumin Globulin Albumin/Globulin Ratio CSF Lyme Disease DNA Not detected CSF Toxo. gondii IgG <0.90 Levetiracetam 15.7 Lyme Specimen Source Csf 07/09/17 07/09/17 07/09/17 05:22 05:25 05:59 WBC RBC Hgb Hct MCV MCH MCHC RDW Plt Count MPV Neut % (Auto) Lymph % (Auto) Elk % (Auto) Eos % (Auto) Baso % (Auto) Neut # (Auto) Lymph # (Auto) Elk # (Auto) Eos # (Auto) Baso # (Auto) Sodium Potassium Chloride Carbon Dioxide Anion Gap BUN Creatinine Est GFR ( Amer) Est GFR (Non-Af Amer) POC Glucose (mg/dL) 68 66 168 H Random Glucose Calcium Phosphorus Magnesium Total Bilirubin AST ALT Alkaline Phosphatase Total Protein Albumin Globulin Albumin/Globulin Ratio CSF Lyme Disease DNA CSF Toxo. gondii IgG Levetiracetam Lyme Specimen Source 07/09/17 07/09/17 07/09/17 06:37 06:40 11:25 WBC 5.6 RBC 3.64 L Hgb 10.5 L Hct 31.1 L MCV 85.5 MCH 29.0 MCHC 33.9 RDW 13.2 Plt Count 149 MPV 11.1 Neut % (Auto) 74.8 Lymph % (Auto) 16.8 L Elk % (Auto) 3.9 Eos % (Auto) 3.9 Baso % (Auto) 0.6 Neut # (Auto) 4.2 Lymph # (Auto) 0.9 L Elk # (Auto) 0.2 Eos # (Auto) 0.2 Baso # (Auto) 0.0 Sodium 134 Potassium 3.7 Chloride 100 Carbon Dioxide 27 Anion Gap 12 BUN 6 L Creatinine 0.3 L Est GFR ( Amer) > 60 Est GFR (Non-Af Amer) > 60 POC Glucose (mg/dL) 49 L Random Glucose 59 L Calcium 8.2 L Phosphorus 2.7 Magnesium 1.6 Total Bilirubin 0.5 AST 32 ALT 19 Alkaline Phosphatase 29 L D Total Protein 5.5 L Albumin 2.8 L Globulin 2.7 Albumin/Globulin Ratio 1.0 CSF Lyme Disease DNA CSF Toxo. gondii IgG Levetiracetam Lyme Specimen Source 07/09/17 07/09/17 07/09/17 11:27 12:05 17:58 WBC RBC Hgb Hct MCV MCH MCHC RDW Plt Count MPV Neut % (Auto) Lymph % (Auto) Elk % (Auto) Eos % (Auto) Baso % (Auto) Neut # (Auto) Lymph # (Auto) Elk # (Auto) Eos # (Auto) Baso # (Auto) Sodium Potassium Chloride Carbon Dioxide Anion Gap BUN Creatinine Est GFR ( Amer) Est GFR (Non-Af Amer) POC Glucose (mg/dL) 51 L 159 H 78 Random Glucose Calcium Phosphorus Magnesium Total Bilirubin AST ALT Alkaline Phosphatase Total Protein Albumin Globulin Albumin/Globulin Ratio CSF Lyme Disease DNA CSF Toxo. gondii IgG Levetiracetam Lyme Specimen Source Attending/Attestation - Attestation I have personally seen and examined this patient.: Yes I have fully participated in the care of the patient.: Yes I have reviewed all pertinent clinical information: Yes Notes (Text): 07/09/17 18:10 patient seen and examined in the intensive care unit G G-tube dislodged last night and was readjusted by GI being treated for UTI and peg tube site infection Continue present treatment for now
--- NOTE | 2017-07-09 16:12 | RAD ---
HISTORY: s/p picc line placement COMPARISON: Comparison made with prior chest radiograph dated 07/07/2017 FINDINGS: Interval placement right-sided PICC line tip of which is located in the SVC. LUNGS: Poor inspiration with low lung volumes, crowded bronchovascular markings and mild bibasilar atelectasis. . PLEURA: No significant pleural effusion identified, no pneumothorax apparent. CARDIOVASCULAR: Heart size is upper limits of normal. OSSEOUS STRUCTURES: No significant abnormalities. VISUALIZED UPPER ABDOMEN: Normal. OTHER FINDINGS: None. IMPRESSION: Poor inspiration with low lung volumes, crowded bronchovascular markings and mild bibasilar atelectasis.
[2017-07-09 16:36] LABS: SOURCE CSF
[2017-07-10] MEDS: Dextrose 5%/0.9% NS 1,000 ML IV SCH ×2 (00:09→06:24)
[2017-07-10] MEDS: (Novolog) Insulin Aspart, Recombinant 100 u/ml 10 ml vial SC SCH ×3 (00:33→12:16)
[2017-07-10] MEDS: Insulin Detemir 100 units/ml Vial (Levemir) SC SCH (00:53)
[2017-07-10] MEDS: Cefepime IV 1 gm in Dextrose 1 GM/50 ML BAG IVPB SCH ×2 (02:08→11:32)
[2017-07-10] MEDS: levETIRAcetam 1,000 MG in Sodium Chloride 0.9% 100 ML IVPB SCH (04:41)
[2017-07-10] MEDS: metroNIDAZOLE IV 500 mg/100 ml 500 MG/100 ML BAG IVPB SCH ×2 (05:11→14:02)
[2017-07-10 06:18] LABS: BASO % 0.5 % (0.0-2.0); EOS # 0.2 K/uL (0.0-0.7); EOS % 4.5 % (0.0-4.0); HEMOGLOBIN 9.9 g/dL (11.0-16.0); LYMPH # 0.8 K/uL (1.0-4.3); LYMPH % 17.6 % (20.0-40.0); MEAN CELL VOLUME 86.7 fL (81.0-99.0); MEAN CORPUSCULAR HEMOGLOBIN 29.1 pg (27.0-31.0); MEAN CORPUSCULAR HGB CONC 33.6 g/dL (33.0-37.0); MEAN PLATELET VOLUME 9.6 fL (7.2-11.7); MONO # 0.2 K/uL (0.0-0.8); MONO % 5.4 % (0.0-10.0); NEUT # 3.2 K/uL (1.8-7.0); RBC 3.39 Mil/uL (3.80-5.20); RED CELL DISTRIBUTION WIDTH 13.3 % (11.5-14.5); WHITE BLOOD COUNT 4.4 K/uL (4.8-10.8)
[2017-07-10 06:36] LABS: ALB/GLOB RATIO 1.1 (1.0-2.1); ALBUMIN 2.5 g/dL (3.5-5.0); ALT/SGPT 27 U/L (9-52); AST/SGOT 25 U/L (14-36); BLOOD UREA NITROGEN 9 mg/dL (7-17); CALCIUM 7.5 mg/dl (8.6-10.4); GFR AFRICAN-AMERICAN > 60; GFR NON-AFRICAN AMERICAN > 60; MAGNESIUM 1.5 mg/dL (1.6-2.3)
[2017-07-10] MEDS ORDERED: Potassium Chloride 20 mEq/15 ml LIQ UD PO ONE (07:15)
--- NOTE | 2017-07-10 08:37 | RAD ---
Chest x-ray single frontal view History: Sepsis. Comparison: 07/09/2017 Findings: Lines and tubes in stable position. Mild venous congestion. Calcification at the aortic knob. Mild cardiomegaly. Degenerative changes in the spine with loss of height of a lower thoracic/upper lumbar vertebral body. Surgical clips in the upper abdomen. Impression: Lines and tubes in stable position. Mild venous congestion. Calcification at the aortic knob. Mild cardiomegaly.
[2017-07-10] MEDS: Enoxaparin 40 mg Syringe SC SCH (09:29)
[2017-07-10] MEDS: Multiple Vitamins Oral Solution PEG SCH (09:30)
[2017-07-10] MEDS: Vancomycin 125 MG/5 ML SOLN (ORAL/RECTAL) PEG SCH ×2 (09:30→14:04)
--- NOTE | 2017-07-10 09:36 | RAD ---
HISTORY: PEG confirmation - with contrast via PEG please COMPARISON: 03/02/2016 FINDINGS: BOWEL: Normal bowel gas pattern. Percutaneous gastrostomy tube seen in the midline of the abdomen. Additional Any submitted with barium administered through the gastrostomy tube. The contrast material is seen in the stomach and duodenum indicating appropriate positioning of the tip of the gastrostomy tube within the gastric lumen. BONES: Normal. OTHER FINDINGS: None. IMPRESSION: Percutaneous gastrostomy tube appropriately positioned within the gastric lumen.
[2017-07-10] MEDS: Magnesium Sulfate 1 gm in D5W 1 GM/100 ML BAG IVPB SCH ×2 (10:14→15:09)
--- NOTE | 2017-07-10 13:32 | CP.PCM.DIS ---
Provider - Provider Date of Admission: 07/04/17 03:47 Attending physician: Adan Arreguin Jr, MD Primary care physician: PMD: Dr Arreguin Consults: Infectious Disease: Dr Kimball Neurology: Dr Catalan Cardiology: Dr Aden GI: Dr Levine Time Spent in preparation of Discharge (in minutes): 35 Hospital Course - Lab Results Lab Results: Micro Results 07/03/17 23:29 Cerebral Spinal Fluid Gram Stain - Final 07/03/17 23:29 Cerebral Spinal Fluid CSF Culture - Final No growth. 07/03/17 23:03 Blood Blood Culture - Final NO GROWTH AFTER 5 DAYS 07/03/17 23:03 Blood Gram Stain - Final TEST NOT PERFORMED 07/04/17 06:58 Peg Site Gram Stain - Final 07/04/17 06:58 Peg Site Wound Culture - Final Staphylococcus Aureus Burkholderia Cepacia 07/03/17 23:03 Blood S.aureus & Coag-Neg Staph PNA FISH - Final 07/03/17 23:03 Blood Blood Culture - Final Coagulase Neg Staphylococcus 07/03/17 23:03 Blood Gram Stain - Final 07/04/17 01:48 Urine Urine Culture - Final Streptococcus Viridans 07/04/17 06:58 Nose MRSA Culture (Admit) - Final MRSA NOT DETECTED Most Recent Lab Values WBC 4.4 K/uL (4.8-10.8) L 07/10/17 06:07 RBC 3.39 Mil/uL (3.80-5.20) L 07/10/17 06:07 Hgb 9.9 g/dL (11.0-16.0) L 07/10/17 06:07 Hct 29.4 % (34.0-47.0) L 07/10/17 06:07 MCV 86.7 fL (81.0-99.0) 07/10/17 06:07 MCH 29.1 pg (27.0-31.0) 07/10/17 06:07 MCHC 33.6 g/dL (33.0-37.0) 07/10/17 06:07 RDW 13.3 % (11.5-14.5) 07/10/17 06:07 Plt Count 158 K/uL (130-400) 07/10/17 06:07 MPV 9.6 fL (7.2-11.7) 07/10/17 06:07 Neut % (Auto) 72.0 % (50.0-75.0) 07/10/17 06:07 Lymph % (Auto) 17.6 % (20.0-40.0) L 07/10/17 06:07 Story % (Auto) 5.4 % (0.0-10.0) 07/10/17 06:07 Eos % (Auto) 4.5 % (0.0-4.0) H 07/10/17 06:07 Baso % (Auto) 0.5 % (0.0-2.0) 07/10/17 06:07 Neut # (Auto) 3.2 K/uL (1.8-7.0) 07/10/17 06:07 Lymph # (Auto) 0.8 K/uL (1.0-4.3) L 07/10/17 06:07 Story # (Auto) 0.2 K/uL (0.0-0.8) 07/10/17 06:07 Eos # (Auto) 0.2 K/uL (0.0-0.7) 07/10/17 06:07 Baso # (Auto) 0.0 K/uL (0.0-0.2) 07/10/17 06:07 Neutrophils % (Manual) 89 % (50-75) H 07/04/17 06:36 Band Neutrophils % 6 % (0-2) H 07/04/17 06:36 Lymphocytes % (Manual) 3 % (20-40) L 07/04/17 06:36 Monocytes % (Manual) 2 % (0-10) 07/04/17 06:36 Platelet Estimate Normal (NORMAL) 07/04/17 06:36 Basophilic Stippling Slight 07/04/17 06:36 PT 12.2 SECONDS (9.7-12.2) 07/04/17 06:36 INR 1.1 07/04/17 06:36 APTT 27 SECONDS (21-34) 07/04/17 06:36 Puncture Site Rb 07/04/17 02:20 pCO2 71 mm/Hg (35-45) H* 07/04/17 02:20 pO2 49 mm/Hg (30-55) 07/04/17 06:35 HCO3 30.4 mmol/L (21-28) H 07/04/17 02:20 ABG pH 7.31 (7.35-7.45) L 07/04/17 02:20 ABG Total CO2 37.9 mmol/L (22-28) H 07/04/17 02:20 ABG O2 Saturation 96.6 % (95-98) 07/04/17 02:20 ABG Base Excess 7.1 mmol/L (-2.0-3.0) H 07/04/17 02:20 ABG Hemoglobin 12.6 g/dL (11.7-17.4) 07/04/17 02:20 ABG Carboxyhemoglobin 1.6 % (0.5-1.5) H 07/04/17 02:20 POC ABG HHb (Measured) 3.3 % (0.0-5.0) 07/04/17 02:20 ABG Methemoglobin 1.6 % (0.0-3.0) 07/04/17 02:20 Arthur Test Na 07/04/17 02:20 VBG pH 7.33 (7.32-7.43) 07/04/17 06:35 VBG pCO2 61 mmHg (40-60) H 07/04/17 06:35 VBG HCO3 28.0 mmol/L 07/04/17 06:35 VBG Total CO2 34.1 mmol/L (22-28) H 07/04/17 06:35 VBG O2 Sat (Calc) 88.6 % (40-65) H 07/04/17 06:35 VBG Base Excess 4.5 mmol/L (0.0-2.0) H 07/04/17 06:35 VBG Potassium 3.2 mmol/L (3.6-5.2) L 07/04/17 06:35 A-a O2 Difference 85.0 mm/Hg 07/04/17 02:20 Respiratory Index 1.1 07/04/17 02:20 Hgb O2 Saturation 93.5 % (95.0-98.0) L 07/04/17 02:20 Sodium 145.0 mmol/l (132-148) 07/04/17 06:35 Chloride 108.0 mmol/L (98-107) H 07/04/17 06:35 Glucose 421 mg/dl (65-105) H* D 07/04/17 06:35 Lactate 1.1 mmol/L (0.7-2.1) 07/04/17 06:35 Liter Flow 4.0 07/04/17 02:20 FiO2 35.0 % 07/04/17 02:20 Crit Value Called To Luisito rn 07/04/17 06:35 Crit Value Called By Greg rag cutting machine tender 07/04/17 06:35 Crit Value Read Back Y 07/04/17 06:35 Blood Gas Notified Time 638 07/04/17 06:35 Sodium 140 mmol/L (132-148) 07/10/17 06:05 Potassium 3.2 mmol/L (3.6-5.2) L 07/10/17 06:05 Chloride 107 mmol/L (98-107) 07/10/17 06:05 Carbon Dioxide 27 mmol/L (22-30) 07/10/17 06:05 Anion Gap 10 (10-20) 07/10/17 06:05 BUN 9 mg/dL (7-17) 07/10/17 06:05 Creatinine 0.4 mg/dL (0.7-1.2) L 07/10/17 06:05 Est GFR ( Amer) > 60 07/10/17 06:05 Est GFR (Non-Af Amer) > 60 07/10/17 06:05 POC Glucose (mg/dL) 227 mg/dL (65-110) H 07/10/17 12:13 Random Glucose 167 mg/dL (65-105) H 07/10/17 06:05 Hemoglobin A1c 7.1 % (4.2-6.5) H 07/04/17 08:47 Lactic Acid 0.9 mmol/L (0.7-2.1) 07/04/17 05:18 Calcium 7.5 mg/dl (8.6-10.4) L 07/10/17 06:05 Phosphorus 2.5 mg/dL (2.5-4.5) 07/10/17 06:05 Magnesium 1.5 mg/dL (1.6-2.3) L 07/10/17 06:05 Total Bilirubin 0.1 mg/dL (0.2-1.3) L 07/10/17 06:05 AST 25 U/L (14-36) 07/10/17 06:05 ALT 27 U/L (9-52) 07/10/17 06:05 Alkaline Phosphatase 56 U/L (38-126) 07/10/17 06:05 Total Creatine Kinase 504 U/L (30-135) H 07/04/17 06:36 Troponin I 1.2900 ng/mL (0.00-0.120) H* 07/04/17 06:36 C-React Prot High Sens 3.75 mg/L (1.00-3.00) H 07/04/17 04:16 NT-Pro-B Natriuret Pep 323 pg/mL (0-900) 07/04/17 00:09 Total Protein 5.0 g/dL (6.3-8.3) L 07/10/17 06:05 Albumin 2.5 g/dL (3.5-5.0) L 07/10/17 06:05 Globulin 2.4 gm/dL (2.2-3.9) 07/10/17 06:05 Albumin/Globulin Ratio 1.1 (1.0-2.1) 07/10/17 06:05 Procalcitonin 0.36 NG/ML (0.19-0.49) 07/04/17 06:36 Venous Blood Potassium 3.2 mmol/L (3.6-5.2) L 07/04/17 06:35 Urine Color Wendi (YELLOW) 07/04/17 02:08 Urine Clarity Hazy (Clear) 07/04/17 02:08 Urine pH 5.0 (5.0-8.0) 07/04/17 02:08 Ur Specific [place] 1.025 (1.003-1.030) 07/04/17 02:08 Urine Protein 2+ mg/dL (NEGATIVE) H 07/04/17 02:08 Urine Glucose (UA) Normal mg/dL (Normal) 07/04/17 02:08 Urine Ketones Trace mg/dL (NEGATIVE) 07/04/17 02:08 Urine Blood 1+ (NEGATIVE) H 07/04/17 02:08 Urine Nitrate Negative (NEGATIVE) 07/04/17 02:08 Urine Bilirubin Negative (NEGATIVE) 07/04/17 02:08 Urine Urobilinogen 2.0 mg/dL (0.2-1.0) H 07/04/17 02:08 Ur Leukocyte Esterase Neg Jenise/uL (Negative) 07/04/17 02:08 Urine WBC (Auto) 12 /hpf (0-5) H 07/04/17 02:08 Urine RBC (Auto) 21 /hpf (0-3) H 07/04/17 02:08 Ur Squamous Epith Cells < 1 /hpf (0-5) 07/04/17 02:08 Urine Bacteria Few (<OCC) H 07/04/17 02:08 Urine Yeast (Budding) Few /hpf (NEGATIVE) H 07/04/17 02:08 Fluid Type Spinal fluid 07/04/17 01:58 CSF Volume 1 mL (0-1) 07/04/17 01:58 CSF Appearance Clear/colorless (CLEAR) 07/04/17 01:58 CSF WBC 9.0 /mm3 (0.0-5.0) H 07/04/17 01:58 CSF RBC 290.0 /mm3 (0.0-0.0) H 07/04/17 01:58 CSF Total Cell Counted 100 (0-0) H 07/04/17 01:58 CSF Neutrophils 11 % (0-0) H 07/04/17 01:58 CSF Lymphocytes 80.0 % (0-0) H 07/04/17 01:58 CSF Monos/Macrophages 9 % (0-0) H 07/04/17 01:58 CSF Comment 07/04/17 01:58 CSF Glucose 168 mg/dL (40-70) H* 07/04/17 00:22 CSF VDRL Nonreactive (Nonreactive) 07/03/17 09:32 CSF Lyme Disease DNA Not detected 07/03/17 09:32 CSF Toxo. gondii IgG <0.90 07/03/17 09:32 Stool Leukocytes, Qual Negative (NEGATIVE) 07/04/17 06:36 Random Vancomycin 10.55 ug/mL 07/08/17 09:30 Levetiracetam 15.7 mcg/mL 07/04/17 14:06 Lyme Specimen Source Csf 07/03/17 09:32 C. difficile Ag & Toxin Negative (NEGATIVE) 07/07/17 09:58 Influenza Typ A,B (EIA) Negative for flu a/b (NEGATIVE) 07/04/17 08:08 H.influenzae Type B Ag Negative (NEGATIVE) 07/03/17 23:34 N.meningitidis ACY/W135 Negative (NEGATIVE) 07/03/17 23:34 N.meningi B/E.coli K1 Ag Negative (NEGATIVE) 07/03/17 23:34 Group B Strep Antigen Negative (NEGATIVE) 07/03/17 23:34 S. pneumoniae Antigen Negative (NEGATIVE) 07/03/17 23:34 - Hospital Course Hospital Course: 71 F with h/o anoxic injury, siezure, recent fever, with seizure, with uti recently sent in from [place] for fever, ams, shaking. In ER patient was given ativan the shaking stopped. Temp was 104, tachycardic needing about 40% fio2, hemoconcentrated, on labs, non communicative, but would try to close eyes when try to touch cornea/conjuctiva, suggesting some vision, and not status behaviour. Patient admitted to ICU for multiple co-morbidities, sepsis, poor airway protection due anoxia hence higher risk for aspiration. Allergies: none PMHx: DM, HTN, Hypercholesterolemia, depression Meds from [place]:Reviewed PSHx: Cholecystectomy, Tonsillectomy, s/p peg Family Hx: unknown Social Hx: 1ppd smoker x 30-40years, no alcohol or substance use HOSPITAL COURSE: Patient admitted for seizure activity and fever. Determined to have sepsis. Most likely source for fever was inoculation of PEG site. She also had UTI. PEG tube was replaced. Appropriate antibiotics were given and she improved significantly. On discharge patient's vitals were normal, no leukocytosis. See latest progress note (shown below) for further details. 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 Aureus and Strenotophomona malophilia - urine Cx (07/04): Strep viridans - blood (07/03): Coag Neg Staph - Lumbar puncture performed - results indicative of bloody tap - ID (Rehana) GI: diarrhea, PEG with purulent discharge, functioning - Glucerna 10 ml/hr, goal 40 ml/hr - PEG Cx (07/04): Staph. Aureus and GNR CT abdomen w/ IV contrast done (see report) - Lactulose 20 gm PO HS PRN - Flagyl 500 mg @ 100 mls/hr IVPB Q8 - C. diff negative - CT abd showed no abscess/collection by PEG, however showed possible neoplasm vs diverticulosis * Patient would eventually require colonoscopy evaluation of suspected intraluminal colon lesion, however will defer procedure for time being given ongoing sepsis and seizure activity. Will discuss with family members regarding risks/benefits of potential procedure. - PEG to be replaced 07/08/17 - repositioned 07/09/17 * Check abdominal flat plate with gastrografin contrast to confirm placement * Functional - Bactroban around PEG site - GI ([place]) Cards: HTN, hypercholesteremia - Lopressor 12.5 PEG Q12 - Crestor 10 mg PEG QID - ASA 81 mg PO QID - EKG showed abnormal T waves, no ST elevations - Cardio (Markie) * No cardic interventon indicated at this time. Pulm: no acute issues - O2 by nasal canula - CXR clear - rapid flu neg - head of bed elevated above 30 degrees - aspiration precautions - aggressive pulmonary toilet Renal/: UTI - BUN/Cr 8/0.3 - urine Cx (07/04): Strep viridans Endo: DM - Levimir 22 U SC HS - Novolog SC Q6 - glucose 152 PPx: - Pepcid 40 mg IVP BID - Lovenox 40 mg SC QD - zinc sulfate 220 mg PEG QD - multivitamin - Palliative (Obradovic) Discharge Exam - Head Exam Head Exam: ATRAUMATIC, NORMAL INSPECTION - Additional Findings Additional findings: Head Exam: NORMOCEPHALIC Additional comments: ATRAUMATIC, NORMAL INSPECTION, NORMOCEPHALIC - Eye Exam Eye Exam: EOMI, Normal appearance Pupil Exam: Irregular - ENT Exam ENT Exam: Mucous Membranes Moist, Normal Exam - Neck Exam Neck exam: Positive for: Normal Inspection - Respiratory Exam Respiratory Exam: Clear to Auscultation Bilateral - Cardiovascular Exam Cardiovascular Exam: REGULAR RHYTHM, +S1, +S2 - GI/Abdominal Exam Additional comments: PEG tube in place; small amount of foul smelling purulence noted around site, no erythema or warmth noted - Extremities Exam Extremities exam: Positive for: normal inspection RUE tremulous when reaching for face which has been suspected to be seizure activity - Back Exam Back exam: NORMAL INSPECTION - Neurological Exam Neurological exam: Altered Discharge Plan - Follow Up Plan Condition: IMPROVED Disposition: HOME/ ROUTINE Instructions: Sepsis (DC), Sepsis (GEN) Additional Instructions: Continue antibiotics for 5 days until 07/15/17. These antibiotics are: Metronidazole 500mg IVP Q8H Cefepime 1g IVP Q8H Vancomycin 125mg PEG HS Continue all other medications. Once stable patient will need work-up regarding her suspected mass in descending colon. Referrals: Frank Levine MD [Staff Provider] -
[2017-07-10 14:30] VITALS: O2SAT 99
[2017-07-10 16:59] VITALS: BP 99/55; RESP 20
[2017-07-10 17:07] VITALS: PULSE 76; TEMP 98.9
[2017-07-11 00:16] LABS: LEVETIRACETAM 60.9 mcg/mL
== END 2017-07-10 16:58 | DRG 871 ==
LOC: C.ER 22:46 → C.9I 07-04 03:47
PROVIDERS: ADMIT Internal Medicine; ATTEND Internal Medicine
PROC: 009U3ZX Drainage of Spinal Canal, Percutaneous Approach, Diagnostic (ICD-10-PCS; principal; 2017-07-04)
PROC: 0D20XUZ Change Feeding Device in Upper Intestinal Tract, External Approach (ICD-10-PCS; 2017-07-08)
PROC: 02HV33Z Insertion of Infusion Device into Superior Vena Cava, Percutaneous Approach (ICD-10-PCS; 2017-07-09)
PROC: 0DW6XUZ Revision of Feeding Device in Stomach, External Approach (ICD-10-PCS; 2017-07-09)
DX: A41.9 Sepsis, unspecified organism (principal); G92 Toxic encephalopathy; G40.911 Epilepsy, unspecified, intractable, with status epilepticus; E11.65 Type 2 diabetes mellitus with hyperglycemia; R47.01 Aphasia; G81.94 Hemiplegia, unspecified affecting left nondominant side; N39.0 Urinary tract infection, site not specified; K94.22 Gastrostomy infection; K94.23 Gastrostomy malfunction; I50.9 Heart failure, unspecified; I69.320 Aphasia following cerebral infarction; J44.9 Chronic obstructive pulmonary disease, unspecified; E78.5 Hyperlipidemia, unspecified; F17.210 Nicotine dependence, cigarettes, uncomplicated; R09.02 Hypoxemia; R62.7 Adult failure to thrive; Z51.5 Encounter for palliative care; Z79.4 Long term (current) use of insulin; I11.0 Hypertensive heart disease with heart failure; I25.10 Atherosclerotic heart disease of native coronary artery without angina pectoris

== ENCOUNTER 2017-08-28 13:49 | Emergency (ER) | payer MEDICARE, OTHER ==
[2017-08-28 13:49] VITALS: BMI 41.9
--- NOTE | 2017-08-28 15:13 | C.PDOC ---
History Of Present Illness 71 y/o female sent to the ED from [facility] for g-tube replacement. Patient has a pmhx of dementia and is a poor historian. History provided by correction notes. Additionally, patient is bed bound and non- ambulatory at baseline. Time Seen by Provider: 08/28/17 14:45 Chief Complaint (Nursing): Medical Clearance History Per: Patient History/Exam Limitations: clinical condition (dementia) Onset/Duration Of Symptoms: Hrs Current Symptoms Are (Timing): Still Present Additional History Per: Group Home Past Medical History Reviewed: Historical Data, Nursing Documentation, Vital Signs Vital Signs: Last Vital Signs Temp 99.7 F H 08/28/17 16:26 Pulse 85 08/28/17 16:26 Resp 20 08/28/17 16:26 BP 118/72 08/28/17 16: Pulse Ox 20 L 08/28/17 16:42 - Medical History PMH: Anxiety, Depression, Diabetes, Gastritis, HTN, Hypercholesterolemia, Seizures Denies: Asthma, Atrial Fibrillation, Bronchitis, Cardia Arrhythmia, CHF, COPD , Emphysema, Mitral Valve Prolapse, Peripheral Edema, Pneumonia, Pulmonary Embolism, Chronic Kidney Disease, Sleep Apnea Surgical History: Cholecystectomy, Tonsillectomy Denies: Pacemaker - [facility] Procedures ASSISTANCE WITH RESPIRATORY VENTILATION, 24-96 HRS, CPAP (05/19/16) CHANGE FEEDING DEVICE IN UP INTEST TRACT, LICENSED ELECTRICIAN APPROACH (07/04/17) DRAINAGE OF SPINAL CANAL, PERCUTANEOUS APPROACH, DIAGNOSTIC (07/04/17) DRAINAGE OF STOMACH WITH DRAINAGE DEVICE, VIA OPENING (02/21/16) EXCISION OF STOMACH, ENDO, DIAGN (02/21/16) INSERTION OF FEEDING DEVICE INTO STOMACH, PERC APPROACH (02/21/16) INSERTION OF INFUSION DEV INTO SUP VENA CAVA, PERC APPROACH (07/04/17) INTRODUCTION OF NUTRITIONAL INTO UP GI, VIA OPENING (05/19/16) REVISION OF FEEDING DEVICE IN STOMACH, EXTERNAL APPROACH (07/04/17) Family History: States: Unknown Family Hx - Social History Hx Tobacco Use: Yes Hx Alcohol Use: No Hx Substance Use: No - Immunization History Hx Tetanus Toxoid Vaccination: Yes Hx Influenza Vaccination: Yes Hx Pneumococcal Vaccination: Yes Review Of Systems Review Of Systems: ROS cannot be obtained secondary to pt's inabilty to answer questions. Physical Exam - Physical Exam Appears: No Acute Distress Skin: Warm, Dry, No Rash, Other (No decubitus or pressure ulcers) Head: Atraumatic, Normacephalic Eye(s): bilateral: Normal Inspection Nose: Normal Oral Mucosa: Moist Neck: Normal ROM Chest: Symmetrical Cardiovascular: Rhythm Regular, No Murmur Respiratory: Normal Breath Sounds, No Rales, No Rhonchi, No Wheezing Gastrointestinal/Abdominal: Soft, No Tenderness, No Guarding, No Rebound, Other (G-tube in place) Back: Normal Inspection, No CVA Tenderness, No Vertebral Tenderness Extremity: No Swelling Extremity: Bilateral: Atraumatic, Normal Color And Temperature Pulses: Left Dorsalis Pedis: Normal, Right Dorsalis Pedis: Normal Neurological/Psych: Other (Alert and awake. Patient is non-verbal, non- ambulatory with left sided paresis at baseline) ED Course And Treatment O2 Sat by Pulse Oximetry: 98 (NC) Pulse Ox Interpretation: Normal (2L) Medical Decision Making Medical Decision Making: Initial Plan: * Paged Dr. Coleman for GI consult 16:08 Ordered abdomen flat plate x-ray Patient evaluated by GI Dr. Coleman and Dr. Arteaga in the ED. Gastrografin went through the Peg- tube and the tube is in place. Disposition - Disposition Referrals: Martínez Coleman MD [Staff Provider] - Disposition: HOME/ ROUTINE Disposition Time: 18:48 Condition: STABLE Additional Instructions: PEG tube is in place. Forms: [employer] (Setswana) - Clinical Impression Clinical Impression: PEG tube malfunction - PA / CARD DECORATOR / Resident Statement MD/DO has reviewed & agrees with the documentation as recorded. - Scribe Statement The provider has reviewed the documentation as recorded by the Scribe (Aspen Mac) All medical record entries made by the Scribe were at my direction and personally dictated by me. I have reviewed the chart and agree that the record accurately reflects my personal performance of the history, physical exam, medical decision making, and the department course for this patient. I have also personally directed, reviewed, and agree with the discharge instructions and disposition.
[2017-08-28 19:32] VITALS: TEMP 97.4
[2017-08-28 21:45] VITALS: BP 124/74; PULSE 80; RESP 20; O2SAT 98
--- NOTE | 2017-08-29 10:32 | RAD ---
HISTORY: eval for peg tube placement COMPARISON: Abdominal radiographs dated 07/09/2017 FINDINGS: BOWEL: Gastrostomy tube in place with opacification of stomach and proximal small bowel without obvious evidence of leak. Dilated large bowel with coffee haider shaped configuration with apex in the left upper quadrant. BONES: Normal. OTHER FINDINGS: None. IMPRESSION: Gastrostomy tube in satisfactory position without obvious evidence of leak. Dilated large bowel with coffee haider shaped configuration which is nonspecific but can be seen in the setting of sigmoid volvulus. Clinical correlation is recommended. CT scan of the abdomen pelvis can be obtained for further evaluation as clinically warranted. ER notification submitted electronically.
== END 2017-08-28 22:13 | disposition home or self-care (01) ==
LOC: C.ER 13:49
DX: K94.23 Gastrostomy malfunction (principal); Y83.8 Other surgical procedures as the cause of abnormal reaction of the patient, or of later complication, without mention of misadventure at the time of the procedure; Y82.8 Other medical devices associated with adverse incidents